=== PATIENT | female | born 1990 | race Caucasian/White ===

== ENCOUNTER 2021-07-18 13:44 | Inpatient (IN) | payer MEDICAID, SELFPAY ==
[2021-07-18] VITALS (7 sets, daily range): BP systolic 111–144; BP diastolic 63–94; PULSE 90–120; RESP 16–18; TEMP 36.6–37.7; O2SAT 91–97; BMI 32.1; BMI 31.7
[2021-07-18 14:13] LABS: Absolute Lymphocyte Count 3.36 X10^3/uL (0.83-4.51); Absolute Neutrophil Count 4.8 X10^3/uL (2.0-7.7); Basophil# 0.03 X10^3/uL; Basophil% 0.3 % (0-1); Eosinophil# 0.09 X10^3/uL; Hematocrit 42.5 % (37-47); Hemoglobin 14.2 g/dL (12.0-15.0); Lymphocyte # 3.36 X10^3/ul (0.83-4.51); Lymphocyte % 38.8 % (19-41); Mean Corp Hgb Conc 33.4 g/dL (32-36); Mean Corpuscular Hgb 30.5 pg (27.0-32.0); Mean Corpuscular Volume 91.2 fL (81-99); Mean Platelet Vol. 9.1 fl (6.2-12.0); Monocyte% 4.6 % (0-10); NRBC Flagged by Analyzer 0 % (0-5); Neutrophil # 4.76 X10^3/uL (2.7-7.7); Neutrophil % 55.1 % (47-70); Platelet Count 281 K/mm3 (150-450); RBC Distribution Width CV 15.5 % (11.6-14.6); RBC Distribution Width SD 51.4 fl (35.1-43.9); Red Blood Count 4.66 M/mm3 (4.2-5.4); White Blood Count 8.7 K/mm3 (4.4-11.0)
[2021-07-18 14:25] LABS: Internal QC Validated? YES +Cl - CLEAR BKGD; Pregnancy, Serum, hCG Quali. NEGATIVE Negative
[2021-07-18 14:29] LABS: Anion Gap 7 (5-15); BUN 5 mg/dL (7-18); BUN/Creat Ratio 11.3 RATIO (10-20); Calcium,Total 8.3 mg/dL (8.5-10.1); Chloride 109 mmol/L (98-107); Creatinine, Serum 0.44 mg/dL (0.55-1.02); EST Glomerular Filtration Rate 176 mL/min (>60); Est Glom Filt Rate - Afr Amer 214 mL/min (>60); Estimated Creatinine Clearance 141.08 ml/min; Glucose 102 mg/dL (74-106); Potassium 3.7 mmol/L (3.5-5.1); Sodium Level 146 mmol/L (136-145)
[2021-07-18 14:37] LABS: Amphetamine Urine VISTA NEGATIVE (<1000 ng/mL); Barbiturate Urine VISTA NEGATIVE (< 200 ng/mL); Benzodiazepine Urine VISTA POSITIVE (< 200 ng/mL); Cocaine Urine VISTA NEGATIVE (< 300 ng/mL); Ecstacy Urine VISTA NEGATIVE (< 500 ng/mL); Methadone Urine VISTA NEGATIVE (< 300 ng/mL); PCP Urine VISTA NEGATIVE (< 25 ng/mL); THC Urine VISTA NEGATIVE (< 50 ng/mL); Vista UDS pH Range 7
--- NOTE | 2021-07-18 15:30 | CM.ED ---
Addendum entered by Cele Fall 07/18/21 19:06: Addiction Therapist, Natalya notified of admission. Original Note: SW Note Referral Source: RAMP program Case Find Referral Reason: Ramp Program SW met with patient and her stepmom, Abbi Casillas. Patient said that she went to [place] this morning for detox but they had a 18-21 hour wait so they came to [facility]. Patient said that she wants to detox from alcohol. Patient's last use of alcohol was 7:00am this morning. Patient said that she had 3 shots of vodka this morning. Patient said that she has been at [facility] 2 x in the past. Patient reports that she got released from [facility] in December 2020. Patient said that she was sober for 8 months. Patient said that she relapsed. Patient said that she was treated at [facility] from 07/07/21- 07/11/21 and patient was not admitted for detox as I have so many medical issues but stated they were treating her for cirrohosis, low blood platelets and an UTI that is still unresolved. Patient said that she has always been admitted to the medical unit and they do the alcohol detox protocol which includes Ativan while on the medical unit. Patient said that her PCP Dr. Quintanilla at [facility] has linked her with a counselor on 08/24/20. Patient has no other outpatient AOD treatment. Patient said that [place] going [place] of [place] for AOD treatment. SW explained the detox/Ramp expectations (no phone, no visitors, personal belongings locked) and patient voiced she had no concerns stating I have done detox before. CELESTINO advised that patient will follow up with Addiction Therapist the following day after admission. Patient asked if she will be admitted for detox or for her medical issues and SW advised that decision will be made by the MD. Plan: GEO VELARDE
[2021-07-18 16:10] LABS: Mucous, Urine 0 SEEN /hpf (<or=2+); White Blood Cells 0 SEEN /hpf (0-5)
[2021-07-18 16:16] LABS: Color, Urine Yellow (Yellow); Glucose, Dipstick Normal (Normal); Ketone-Dipstick Negative (Negative); Leukocyte Esterase-Dipstick Negative /ul (Negative); Nitrite-Dipstick Negative (Negative); Occult Blood-Urine 50 /ul (Negative); Protein-Dipstick 100 mg/dl (Negative); Specific Gravity, Urine 1.015 (1.002-1.030); Urine Bilirubin Dipstick Negative (Negative); Urine Clarity Clear (Clear); Urine Urobilinogen 8 mg/dl (Normal); Urine pH 6.5 (5.0 - 8.0)
--- NOTE | 2021-07-18 16:23 | EDS_ITS ---
HPI History of Present Illness Chief Complaint: ETOH Intox Detail of Chief Complaint: Requesting detox from alcohol Informant: patient Narrative Narrative: Patient presents to the emergency department requesting detox from alcohol. Patient states that she last drank at 7 AM. She normally drinks vodka about 1/5/day. Patient states 2-1/2 weeks ago she was at [facility] for detox and once she got out she started drinking again. She has been drinking heavily for the last week. Patient has history of cirrhosis and history of esophageal varices. She denies fever or cough or recent illness. Patient describes some lower abdominal discomfort with some dysuria and frequency and thinks she may have a UTI. Patient has never had seizures from withdrawal. Patient does feel somewhat nauseated. Prior similar symptoms: Yes [facility] Medical History (Updated 07/18/21 @ 16:[address] Mi Garrido, DO) Alcoholic cirrhosis of liver Esophageal varices Gallstone Social History Smoking Status: Current every day smoker tobacco type: cigarettes ROS ROS ED Constitutional Constitutional ED: Reports systems reviewed and no addt'l complaints, except as documented; Denies body ache(s), change in weight or chills Eyes Eyes: Denies acute decrease in peripheral vision, change in vision, double vision or loss of vision ENT ENT ED: Reports none; Denies ear pain, lip swelling, loss taste/smell, neck pain, otalgia or sore throat Cardiovascular Cardiovascular: Reports none; Denies abdominal pain, chest pain with activity, leg edema, lightheadedness, palpitations, rapid heart rate or syncope Respiratory/Chest Respiratory/Chest: Reports none; Denies change in mental status, dry cough, dyspnea, hemoptysis, shortness of breath at rest or shortness of breath with exertion Gastrointestinal Gastrointestinal: Reports none, abdominal pain and nausea; Denies change in stool character, diarrhea, hematemesis, hematochezia, melena, rectal bleeding or vomiting Genitourinary Genitourinary ED: Reports none and dysuria; Denies abdominal discomfort, anuria, genital pain or polyuria Musculoskeletal Musculoskeletal: Reports none; Denies arthralgias, back pain, difficulty walking, extremity pain, muscle weakness or myalgias Integumentary Reports none; Denies abscess or rash Neurologic Neurologic: Reports none; Denies abnormal gait, confusion, focal weakness, frequent falls, headache(s), loss of vision, numbness, paresthesias, radicular pain, vertigo or weakness Psychiatric Psychiatric: Reports systems reviewed and no addt'l complaints, except as documented and none; Denies behavioral changes, confusion, difficulty concentrating, hallucinations, suicidal ideation, tactile hallucinations or visual hallucinations Endocrine Endocrinology: Denies none, cold intolerance, excessive sweating, fatigue or heat intolerance Hematologic/Lymphatic Hematologic/Lymphatic: Reports none; Denies anemia, easy bleeding or easy bruising Allergic/Immunologic Allergic/Immunologic ED: Denies as per HPI, none, lip swelling, mouth swelling, throat swelling, tongue swelling or hives EXAM Physical Exam Const Vital Signs: 07/18/21 13:46 07/18/21 16:07 Temperature 99.5 F H 98.9 F Temperature Source Temporal Temporal Pulse Rate 120 H 91 Respiratory Rate 18 18 Blood Pressure 144/94 H 133/83 H Blood Pressure Mean 110 99 Blood Pressure Source Monitor Blood Pressure Position Semi-Fowlers Blood Pressure Location Left Arm Pulse Ox 91 97 Oxygen Delivery Method Room Air Room Air Positive well nourished and well developed General Appearance ED: well developed and NAD HEENT Reports TM's clear and moist mucous membranes normocephalic and atraumatic; Negative for trauma or tenderness Tympanic Membrane ED: Yes TM's clear Eyes PERRL and EOMs intact bilaterally General Eye ED: Negative for pale conjunctiva or scleral icterus Neck no lymphadenopathy, supple and no JVD General: Negative for tenderness Chest Wall inspection of chest normal and palpation of chest normal Chest: Negative for tenderness Resp normal respiratory effort and clear to auscultation bilaterally Effort and Inspection: Negative for respiratory distress or pain with movement Auscultation: Negative for rhonchi, wheezes or diminished lung sounds Cardio regular rate, regular rhythm, S1 normal heart sound, S2 normal heart sound and no murmurs Peripheral Pulses: pulses 2+ throughout GI normal to inspection, nondistended, normoactive bowel sounds, soft to palpation, non-tender, non-distended and no masses GI Narrative: Mild diffuse tenderness over the lower abdomen. There is no rebound, rigidity, or peritoneal signs. Back/Spine no CVA tenderness and no thoracic nor lumbar tenderness Extremity normal to inspection General Extremety ED: Negative for edema General Extremity: Negative for edema Neuro oriented x3, CN's II-XII intact bilaterally, no sensory deficits noted and gait normal Sensorium / Orientation: awake, alert, oriented to person, oriented to place and oriented to time Motor Exam: strength 5/5 throughout and strength abnormal Psych mental status grossly normal Skin no rashes or lesions noted and no wounds MDM MDM MDM Narrative Medical decision making narrative: IV line will be established. Patient still has a level of alcohol of 303. Patient will be given Zofran IV. Case discussed with hospitalist will evaluate patient for admission. Lab Data Attestation: I reviewed the patient's lab results. Labs: Laboratory Results - last 24 hr 07/18/21 07/18/21 07/18/21 14:00 14:00 14:00 WBC 8.7 RBC 4.66 Hgb 14.2 Hct 42.5 MCV 91.2 MCH 30.5 MCHC 33.4 RDW Std Deviation 51.4 H RDW Coeff of Lee 15.5 H Plt Count 281 MPV 9.1 Immature Gran % (Auto) 0.200 Neut % (Auto) 55.1 Lymph % (Auto) 38.8 [place] % (Auto) 4.6 Eos % (Auto) 1.0 Baso % (Auto) 0.3 Absolute Neuts (auto) 4.8 Absolute Lymphs (auto) 3.36 Nucleated RBC % 0 Sodium 146 H Potassium 3.7 Chloride 109 H Carbon Dioxide 30.0 Anion Gap 7 BUN 5 L Creatinine 0.44 L Estim Creat Clear Calc 141.08 Est GFR (MDRD) Af Amer 214 Est GFR (MDRD) Non-Af 176 BUN/Creatinine Ratio 11.3 Glucose 102 Calcium 8.3 L Serum , Qual Urine Color Urine Clarity Urine pH Ur Specific [place] Urine Protein Urine Glucose (UA) Urine Ketones Urine Occult Blood Urine Nitrite Urine Bilirubin Urine Urobilinogen Ur Leukocyte Esterase Urine Opiates Screen Urine Methadone Screen Ur Barbiturates Screen Ur Phencyclidine Scrn Ur Amphetamines Screen U Methamphetamin-MDMA U Benzodiazepines Scrn Urine Cocaine Screen U Cannabinoids Screen Ur Drug Screen Comment Ethyl Alcohol 303.0 H* 07/18/21 07/18/21 07/18/21 14:00 14:00 14:00 WBC RBC Hgb Hct MCV MCH MCHC RDW Std Deviation RDW Coeff of Lee Plt Count MPV Immature Gran % (Auto) Neut % (Auto) Lymph % (Auto) [place] % (Auto) Eos % (Auto) Baso % (Auto) Absolute Neuts (auto) Absolute Lymphs (auto) Nucleated RBC % Sodium Potassium Chloride Carbon Dioxide Anion Gap BUN Creatinine Estim Creat Clear Calc Est GFR (MDRD) Af Amer Est GFR (MDRD) Non-Af BUN/Creatinine Ratio Glucose Calcium Serum , Qual NEGATIVE Urine Color Yellow Urine Clarity Clear Urine pH 6.5 Ur Specific [place] 1.015 Urine Protein 100 H Urine Glucose (UA) Normal Urine Ketones Negative Urine Occult Blood 50 H Urine Nitrite Negative Urine Bilirubin Negative Urine Urobilinogen 8 H Ur Leukocyte Esterase Negative Urine Opiates Screen NEGATIVE Urine Methadone Screen NEGATIVE Ur Barbiturates Screen NEGATIVE Ur Phencyclidine Scrn NEGATIVE Ur Amphetamines Screen NEGATIVE U Methamphetamin-MDMA NEGATIVE U Benzodiazepines Scrn POSITIVE H Urine Cocaine Screen NEGATIVE U Cannabinoids Screen NEGATIVE Ur Drug Screen Comment Ethyl Alcohol Discharge Plan Triage Chief Complaint: ETOH Intox ED Provider: Mi Garrido Dx/Rx/DC Orders Clinical Impression: Alcohol intoxication, Admitted to alcohol detoxification center Disposition Disposition: Acute Care Hospital [facility]
[2021-07-18 16:26] LABS: Bacteria RARE /hpf (None Seen); Red Blood Cells-Urine 0-5 SEEN /hpf (0-5); Squamous Epithelial Cells - UA 0-5 SEEN /hpf (5-10)
[2021-07-18 16:28] LABS: Internal QC Validated? YES +Cl - CLEAR BKGD; Pregnancy, Urine Negative Negative
--- NOTE | 2021-07-18 16:35 | HP.PCM.HOS_ITS ---
HPI - General General Date of Admission: 07/18/21 Date of Service: 07/18/21 Chief Complaint: EtOH withdrawal HPI Narrative The patient is a 31 y/o F w/ PMHx: Alcoholic cirrhosis, Hx varices s/p banding, Tobacco use, EtOH Abuse with ongoing 1/5 vodka daily with recent [facility] evaluation 2 weeks prior for EtOH withdrawal treatment with successful 1 week of sobriety however she began drinking again reporting that she was bored and did not have a sponsor, prompting presentation to the [facility] on 07/18/21 w/ noted eagerness for recurrent sobriety with self decrease in alcohol intake with last intake at a 7 AM on day of presentation with onset of mild alcohol withdrawal symptoms starting in the early afternoon with mild nausea, agitation and reporting also bilateral lower abdomen discomfort initially felt potentially consistent with a urinary tract infection. Patient interested in attaining sober status and notes intention to begin with 180 to obtain a sponsor. She reports that her fianc? with whom she lives does drink alcohol is not an alcoholic from discussions. Discussed at length the need for him to completely remove alcohol from the home. Work-up in the ED included T 97.8, heart rate 91, BP 134/76, respiratory rate 16, 97% room air, CBC with WC 8.7, hemoglobin 14.2, platelet 281 without marked shift, BMP with sodium 146, chloride 109, BUN/creatinine 5/0.44, serum testing negative, no hepatic profile was performed in the patient but this is pending, urinalysis with evidence of mild dehydration but no evidence of UTI, UDS with positive benzodiazepines with patient noted to be on BuSpar, alcohol level 303, rapid Covid antigen negative. [facility] Medical History Alcoholic cirrhosis of liver Anxiety and depression Esophageal varices Gallstone Obesity Tobacco use Allergy/AdvReac Type Severity Reaction Status Date / Time No Known Allergies Allergy Verified 07/18/21 16:39 Family History (Updated 07/18/21 @ 17:[address] Lucrecia Ware MD) Mother Alcohol abuse Hypertension Father Alcohol abuse Anxiety and depression Surgical History (Updated 07/18/21 @ 17:[address] Lucrecia Ware MD) History of endoscopic gastrointestinal surgery Social History (Updated 07/18/21 @ 17:[address] Lucrecia Ware MD) household members: significant other Smoking Status: Current every day smoker tobacco type: cigarettes Smoking packs per day: 0.25 Smoking cigarettes per day: 5.0 Years smoked: 15 Smoking pack- years: 3.75 alcohol intake: current alcohol intake frequency: 3 or more drinks per day Alcohol type: hard liquor details: 07/25 vodka daily substance use type: does not use ROS ROS Narrative Admission Review of Systems: CONSTITUTIONAL: No weight loss, fever, chills, + weakness or fatigue. HEENT: Eyes: No visual loss, blurred vision, double vision or yellow sclerae. Ears, Nose, Throat: No hearing loss, sneezing, congestion, runny nose or sore throat. SKIN: No rash or itching, lesions, wounds. CARDIOVASCULAR: No chest pain, chest pressure or chest discomfort, palpitations, edema, orthopnea, syncopal events. RESPIRATORY: No shortness of breath, cough or sputum, wheezing, hemoptysis. GASTROINTESTINAL: + anorexia, bilateral lower quadrant abdominal discomfort, No nausea, vomiting, diarrhea, melena, BRBPR. GENITOURINARY: No dysuria, frequency, urgency or retention. NEUROLOGICAL: + Agitation, mild tremors, No headache, dizziness, syncope, paralysis, ataxia, numbness or tingling in the extremities, focal weakness, change in bowel or bladder control, seizure. MUSCULOSKELETAL: + muscle, back pain, joint pain or stiffness. HEMATOLOGIC: No anemia, bleeding or bruising. LYMPHATICS: No enlarged nodes. No history of splenectomy. PSYCHIATRIC: + history of depression or anxiety. ENDOCRINOLOGIC: No reports of sweating, cold or heat intolerance. No polyuria or polydipsia. ALLERGIES: No history of asthma, hives, eczema or rhinitis. Vital Signs Vital Signs Vital Signs: 07/18/21 13:46 07/18/21 16:07 Temperature 99.5 F H 98.9 F Temperature Source Temporal Temporal Pulse Rate 120 H 91 Respiratory Rate 18 18 Blood Pressure 144/94 H 133/83 H Blood Pressure Mean 110 99 Blood Pressure Source Monitor Blood Pressure Position Semi-Fowlers Blood Pressure Location Left Arm Pulse Ox 91 97 Oxygen Delivery Method Room Air Room Air Weight Weight: 170 lb Body Mass Index (BMI) 32.1 Physical Exam Narrative Physical Examination: General: Awake, alert, oriented x 3 and cooperative, seated upright in the ED bed, mildly agitated, very minimal tremors at this time, notes abdominal discomfort. Skin: Normal color, normal turgor, no icterus, no cyanosis. HEENT: AT/NC, EOMI, PERRLA, mildly dry MM, no carotid bruits or JVD noted. Lungs: CTA bilaterally, moderate effort, mild decrease BL bases, no rales, ronchi or wheezing. Heart: Regular rate and rhythm; no gallop, rub audible. Abdomen: Soft, discomfort to bilateral lower quadrants with no rebound or guarding, no obvious distention, distant mildly hyperactive bowel sounds, positive HM. Extremities: No cyanosis, no clubbing, mild nonpitting bilateral lower extremity ankle to distal vázquez edema. Neurological: Patient awake, alert, oriented as noted, cognitive function intact; pupils equally reactive to light and accommodation, cranial nerves II- XII grossly normal, moving all 4 extremities, no focal deficits, strength mildly global decrease secondary to acute presentation and complaints, mildly tremulous with agitation. Psychiatric: Affect appears anxious, mildly agitated, no acute evidence of depressive feelings. Results Lab / Micro Data Result Diagrams: 07/18/21 14:00 07/18/21 14:00 Labs: Laboratory Results - last 24 hr 07/18/21 14:00: WBC 8.7, RBC 4.66, Hgb 14.2, Hct 42.5, MCV 91.2, MCH 30.5, MCHC 33.4, RDW Std Deviation 51.4 H, RDW Coeff of Lee 15.5 H, Plt Count 281, MPV 9.1, Immature Gran % (Auto) 0.200, Neut % (Auto) 55.1, Lymph % (Auto) 38.8, [place] % (Auto) 4.6, Eos % (Auto) 1.0, Baso % (Auto) 0.3, Absolute Neuts (auto) 4.8, Absolute Lymphs (auto) 3.36, Nucleated RBC % 0 07/18/21 14:00: Sodium 146 H, Potassium 3.7, Chloride 109 H, Carbon Dioxide 30.0, Anion Gap 7, BUN 5 L, Creatinine 0.44 L, Estim Creat Clear Calc 141.08, Est GFR (MDRD) Af Amer 214, Est GFR (MDRD) Non-Af 176, BUN/Creatinine Ratio 11.3, Glucose 102, Calcium 8.3 L 07/18/21 14:00: Ethyl Alcohol 303.0 H* 07/18/21 14:00: Urine Opiates Screen NEGATIVE, Urine Methadone Screen NEGATIVE, Ur Barbiturates Screen NEGATIVE, Ur Phencyclidine Scrn NEGATIVE, Ur Amphetamines Screen NEGATIVE, U Methamphetamin-MDMA NEGATIVE, U Benzodiazepines Scrn POSITIVE H, Urine Cocaine Screen NEGATIVE, U Cannabinoids Screen NEGATIVE, Ur Drug Screen Comment 07/18/21 14:00: Serum , Qual NEGATIVE 07/18/21 14:00: Urine Color Yellow, Urine Clarity Clear, Urine pH 6.5, Ur Specific [place] 1.015, Urine Protein 100 H, Urine Glucose (UA) Normal, Urine Ketones Negative, Urine Occult Blood 50 H, Urine Nitrite Negative, Urine Bilirubin Negative, Urine Urobilinogen 8 H, Ur Leukocyte Esterase Negative, Urine RBC 0-5 SEEN, Urine WBC 0 SEEN, Ur Squamous Epith Cells 0-5 SEEN, Urine Bacteria RARE, Urine Mucus 0 SEEN, Urine Test Negative Micro: Microbiology 07/18/21 14:55 Nasal Secretion SARS-CoV-2 Antigen (Rapid) - Final Assessment & Plan Assessment/Plan (1) Admitted to alcohol detoxification center: (2) Alcohol withdrawal: QUALIFIERS: Complication of substance-induced condition: uncomplic ated Qualified Code(s): F10.230 - Alcohol dependence with withdrawal, unco mplicated PLAN: The patient is a 31 y/o F w/ PMHx: Alcoholic cirrhosis, Hx varices s/p banding, Tobacco use, EtOH Abuse with ongoing 1/5 vodka daily with recent [facility] evaluation 2 weeks prior for EtOH withdrawal treatment with successful 1 week of sobriety however she began drinking again reporting that she was bored and did not have a sponsor, prompting presentation to the [facility] on 07/18/21 w/ noted eagerness for recurrent sobriety with self decrease in alcohol intake with last intake at a 7 AM on day of presentation with onset of mild alcohol withdrawal symptoms starting in the early afternoon with mild nausea, agitation and reporting also bilateral lower abdomen discomfort. #1. Acute EtOH Withdrawal: Will admit to medical surgical floor, routine labs obtained in the ED upon presentation however will add hepatic profile as this has not been performed. Given interest in sobriety, will initiate and continue on protocol with taper course of Phenobarbital, scheduled gabapentin for seizure prophylaxis, as needed Catapres, Bentyl, Vistaril, IV fluids, IV antiemetics, Tylenol as needed for pain. Will consult Case management for assistance for transition to next level of rehabilitation care. Mag, phos pending. Maintain on CIWA protocol concurrently. #2. Bilateral lower quadrant abdominal discomfort: Unclear etiology, urinalysis not marked appearing, will obtain abdominal ultrasound, [place] profile pending. #3. Alcoholic cirrhosis with history of varices: Patient status post banding, denies any specific history of reported and documented GI bleed, hepatic profile has been requested as noted above, encourage continued outpatient follow-up with gastroenterology. #4. Tobacco Abuse: Encouraged cessation, inpatient consultation per RT, NR if d esired. #5. Obesity: Weight loss and lifestyle changes encouraged. #6. Anxiety and depression: Once clarified we will continue patient home citalopram and BuSpar regimen. #7. DVT prophylaxis: Low risk, encourage ambulation. Charges/Coding Visit Charges Inpatient E&M: 61356 Init Hosp L3
--- NOTE | 2021-07-18 16:40 | NURSING ---
MED SURG WHITE ETOH INTOX, REQUEST FOR ALCOHOL DETOX
[2021-07-18] MEDS: Ondansetron 4 MG/2 ML Vial IV (16:58)
[2021-07-18 17:33] LABS: AST(SGOT) 172 U/L (15-37); Alanine Aminotransfer ALT/SGPT 92 U/L (13-56); Albumin, Serum 2.9 g/dL (3.2-5.0); Alkaline Phosphatase 157 U/L (45-117); Bilirubin, Direct 0.36 mg/dL (0.00-0.30); Magnesium 1.9 mg/dL (1.6-2.6); Phosphorus 2.6 mg/dL (2.5-4.9); Protein, Total 6.9 g/dL (6.4-8.2)
[2021-07-18] MEDS: Phenobarbital 32.4 MG Tablet 64.8 MG PO ×2 (18:34→22:50)
[2021-07-18] MEDS: Folic Acid 1 MG Tablet PO (18:34)
--- NOTE | 2021-07-18 19:08 | NURSING ---
ROBBIE FROM [facility] IN [place] CALLED STATING SHE RECEIVED A CALL FROM PT'S MOTHER ABOUT TRANSFERRING PT TO THEIR FACILITY. THIS NURSE INFORMED ROBBIE THAT PT HAS BEEN ADMITTED TO [facility] AND WILL FOLLOW UP WITH [facility]. ROBBIE'S NUMBER IS [phone].
[2021-07-18] MEDS: Multivitamins,Ther W-Minerals Tablet 1 TABLET PO (21:16)
[2021-07-18] MEDS: Acetaminophen 325 MG Tablet 650 MG PO (22:54)
[2021-07-18] MEDS: Dicyclomine 10 MG Capsule 20 MG PO (22:55)
[2021-07-18] MEDS: Ondansetron 8 MG Tablet PO (22:55)
[2021-07-19] VITALS (9 sets, daily range): BP systolic 110–129; BP diastolic 79–86; PULSE 70–99; RESP 16; TEMP 36.2–36.8; O2SAT 93–95
[2021-07-19] MEDS: traZODone 100 MG Tablet PO ×2 (00:12→23:15)
[2021-07-19] MEDS: Phenobarbital 32.4 MG Tablet 64.8 MG PO ×6 (02:36→23:14)
[2021-07-19] MEDS: Gabapentin 300 MG Capsule PO (02:45)
--- NOTE | 2021-07-19 08:17 | PCM.PN.HOSP ---
Subjective Subjective Patient has history of chronic alcohol use and dependence. Patient recently admitted in [facility] about 2 and half weeks ago for acute alcohol withdrawal and had ultrasound. She has been drinking vodka about half bottle daily. History of decompensated alcoholic cirrhosis with esophageal varices status post banding and ascites. Objective Data Objective Data Vital Signs: Vital Signs Temp Pulse Resp BP Pulse Ox 97.9 F 99 16 126/82 H 93 07/19/21 06:16 07/19/21 06:16 07/19/21 06:16 07/19/21 06:16 07/19/21 06:16 Oxygen Delivery Method Room Air Weight: 168 lb Body Mass Index (BMI) 31.7 Lab / Micro Data Result Diagrams: 07/18/21 14:00 07/18/21 14:00 Labs: Laboratory Results - last 24 hr 07/18/21 14:00: WBC 8.7, RBC 4.66, Hgb 14.2, Hct 42.5, MCV 91.2, MCH 30.5, MCHC 33.4, RDW Std Deviation 51.4 H, RDW Coeff of Lee 15.5 H, Plt Count 281, MPV 9.1, Immature Gran % (Auto) 0.200, Neut % (Auto) 55.1, Lymph % (Auto) 38.8, Jenkins % (Auto) 4.6, Eos % (Auto) 1.0, Baso % (Auto) 0.3, Absolute Neuts (auto) 4.8, Absolute Lymphs (auto) 3.36, Nucleated RBC % 0 07/18/21 14:00: Sodium 146 H, Potassium 3.7, Chloride 109 H, Carbon Dioxide 30.0, Anion Gap 7, BUN 5 L, Creatinine 0.44 L, Estim Creat Clear Calc 141.08, Est GFR (MDRD) Af Amer 214, Est GFR (MDRD) Non-Af 176, BUN/Creatinine Ratio 11.3, Glucose 102, Calcium 8.3 L 07/18/21 14:00: Ethyl Alcohol 303.0 H* 07/18/21 14:00: Urine Opiates Screen NEGATIVE, Urine Methadone Screen NEGATIVE, Ur Barbiturates Screen NEGATIVE, Ur Phencyclidine Scrn NEGATIVE, Ur Amphetamines Screen NEGATIVE, U Methamphetamin-MDMA NEGATIVE, U Benzodiazepines Scrn POSITIVE H, Urine Cocaine Screen NEGATIVE, U Cannabinoids Screen NEGATIVE, Ur Drug Screen Comment 07/18/21 14:00: Serum , Qual NEGATIVE 07/18/21 14:00: Urine Color Yellow, Urine Clarity Clear, Urine pH 6.5, Ur Specific [place] 1.015, Urine Protein 100 H, Urine Glucose (UA) Normal, Urine Ketones Negative, Urine Occult Blood 50 H, Urine Nitrite Negative, Urine Bilirubin Negative, Urine Urobilinogen 8 H, Ur Leukocyte Esterase Negative, Urine RBC 0-5 SEEN, Urine WBC 0 SEEN, Ur Squamous Epith Cells 0-5 SEEN, Urine Bacteria RARE, Urine Mucus 0 SEEN, Urine Test Negative 07/18/21 14:00: Phosphorus 2.6, Magnesium 1.9, Total Bilirubin 0.90, Direct Bilirubin 0.36 H, AST 172 H, ALT 92 H, Alkaline Phosphatase 157 H, Total Protein 6.9, Albumin 2.9 L, Globulin 4.0 Micro: Microbiology 07/18/21 14:55 Nasal Secretion SARS-CoV-2 Antigen (Rapid) - Final Physical Exam Narrative General: Alert, Oriented x3, Cooperative HEENT: Atraumatic, PERRLA, EOMI, Normocephalic Oral: No Gingival or Mucosal Lesions/ Ulcerations Neck: Supple, No JVD, Negative Carotid Bruits Lungs: Air entry equal in bilateral lung bases. No crepitation/rhonchi Cardiovascular: Regular rate, Regular Rhythm, Normal S1, Normal S2, No murmurs Abdomen: Soft, mild tenderness present over right upper quadrant and epigastric region. No palpable ascites. Bowel Sounds Present : Mild dysuria. No renal angle tenderness. No suprapubic tenderness. Extremities: No edema, Capillary Refill Less than 3 Seconds Skin: No rashes, No breakdown Musculoskeletal: No Tenderness to Palpation of Joints or Extremities Neurological: Cranial nerves II-XII grossly intact, DTR 2+/4. No tremors. Psych/Mental Status: Normal Affect, Appropriate. Assessment & Plan Assessment/Plan (1) Admitted to alcohol detoxification center: (2) Alcohol withdrawal: QUALIFIERS: Complication of substance-induced condition: uncomplicated Qualified Code(s): F10.230 - Alcohol dependence with withdrawal, uncomplicated PLAN: The patient is a 31 y/o F with history of chronic alcohol use, decompensated alcoholic cirrhosis with esophageal web status post banding and ascites status post paracentesis is being admitted for acute alcohol withdrawal syndrome. #1. Acute EtOH Withdrawal: Admitted to MedSurg floor. On phenobarbitone regimen along with gabapentin, other adjunctive medications as needed to control withdrawal symptoms. #2. Bilateral lower quadrant abdominal discomfort: Patient was started on IV antibiotic for UTI during recent hospitalization [facility] but did not complete it. Still complains of mild to dysuria therefore started on IV ceftriaxone. UA does not show significant pyuria. Urine culture ordered. Ultrasound is ordered. #3. Decompensated alcoholic cirrhosis with history of esophageal varices status post banding and paracentesis: Patient does not have significant clinical ascites. Does not have clinical signs or symptoms of hepatic encephalopathy. Electrolytes potassium magnesium and phosphorus are in normal limit #4. Tobacco Abuse: Encouraged cessation, inpatient consultation per RT, NR if desired. #5. Obesity: Weight loss and lifestyle changes encouraged. #6. Anxiety and depression: patient home citalopram and BuSpar regimen. #7. DVT prophylaxis: Low risk, encourage ambulation. Charges/Coding Visit Charges Inpatient E&M: 32013 Subs Hosp L2
[2021-07-19] MEDS: Thiamine Hydrochloride 100 MG Tablet PO (09:36)
[2021-07-19] MEDS: Multivitamins,Ther W-Minerals Tablet 1 TABLET PO (09:36)
[2021-07-19] MEDS: Folic Acid 1 MG Tablet PO (09:36)
[2021-07-19] MEDS: Dicyclomine 10 MG Capsule 20 MG PO (09:51)
[2021-07-19] MEDS: hydrOXYzine PAM 25 MG Capsule 50 MG PO ×3 (09:51→23:15)
[2021-07-19] MEDS: Ondansetron 8 MG Tablet PO ×2 (09:55→18:47)
[2021-07-19] MEDS: Ceftriaxone 1 GM/50 ML BAG IV (10:52)
[2021-07-19] MEDS: 0.9% Saline Lock 10 ML Syringe IV (10:53)
--- NOTE | 2021-07-19 14:41 | ADDICTION ---
This contract technical writer attempted to meet with PT. PT was asleep upon arrival and woke to verbal queing, however, was unable to participate appropriately due to lethargy and confusion. This contract technical writer will attempt to meet with PT at next visit on 07/20/21.
--- NOTE | 2021-07-19 17:59 | US_ITS ---
STUDY: ABDOMINAL ULTRASOUND REASON FOR EXAM: Female, 31 years old. abdominal pain TECHNIQUE: Transabdominal ultrasound was performed with real-time and static solorio scale imaging. TECHNICAL QUALITY: Adequate. COMPARISON: None. FINDINGS: Liver: The liver measures 19.4 cm. There is a heterogeneous echogenicity of the liver. The bile ducts are within normal limits. There is hepatic color flow. The direction of portal flow is hepatofugal. There is no demonstrated mass lesion. Portal vein measurement: Gallbladder: Normal distended gallbladder. The gallbladder wall measures 2 mm. There is a negative sonographic Anderson''s sign. There is no pericholecystic fluid. There are multiple echogenic structures within the gallbladder, consistent with multiple gallstones. Common Bile Duct (C.B.D.): The common bile duct measures 4 mm. Pancreas: Normal size of the head, body and tail of the pancreas. There is normal echogenicity of the pancreas. There is no demonstrated pancreatic mass or cyst. Spleen: There is splenomegaly. The spleen measures 13.8 cm. Right Kidney: Normal size of the right kidney. The right kidney measures 11.6 cm. Normal renal cortex. The right cortex measures 1.3 cm. There is no demonstrated renal mass or cyst. There is no right hydronephrosis. Left Kidney: Normal size of the left kidney. The left kidney measures 12.2 cm. Normal renal cortex. The left cortex measures 1.0 cm. There is no demonstrated renal mass or cyst. There is no left hydronephrosis. Aorta: No abdominal aortic aneurysm. I.V.C.: The IVC is patent. There is no ascites. US/Abdomen Complete IMPRESSION: 1. Cirrhosis with hepatofugal flow within the portal vein and mild splenomegaly. 2. Cholelithiasis. Electronically Signed: Rolando Fernandez MD at 13:42 EST Tel , Service support ,
[2021-07-19] MEDS: Acetaminophen 325 MG Tablet 650 MG PO (23:14)
[2021-07-20] MEDS: Phenobarbital 32.4 MG Tablet 64.8 MG PO ×6 (02:33→23:20)
[2021-07-20 05:58] VITALS: BP 109/65; PULSE 75; RESP 16; TEMP 36.5; O2SAT 93
[2021-07-20 06:01] VITALS: BP 109/65; PULSE 75; RESP 16; TEMP 36.5; O2SAT 95
--- NOTE | 2021-07-20 09:12 | PN.HOSP_ITS ---
Subjective Subjective Patient has aches and pain that is chronic generalized nonspecific. Alcoholic cirrhosis history. Objective Data Objective Data Vital Signs: Vital Signs Temp Pulse Resp BP Pulse Ox 97.7 F L 75 16 109/65 95 07/20/21 06:01 07/20/21 06:01 07/20/21 06:01 07/20/21 06:01 07/20/21 06:01 Oxygen Delivery Method Room Air Weight: 168 lb Body Mass Index (BMI) 31.7 Intake & Output: Intake and Output for Last 24 Hours 07/18/21 07/19/21 07/20/21 23:59 23:59 23:59 Intake Total 50 / 50 Balance 50 / 50 Lab / Micro Data Result Diagrams: 07/18/21 14:00 07/18/21 14:00 Micro: Microbiology 07/18/21 14:55 Nasal Secretion SARS-CoV-2 Antigen (Rapid) - Final Radiography Diagnostic Testing: Radiology Impression Abdomen Ultrasound 07/19/21 17:59 IMPRESSION: 1. Cirrhosis with hepatofugal flow within the portal vein and mild splenomegaly. 2. Cholelithiasis. Electronically Signed: Rolando Fernandez MD at 13:42 EST Tel , Service support , Physical Exam Narrative General: Alert, Oriented x3, Cooperative HEENT: Mild puffy face. Atraumatic, PERRLA, EOMI, Normocephalic Oral: No Gingival or Mucosal Lesions/ Ulcerations Neck: Supple, No JVD, Negative Carotid Bruits Lungs: Air entry equal in bilateral lung bases. No crepitation/rhonchi Cardiovascular: Regular rate, Regular Rhythm, Normal S1, Normal S2, No murmurs Abdomen: Soft, no tenderness. No palpable ascites. Bowel Sounds Present : Mild dysuria. No renal angle tenderness. No suprapubic tenderness. Extremities: No edema, Capillary Refill Less than 3 Seconds Skin: No rashes, No breakdown Musculoskeletal: No Tenderness to Palpation of Joints or Extremities Neurological: Cranial nerves II-XII grossly intact, DTR 2+/4. No tremors. Psych/Mental Status: Normal Affect, Appropriate. Assessment & Plan Assessment/Plan (1) Admitted to alcohol detoxification center: (2) Alcohol withdrawal: QUALIFIERS: Complication of substance-induced condition: uncomplicated Qualified Code(s): F10.230 - Alcohol dependence with withdrawal, uncomplicated PLAN: The patient is a 31 y/o F with history of chronic alcohol use, decompensated alcoholic cirrhosis with esophageal web status post banding and ascites status post paracentesis is being admitted for acute alcohol withdrawal syndrome. #1. Acute EtOH Withdrawal: Admitted to MedSur floor. On phenobarbitone regimen along with gabapentin, other adjunctive medications as needed to control withdrawal symptoms. 07/20: On phenobarbital continued. Patient has good restful night. #2. Bilateral lower quadrant abdominal discomfort: Patient was started on IV antibiotic for UTI during recent hospitalization [facility] but did not complete it. Still complains of mild to dysuria therefore started on IV ceftriaxone. UA does not show significant pyuria. Urine culture ordered. U ltrasound is ordered. 07/20: Abdominal ultrasound discussed with the patient. Shows cirrhosis with hepatofugal flow. Asymptomatic cholelithiasis. Urine culture pending. #3. Decompensated alcoholic cirrhosis with history of esophageal varices status post banding and paracentesis: Patient does not have significant clinical ascites. Does not have clinical signs or symptoms of hepatic encephalopathy. Electrolytes potassium magnesium and phosphorus are in normal limit #4. Tobacco Abuse: Encouraged cessation, inpatient consultation per RT, NR if desired. #5. Obesity: Weight loss and lifestyle changes encouraged. #6. Anxiety and depression: patient home citalopram and BuSpar regimen. #7. DVT prophylaxis: Low risk, encourage ambulation. Charges/Coding Visit Charges Inpatient E&M: 10132 Subs Hosp L2
[2021-07-20 10:33] VITALS: BP 109/70; PULSE 86; RESP 18; TEMP 36.6; O2SAT 92
[2021-07-20] MEDS: Multivitamins,Ther W-Minerals Tablet 1 TABLET PO (10:38)
[2021-07-20] MEDS: Thiamine Hydrochloride 100 MG Tablet PO (10:38)
[2021-07-20] MEDS: Folic Acid 1 MG Tablet PO (10:38)
[2021-07-20] MEDS: Ceftriaxone 1 GM/50 ML BAG IV (10:42)
--- NOTE | 2021-07-20 11:56 | ADDICTION ---
This health science writer met with PT to conduct ASAM, MSE, AUDIT assessments and to plan for d/c. PT A+Ox4 and participated actively. All assessments completed, faxed to [facility] and placed in PT's chart. PT plans to f/u with [facility] for residential treatment and for follow-up counseling services if approved. PT did indicate a need for transportation post d/c from [facility]. If approved, [facility] will transport on Friday.
[2021-07-20 13:02] VITALS: BP 110/68; PULSE 85; RESP 16; TEMP 36.6; O2SAT 97
--- NOTE | 2021-07-20 13:50 | CASEMGMT ---
SOCIAL WORK Received call from Natalya, Addiction Therapist. Per Natalya, patient has been approved for [facility]. 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 Staff poly. LALA Melara, STILL OPERATOR GIN
[2021-07-20] MEDS: Ondansetron 8 MG Tablet PO (15:55)
[2021-07-20] MEDS: hydrOXYzine PAM 25 MG Capsule 50 MG PO (15:55)
[2021-07-20 15:57] VITALS: BP 122/78; PULSE 85; RESP 18; TEMP 36.7; O2SAT 98
[2021-07-20] MEDS: Gabapentin 300 MG Capsule PO (22:05)
[2021-07-20 23:46] VITALS: BP 135/89; PULSE 98; RESP 18; TEMP 37.1; O2SAT 96
[2021-07-21] MEDS: traZODone 100 MG Tablet PO (00:01)
[2021-07-21] MEDS: Phenobarbital 32.4 MG Tablet 64.8 MG PO ×2 (03:07→08:25)
[2021-07-21 04:22] VITALS: BP 127/78; PULSE 84; RESP 16; TEMP 36.7; O2SAT 95
--- NOTE | 2021-07-21 08:19 | NURSING ---
Addendum entered by Sandra Segovia 07/21/21 08:38: pt also states she never met with Natalya. She came twice but I was sleeping. This nurse stated that Natalya talked with her yesterday about a plan going to [facility]. Pt denies this. Pt states Friday at 7am she has a scope to be done by a New GI doctor and then orientation for a new job at 11am. Original Note: Pt states she had a lousy night. they are telling me I am stuck in here until Friday. I am not detoxing. pt states she has a scope scheduled friday and a new job to start.
[2021-07-21] MEDS: Multivitamins,Ther W-Minerals Tablet 1 TABLET PO (08:25)
[2021-07-21] MEDS: Folic Acid 1 MG Tablet PO (08:26)
[2021-07-21] MEDS: Thiamine Hydrochloride 100 MG Tablet PO (08:26)
[2021-07-21 08:45] VITALS: O2SAT 96
--- NOTE | 2021-07-21 08:55 | NURSING ---
Pt was okay with this nurse calling Abbi her step mother for a ride since pt is leaving [place]. This nurse asked pt what I could say to her step mother as she will probably ask questions. Pt stated, tell her I am not going through detox, I'm good to go home.
--- NOTE | 2021-07-21 08:59 | PCM.DC.SUM ---
Providers Date of Admission: 07/18/21 Date of Discharge: 07/21/21 Primary Care Physician: No Primary Care Phys Reason For Visit: ACUTE ETOH WITHDRAWAL Diagnosis Discharge Diagnosis (1) Admitted to alcohol detoxification center: Status: Acute (2) Alcohol withdrawal: Status: Acute Code(s): F10.239 - Alcohol dependence with withdrawal, unspecified Qualifiers: Complication of substance-induced condition: uncomplicated Qualified Code(s): F10.230 - Alcohol dependence with withdrawal, uncomplicated Hospital Course Summary of Care Provided Hospital Course: The patient is a 31 y/o F with history of chronic alcohol use, decompensated alcoholic cirrhosis with esophageal web status post banding and ascites status post paracentesis is being admitted for acute alcohol withdrawal syndrome. #1. Acute EtOH Withdrawal: Admitted to MedSurg floor. On phenobarbitone regimen along with gabapentin, other adjunctive medications as needed to control withdrawal symptoms. On phenobarbital continued. Patient had good control of symptoms and CIWA score 1. She wants to sign AMA stating she has appointment of EGD, workplace orientation on coming Friday on 07/23/21 although nursing staff found she is not consistent with her statement. Advised to stay to complete treatment when she is eager to sign AMA. #2. Bilateral lower quadrant abdominal discomfort: Patient was started on IV antibiotic for UTI during recent hospitalization [facility] but did not complete it. Still complains of mild to dysuria therefore started on IV ceftriaxone. UA does not show significant pyuria. Abdominal ultrasound discussed with the patient. Shows cirrhosis with hepatofugal flow. Asymptomatic cholelithiasis. Urine culture reported mixed gram-positive and gram-negative organisms less than 1000 consistent with contamination. #3. Decompensated alcoholic cirrhosis with history of esophageal varices status post banding and paracentesis: Patient does not have significant clinical ascites. Does not have clinical signs or symptoms of hepatic encephalopathy. Electrolytes potassium magnesium and phosphorus are in normal limit #4. Tobacco Abuse: Encouraged cessation, inpatient consultation per RT, NR if desired. #5. Obesity: Weight loss and lifestyle changes encouraged. #6. Anxiety and depression: patient home citalopram and BuSpar regimen. #7. DVT prophylaxis: Low risk, encourage ambulation. Patient is signing AMA although advised to stay and complete treatment. She knows the risk of signing AMA. She follows Dr. Mays and has seen in the past. Physical Exam Narrative Seen and examined Patient wants to go home. She was advised and went to the medications phenobarbitone. She states she is not having withdrawal symptoms. As per the nursing staff she has been asking for Ativan although her CIWA score is controlled 1. She has been also demanding cholecystectomy although ultrasound shows asymptomatic cholelithiasis with cirrhosis. She was counseled to stay and complete the treatment but wants to sign AMA General: Alert, Oriented x3, Cooperative HEENT: Facial puffiness resolved atraumatic, PERRLA, EOMI, Normocephalic Oral: No Gingival or Mucosal Lesions/ Ulcerations Neck: Supple, No JVD, Negative Carotid Bruits Lungs: Air entry equal in bilateral lung bases. No crepitation/rhonchi Cardiovascular: Regular rate, Regular Rhythm, Normal S1, Normal S2, No murmurs Abdomen: Soft, no tenderness. No palpable ascites. Bowel Sounds Present. No palpable gallbladder. Anderson sign negative : Mild dysuria. No renal angle tenderness. No suprapubic tenderness. Extremities: No edema, Capillary Refill Less than 3 Seconds Skin: No rashes, No breakdown Musculoskeletal: No Tenderness to Palpation of Joints or Extremities Neurological: Cranial nerves II-XII grossly intact, DTR 2+/4. No tremors. Psych/Mental Status: Normal Affect, Appropriate. Weight / BMI Weight Weight: 168 lb Body Mass Index (BMI) 31.7 ABG / Lab / Microbiology Data Result Diagrams: 07/18/21 14:00 07/18/21 14:00 Microbiology: Microbiology 07/19/21 10:00 Urine, Clean Catch Urine Culture - Preliminary Mixed Gram Pos & Gram Neg Org 07/18/21 14:55 Nasal Secretion SARS-CoV-2 Antigen (Rapid) - Final Meaningful Use Info Meaningful Use Diagnoses (Choose all that apply): None applicable Discharge Plan Admission Admit Date/Time: 07/18/21 16:36 Attending Provider: Catrachito Underwood Primary Care Provider: Care Physician,No Primary Disposition Discharge Orders: Discharge Patient (Routine); Ordered 07/21/21 Ordered By: Dr. Catrachito Underwood Charges/Coding Visit Charges Inpatient E&M: 15289 Disch Hosp
[2021-07-21 09:09] VITALS: BP 133/86; PULSE 88; RESP 16; TEMP 36.7; O2SAT 98
--- NOTE | 2021-07-21 14:25 | NURSING ---
Pt left AMA. Pt said her upcoming endo appointment and new job orientation was more important. Abbi, Pts step mother was called and told by pt to come pick her up she had been released. Pt told Abbi that the doctor let her go home but pt knew she was leaving AMA but not disclose this to her Step mother Abbi.
== END 2021-07-21 13:00 | disposition other institution (70) | DRG 775 ==
LOC: ED 16:55 → MS2 17:12
PROVIDERS: Admitting Provider Family Medicine; Emergency Provider Emergency Medicine; Visit Provider Internal Medicine
DX: F10.229 Alcohol dependence with intoxication, unspecified (principal); Y90.8 Blood alcohol level of 240 mg/100 ml or more; F10.230 Alcohol dependence with withdrawal, uncomplicated; K70.30 Alcoholic cirrhosis of liver without ascites; N39.0 Urinary tract infection, site not specified; E86.0 Dehydration; G89.29 Other chronic pain; Z20.822 Contact with and (suspected) exposure to COVID-19; F32.A Depression, unspecified; F41.9 Anxiety disorder, unspecified; E66.9 Obesity, unspecified; Z68.31 Body mass index [BMI] 31.0-31.9, adult; F17.210 Nicotine dependence, cigarettes, uncomplicated; Z81.1 Family history of alcohol abuse and dependence
CPT/HCPCS: 76700; 80048; 80076; 80307; 81001; 81025; 82077; 83735; 84100; 84703; 85025; 87086; 87088; 87426; 99284; 99406; A4216; J2405

== ENCOUNTER 2021-09-30 16:22 | Inpatient (IN) | payer MEDICAID, SELFPAY ==
[2021-09-30 16:23] VITALS: BP 129/83; PULSE 105; RESP 20; TEMP 36.1; O2SAT 100; BMI 34.6
--- NOTE | 2021-09-30 16:34 | CT_ITS ---
ACR Level 3 findings have been noted. An addendum which confirms receipt of the report will follow. STUDY: CT ABDOMEN AND PELVIS WITHOUT CONTRAST REASON FOR EXAM: Female, 31 years old. RUQ PAIN WITH LIVER CIRROHOSIS AND VARICES RADIATION DOSAGE (If Supplied By Facility): CTDIvol = ( 10.88 ) mGy, DLP = ( 519.15 ) mGycm TECHNIQUE: Transaxial images were obtained from the dome of the diaphragm to the symphysis pubis without oral contrast, and without intravenous contrast. Sagittal and coronal images were reconstructed. Individualized dose optimization techniques were used for this CT. COMPARISON: None. FINDINGS: Lung bases clear. Esophageal versus. Cirrhotic morphology of the liver. Enlarged spleen measuring 14.5 cm in the greatest dimension. Unremarkable pancreas, adrenals, and bilateral kidneys on this unenhanced study. Layering stones in the gallbladder. Apparent mild pericholecystic fat stranding, suspicious for acute cholecystitis in the appropriate clinical setting. Normal appendix. Bowel loops nonobstructed. No free air or free fluid. No adenopathy. No abdominal aortic aneurysm. Sections through the pelvis demonstrate no adnexal mass. Urinary bladder grossly unremarkable. Posterior disc bulge at L5-S1. No acute fracture in the regional skeleton. CT/Abdomen/Pelvis without Cont IMPRESSION: Cholelithiasis with questionable mild pericholecystic fat stranding, suspicious for acute cholecystitis. HIDA scan may be obtained to confirm if clinically indicated. Cirrhosis with multiple megaly and esophageal varices. Normal appendix. No ascites. Electronically Signed: Kishan Lindo MD at 18:11 EDT ,
--- NOTE | 2021-09-30 16:34 | ED.VIS.FEGU ---
HPI HPI - Female History of Present Illness Chief Complaint: Female C/O Detail of Chief Complaint: Abdominal pain Informant: patient Pain Current Severity: 8/10 Bleeding Onset: Today Narrative Narrative: Patient presents with abdominal pain that started this morning while in [place]. She describes pain to the left lower quadrant. Patient states that she has had problems with ovarian cyst before and history of PCOS and thinks she may have had a cyst that may be burst. She rates her pain an 8 out of 10 currently. She is had some nausea and some vomiting with this. Patient also has noted some blood in her urine. She describes frequency but no dysuria. She denies any fevers. She denies any diarrhea. No history of kidney stones. Patient does have history of cirrhosis of the liver and history of esophageal varices. Prior similar symptoms: Yes PFSH PFSH Medical History Alcoholic cirrhosis of liver Anxiety and depression Esophageal varices Gallstone Obesity Tobacco use Home Medications buspirone mg 09/30/21 [History Last Taken Unknown] escitalopram oxalate mg 09/30/21 [History Last Taken Unknown] thiamine HCl (vitamin B1) 09/30/21 [History Last Taken Unknown] tizanidine mg 09/30/21 [History Last Taken Unknown] Allergy/AdvReac Type Severity Reaction Status Date / Time No Known Allergies Allergy Verified 09/30/21 16:23 Family History Mother Alcohol abuse Hypertension Father Alcohol abuse Anxiety and depression Surgical History History of endoscopic gastrointestinal surgery Social History (Updated 07/18/21 @ 17:[address] Lucrecia Ware MD) household members: significant other Smoking Status: Current every day smoker tobacco type: cigarettes alcohol intake: current alcohol intake frequency: 3 or more drinks per day Alcohol type: hard liquor details: 07/25 vodka daily substance use type: does not use ROS ROS ED Constitutional Constitutional ED: Reports systems reviewed and no addt'l complaints, except as documented; Denies body ache(s), change in weight or chills Eyes Eyes: Denies acute decrease in peripheral vision, change in vision, double vision or loss of vision ENT ENT ED: Reports none; Denies ear pain, lip swelling, loss taste/smell, neck pain, otalgia or sore throat Cardiovascular Cardiovascular: Reports none; Denies abdominal pain, chest pain with activity, leg edema, lightheadedness, palpitations, rapid heart rate or syncope Respiratory/Chest Respiratory/Chest: Reports none; Denies change in mental status, dry cough, dyspnea, hemoptysis, shortness of breath at rest or shortness of breath with exertion Gastrointestinal Gastrointestinal: Reports none, abdominal pain, nausea and vomiting; Denies change in stool character, diarrhea, hematemesis, hematochezia, melena or rectal bleeding Genitourinary Genitourinary ED: Reports none and hematuria; Denies abdominal discomfort, anuria, dysuria, genital pain or polyuria Musculoskeletal Musculoskeletal: Reports none; Denies arthralgias, back pain, difficulty walking, extremity pain, muscle weakness or myalgias Integumentary Reports none; Denies abscess or rash Neurologic Neurologic: Reports none; Denies abnormal gait, confusion, focal weakness, frequent falls, headache(s), loss of vision, numbness, paresthesias, radicular pain, vertigo or weakness Psychiatric Psychiatric: Reports systems reviewed and no addt'l complaints, except as documented and none; Denies behavioral changes, confusion, difficulty concentrating, hallucinations, suicidal ideation, tactile hallucinations or visual hallucinations Endocrine Endocrinology: Denies none, cold intolerance, excessive sweating, fatigue or heat intolerance Hematologic/Lymphatic Hematologic/Lymphatic: Reports none; Denies anemia, easy bleeding or easy bruising Allergic/Immunologic Allergic/Immunologic ED: Denies as per HPI, none, lip swelling, mouth swelling, throat swelling, tongue swelling or hives EXAM Physical Exam Const Vital Signs: 09/30/21 16:23 Temperature 96.9 F L Temperature Source Temporal Pulse Rate 105 H Respiratory Rate 20 H Blood Pressure 129/83 H Blood Pressure Mean 98 Pulse Ox 100 Oxygen Delivery Method Room Air Positive well nourished and well developed General Appearance ED: well developed and NAD HEENT Reports TM's clear and moist mucous membranes normocephalic and atraumatic; Negative for trauma or tenderness Tympanic Membrane ED: Yes TM's clear Eyes PERRL and EOMs intact bilaterally General Eye ED: Negative for pale conjunctiva or scleral icterus Neck no lymphadenopathy, supple and no JVD General: Negative for tenderness Chest Wall inspection of chest normal and palpation of chest normal Chest: Negative for tenderness Resp normal respiratory effort and clear to auscultation bilaterally Effort and Inspection: Negative for respiratory distress or pain with movement Auscultation: Negative for rhonchi, wheezes or diminished lung sounds Cardio regular rate, regular rhythm, S1 normal heart sound, S2 normal heart sound and no murmurs Peripheral Pulses: pulses 2+ throughout GI normal to inspection, nondistended, normoactive bowel sounds, soft to palpation, non-distended and no masses GI Narrative: Patient with tenderness over left lower quadrant with some guarding. There is no rebound, rigidity, or peritoneal signs. Patient also with some tenderness over the right upper quadrant. Back/Spine no CVA tenderness and no thoracic nor lumbar tenderness Extremity normal to inspection General Extremety ED: Negative for edema General Extremity: Negative for edema Neuro oriented x3, CN's II-XII intact bilaterally, no sensory deficits noted and gait normal Sensorium / Orientation: awake, alert, oriented to person, oriented to place and oriented to time Motor Exam: strength 5/5 throughout and strength abnormal Psych mental status grossly normal Skin no rashes or lesions noted and no wounds MDM MDM MDM Narrative Medical decision making narrative: IV line established on arrival. Patient was medicated with morphine and Zofran and she continued to complain of pain and was given Dilaudid 1 mg IV. Patient continues to complain of not feeling well. CT scan of the abdomen pelvis showed cholelithiasis with some abril-Hannah cystic fluid possible and stranding. Concern for possible acute cholecystitis. I discussed case with general surgeon on-call Dr. Salazar who presented to the emergency department to evaluate patient for admission. No other acute findings noted in the left lower quadrant. Lab Data Attestation: I reviewed the patient's lab results. Labs: Laboratory Results - last 24 hr 09/30/21 09/30/21 09/30/21 16:53 16:53 16:53 WBC 6.5 RBC 3.95 L Hgb 12.4 Hct 36.1 L MCV 91.4 MCH 31.4 MCHC 34.3 RDW Std Deviation 47.9 H RDW Coeff of Lee 14.2 Plt Count 132 L MPV 9.8 Immature Gran % (Auto) 0.500 Neut % (Auto) 72.4 H Lymph % (Auto) 18.6 L [place] % (Auto) 6.0 Eos % (Auto) 2.3 Baso % (Auto) 0.2 Absolute Neuts (auto) 4.7 Absolute Lymphs (auto) 1.21 Nucleated RBC % 0 Sodium 140 Potassium 3.7 Chloride 108 H Carbon Dioxide 28.0 Anion Gap 4 L BUN 8 Creatinine 0.60 Estim Creat Clear Calc 103.46 Est GFR (MDRD) Af Amer 151 Est GFR (MDRD) Non-Af 125 BUN/Creatinine Ratio 13.4 Glucose 109 H Calcium 8.8 Total Bilirubin 0.70 AST 42 H ALT 45 Alkaline Phosphatase 106 Total Protein 6.6 Albumin 3.3 Globulin 3.3 Albumin/Globulin Ratio 1.0 Serum , Qual NEGATIVE Urine Color Urine Clarity Urine pH Ur Specific [place] Urine Protein Urine Glucose (UA) Urine Ketones Urine Occult Blood Urine Nitrite Urine Bilirubin Urine Urobilinogen Ur Leukocyte Esterase Urine RBC Urine WBC Ur Squamous Epith Cells Urine Bacteria Urine Mucus 09/30/21 17:00 WBC RBC Hgb Hct MCV MCH MCHC RDW Std Deviation RDW Coeff of Lee Plt Count MPV Immature Gran % (Auto) Neut % (Auto) Lymph % (Auto) [place] % (Auto) Eos % (Auto) Baso % (Auto) Absolute Neuts (auto) Absolute Lymphs (auto) Nucleated RBC % Sodium Potassium Chloride Carbon Dioxide Anion Gap BUN Creatinine Estim Creat Clear Calc Est GFR (MDRD) Af Amer Est GFR (MDRD) Non-Af BUN/Creatinine Ratio Glucose Calcium Total Bilirubin AST ALT Alkaline Phosphatase Total Protein Albumin Globulin Albumin/Globulin Ratio Serum , Qual Urine Color Yellow Urine Clarity Clear Urine pH 8.0 Ur Specific [place] 1.015 Urine Protein 30 H Urine Glucose (UA) Normal Urine Ketones Negative Urine Occult Blood 150 H Urine Nitrite Negative Urine Bilirubin Negative Urine Urobilinogen Normal Ur Leukocyte Esterase Negative Urine RBC 0-5 SEEN Urine WBC 0 SEEN Ur Squamous Epith Cells 0 SEEN Urine Bacteria RARE Urine Mucus 0 SEEN Radiography Diagnostic Testing: Clinical Impression(s) from Imaging Studies Abdomen/Pelvis CT 09/30/21 16:34 IMPRESSION: Cholelithiasis with questionable mild pericholecystic fat stranding, suspicious for acute cholecystitis. HIDA scan may be obtained to confirm if clinically indicated. Cirrhosis with multiple megaly and esophageal varices. Normal appendix. No ascites. Electronically Signed: Kishan Lindo MD at 18:11 EDT Reading Location ID and State: [facility] / [place] Tel , Service support , Discharge Plan Triage Chief Complaint: Female C/O Other Complaint: Lower Extremity Injury ED Provider: Mi Garrido Dx/Rx/DC Orders Clinical Impression: Abdominal pain, Biliary colic, Intractable abdominal pain Prescriptions: No Action tizanidine 4 mg tablet RF: 0 thiamine HCl (vitamin B1) 100 mg tablet RF: 0 buspirone 10 mg tablet RF: 0 escitalopram oxalate 20 mg tablet RF: 0 Disposition Disposition: Acute Care Hospital [facility]
[2021-09-30] MEDS: Ondansetron 4 MG/2 ML Vial IV (16:56)
[2021-09-30] MEDS: Morphine 4 MG/ML Syringe IV (16:56)
[2021-09-30 17:04] LABS: Absolute Lymphocyte Count 1.21 X10^3/uL (0.83-4.51); Absolute Neutrophil Count 4.7 X10^3/uL (2.0-7.7); Basophil# 0.01 X10^3/uL; Basophil% 0.2 % (0-1); Eosinophil# 0.15 X10^3/uL; Eosinophils% 2.3 % (0-5); Hematocrit 36.1 % (37-47); Hemoglobin 12.4 g/dL (12.0-15.0); Lymphocyte # 1.21 X10^3/ul (0.83-4.51); Lymphocyte % 18.6 % (19-41); Mean Corp Hgb Conc 34.3 g/dL (32-36); Mean Corpuscular Hgb 31.4 pg (27.0-32.0); Mean Corpuscular Volume 91.4 fL (81-99); Mean Platelet Vol. 9.8 fl (6.2-12.0); Monocyte# 0.39 X10^3/uL; NRBC Flagged by Analyzer 0 % (0-5); Neutrophil # 4.71 X10^3/uL (2.7-7.7); Neutrophil % 72.4 % (47-70); Platelet Count 132 K/mm3 (150-450); RBC Distribution Width CV 14.2 % (11.6-14.6); RBC Distribution Width SD 47.9 fl (35.1-43.9); Red Blood Count 3.95 M/mm3 (4.2-5.4); White Blood Count 6.5 K/mm3 (4.4-11.0)
[2021-09-30] MEDS: 0.9% Normal Saline 1,000 ML 125 ML IV (17:06)
[2021-09-30 17:15] LABS: Mucous, Urine 0 SEEN /hpf (<or=2+); Squamous Epithelial Cells - UA 0 SEEN /hpf (5-10); White Blood Cells 0 SEEN /hpf (0-5)
[2021-09-30 17:16] LABS: Color, Urine Yellow (Yellow); Glucose, Dipstick Normal (Normal); Ketone-Dipstick Negative (Negative); Leukocyte Esterase-Dipstick Negative /ul (Negative); Nitrite-Dipstick Negative (Negative); Occult Blood-Urine 150 /ul (Negative); Protein-Dipstick 30 mg/dl (Negative); Specific Gravity, Urine 1.015 (1.002-1.030); Urine Bilirubin Dipstick Negative (Negative); Urine Clarity Clear (Clear); Urine Urobilinogen Normal (Normal)
[2021-09-30 17:22] LABS: Internal QC Validated? YES +Cl - CLEAR BKGD; Pregnancy, Serum, hCG Quali. NEGATIVE Negative
[2021-09-30 17:22] LABS: Bacteria RARE /hpf (None Seen); Red Blood Cells-Urine 0-5 SEEN /hpf (0-5)
[2021-09-30 17:27] LABS: AST(SGOT) 42 U/L (15-37); Alanine Aminotransfer ALT/SGPT 45 U/L (13-56); Albumin, Serum 3.3 g/dL (3.2-5.0); Alkaline Phosphatase 106 U/L (45-117); Anion Gap 4 (5-15); BUN 8 mg/dL (7-18); BUN/Creat Ratio 13.4 RATIO (10-20); Calcium,Total 8.8 mg/dL (8.5-10.1); Chloride 108 mmol/L (98-107); EST Glomerular Filtration Rate 125 mL/min (>60); Est Glom Filt Rate - Afr Amer 151 mL/min (>60); Estimated Creatinine Clearance 103.46 ml/min; Globulin 3.3 g/dL (2.2-4.2); Glucose 109 mg/dL (74-106); Potassium 3.7 mmol/L (3.5-5.1); Protein, Total 6.6 g/dL (6.4-8.2); Sodium Level 140 mmol/L (136-145)
[2021-09-30] MEDS: HYDROmorphone 1 MG/ML Syringe IV (17:48)
--- NOTE | 2021-09-30 18:55 | CON.PCM.HO_ITS ---
Assessment & Plan Assessment/Plan (1) Abdominal pain, RUQ: PLAN: The patient is a 31 y/o F w/ PMHx: Advanced liver cirrhosis currently being evaluated for Transplant list following w/ Dr. Batsheva MANUEL at [place], History of EtOH abuse (prior 07/25 vodka at least daily, sober x 4 months), Hx esophageal varices s/p banding 2019, Obesity, Anxiety and Depression, Tobacco use who presents to the [facility] ED on 09/30/21 with history of ongoing intermittent right upper quadrant discomfort however it has been not severe until the last 24 hours with severe at its worst tentative 10 sharp stabbing knifelike pain in the right upper quadrant with associated nausea and emesis. #1. Acute RUQ Pain, Possible Acute Cholecystitis complicated by #2: Patient being admitted to [place] per Primary service Dr. Salazar General Surgery, maintain on IVFs, clears per discretion of admitting physician, will add PPI, IV/po pain control, CMP. Noted planned HIDA scan per primary. Maintained on IV zosyn. #2. EtOH cirrhosis w/ Esophageal Varies Hx: Hx prior banding 2019, following w/ Dr. Herman at [place], currently being evaluated for possible transplant, notes she is now stage IV, maintain on PPI, encourage continued sobriet. #3. Former alcohol abuse: Patient sober now x4 months, strongly encouraged continued sobriety especially given escalating cirrhotic disease with current evaluation for transplant potential. #4. Tobacco Abuse: Encouraged cessation, inpatient consultation per RT, NR if desired. #5. Anxiety and depression: We will continue patient home escitalopram and BuSpar once clarified. #6. DVT prophylaxis: Per discretion of primary physician general surgeon given planned possible OR with HIDA scan pending HPI Consult Data Date of Consult: 09/30/21 Attending Care Provider: Dr. Salazar HPI Narrative Reason for Consultation: Medical consultation HPI Narrative: The patient is a 31 y/o F w/ PMHx: Advanced liver cirrhosis currently being evaluated for Transplant list following w/ Dr. Batsheva MANUEL at [facility], History of EtOH abuse (prior 07/25 vodka at least daily, sober x 4 months), Hx esophageal varices s/p banding 2019, Obesity, Anxiety and Depression, Tobacco use who presents to the [facility] ED on 09/30/21 with history of ongoing intermittent right upper quadrant discomfort however it has been not se dian until the last 24 hours with severe at its worst tentative 10 sharp stabbing knifelike pain in the right upper quadrant with associated nausea and emesis constant in nature with no fevers or chills nor any diarrhea or alteration to her bowels prompting ED evaluation. Work-up in the ED included T 98.7, heart rate 84, BP 164/80, respiratory rate 16, 99% on room air, CBC with WC 6.5, hemoglobin 12.4, platelet 132 without marked shift, CMP unremarkable aside glucose 109, total bilirubin 0.70, AST/LT 42/45, alk phos 106, negative testing, urinalysis with evidence of mild dehydration otherwise no acute findings, CT abdomen pelvis with cholelithiasis with questionable mild pericholecystic fat stranding suspicious for acute cholecystitis, cirrhosis with cirrhotic morphology of the liver and an enlarged spleen with evidence of esophageal varices. In the ED patient ministered Zofran, morphine, Dilaudid as well as normal saline. PFSH Medical History Alcoholic cirrhosis of liver Anxiety and depression Esophageal varices Gallstone Obesity Tobacco use Home Medications buspirone mg 09/30/21 [History Last Taken Unknown] escitalopram oxalate mg 09/30/21 [History Last Taken Unknown] thiamine HCl (vitamin B1) 09/30/21 [History Last Taken Unknown] tizanidine mg 09/30/21 [History Last Taken Unknown] Allergy/AdvReac Type Severity Reaction Status Date / Time No Known Allergies Allergy Verified 09/30/21 16:23 Family History Mother Alcohol abuse Hypertension Father Alcohol abuse Anxiety and depression Surgical History History of endoscopic gastrointestinal surgery Social History (Updated 09/30/21 @ 19:[address] Lucrecia Ware MD) household members: other details: Recently following sobriety start moved with parents, broke with boyfriend. Smoking Status: Current every day smoker tobacco type: cigarettes Smoking packs per day: 0.5 Smoking cigarettes per day: 10.0 Years smoked: 15 Smoking pack- years: 7.50 quit status: considering quitting alcohol intake: former details: Prior 07/25 vodka daily, now sober x 4 months. substance use type: does not use ROS ROS Narrative Admission Review of Systems: CONSTITUTIONAL: No weight loss, fever, chills, + weakness or fatigue. HEENT: Eyes: No visual loss, blurred vision, double vision or yellow sclerae. Ears, Nose, Throat: No hearing loss, sneezing, congestion, runny nose or sore throat. SKIN: No rash or itching, lesions, wounds. CARDIOVASCULAR: No chest pain, chest pressure or chest discomfort, palpitations, edema, orthopnea, syncopal events. RESPIRATORY: No shortness of breath, cough or sputum, wheezing, hemoptysis. GASTROINTESTINAL: + Anorexia, nausea, vomiting, abdominal pain, No diarrhea, melena, BRBPR. GENITOURINARY: No dysuria, frequency, urgency or retention. NEUROLOGICAL: No headache, dizziness, syncope, paralysis, ataxia, numbness or tingling in the extremities, focal weakness, change in bowel or bladder control, seizure. MUSCULOSKELETAL: + muscle, back pain, joint pain or stiffness. HEMATOLOGIC: + Hx anemia, bleeding or bruising. LYMPHATICS: No enlarged nodes. No history of splenectomy. PSYCHIATRIC: + history of depression or anxiety. ENDOCRINOLOGIC: No reports of sweating, cold or heat intolerance. No polyuria or polydipsia. ALLERGIES: No history of asthma, hives, eczema or rhinitis. Physical Exam Narrative Physical Examination: General: Awake, alert, oriented x 3 and cooperative, seated upright in the ED bed, fatigued, mildly uncomfortable, notes pain currently 6-7 out of 10 in s everity but improving following pain regimen Skin: Normal color, normal turgor, no icterus, no cyanosis. HEENT: AT/NC, EOMI, PERRLA, moderately dry MM, no carotid bruits or JVD noted. Lungs: Diminished, greater bases, poor effort no rales, ronchi or wheezing. Heart: Currently regular rate and rhythm; no gallop, rub audible. Abdomen: Soft, obese, epigastric but primarily right upper quadrant tenderness to palpation with voluntary guarding and mild rebound, no obvious distention, mildly distant hypoactive bowel sounds, positive HM. Extremities: No cyanosis, clubbing, or edema. Neurological: Patient awake, alert, oriented as noted, cognitive function intact; pupils equally reactive to light and accommodation, cranial nerves II- XII grossly normal, moving all 4 extremities, no focal deficits, strength moderately to severely decreased secondary to acute presentation of pain. Psychiatric: Affect appears fatigued, uncomfortable, no acute evidence of depressive or anxiety feelings but history. Lab / Micro Data Result Diagrams: 09/30/21 16:53 09/30/21 16:53 Labs: Laboratory Results - last 24 hr 09/30/21 16:53: WBC 6.5, RBC 3.95 L, Hgb 12.4, Hct 36.1 L, MCV 91.4, MCH 31.4, MCHC 34.3, RDW Std Deviation 47.9 H, RDW Coeff of Lee 14.2, Plt Count 132 L, MPV 9.8, Immature Gran % (Auto) 0.500, Neut % (Auto) 72.4 H, Lymph % (Auto) 18.6 L, [place] % (Auto) 6.0, Eos % (Auto) 2.3, Baso % (Auto) 0.2, Absolute Neuts (auto) 4.7, Absolute Lymphs (auto) 1.21, Nucleated RBC % 0 09/30/21 16:53: Sodium 140, Potassium 3.7, Chloride 108 H, Carbon Dioxide 28.0, Anion Gap 4 L, BUN 8, Creatinine 0.60, Estim Creat Clear Calc 103.46, Est GFR (MDRD) Af Amer 151, Est GFR (MDRD) Non-Af 125, BUN/Creatinine Ratio 13.4, Gluc ose 109 H, Calcium 8.8, Total Bilirubin 0.70, AST 42 H, ALT 45, Alkaline Phosphatase 106, Total Protein 6.6, Albumin 3.3, Globulin 3.3, Albumin/Globulin Ratio 1.0 09/30/21 16:53: Serum , Qual NEGATIVE 09/30/21 17:00: Urine Color Yellow, Urine Clarity Clear, Urine pH 8.0, Ur Specific [place] 1.015, Urine Protein 30 H, Urine Glucose (UA) Normal, Urine Ketones Negative, Urine Occult Blood 150 H, Urine Nitrite Negative, Urine Bilirubin Negative, Urine Urobilinogen Normal, Ur Leukocyte Esterase Negative, Urine RBC 0-5 SEEN, Urine WBC 0 SEEN, Ur Squamous Epith Cells 0 SEEN, Urine Bacteria RARE, Urine Mucus 0 SEEN Radiology Impression Abdomen/Pelvis CT 09/30/21 16:34 IMPRESSION: Cholelithiasis with questionable mild pericholecystic fat stranding, suspicious for acute cholecystitis. HIDA scan may be obtained to confirm if clinically indicated. Cirrhosis with multiple megaly and esophageal varices. Normal appendix. No ascites. Electronically Signed: Kishan Lindo MD at 18:11 EDT , Charges/Coding Visit Charges Office Visits / Consults: [id number] OP Consult L4
--- NOTE | 2021-09-30 18:56 | EX.PCM.CON.S ---
Assessment & Plan Assessment/Plan (1) Abdominal pain, RUQ: (2) LLQ abdominal pain: PLAN: We will admit the patient tonight IV hydration will obtain a HIDA scan tomorrow. We will obtain consultation with hospitalist to help manage her depression as well as help prevent any potential alcohol withdrawal. HPI Consult Data Date of Consult: 09/30/21 HPI Narrative HPI Narrative: KANNAN SARAH, is a 31 F who presents with abdominal pain that started this morning while in [place]. She describes pain to the left lower quadrant. Patient states that she has had problems with ovarian cyst before and history of PCOS and thinks she may have had a cyst that may be burst. She rates her pain an 8 out of 10 currently. She is had some nausea and some vomiting with this. Patient also has noted some blood in her urine. She describes frequency but no dysuria. She denies any fevers. She denies any diarrhea. No history of kidney stones. Patient does have history of cirrhosis of the liver and history of esophageal varices. Prior similar symptoms: Yes PFSH Medical History Alcoholic cirrhosis of liver Anxiety and depression Esophageal varices Gallstone Obesity Tobacco use Home Medications buspirone mg 09/30/21 [History Last Taken Unknown] escitalopram oxalate mg 09/30/21 [History Last Taken Unknown] thiamine HCl (vitamin B1) 09/30/21 [History Last Taken Unknown] tizanidine mg 09/30/21 [History Last Taken Unknown] Allergy/AdvReac Type Severity Reaction Status Date / Time No Known Allergies Allergy Verified 09/30/21 16:23 Family History Mother Alcohol abuse Hypertension Father Alcohol abuse Anxiety and depression Surgical History History of endoscopic gastrointestinal surgery Social History household members: significant other Smoking Status: Current every day smoker tobacco type: cigarettes alcohol intake: current alcohol intake frequency: 3 or more drinks per day Alcohol type: hard liquor details: 07/25 vodka daily substance use type: does not use ROS Constitutional Constitutional: Denies chills or fever(s) ENT HEENT: Denies dysphagia Cardiovascular Cardiovascular: Denies chest pain Respiratory/Chest Respiratory/Chest: Denies cough or dyspnea Gastrointestinal Gastrointestinal: Reports abdominal pain, hematemesis, nausea and vomiting; Denies constipation or diarrhea Genitourinary Genitourinary: Reports change in urinary stream Physical Exam Const alert, oriented x3 and no apparent distress General Appearance: cooperative HEENT normocephalic and head/scalp atraumatic Eyes PERRL and EOMs intact bilaterally Resp normal respiratory effort and clear to auscultation bilaterally Cardio Rate: regular rate Rhythm: regular rhythm GI soft to palpation GI Narrative: No rebound guarding or peritoneal signs Palpation: tender LLQ and RUQ Skin General Skin Exam: no breakdown Rashes: no rashes Lab / Micro Data Result Diagrams: 09/30/21 16:53 09/30/21 16:53 Labs: Laboratory Results - last 24 hr 09/30/21 16:53: WBC 6.5, RBC 3.95 L, Hgb 12.4, Hct 36.1 L, MCV 91.4, MCH 31.4, MCHC 34.3, RDW Std Deviation 47.9 H, RDW Coeff of Lee 14.2, Plt Count 132 L, MPV 9.8, Immature Gran % (Auto) 0.500, Neut % (Auto) 72.4 H, Lymph % (Auto) 18.6 L, [place] % (Auto) 6.0, Eos % (Auto) 2.3, Baso % (Auto) 0.2, Absolute Neuts (auto) 4.7, Absolute Lymphs (auto) 1.21, Nucleated RBC % 0 09/30/21 16:53: Sodium 140, Potassium 3.7, Chloride 108 H, Carbon Dioxide 28.0, Anion Gap 4 L, BUN 8, Creatinine 0.60, Estim Creat Clear Calc 103.46, Est GFR (MDRD) Af Amer 151, Est GFR (MDRD) Non-Af 125, BUN/Creatinine Ratio 13.4, Glucose 109 H, Calcium 8.8, Total Bilirubin 0.70, AST 42 H, ALT 45, Alkaline Phosphatase 106, Total Protein 6.6, Albumin 3.3, Globulin 3.3, Albumin/Globulin Ratio 1.0 09/30/21 16:53: Serum , Qual NEGATIVE 09/30/21 17:00: Urine Color Yellow, Urine Clarity Clear, Urine pH 8.0, Ur Specific [place] 1.015, Urine Protein 30 H, Urine Glucose (UA) Normal, Urine Ketones Negative, Urine Occult Blood 150 H, Urine Nitrite Negative, Urine Bilirubin Negative, Urine Urobilinogen Normal, Ur Leukocyte Esterase Negative, Urine RBC 0-5 SEEN, Urine WBC 0 SEEN, Ur Squamous Epith Cells 0 SEEN, Urine Bacteria RARE, Urine Mucus 0 SEEN Radiology Impression Abdomen/Pelvis CT 09/30/21 16:34 IMPRESSION: Cholelithiasis with questionable mild pericholecystic fat stranding, suspicious for acute cholecystitis. HIDA scan may be obtained to confirm if clinically indicated. Cirrhosis with multiple megaly and esophageal varices. Normal appendix. No ascites. Electronically Signed: Kishan Lindo MD at 18:11 EDT ,
[2021-09-30 19:08] VITALS: BP 164/80; PULSE 84; RESP 16; TEMP 37.1; O2SAT 99
[2021-09-30 19:31] LABS: Magnesium 1.6 mg/dL (1.6-2.6); Phosphorus 3.1 mg/dL (2.5-4.9)
[2021-09-30 19:52] VITALS: BMI 34.7
[2021-09-30 19:54] VITALS: BP 112/80; PULSE 91; RESP 16; TEMP 36.8; O2SAT 100
[2021-09-30] MEDS: 0.9% Normal Saline 1,000 ML 100 ML IV (20:27)
[2021-09-30] MEDS: Pantoprazole Sodium 40 MG Tablet PO (20:28)
[2021-09-30] MEDS: HYDROmorphone 0.5 MG/0.5 ML SYRINGE IV ×2 (20:28→23:10)
[2021-09-30] MEDS: Piperacil/Tazobactam 3.375 GM Q8 PREMIX IV (20:29)
[2021-09-30] MEDS: oxyCODONE 5 MG Tablet PO (21:31)
[2021-09-30] MEDS: Acetaminophen 325 MG Tablet 650 MG PO (21:31)
[2021-09-30] MEDS: traZODone 100 MG Tablet PO (23:08)
[2021-10-01] MEDS: MELATONIN 10 MG TABLET 5 MG PO ×2 (00:33→20:52)
[2021-10-01] MEDS: busPIRone 5 MG Tablet 20 MG PO ×2 (00:33→20:57)
[2021-10-01 01:54] VITALS: BP 100/59; PULSE 63; RESP 16; TEMP 36.6; O2SAT 98
[2021-10-01] MEDS: HYDROmorphone 0.5 MG/0.5 ML SYRINGE IV ×5 (03:48→17:07)
[2021-10-01] MEDS: 0.9% Normal Saline 1,000 ML 100 ML IV ×2 (06:05→16:02)
[2021-10-01] MEDS: Piperacil/Tazobactam 3.375 GM Q8 PREMIX IV ×3 (06:07→21:00)
[2021-10-01 06:29] LABS: Absolute Lymphocyte Count 1.24 X10^3/uL (0.83-4.51); Absolute Neutrophil Count 3.3 X10^3/uL (2.0-7.7); Basophil# 0.01 X10^3/uL; Basophil% 0.2 % (0-1); Eosinophil# 0.13 X10^3/uL; Eosinophils% 2.6 % (0-5); Hematocrit 36.3 % (37-47); Hemoglobin 12.1 g/dL (12.0-15.0); Lymphocyte # 1.24 X10^3/ul (0.83-4.51); Lymphocyte % 24.5 % (19-41); Mean Corp Hgb Conc 33.3 g/dL (32-36); Mean Corpuscular Hgb 30.9 pg (27.0-32.0); Mean Corpuscular Volume 92.6 fL (81-99); Mean Platelet Vol. 10.5 fl (6.2-12.0); Monocyte# 0.33 X10^3/uL; Monocyte% 6.5 % (0-10); NRBC Flagged by Analyzer 0 % (0-5); Neutrophil # 3.33 X10^3/uL (2.7-7.7); Neutrophil % 65.8 % (47-70); Platelet Count 119 K/mm3 (150-450); RBC Distribution Width CV 14.4 % (11.6-14.6); RBC Distribution Width SD 49.1 fl (35.1-43.9); Red Blood Count 3.92 M/mm3 (4.2-5.4); White Blood Count 5.1 K/mm3 (4.4-11.0)
[2021-10-01 06:58] LABS: ALB/GLOB Ratio 0.9 RATIO (0.9-2.4); AST(SGOT) 62 U/L (15-37); Alanine Aminotransfer ALT/SGPT 43 U/L (13-56); Albumin, Serum 3.1 g/dL (3.2-5.0); Alkaline Phosphatase 96 U/L (45-117); Anion Gap 4 (5-15); BUN 7 mg/dL (7-18); BUN/Creat Ratio 12.5 RATIO (10-20); Calcium,Total 8.2 mg/dL (8.5-10.1); Chloride 108 mmol/L (98-107); Creatinine, Serum 0.56 mg/dL (0.55-1.02); EST Glomerular Filtration Rate 135 mL/min (>60); Est Glom Filt Rate - Afr Amer 164 mL/min (>60); Estimated Creatinine Clearance 110.85 ml/min; Globulin 3.6 g/dL (2.2-4.2); Glucose 98 mg/dL (74-106); Potassium 4.3 mmol/L (3.5-5.1); Protein, Total 6.7 g/dL (6.4-8.2); Sodium Level 137 mmol/L (136-145)
[2021-10-01] MEDS: 0.9% Saline Lock 10 ML Syringe IV ×2 (08:55→12:11)
[2021-10-01 08:59] VITALS: BP 126/84; PULSE 70; RESP 16; TEMP 36.6; O2SAT 98
--- NOTE | 2021-10-01 09:00 | NM_ITS ---
CLINICAL: 31-year-old female with history of right upper quadrant abdominal pain. RADIONUCLIDE HEPATOBILIARY SCINTIGRAPHY COMPARISON: CT of the abdomen-pelvis report 09/30/2021 FINDINGS: Following the intravenous administration of 5.0 mCi of 99m Tc Mebrofenin, hepatobiliary images reveal: 1. Relatively prompt and homogeneous radiopharmaceutical concentration is noted by a normal sized liver. No parenchymal defects are identified. 2. Gallbladder activity is not identified during 60 minutes of sequential imaging. Gallbladder activity is identified at 60 minutes post radiopharmaceutical provision. 3. Small intestinal tract is observed at 30 minutes post radiopharmaceutical administration. 4. Washout of the radiopharmaceutical by the hepatic parenchyma appears qualitatively normal. 5. There is scintigraphic evidence of prominent duodenal-gastric reflux initiating at 60 minutes following tracer injection. NM/Hepatobilliary Imaging IMPRESSION: 1. Visualization of the gallbladder within 60 minutes post radiopharmaceutical administration excludes acute cholecystitis with 97% certitude. (Margarita et al, Nucl Med Tyra Magda Press pg. 35, 1980). 2. There is scintigraphic evidence of duodenal-gastric reflux as described above. Electronically Signed: Rolando Aguilera DO at 12:12 EDT ,
--- NOTE | 2021-10-01 09:33 | PN.HOSP_ITS ---
Subjective Subjective Continues to have right upper quadrant abdominal pain, she states that she moved to [place] to get away from the alcohol. She has been sober for over 4 months. She also have some left lower quadrant pain which she thinks might be an ovarian cyst that she is following up with her PSYCHOLOGY PHYSICIAN for Objective Data Objective Data Vital Signs: Vital Signs Temp Pulse Resp BP Pulse Ox 97.8 F 70 16 126/84 H 98 10/01/21 08:59 10/01/21 08:59 10/01/21 08:59 10/01/21 08:59 10/01/21 08:59 Oxygen Delivery Method Room Air Weight: 183 lb 13.848 oz Body Mass Index (BMI) 34.7 Intake & Output: Intake and Output for Last 24 Hours 09/30/21 10/01/21 10/02/21 03:59 03:59 03:59 Intake Total 1389.58 / 1389.58 963.33 / 963.33 Output Total 100 / 100 Balance 1289.58 / 1289.58 963.33 / 963.33 Lab / Micro Data Result Diagrams: 10/01/21 05:45 10/01/21 05:45 Labs: Laboratory Results - last 24 hr 09/30/21 16:53: WBC 6.5, RBC 3.95 L, Hgb 12.4, Hct 36.1 L, MCV 91.4, MCH 31.4, MCHC 34.3, RDW Std Deviation 47.9 H, RDW Coeff of Lee 14.2, Plt Count 132 L, MPV 9.8, Immature Gran % (Auto) 0.500, Neut % (Auto) 72.4 H, Lymph % (Auto) 18.6 L, [place] % (Auto) 6.0, Eos % (Auto) 2.3, Baso % (Auto) 0.2, Absolute Neuts (auto) 4.7, Absolute Lymphs (auto) 1.21, Nucleated RBC % 0 09/30/21 16:53: Sodium 140, Potassium 3.7, Chloride 108 H, Carbon Dioxide 28.0, Anion Gap 4 L, BUN 8, Creatinine 0.60, Estim Creat Clear Calc 103.46, Est GFR (MDRD) Af Amer 151, Est GFR (MDRD) Non-Af 125, BUN/Creatinine Ratio 13.4, Glucose 109 H, Calcium 8.8, Total Bilirubin 0.70, AST 42 H, ALT 45, Alkaline Phosphatase 106, Total Protein 6.6, Albumin 3.3, Globulin 3.3, Albumin/Globulin Ratio 1.0 09/30/21 16:53: Serum , Qual NEGATIVE 09/30/21 16:53: Phosphorus 3.1, Magnesium 1.6 09/30/21 17:00: Urine Color Yellow, Urine Clarity Clear, Urine pH 8.0, Ur Specific Edward 1.015, Urine Protein 30 H, Urine Glucose (UA) Normal, Urine Ketones Negative, Urine Occult Blood 150 H, Urine Nitrite Negative, Urine Bilirubin Negative, Urine Urobilinogen Normal, Ur Leukocyte Esterase Negative, Urine RBC 0-5 SEEN, Urine WBC 0 SEEN, Ur Squamous Epith Cells 0 SEEN, Urine Bacteria RARE, Urine Mucus 0 SEEN 10/01/21 05:45: WBC 5.1, RBC 3.92 L, Hgb 12.1, Hct 36.3 L, MCV 92.6, MCH 30.9, MCHC 33.3, RDW Std Deviation 49.1 H, RDW Coeff of Lee 14.4, Plt Count 119 L, MPV 10.5, Immature Gran % (Auto) 0.400, Neut % (Auto) 65.8, Lymph % (Auto) 24.5, [place] % (Auto) 6.5, Eos % (Auto) 2.6, Baso % (Auto) 0.2, Absolute Neuts (auto) 3.3, Absolute Lymphs (auto) 1.24, Nucleated RBC % 0 10/01/21 05:45: Sodium 137, Potassium 4.3, Chloride 108 H, Carbon Dioxide 25.0, Anion Gap 4 L, BUN 7, Creatinine 0.56, Estim Creat Clear Calc 110.85, Est GFR (MDRD) Af Amer 164, Est GFR (MDRD) Non-Af 135, BUN/Creatinine Ratio 12.5, Glucose 98, Calcium 8.2 L, Total Bilirubin 0.80, AST 62 H, ALT 43, Alkaline Phosphatase 96, Total Protein 6.7, Albumin 3.1 L, Globulin 3.6, Albumin/Globulin Ratio 0.9 Radiography Diagnostic Testing: Radiology Impression Abdomen/Pelvis CT 09/30/21 16:34 IMPRESSION: Cholelithiasis with questionable mild pericholecystic fat stranding, suspicious for acute cholecystitis. HIDA scan may be obtained to confirm if clinically indicated. Cirrhosis with multiple megaly and esophageal varices. Normal appendix. No ascites. Electronically Signed: Kishan Lindo MD at 18:11 EDT , ADDENDUM: 09/30/211922 IMPRESSION: Cholelithiasis with questionable mild pericholecystic fat stranding, suspicious for acute cholecystitis. HIDA scan may be obtained to confirm if clinically indicated. Cirrhosis with multiple megaly and esophageal varices. Normal appendix. No ascites. N.B. : Dr. Mi Garrido MD, confirmed on 09/30/2021 19:16:31 (ET) that the healthcare facility has received the radiology report. Electronically Signed: Kishan Lindo MD at 18:11 EDT , Physical Exam Const alert, oriented x3 and no apparent distress General Appearance: cooperative HEENT normocephalic and moist oral mucous membranes Eyes PERRL, EOMs intact bilaterally and conjunctivae normal Neck supple and no JVD Resp normal respiratory effort, no retractions, no use of accessory muscles and clear to auscultation bilaterally Auscultation: Negative for crackles, rales, rhonchi or wheezes Cardio regular rate, regular rhythm, S1 normal heart sound, S2 normal heart sound and no murmurs GI soft to palpation and non-distended; Negative for hepatosplenomegaly Palpation: tender Extremity no clubbing, cyanosis or edema Skin no rashes or lesions noted Neuro no focal motor deficits and no sensory deficits noted Psych affect normal Appearance: appropriate Assessment & Plan Assessment/Plan (1) Abdominal pain, RUQ: PLAN: 1. Acute right upper quadrant abdominal pain secondary to possible acute cholecystitis complicated secondary to alcohol cirrhosis with history of esophageal varices ?Continue with HIDA scan today ?Continue with IV fluids ?Continue with IV antibiotics ?Appreciate surgery's assistance ?Continue with IV pain meds and a PPI ?She is stopping drinking has been sober for over 4 months now she will follow up with her voice coach as an outpatient and will likely need transplant as she states she is now a stage IV cirrhotic 2. Anxiety/depression/tobacco abuse ?Stable ?Continue with her home medications ?Discussed cessation, continue with nicotine patch DVT: SCDs Charges/Coding Visit Charges OBSV E&M: 84662 Subsequent observation care L2
[2021-10-01] MEDS: Ondansetron 4 MG/2 ML Vial IV (12:11)
[2021-10-01] MEDS: 0.9% Normal Saline 1,000 ML 125 ML IV (12:32)
--- NOTE | 2021-10-01 12:39 | US_ITS ---
STUDY: ABDOMINAL ULTRASOUND - RIGHT UPPER QUADRANT REASON FOR VISIT: Female, 31 years old Right upper quadrant abdominal pain -- RUQ PAIN N/V TECHNIQUE: Ultrasound evaluation of the right upper quadrant was performed with real-time and static solorio-scale imaging. TECHNICAL QUALITY: Adequate. COMPARISON: CT 09/30/2021 FINDINGS: Liver: The liver measures 8.2 cm. There is a heterogeneous echogenicity of the liver. The bile ducts are within normal limits. There is hepatic color flow. The direction of portal flow is hepatofugal. There is no demonstrated mass lesion. Gallbladder: Normal distended gallbladder. The gallbladder wall measures 2 mm. There is a negative sonographic Anderson''s sign. There is no pericholecystic fluid. There are multiple echogenic structures within the gallbladder, consistent with multiple gallstones. Common Bile Duct (C.B.D.): The common bile duct measures 5 mm. Pancreas: Normal size of the head, body and tail of the pancreas. There is normal echogenicity of the pancreas. There is no demonstrated pancreatic mass or cyst. Right Kidney: Normal size of the right kidney. The right kidney measures 12.0 cm. Normal renal cortex. The right cortex measures 1.1 cm. There is no demonstrated renal mass or cyst. There is no right hydronephrosis. US/Gallbladder IMPRESSION: 1. Cholelithiasis. 2. Cirrhosis as seen on recent CT with reversal of normal flow in the portal vein.. Electronically Signed: Rolando Fernandez MD at 15:00 EDT ,
[2021-10-01 13:27] LABS: International Normalized Ratio 1.2; Prothrombin Time (Protime)PT. 14.8 SECONDS (11.7-14.9)
[2021-10-01 13:59] VITALS: BP 114/71; PULSE 80; RESP 16; TEMP 37; O2SAT 98
--- NOTE | 2021-10-01 14:20 | PCM.PN.SRG ---
Subjective Subjective Patient still complaining of right upper quadrant. Patient is having some nausea and vomiting as well. Objective Data Objective Data Tender in the right upper quadrant and left lower quadrant of her abdomen Vital Signs: Vital Signs Temp Pulse Resp BP Pulse Ox 98.6 F 80 16 114/71 98 10/01/21 13:59 10/01/21 13:59 10/01/21 13:59 10/01/21 13:59 10/01/21 13:59 Oxygen Delivery Method Room Air Weight: 183 lb 13.848 oz Body Mass Index (BMI) 34.7 Intake & Output: Intake and Output for Last 24 Hours 09/29/21 09/30/21 10/01/21 22:59 23:59 23:59 Intake Total 2402.91 / 2402.91 Output Total 200 / 200 Balance 2202.91 / 2202.91 Lab / Micro Data Result Diagrams: 10/01/21 05:45 10/01/21 05:45 Labs: Laboratory Results - last 24 hr 09/30/21 16:53: WBC 6.5, RBC 3.95 L, Hgb 12.4, Hct 36.1 L, MCV 91.4, MCH 31.4, MCHC 34.3, RDW Std Deviation 47.9 H, RDW Coeff of Lee 14.2, Plt Count 132 L, MPV 9.8, Immature Gran % (Auto) 0.500, Neut % (Auto) 72.4 H, Lymph % (Auto) 18.6 L, [place] % (Auto) 6.0, Eos % (Auto) 2.3, Baso % (Auto) 0.2, Absolute Neuts (auto) 4.7, Absolute Lymphs (auto) 1.21, Nucleated RBC % 0 09/30/21 16:53: Sodium 140, Potassium 3.7, Chloride 108 H, Carbon Dioxide 28.0, Anion Gap 4 L, BUN 8, Creatinine 0.60, Estim Creat Clear Calc 103.46, Est GFR (MDRD) Af Amer 151, Est GFR (MDRD) Non-Af 125, BUN/Creatinine Ratio 13.4, Glucose 109 H, Calcium 8.8, Total Bilirubin 0.70, AST 42 H, ALT 45, Alkaline Phosphatase 106, Total Protein 6.6, Albumin 3.3, Globulin 3.3, Albumin/Globulin Ratio 1.0 09/30/21 16:53: Serum , Qual NEGATIVE 09/30/21 16:53: Phosphorus 3.1, Magnesium 1.6 09/30/21 17:00: Urine Color Yellow, Urine Clarity Clear, Urine pH 8.0, Ur Specific [place] 1.015, Urine Protein 30 H, Urine Glucose (UA) Normal, Urine Ketones Negative, Urine Occult Blood 150 H, Urine Nitrite Negative, Urine Bilirubin Negative, Urine Urobilinogen Normal, Ur Leukocyte Esterase Negative, Urine RBC 0-5 SEEN, Urine WBC 0 SEEN, Ur Squamous Epith Cells 0 SEEN, Urine Bacteria RARE, Urine Mucus 0 SEEN 10/01/21 05:45: WBC 5.1, RBC 3.92 L, Hgb 12.1, Hct 36.3 L, MCV 92.6, MCH 30.9, MCHC 33.3, RDW Std Deviation 49.1 H, RDW Coeff of Lee 14.4, Plt Count 119 L, MPV 10.5, Immature Gran % (Auto) 0.400, Neut % (Auto) 65.8, Lymph % (Auto) 24.5, [place] % (Auto) 6.5, Eos % (Auto) 2.6, Baso % (Auto) 0.2, Absolute Neuts (auto) 3.3, Absolute Lymphs (auto) 1.24, Nucleated RBC % 0 10/01/21 05:45: Sodium 137, Potassium 4.3, Chloride 108 H, Carbon Dioxide 25.0, Anion Gap 4 L, BUN 7, Creatinine 0.56, Estim Creat Clear Calc 110.85, Est GFR (MDRD) Af Amer 164, Est GFR (MDRD) Non-Af 135, BUN/Creatinine Ratio 12.5, Glucose 98, Calcium 8.2 L, Total Bilirubin 0.80, AST 62 H, ALT 43, Alkaline Phosphatase 96, Total Protein 6.7, Albumin 3.1 L, Globulin 3.6, Albumin/Globulin Ratio 0.9 10/01/21 13:00: PT 14.8, INR 1.2 Radiography Diagnostic Testing: Radiology Impression Abdomen/Pelvis CT 09/30/21 16:34 IMPRESSION: Cholelithiasis with questionable mild pericholecystic fat stranding, suspicious for acute cholecystitis. HIDA scan may be obtained to confirm if clinically indicated. Cirrhosis with multiple megaly and esophageal varices. Normal appendix. No ascites. Electronically Signed: Kishan Lindo MD at 18:11 EDT , ADDENDUM: 09/30/211922 IMPRESSION: Cholelithiasis with questionable mild pericholecystic fat stranding, suspicious for acute cholecystitis. HIDA scan may be obtained to confirm if clinically indicated. Cirrhosis with multiple megaly and esophageal varices. Normal appendix. No ascites. N.B. : Dr. Mi Garrido MD, confirmed on 09/30/2021 19:16:31 (ET) that the healthcare facility has received the radiology report. Electronically Signed: Kishan Lindo MD at 18:11 EDT , Hepatobiliary Scan Nuclear Medicine 10/01/21 09:00 IMPRESSION: 1. Visualization of the gallbladder within 60 minutes post radiopharmaceutical administration excludes acute cholecystitis with 97% certitude. (Margarita et al, Nucl Med Tyra Magda Press pg. 35, 1980). 2. There is scintigraphic evidence of duodenal-gastric reflux as described above. Electronically Signed: Rolando Aguilera DO at 12:12 EDT , Assessment & Plan Assessment/Plan (1) Abdominal pain, RUQ: PLAN: I reviewed the films with the radiologist who does not believe she has acute cholecystitis. I am currently ordering a gallbladder ultrasound to see if there is any pericholecystic fluid. If there is pericholecystic fluid and she would need to have a cholecystostomy tube she is going to have to be transferred to a tertiary referral center. Under no certain circumstances of my going to operate on her given the fact she has such large varices and she would have a significant bleeding risk and mortality risk. And without having all blood products available to me it is not a surgery that should be done at this hospital.
[2021-10-01] MEDS: Escitalopram Oxalate 20 MG Tablet PO (17:07)
[2021-10-01] MEDS: Acetaminophen 325 MG Tablet 650 MG PO (17:33)
[2021-10-01] MEDS: tiZANidine HCl 2 MG Tablet 4 MG PO (20:52)
[2021-10-01] MEDS: traZODone 100 MG Tablet PO (20:58)
[2021-10-01] MEDS: oxyCODONE 5 MG Tablet PO (20:59)
[2021-10-01 21:03] VITALS: BP 107/65; PULSE 60; RESP 16; TEMP 36.9; O2SAT 97
[2021-10-02] MEDS: Ondansetron 4 MG/2 ML Vial IV ×3 (00:20→20:51)
[2021-10-02 02:30] VITALS: BP 97/52; PULSE 68; RESP 18; TEMP 36.9; O2SAT 96
[2021-10-02] MEDS: 0.9% Normal Saline 1,000 ML 100 ML IV ×3 (03:18→22:34)
[2021-10-02 03:30] VITALS: BP 118/68; PULSE 68
[2021-10-02] MEDS: oxyCODONE 5 MG Tablet PO ×3 (03:48→16:10)
[2021-10-02] MEDS: HYDROmorphone 0.5 MG/0.5 ML SYRINGE IV ×4 (05:36→20:52)
[2021-10-02] MEDS: busPIRone 5 MG Tablet 20 MG PO ×3 (05:43→20:49)
[2021-10-02] MEDS: Piperacil/Tazobactam 3.375 GM Q8 PREMIX IV ×3 (05:44→22:34)
[2021-10-02] MEDS: tiZANidine HCl 2 MG Tablet 4 MG PO ×3 (05:44→20:49)
[2021-10-02 06:13] LABS: Absolute Lymphocyte Count 1.11 X10^3/uL (0.83-4.51); Basophil# 0.01 X10^3/uL; Basophil% 0.3 % (0-1); Eosinophils% 2.9 % (0-5); Hematocrit 32.6 % (37-47); Hemoglobin 11.3 g/dL (12.0-15.0); Lymphocyte # 1.11 X10^3/ul (0.83-4.51); Lymphocyte % 32.4 % (19-41); Mean Corp Hgb Conc 34.7 g/dL (32-36); Mean Corpuscular Hgb 31.4 pg (27.0-32.0); Mean Corpuscular Volume 90.6 fL (81-99); Mean Platelet Vol. 9.7 fl (6.2-12.0); Monocyte# 0.22 X10^3/uL; Monocyte% 6.4 % (0-10); NRBC Flagged by Analyzer 0 % (0-5); Neutrophil # 1.98 X10^3/uL (2.7-7.7); Neutrophil % 57.7 % (47-70); Platelet Count 104 K/mm3 (150-450); RBC Distribution Width CV 14.3 % (11.6-14.6); RBC Distribution Width SD 47.5 fl (35.1-43.9); White Blood Count 3.4 K/mm3 (4.4-11.0)
[2021-10-02 06:45] LABS: Anion Gap 4 (5-15); BUN 7 mg/dL (7-18); BUN/Creat Ratio 15.1 RATIO (10-20); Calcium,Total 7.9 mg/dL (8.5-10.1); Chloride 108 mmol/L (98-107); Creatinine, Serum 0.46 mg/dL (0.55-1.02); EST Glomerular Filtration Rate 167 mL/min (>60); Est Glom Filt Rate - Afr Amer 202 mL/min (>60); Estimated Creatinine Clearance 134.94 ml/min; Glucose 102 mg/dL (74-106); Potassium 3.7 mmol/L (3.5-5.1); Sodium Level 140 mmol/L (136-145)
[2021-10-02 07:58] VITALS: BP 96/59; PULSE 65; RESP 14; TEMP 36.8; O2SAT 97
[2021-10-02] MEDS: Acetaminophen 325 MG Tablet 650 MG PO ×2 (08:05→16:11)
[2021-10-02] MEDS: 0.9% Saline Lock 10 ML Syringe IV ×4 (08:05→20:53)
[2021-10-02] MEDS: Thiamine Hydrochloride 100 MG Tablet PO (08:06)
[2021-10-02] MEDS: Escitalopram Oxalate 20 MG Tablet PO (08:08)
--- NOTE | 2021-10-02 11:40 | PN.SURG_ITS ---
Subjective Subjective Still having a headache and nausea pain is still present but not as bad as it was. Objective Data Objective Data Abdomen is soft diffusely tender throughout the abdomen Vital Signs: Vital Signs Temp Pulse Resp BP Pulse Ox 98.3 F 65 14 96/59 L 97 10/02/21 07:58 10/02/21 07:58 10/02/21 07:58 10/02/21 07:58 10/02/21 07:58 Oxygen Delivery Method Room Air Weight: 183 lb 13.848 oz Body Mass Index (BMI) 34.7 Intake & Output: Intake and Output for Last 24 Hours 09/30/21 10/01/21 10/02/21 23:59 23:59 23:59 Intake Total 4133.12 / 4133.12 2243.34 / 2243.34 Output Total 200 / 200 Balance 3933.12 / 3933.12 2243.34 / 2243.34 Lab / Micro Data Result Diagrams: 10/02/21 05:50 10/02/21 05:50 Labs: Laboratory Results - last 24 hr 10/01/21 13:00: PT 14.8, INR 1.2 10/02/21 05:50: WBC 3.4 L, RBC 3.60 L, Hgb 11.3 L, Hct 32.6 L, MCV 90.6, MCH 31.4, MCHC 34.7, RDW Std Deviation 47.5 H, RDW Coeff of Lee 14.3, Plt Count 104 L, MPV 9.7, Immature Gran % (Auto) 0.300, Neut % (Auto) 57.7, Lymph % (Auto) 32.4, [place] % (Auto) 6.4, Eos % (Auto) 2.9, Baso % (Auto) 0.3, Absolute Neuts (auto) 2.0, Absolute Lymphs (auto) 1.11, Nucleated RBC % 0 10/02/21 05:50: Sodium 140, Potassium 3.7, Chloride 108 H, Carbon Dioxide 28.0, Anion Gap 4 L, BUN 7, Creatinine 0.46 L, Estim Creat Clear Calc 134.94, Est GFR (MDRD) Af Amer 202, Est GFR (MDRD) Non-Af 167, BUN/Creatinine Ratio 15.1, Glucose 102, Calcium 7.9 L Radiography Diagnostic Testing: Radiology Impression Hepatobiliary Scan Nuclear Medicine 10/01/21 09:00 IMPRESSION: 1. Visualization of the gallbladder within 60 minutes post radiopharmaceutical administration excludes acute cholecystitis with 97% certitude. (Margarita et al, Nucl Med Tyra Magda Press pg. 35, 1981). 2. There is scintigraphic evidence of duodenal-gastric reflux as described above. Electronically Signed: Rolando Aguilera DO at 12:12 EDT , Gallbladder Ultrasound 10/01/21 12:39 IMPRESSION: 1. Cholelithiasis. 2. Cirrhosis as seen on recent CT with reversal of normal flow in the portal vein.. Electronically Signed: Rolando Fernandez MD at 15:00 EDT , Assessment & Plan Assessment/Plan (1) Abdominal pain, RUQ: PLAN: Still going to treat her conservatively here. Hopefully over the next day or so we will noticed that the nausea and headaches will go away and will be able to get her home on oral pain medication.
--- NOTE | 2021-10-02 11:59 | CASEMGMT ---
Social Work Note CELESTINO reviewed chart. Pt with History of ETOH use, Depression. SW in to speak with pt. SW introduced self and role at [facility]. Pt is alert and orientated. Pt confirms that she has been sober for four months. Pt states that she moved to [place] about two weeks ago to remain sober. Pt states that she is originally from [place] but states that the environment she was in was not sober. Pt states that her mother drinks everyday. Pt states that she was with her fiance for ten years but states she recently broke up with him as he also drank everyday and was not a sober support. Pt states that she is currently staying with her Dad and Step Mom in [place] who are sober supports for pt. Pt states that that both her Dad and Step Mom are very supportive of her. Pt states that her Step Mom was with her all day yesterday at [facility]. Pt states that she is attending AA meetings and has an assessment scheduled with [facility] Friday to get established with a ETOH Counselor. Pt states I am doing this all by myself, no one is telling me to do it. SW offered support to pt. Pt states that she also started to go to [employer]. Pt states that she may be sober for four months but states that she struggles with ETOH daily so going to Buddhist has helped pt and pt states that is also why she wanted to get linked up with an ETOH Counselor from [facility]. Pt states that she has been in treatment 3x for her ETOH use. Current Stressors: Pt identifies her current medical issues to be stressors for her. Pt states that she found out recently after she went to her stock patcher that she has stage IV cirrhotic. Pt states that she has to remain sober for 6 months before she can start going to [facility] to get transplant process started. Pt states she was told without the Liver Transplant, she would have 1-3 years to live. Pt states that she was also told that her gallbladder needed to be taken out but states they cannot perform the surgery here. CELESTINO offered support to pt. Mental Health Hx: Pt states that she has history of Anxiety and Depression. Per chart, pt takes Buspirone and Trazodone. Pt states that sometimes she will get depressed especially now with all of her medical issues going on. Pt states I am 31, single, do not have my own place to live, no savings, and now have all these medical things going on. SW provided support to pt. SW spoke with pt about normal feelings related to medical issues and that it can be overwhelming. SW validated pt's feelings and spent much time providing support to pt. Pt denied any history of suicidal thoughts/plans/ideations. Pt denied any current suicidal thoughts/plans/ideations. Pt states one time, back in August 2020, pt had relapsed and states she remembers feeling so low and depressed and remembers feeling she didn't care if she went to sleep and didn't wake up. Pt states though she never came up with a plan or had intent to kill herself or harm herself though. Pt states that her Step Mom was there for her at that time too and took pt to [facility] where pt then went to treatment. Pt again denied any current suicidal/homicidal thoughts/plans/ideations. Protective Factors: Pt is able to identify her Dad and Step Mom, who pt currently lives with, as being good sober support for pt. 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 Pt states she had 10 interviews last week and the job at [employer] was the job she really wanted. Pt states she was supposed to start that job yesterday but unable to start that job as pt was at [facility]. Pt states her boss seems very reasonable though and he was ok with pt starting whenever she is out of [facility]. Pt also has an appointment with [facility] to get established with a Counselor. Pt has been able to remain sober for four months. Supports: Pt identifies her Dad, Step Mom, and [employer] as being good supports. 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 Pt states that she thought about going for nursing but she is not sure about that. Pt states that she would like to work in a job where she can use her history of ETOH use to help other people. SW explained that that can be very beneficial since she has beat her addiction and continues to remain sober. Pt states her future goals are kind of on hold right now until she can get her medical issues taken care of first. SW spent much time with pt provided support, utilizing active listening skills, and validated pt's feelings. Pt states that she would like information on Liver Transplants. SW informed pt that this worker can look up information on Liver Transplants and provide information to pt. Pt thanked this worker, denied additional needs or concerns at this time. SW to look up information regarding Liver Transplants and will provide information to pt. Liya Red AIR CONDITIONING INSTALLER, GREEN [employer]ERIAL VALUE ADDED ASSESSOR
[2021-10-02 12:48] VITALS: BP 104/71; PULSE 70; RESP 16; TEMP 36.9; O2SAT 100
--- NOTE | 2021-10-02 16:01 | PN.HOSP_ITS ---
Subjective Subjective Doing well, no issues overnight. Pain is slightly improved, although gallbladder studies are negative Objective Data Objective Data Vital Signs: Vital Signs Temp Pulse Resp BP Pulse Ox 98.4 F 70 16 104/71 100 10/02/21 12:48 10/02/21 12:48 10/02/21 12:48 10/02/21 12:48 10/02/21 12:48 Oxygen Delivery Method Room Air Weight: 183 lb 13.848 oz Body Mass Index (BMI) 34.7 Intake & Output: Intake and Output for Last 24 Hours 10/01/21 10/02/21 10/03/21 03:59 03:59 03:59 Intake Total 1389.58 / 1389.58 3790.21 / 3790.21 1370.00 / 1370.00 Output Total 100 / 100 200 / 200 Balance 1289.58 / 1289.58 3590.21 / 3590.21 1370.00 / 1370.00 Lab / Micro Data Result Diagrams: 10/02/21 05:50 10/02/21 05:50 Labs: Laboratory Results - last 24 hr 10/02/21 05:50: WBC 3.4 L, RBC 3.60 L, Hgb 11.3 L, Hct 32.6 L, MCV 90.6, MCH 31.4, MCHC 34.7, RDW Std Deviation 47.5 H, RDW Coeff of Lee 14.3, Plt Count 104 L, MPV 9.7, Immature Gran % (Auto) 0.300, Neut % (Auto) 57.7, Lymph % (Auto) 32.4, Gilchrist % (Auto) 6.4, Eos % (Auto) 2.9, Baso % (Auto) 0.3, Absolute Neuts (auto) 2.0, Absolute Lymphs (auto) 1.11, Nucleated RBC % 0 10/02/21 05:50: Sodium 140, Potassium 3.7, Chloride 108 H, Carbon Dioxide 28.0, Anion Gap 4 L, BUN 7, Creatinine 0.46 L, Estim Creat Clear Calc 134.94, Est GFR (MDRD) Af Amer 202, Est GFR (MDRD) Non-Af 167, BUN/Creatinine Ratio 15.1, Glucose 102, Calcium 7.9 L Physical Exam Narrative Const alert, oriented x3 and no apparent distress General Appearance: cooperative HEENT normocephalic and moist oral mucous membranes Eyes PERRL, EOMs intact bilaterally and conjunctivae normal Neck supple and no JVD Resp normal respiratory effort, no retractions, no use of accessory muscles and clear to auscultation bilaterally Auscultation: Negative for crackles, rales, rhonchi or wheezes Cardio regular rate, regular rhythm, S1 normal heart sound, S2 normal heart sound and no murmurs GI soft to palpation and non-distended; Negative for hepatosplenomegaly Palpation: tender Extremity no clubbing, cyanosis or edema Skin no rashes or lesions noted Neuro no focal motor deficits and no sensory deficits noted Psych affect normal Appearance: appropriate Assessment & Plan Assessment/Plan (1) Abdominal pain, RUQ: PLAN: 1. Acute right upper quadrant abdominal pain secondary to possible acute cholecystitis complicated secondary to alcohol cirrhosis with history of esophageal varices ?HIDA scan and right upper quadrant ultrasound are negative for acute cholecystitis ?Continue with IV fluids ?Continue with IV antibiotics ?May benefit from a gastroenterology consult for further evaluation of her stage IV cirrhosis. She is not on any of the usual medications you expect with somebody who has varices, so we will obtain their input ?Continue with IV pain meds and a PPI ?She has stopped drinking and has been sober for over 4 months now she will follow up with her director of rehabilitation and wellness as an outpatient and will likely need transplant as she states she is now a stage IV cirrhotic 2. Anxiety/depression/tobacco abuse ?Stable ?Continue with her home medications ?Discussed cessation, continue with nicotine patch DVT: SCDs Charges/Coding Visit Charges Inpatient E&M: 86733 Subs Hosp L2
--- NOTE | 2021-10-02 17:25 | CON.PCM.GI_ITS ---
HPI Consult Data Date of Consult: 10/02/21 HPI Narrative HPI Narrative: KANNAN SARAH, is a 31 F who presents with worsening abdominal pain. She has a past medical history of anxiety , alcoholism ,alcoholic cirrhosis with history of splenomegaly ,esophageal varices status post banding, ascites status post multiple paracentesis and history of encephalopathy. She has been sober for 4 months. She presented to the ED on 313 with ongoing right upper quadrant pain. There was a suspicion for possible acute cholecystitis that was seen on CT scan. She had an ultrasound that showed stones but no clear gallbladder wall thickening or pericholecystic fluid. She had a HIDA scan which did not show any signs of obstruction. It did show duodenal gastric reflux. She admits to multiple episodes of nausea vomiting without hematemesis. She has been on IV fluids and antibiotic therapy. She is also beginning antinausea therapy. She denies any recent alcohol or street drugs. At this time she still complains of a lot of nausea and abdominal pain. She thought it was her gallbladder and now she thinks is possibly her ovaries. She has history of ovarian cyst rupture. All other review of systems are negative except as pertinent positive mentioned HPI. PFSH Medical History Alcoholic cirrhosis of liver Anxiety and depression Esophageal varices Gallstone Obesity Tobacco use Home Medications buspirone 20 mg TID 09/30/21 [History Last Taken 09/29/21 19:00] escitalopram oxalate 20 mg DAILY 09/30/21 [History Last Taken 09/29/21 11:00] melatonin 5 mg QHS 09/30/21 [History Last Taken 09/29/21 21:00] thiamine HCl (vitamin B1) 100 mg DAILY 09/30/21 [History Last Taken 09/29/21 11:00] tizanidine 4 mg TID 09/30/21 [History Last Taken 09/29/21 21:00] trazodone 100 mg QHS 09/30/21 [History Last Taken 09/29/21 21:00] Allergy/AdvReac Type Severity Reaction Status Date / Time No Known Allergies Allergy Verified 09/30/21 16:23 Family History Mother Alcohol abuse Hypertension Father Alcohol abuse Anxiety and depression Surgical History History of endoscopic gastrointestinal surgery Social History household members: other details: Recently following sobriety start moved with parents, broke with boyfriend. Smoking Status: Current every day smoker tobacco type: cigarettes Smoking packs per day: 0.5 Smoking cigarettes per day: 10.0 Years smoked: 15 Smoking pack- years: 7.50 quit status: considering quitting alcohol intake: former details: Prior 07/25 vodka daily, now sober x 4 months. substance use type: does not use ROS Review of Systems ROS Unobtainable: other Constitutional Constitutional: Denies fatigue, fever(s), poor appetite, weight gain or weight loss ENT HEENT: Denies mouth lesions Cardiovascular Cardiovascular: Denies abdominal bloating, abdominal edema or abdominal pain Respiratory/Chest Respiratory/Chest: Denies change in mental status, change in phlegm color, chest congestion or chest tightness Gastrointestinal Gastrointestinal: Denies belching, bloating, change in bowel habits, change in s tool character, chewing difficulty, coffee ground emesis, constipation, cramping, diarrhea, dyspepsia, dysphagia, early satiety, excessive flatus, fecal incontinence, heartburn, hematemesis, hematochezia, hemorrhoids, loose stools, melena, nausea, odynophagia, rectal bleeding, tenesmus, vomiting or weight changes Genitourinary Genitourinary: Denies abdominal discomfort, burning urination or itching Musculoskeletal Musculoskeletal: Reports as per HPI; Denies muscle weakness or myalgias Integumentary Integumentary: Denies jaundice Neurologic Neurologic: Denies lack of coordination or weakness Psychiatric Psychiatric: Denies confusion, depression, memory loss, mood swings, paranoia or suicidal ideation Endocrine Endocrinology: Denies systems reviewed and no addt'l complaints, except as documented Hematologic/Lymphatic Hematologic/Lymphatic: Denies anemia, easy bleeding, easy bruising or lymphadenopathy Allergic/Immunologic Allergic/Immunologic: Denies systems reviewed and no addt'l complaints, except as documented Physical Exam Const alert General Appearance: cooperative Orientation / Consciousness: oriented to person HEENT hearing grossly normal bilaterally Head and Scalp: normal to inspection Face and Sinus: face symmetric Nose: external nose normal Mouth: oral and palatal mucosa normal Eyes conjunctivae normal General Eye: normal appearance of both eyes Neck full ROM General: normal visual inspection Lymph Lymphatic: no lymphadenopathy noted Chest inspection of chest normal and palpation of chest normal Chest: symmetrical chest wall rise Resp normal respiratory effort Effort and Inspection: able to speak in complete sentences Cardio regular rate GI non-distended Percussion: normal to percussion Rectal Exam: deferred Neuro Speech: speech normal Gait (Neuro): normal gait Lab / Micro Data Result Diagrams: 10/02/21 05:50 10/02/21 05:50 Labs: Laboratory Results - last 24 hr 10/02/21 05:50: WBC 3.4 L, RBC 3.60 L, Hgb 11.3 L, Hct 32.6 L, MCV 90.6, MCH 31.4, MCHC 34.7, RDW Std Deviation 47.5 H, RDW Coeff of Lee 14.3, Plt Count 104 L, MPV 9.7, Immature Gran % (Auto) 0.300, Neut % (Auto) 57.7, Lymph % (Auto) 32.4, Sanborn % (Auto) 6.4, Eos % (Auto) 2.9, Baso % (Auto) 0.3, Absolute Neuts (auto) 2.0, Absolute Lymphs (auto) 1.11, Nucleated RBC % 0 10/02/21 05:50: Sodium 140, Potassium 3.7, Chloride 108 H, Carbon Dioxide 28.0, Anion Gap 4 L, BUN 7, Creatinine 0.46 L, Estim Creat Clear Calc 134.94, Est GFR (MDRD) Af Amer 202, Est GFR (MDRD) Non-Af 167, BUN/Creatinine Ratio 15.1, Glucose 102, Calcium 7.9 L Assessment & Plan Assessment/Plan (1) Abdominal pain: PLAN: I suspect her abdominal pain is multifactorial secondary to alcoholic induced gastritis, portal gastropathy, gastroparesis with duodenal gastric reflux. Recommend Reglan 5 mg every 6 hours along with scopolamine patch. She takes Compazine and Zofran as an outpatient although almost on a daily basis due to her nausea. She also has not had her antipsychotics and antidepressive medicines which also can contribute to withdrawal symptoms of nausea and abdominal pain. (2) Gastroparesis: PLAN: If she improves with Reglan therapy she will not need a gastric emptying study. Continue PPI therapy and if she is able to tolerate food advance as tolerated. (3) Alcoholic hepatitis: PLAN: She had mild alcoholic hepatitis with a low Madre score on admission. She does not seem to be in alcoholic hepatitis at this time and has not shown any signs of encephalopathy. (4) Alcoholic cirrhosis of liver: PLAN: She has a lot of bowel wall edema to hypoalbuminemia from cirrhosis that I think is causing some of her symptoms. In the past this was relieved with diuretic therapy. She has about a liter positive. I will give her 1 dose of Lasix. (5) Thrombocytopenia: PLAN: Secondary to splenomegaly and alcohol toxicity to the bone marrow. Charges/Coding Visit Charges Inpatient E&M: 33630 Init Hosp L3
[2021-10-02] MEDS: Scopolamine 1mg/72hr Patch 1 PATCH TD (18:21)
[2021-10-02] MEDS: Metoclopramide 10 MG/2 ML Vial 5 MG IV (18:23)
[2021-10-02] MEDS: Ursodiol 250 MG Tablet PO (18:34)
[2021-10-02 18:42] VITALS: BP 103/69; PULSE 64; RESP 14; TEMP 36.7; O2SAT 94
[2021-10-02 20:18] VITALS: BP 101/68; PULSE 67; RESP 16; TEMP 36.7; O2SAT 97
[2021-10-02] MEDS: traZODone 100 MG Tablet PO (20:48)
[2021-10-02] MEDS: MELATONIN 10 MG TABLET 5 MG PO (20:48)
[2021-10-03] MEDS: oxyCODONE 5 MG Tablet PO ×4 (00:59→14:19)
[2021-10-03] MEDS: Acetaminophen 325 MG Tablet 650 MG PO (00:59)
[2021-10-03] MEDS: Metoclopramide 10 MG/2 ML Vial 5 MG IV (01:11)
[2021-10-03] MEDS: 0.9% Saline Lock 10 ML Syringe IV (01:20)
[2021-10-03] MEDS: Piperacil/Tazobactam 3.375 GM Q8 PREMIX IV (05:53)
[2021-10-03] MEDS: busPIRone 5 MG Tablet 20 MG PO ×2 (05:56→14:20)
[2021-10-03] MEDS: tiZANidine HCl 2 MG Tablet 4 MG PO ×2 (05:57→14:20)
[2021-10-03 06:00] VITALS: BP 120/79; PULSE 83; RESP 16; TEMP 36.8; O2SAT 94
--- NOTE | 2021-10-03 06:45 | PCM.PN.SRG ---
Subjective Subjective No real change still complaining of some nausea pain is slightly improved but not really that different. Objective Data Objective Data Abdomen is soft diffusely tender Vital Signs: Vital Signs Temp Pulse Resp BP Pulse Ox 98.2 F 83 16 120/79 94 10/03/21 06:00 10/03/21 06:00 10/03/21 06:00 10/03/21 06:00 10/03/21 06:00 Oxygen Delivery Method Room Air Weight: 183 lb 13.848 oz Body Mass Index (BMI) 34.7 Intake & Output: Intake and Output for Last 24 Hours 10/01/21 10/02/21 10/03/21 23:59 23:59 23:59 Intake Total 4133.12 / 4133.12 3560.00 / 3560.00 50 50 Output Total 200 / 200 Balance 3933.12 / 3933.12 3560.00 / 3560.00 50 / 50 Lab / Micro Data Result Diagrams: 10/02/21 05:50 10/02/21 05:50 Labs: Laboratory Results - last 24 hr 10/02/21 05:50: Sodium 140, Potassium 3.7, Chloride 108 H, Carbon Dioxide 28.0, Anion Gap 4 L, BUN 7, Creatinine 0.46 L, Estim Creat Clear Calc 134.94, Est GFR (MDRD) Af Amer 202, Est GFR (MDRD) Non-Af 167, BUN/Creatinine Ratio 15.1, Glucose 102, Calcium 7.9 L Assessment & Plan Assessment/Plan (1) Abdominal pain, RUQ: PLAN: We will be discharging her sometime today she will be following back up with her audio video technician for further evaluation.
--- NOTE | 2021-10-03 06:53 | EX.PCM.DISCH ---
Discharge Instructions Procedure General Surgery Diet Discharge Diet: Light diet - advance as tolerated (If you have questions about your diet instructions, please talk to your doctor.) Activity Discharge Activity: May Not Drive (for 1 week or while taking narcotic pain medicine.) May shower in (days): 1 Lifting Restrictions: 10 pounds Dressing / Incision Call your doctor if your incision/area has: Continuous Slow Oozing, Sudden Increased Bleeding, Increased Pain/ Swelling, Increased Redness and Foul Smelling Discharge Call your doctor if you observe: Fever of 101 or Higher Suture Line Care: Avoid Pulling/Pushing and Avoid Pinching/Bending Additional Dressing/Incision Instructions:: Change or remove dressing in 4 days. Leave steri-strips in place for 1 week. Follow Up Care Please Follow Up With: Noris Guerra PA-C When: Call office to schedule an appointment to be seen in about 10 days. Test Results: Test results from this visit will be discussed in further detail at your follow-up appointment, if applicable. Discharge Plan Admission Admit Date/Time: 10/02/21 17:43 Attending Provider: Cristobal Sutherland Primary Care Provider: Care Physician,Monica Primary Discharge Orders/Prescriptions Prescriptions: New oxycodone [OxyContin] 10 mg tablet,oral only,ext.rel.12 hr 10 mg PO BID 14 Days Qty: 28 RF: 0 metoclopramide HCl [Reglan] 5 mg tablet 5 mg PO Q6H Qty: 30 RF: 0 ondansetron 4 mg tablet,disintegrating 4 mg PO Q6H PRN (Reason: nausea and vomiting) Qty: 30 RF: 0 Continued tizanidine 4 mg tablet 4 mg TID RF: 0 thiamine HCl (vitamin B1) 100 mg tablet 100 mg DAILY RF: 0 buspirone 10 mg tablet 20 mg TID RF: 0 escitalopram oxalate 20 mg tablet 20 mg DAILY RF: 0 trazodone 100 mg tablet 100 mg QHS RF: 0 melatonin 5 mg tablet 5 mg QHS RF: 0 Referrals / Follow Up: Care Physician,No Primary [Primary Care Provider] -
[2021-10-03 08:17] VITALS: BP 108/73; PULSE 58; RESP 14; TEMP 36.7; O2SAT 94
[2021-10-03] MEDS: Escitalopram Oxalate 20 MG Tablet PO (08:22)
[2021-10-03] MEDS: Ursodiol 250 MG Tablet PO ×2 (08:22→12:06)
[2021-10-03] MEDS: Thiamine Hydrochloride 100 MG Tablet PO (08:22)
[2021-10-03] MEDS: 0.9% Normal Saline 1,000 ML 100 ML IV (08:28)
--- NOTE | 2021-10-03 09:34 | PCM.PN.HOSP ---
Subjective Subjective Feels little bit better today, pain little bit better and nausea is little bit better. No issues overnight Objective Data Objective Data Vital Signs: Vital Signs Temp Pulse Resp BP Pulse Ox 98.1 F 58 L 14 108/73 94 10/03/21 08:17 10/03/21 08:17 10/03/21 08:17 10/03/21 08:17 10/03/21 08:17 Oxygen Delivery Method Room Air Weight: 183 lb 13.848 oz Body Mass Index (BMI) 34.7 Intake & Output: Intake and Output for Last 24 Hours 10/02/21 10/03/21 10/04/21 03:59 03:59 03:59 Intake Total 3790.21 / 3790.21 2563.33 / 2563.33 1100 / 1100 Output Total 200 / 200 Balance 3590.21 / 3590.21 2563.33 / 2563.33 1100 / 1100 Lab / Micro Data Result Diagrams: 10/02/21 05:50 10/02/21 05:50 Physical Exam Narrative Const alert, oriented x3 and no apparent distress General Appearance: cooperative HEENT normocephalic and moist oral mucous membranes Eyes PERRL, EOMs intact bilaterally and conjunctivae normal Neck supple and no JVD Resp normal respiratory effort, no retractions, no use of accessory muscles and clear to auscultation bilaterally Auscultation: Negative for crackles, rales, rhonchi or wheezes Cardio regular rate, regular rhythm, S1 normal heart sound, S2 normal heart sound and no murmurs GI soft to palpation and non-distended; Negative for hepatosplenomegaly Palpation: tender Extremity no clubbing, cyanosis or edema Skin no rashes or lesions noted Neuro no focal motor deficits and no sensory deficits noted Psych affect normal Appearance: appropriate Assessment & Plan Assessment/Plan (1) Abdominal pain, RUQ: PLAN: 1. Acute right upper quadrant abdominal pain secondary to possible acute cholecystitis complicated secondary to alcohol cirrhosis with history of esophageal varices ?HIDA scan and right upper quadrant ultrasound are negative for acute cholecystitis ?Continue with IV fluids ?Can likely discontinue IV antibiotics ?GI commends adding Reglan 10 Dietrich with the PPI. We also added scopolamine upon the recommendation for the nausea and ursodiol. Recommendation is that she follow-up with her swimming professor as an outpatient for further evaluation and monitoring ?Continue with IV pain meds and a PPI ?She has stopped drinking and has been sober for over 4 months now she will follow up with her swimming professor as an outpatient and will likely need transplant as she states she is now a stage IV cirrhotic 2. Anxiety/depression/tobacco abuse ?Stable ?Continue with her home medications ?Discussed cessation, continue with nicotine patch Will sign off, call for any questions DVT: SCDs Charges/Coding Visit Charges Inpatient E&M: 35507 Subs Hosp L2
--- NOTE | 2021-10-03 13:17 | DS.PCM_ITS ---
Providers Date of Admission: 10/02/21 Primary Care Physician: No Primary Care Phys Reason For Visit: RIGHT UPPER QUADRANT ABDOMINAL PAIN Diagnosis Discharge Diagnosis (1) Abdominal pain, RUQ: Status: Acute Code(s): R10.11 - Right upper quadrant pain Medications at Discharge Home Medications buspirone 20 mg TID 09/30/21 escitalopram oxalate 20 mg DAILY 09/30/21 melatonin 5 mg QHS 09/30/21 thiamine HCl (vitamin B1) 100 mg DAILY 09/30/21 tizanidine 4 mg TID 09/30/21 trazodone 100 mg QHS 09/30/21 metoclopramide HCl [Reglan] 5 mg PO Q6H #30 tab 10/03/21 ondansetron 4 mg PO Q6H PRN #30 tab 10/03/21 oxycodone 5 mg PO Q8H PRN 4 Days #10 tab 10/03/21 Hospital Course Operations None Procedures None Summary of Care Provided Minutes Spent on Discharge: 50 Hospital Course: This is a 31-year-old white female who presented to the hospital with worsening abdominal pain. She has a past history of alcoholic cirrhosis splenomegaly and esophageal varices status post bandingStatus post multiple paracentesis for ascites as well as history of encephalopathy. She has been sober for 4 months. CAT scan raised the question for acute cholecystitis was admitted subsequently had a HIDA scan which was negative for acute cholecystitisAnd a gallbladder ultrasound which showed no gallbladder wall thickening.Her HIDA scan did show duodenal gastric reflux. She was admitted to having multiple waves of nausea and vomiting without hematemesis she has been on IV fluids and antibiotics as well as antiemetics. We were able to get her vomiting under control but her abdominal pain is chronic in nature. She is not a candidate to undergo any surgical therapy at [facility] due to her thrombocytopenia portal hypertension with reversal of flow esophageal varices. She will need to have any surgeries performed at a larger center if she is Having worsening biliary colic. Weight / BMI Weight Weight: 183 lb 13.848 oz Body Mass Index (BMI) 34.7 ABG / Lab / Microbiology Data Result Diagrams: 10/02/21 05:50 10/02/21 05:50 D/C Instructions Discharge Diet: Light diet - advance as tolerated (If you have questions about your diet instructions, please talk to your doctor.) May shower in (days): 1 Call your doctor if your incision/area has: Continuous Slow Oozing, Sudden Increased Bleeding, Increased Pain/ Swelling, Increased Redness and Foul Smelling Discharge Call your doctor if you observe: Fever of 101 or Higher Suture Line Care: Avoid Pulling/Pushing and Avoid Pinching/Bending Additional Dressing/Incision Instructions: Change or remove dressing in 4 days. Leave steri-strips in place for 1 week. Please Follow Up With: Noris Guerra PA-C When: Call office to schedule an appointment to be seen in about 10 days. Meaningful Use Info Meaningful Use Diagnoses (Choose all that apply): None applicable Discharge Plan Admission Admit Date/Time: 10/02/21 17:43 Attending Provider: Cristobal Sutherland Primary Care Provider: Care Physician,No Primary Discharge Orders/Prescriptions Prescriptions: New metoclopramide HCl [Reglan] 5 mg tablet 5 mg PO Q6H Qty: 30 RF: 0 ondansetron 4 mg tablet,disintegrating 4 mg PO Q6H PRN (Reason: nausea and vomiting) Qty: 30 RF: 0 oxycodone 5 mg tablet 5 mg PO Q8H PRN (Reason: pain) 4 Days Qty: 10 RF: 0 ursodiol 250 mg Tablet 250 mg PO TIDCM 30 Days Qty: 90 RF: 0 ursodiol [JAKE 250] 250 mg tablet 250 mg PO TID Qty: 30 RF: 0 ursodiol [JAKE 250] 250 mg tablet 250 mg PO TID Qty: 30 RF: 0 Continued tizanidine 4 mg tablet 4 mg TID RF: 0 thiamine HCl (vitamin B1) 100 mg tablet 100 mg DAILY RF: 0 buspirone 10 mg tablet 20 mg TID RF: 0 escitalopram oxalate 20 mg tablet 20 mg DAILY RF: 0 trazodone 100 mg tablet 100 mg QHS RF: 0 melatonin 5 mg tablet 5 mg QHS RF: 0 Referrals / Follow Up: Care Physician,No Primary [Primary Care Provider] -
--- NOTE | 2021-10-03 14:30 | CASEMGMT ---
IKER MENDOZA NOTE: SW has met w/pt for hx: ETOH abuse and depression. See [facility] note. Pt being discharged home. To room to talk w/pt. Introduced self and role of IKER MENDOZA. Pt states she has a PCP in [place], Dr Eron Quintanilla, that she has went to for 10 yrs. She declines offer of list of local PCP's, stating she wishes to continue to go to him even though she is now staying in [facility]. She plans to d/c home to her dad and step-mom's home and denies discharge needs. She states the only thing she is concerned about is pain mgmt and inquiring what medication she is being discharged home on. RNXuan, @ bedside and to review discharge meds w/her. Pt voices understanding. Pt provided w/information regarding Liver Transplant that CELE[facility]INO had printed off for pt, per pt's request. She voices appreciation. She denies other home-going needs at this time. Divine MCKEON RN, CM
--- NOTE | 2021-10-03 14:33 | CASEMGMT ---
Social Work Note SW printed off information regarding Liver Transplant. SW provided RN CM with information who provided pt with information. Liya Red DIRECTOR OF [employer]PORATE [employer]ONS[employer]SHIPS, [employer] STRAIGHTENER
--- NOTE | 2021-10-04 15:24 | CASEMGMT ---
Pt returned call and states she is feeling worse than when she was in the hospital. She states she feels great pressure in her abdomen and it feels like when she needed a paracentesis in the past. She states she looks like she is 9 mos , her feet and face are swollen. Pt reports she cannot eat d/t nausea and is painful. 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 She has not called for a follow up appt. Recommended she call their office for guidance. She states she will do so. Provided pt with the office phone number and encouraged to call soon before they close.
== END 2021-10-03 15:05 | disposition home or self-care (01) | DRG 251 ==
LOC: ED 18:57 → MS3 19:03
PROVIDERS: Family Medicine; Admitting Provider Surgery; Emergency Provider Emergency Medicine; Visit Provider Family Medicine
DX: R10.11 Right upper quadrant pain (principal); R10.32 Left lower quadrant pain; G89.29 Other chronic pain; K21.9 Gastro-esophageal reflux disease without esophagitis; I85.00 Esophageal varices without bleeding; K70.30 Alcoholic cirrhosis of liver without ascites; K70.10 Alcoholic hepatitis without ascites; K31.84 Gastroparesis; R31.9 Hematuria, unspecified; E88.09 Other disorders of plasma-protein metabolism, not elsewhere classified; F17.210 Nicotine dependence, cigarettes, uncomplicated; F32.A Depression, unspecified; F41.9 Anxiety disorder, unspecified; E66.9 Obesity, unspecified; Z68.34 Body mass index [BMI] 34.0-34.9, adult; Z79.899 Other long term (current) drug therapy
CPT/HCPCS: 36415; 74176; 76705; 78226; 80048; 80053; 81001; 83735; 84100; 84703; 85025; 85610; 99251; 99284; 99406; A9537; J7030; A4216; G0463; J2405

== ENCOUNTER 2021-10-04 16:59 | Emergency (ER) | payer MEDICAID, SELFPAY ==
[2021-10-04 16:59] VITALS: BP 136/98; PULSE 127; RESP 18; TEMP 36.8; O2SAT 95; BMI 36.3
--- NOTE | 2021-10-04 18:10 | ED.VIS.GI ---
HPI HPI - GI History of Present Illness Chief Complaint: Abd Pain Informant: patient Abdominal Pain/Flank Pain Onset: Today Context: Gradual Onset Timing: Continuous Quality: - (Squeezing) Location: Diffuse Worsened by: Movement Relieved by: Remaining Still Nausea/Vomiting/Emesis GI Symptom: Positive for Nausea and Vomiting Quality: Positive for Nonbilious; Negative for Blood streaks, Coffee ground and Hematemesis Diarrhea/Melena/Hematochezia GI Symptom: Negative for Diarrhea, Melena and Hematochezia Associated Symptoms Associated Symptoms: Negative for Dysuria, Frequency and Hematuria Narrative Narrative: Patient presents with diffuse abdominal pain that began again today. Patient was discharged from the hospital yesterday. Patient states she was admitted for evaluation of her gallbladder. Patient states that Dr. Salazar was unable to do surgery for her gallbladder because of her cirrhosis and esophageal varices. Patient states that she was feeling fine yesterday when she went home. Patient states she woke up today and had increasing pain. Patient states she had a fever at home of 102.4. Patient also admits to some subjective chills. Patient admits to some nausea and vomiting but denies any hematemesis or coffee-ground emesis. Patient denies any diarrhea, melena, or hematochezia. Patient denies any urinary complaints. PFSH PFSH Medical History Alcoholic cirrhosis of liver Anxiety and depression Esophageal varices Gallstone Obesity Tobacco use Home Medications buspirone 20 mg TID 09/30/21 [History Last Taken 09/29/21 19:00] escitalopram oxalate 20 mg DAILY 09/30/21 [History Last Taken 09/29/21 11:00] melatonin 5 mg QHS 09/30/21 [History Last Taken 09/29/21 21:00] thiamine HCl (vitamin B1) 100 mg DAILY 09/30/21 [History Last Taken 09/29/21 11:00] tizanidine 4 mg TID 09/30/21 [History Last Taken 09/29/21 21:00] trazodone 100 mg QHS 09/30/21 [History Last Taken 09/29/21 21:00] ondansetron 4 mg PO Q6H PRN #30 tab 10/03/21 [Rx Last Taken Unknown] oxycodone 5 mg PO Q8H PRN 4 Days #10 tab 10/03/21 [Rx Last Taken Unknown] dicyclomine 20 mg PO BID PRN #10 tab 10/04/21 [Rx Last Taken Unknown] Allergy/AdvReac Type Severity Reaction Status Date / Time No Known Allergies Allergy Verified 10/04/21 17:01 Family History Mother Alcohol abuse Hypertension Father Alcohol abuse Anxiety and depression Surgical History History of endoscopic gastrointestinal surgery Social History household members: other details: Recently following sobriety start moved with parents, broke with boyfriend. 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 substance use type: does not use ROS ROS ED Constitutional Constitutional ED: Reports chills and fever(s) Eyes Eyes: Denies blurry vision or change in vision ENT ENT ED: Reports sore throat; Denies rhinorrhea Cardiovascular Cardiovascular: Reports chest pain and racing heartbeat Respiratory/Chest Respiratory/Chest: Reports dyspnea; Denies cough Gastrointestinal Gastrointestinal: Reports abdominal pain, nausea and vomiting; Denies diarrhea or melena Genitourinary Genitourinary ED: Denies dysuria or hematuria Musculoskeletal Musculoskeletal: Reports back pain and neck pain Integumentary Denies abscess or rash Neurologic Neurologic: Denies headache(s) or weakness Allergic/Immunologic Allergic/Immunologic ED: Denies mouth swelling or urticaria EXAM Physical Exam Const Vital Signs: 10/04/21 16:59 10/04/21 20:05 Temperature 98.3 F 100 F H Temperature Source Temporal Temporal Pulse Rate 127 H 89 Respiratory Rate 18 16 Blood Pressure 136/98 H 106/67 Blood Pressure Mean 110 80 Pulse Ox 95 92 Oxygen Delivery Method Room Air Room Air Positive well nourished and well developed General Appearance ED: well developed and NAD HEENT Reports moist mucous membranes Neck supple and no JVD Resp normal respiratory effort and clear to auscultation bilaterally Cardio regular rate, regular rhythm and no murmurs GI normal to inspection, nondistended, normoactive bowel sounds Palpation: soft and tender epigastric, LLQ, RLQ, LUQ, RUQ, periumbilical, suprapubic and Anderson's sign Extremity normal to inspection General Extremety ED: Negative for edema or tenderness General Extremity: Negative for edema Neuro oriented x3, CN's II-XII intact bilaterally and no sensory deficits noted Sensorium / Orientation: alert Motor Exam: strength 5/5 throughout Psych mental status grossly normal Skin no rashes or lesions noted MDM MDM MDM Narrative Medical decision making narrative: Patient was given morphine and Zofran. CBC was within normal limits. PT with INR was slightly elevated at 16.8 and 1.4. PTT was slightly elevated at 37.0. Comprehensive metabolic profile was essentially within normal limits. Albumin was slightly low at 3.1. Lipase was normal. Urinalysis showed occult blood of 250 with 5-10 red blood cells. There is no evidence of urinary tract infection. Patient stated that she was starting to have some dyspnea on exertion. Because of this a CTA of the chest was ordered along with the CT of the abdomen pelvis with IV contrast. CTA of the chest does not show any evidence of pulmonary embolism. There is no aortic dissection. CT scan of the abdomen and pelvis was obtained. There is some cholelithiasis but no evidence of cholecystitis. There is no ascites noted. There is evidence of cirrhosis and esophageal varices. Patient was advised of her findings. Patient is feeling better on reevaluation. Patient was instructed to eat a bland diet. Patient was instructed to take her oxycodone as prescribed. Patient was given a prescription for Bentyl to take as needed for pain. Patient was instructed to follow-up with her primary care physician and medical front desk coordinator as scheduled. Patient understood and was agreeable with the plan. All questions were answered. Lab Data Labs: Laboratory Results - last 24 hr 10/04/21 10/04/21 10/04/21 18:30 18:30 20:58 WBC 4.5 RBC 3.87 L Hgb 12.1 Hct 33.6 L MCV 86.8 MCH 31.3 MCHC 36.0 RDW Std Deviation 43.1 RDW Coeff of Lee 13.7 Plt Count 109 L MPV 9.9 Immature Gran % (Auto) 0.400 Neut % (Auto) 66.3 Lymph % (Auto) 20.1 [place] % (Auto) 10.5 H Eos % (Auto) 2.5 Baso % (Auto) 0.2 Absolute Neuts (auto) 3.0 Absolute Lymphs (auto) 0.90 Nucleated RBC % 0 PT 16.8 H INR 1.4 APTT 37.0 H Sodium 142 Potassium 3.3 L Chloride 109 H Carbon Dioxide 28.0 Anion Gap 5 BUN 5 L Creatinine 0.60 Estim Creat Clear Calc 103.46 Est GFR (MDRD) Af Amer 151 Est GFR (MDRD) Non-Af 125 BUN/Creatinine Ratio 8.3 L Glucose 120 H Calcium 9.1 Total Bilirubin 0.70 AST 34 ALT 30 Alkaline Phosphatase 95 Total Protein 6.3 L Albumin 3.1 L Globulin 3.2 Albumin/Globulin Ratio 1.0 Lipase 50 L Urine Color Urine Clarity Urine pH Ur Specific [place] Urine Protein Urine Glucose (UA) Urine Ketones Urine Occult Blood Urine Nitrite Urine Bilirubin Urine Urobilinogen Ur Leukocyte Esterase Urine RBC Urine WBC Ur Squamous Epith Cells Urine Bacteria Urine Mucus 10/04/21 Unknown WBC RBC Hgb Hct MCV MCH MCHC RDW Std Deviation RDW Coeff of Lee Plt Count MPV Immature Gran % (Auto) Neut % (Auto) Lymph % (Auto) [place] % (Auto) Eos % (Auto) Baso % (Auto) Absolute Neuts (auto) Absolute Lymphs (auto) Nucleated RBC % PT INR APTT Sodium Potassium Chloride Carbon Dioxide Anion Gap BUN Creatinine Estim Creat Clear Calc Est GFR (MDRD) Af Amer Est GFR (MDRD) Non-Af BUN/Creatinine Ratio Glucose Calcium Total Bilirubin AST ALT Alkaline Phosphatase Total Protein Albumin Globulin Albumin/Globulin Ratio Lipase Urine Color Yellow Urine Clarity Clear Urine pH 8.0 Ur Specific [place] 1.010 Urine Protein 30 H Urine Glucose (UA) Normal Urine Ketones Negative Urine Occult Blood 250 H Urine Nitrite Negative Urine Bilirubin Negative Urine Urobilinogen Normal Ur Leukocyte Esterase Negative Urine RBC 5-10 SEEN Urine WBC 0 SEEN Ur Squamous Epith Cells 0 SEEN Urine Bacteria RARE Urine Mucus 0 SEEN Radiography Diagnostic Testing: Clinical Impression(s) from Imaging Studies Abdomen/Pelvis CT 10/04/21 20:06 IMPRESSION: Hepatic cirrhosis and splenomegaly with extensive varices due to portal hypertension. Cholelithiasis without definitive evidence for acute cholecystitis Diffuse fecal retention throughout the colon. No evidence for small bowel obstruction Electronically Signed: Marcin Palm MD at 21:24 EDT Reading Location ID and State: [facility] / [place] , Service support , Chest CTA 10/04/21 20:06 IMPRESSION: Cardiomegaly and minor atelectasis within the dependent portion of lungs No focal infiltration or gross pulmonary edema. No evidence for pulmonary embolus Incidental finding of hepatic cirrhosis with splenomegaly and varices Electronically Signed: Marcin Palm MD at 21:19 EDT Reading Location ID and State: [address] [place] [address] , Service support , Discharge Plan Triage Chief Complaint: Abd Pain ED Provider: Kennedy Tabares Dx/Rx/DC Orders Clinical Impression: Abdominal pain Instructions: ED Abdominal Pain Unkn Cause Fem Prescriptions: New dicyclomine 20 mg tablet 20 mg PO BID PRN (Reason: abdominal pain) Qty: 10 RF: 0 No Action tizanidine 4 mg tablet 4 mg TID RF: 0 thiamine HCl (vitamin B1) 100 mg tablet 100 mg DAILY RF: 0 buspirone 10 mg tablet 20 mg TID RF: 0 escitalopram oxalate 20 mg tablet 20 mg DAILY RF: 0 trazodone 100 mg tablet 100 mg QHS RF: 0 melatonin 5 mg tablet 5 mg QHS RF: 0 ondansetron 4 mg tablet,disintegrating 4 mg PO Q6H PRN (Reason: nausea and vomiting) Qty: 30 RF: 0 oxycodone 5 mg tablet 5 mg PO Q8H PRN (Reason: pain) 4 Days Qty: 10 RF: 0 Referrals: DARLIN LÓPEZ [Other] - 3-5 Days Disposition Disposition: Home, Self Care
[2021-10-04] MEDS: Morphine 4 MG/ML Syringe IV (18:31)
[2021-10-04] MEDS: Ondansetron 4 MG/2 ML Vial IV (18:31)
[2021-10-04 18:41] LABS: Basophil# 0.01 X10^3/uL; Basophil% 0.2 % (0-1); Eosinophil# 0.11 X10^3/uL; Eosinophils% 2.5 % (0-5); Hematocrit 33.6 % (37-47); Hemoglobin 12.1 g/dL (12.0-15.0); Lymphocyte % 20.1 % (19-41); Mean Corpuscular Hgb 31.3 pg (27.0-32.0); Mean Corpuscular Volume 86.8 fL (81-99); Mean Platelet Vol. 9.9 fl (6.2-12.0); Monocyte# 0.47 X10^3/uL; Monocyte% 10.5 % (0-10); NRBC Flagged by Analyzer 0 % (0-5); Neutrophil # 2.96 X10^3/uL (2.7-7.7); Neutrophil % 66.3 % (47-70); Platelet Count 109 K/mm3 (150-450); RBC Distribution Width CV 13.7 % (11.6-14.6); RBC Distribution Width SD 43.1 fl (35.1-43.9); Red Blood Count 3.87 M/mm3 (4.2-5.4); White Blood Count 4.5 K/mm3 (4.4-11.0)
[2021-10-04 18:46] LABS: Mucous, Urine 0 SEEN /hpf (<or=2+); Squamous Epithelial Cells - UA 0 SEEN /hpf (5-10); White Blood Cells 0 SEEN /hpf (0-5)
[2021-10-04 18:49] LABS: Color, Urine Yellow (Yellow); Glucose, Dipstick Normal (Normal); Ketone-Dipstick Negative (Negative); Leukocyte Esterase-Dipstick Negative /ul (Negative); Nitrite-Dipstick Negative (Negative); Occult Blood-Urine 250 /ul (Negative); Protein-Dipstick 30 mg/dl (Negative); Urine Bilirubin Dipstick Negative (Negative); Urine Clarity Clear (Clear); Urine Urobilinogen Normal (Normal)
[2021-10-04 19:04] LABS: AST(SGOT) 34 U/L (15-37); Alanine Aminotransfer ALT/SGPT 30 U/L (13-56); Albumin, Serum 3.1 g/dL (3.2-5.0); Alkaline Phosphatase 95 U/L (45-117); Anion Gap 5 (5-15); BUN 5 mg/dL (7-18); BUN/Creat Ratio 8.3 RATIO (10-20); Calcium,Total 9.1 mg/dL (8.5-10.1); Chloride 109 mmol/L (98-107); EST Glomerular Filtration Rate 125 mL/min (>60); Est Glom Filt Rate - Afr Amer 151 mL/min (>60); Estimated Creatinine Clearance 103.46 ml/min; Globulin 3.2 g/dL (2.2-4.2); Glucose 120 mg/dL (74-106); Lipase 50 U/L (73-393); Potassium 3.3 mmol/L (3.5-5.1); Protein, Total 6.3 g/dL (6.4-8.2); Sodium Level 142 mmol/L (136-145)
[2021-10-04 19:07] LABS: Bacteria RARE /hpf (None Seen); Red Blood Cells-Urine 5-10 SEEN /hpf (0-5)
[2021-10-04] MEDS: HYDROmorphone 1 MG/ML Syringe 0.5 MG IV (20:01)
[2021-10-04 20:05] VITALS: BP 106/67; PULSE 89; RESP 16; TEMP 37.7; O2SAT 92
--- NOTE | 2021-10-04 20:06 | CT_ITS ---
STUDY: CTA CHEST REASON FOR EXAM: Female, 31 years old. Dyspnea on exertion RADIATION DOSAGE (If Supplied By Facility): CTDIvol = ( 14.28 ) mGy, DLP = ( 1511.02 ) mGycm TECHNIQUE: The examination was performed with the intravenous administration of IV 100mL Isovue-370. Post-processing of the angiographic images was performed, with multiplanar reformation and 3D reconstruction. Individualized dose optimization techniques were used for this CT. COMPARISON: None. FINDINGS: Normal enhancement of the main pulmonary artery and right and left pulmonary arteries. Normal enhancement of the bilateral peripheral pulmonary arteries. There is no demonstrated pulmonary embolism. Normal thoracic aorta and visualized great vessels. There is no demonstrated aortic dissection. Heart is enlarged.. Small subcentimeter mediastinal nodes. Normal hilar regions. Normal visualized trachea and bronchi. The lungs are well expanded. Minor atelectasis within the dependent portion of lungs. No focal infiltration or pulmonary nodule Normal pleura. Normal chest wall structures. Normal osseous structures. Small hiatal hernia is noted Cirrhotic changes of the liver with splenomegaly and varices consistent with portal hypertension CT/CTA Chest W/WO Contrast IMPRESSION: Cardiomegaly and minor atelectasis within the dependent portion of lungs No focal infiltration or gross pulmonary edema. No evidence for pulmonary embolus Incidental finding of hepatic cirrhosis with splenomegaly and varices Electronically Signed: Marcin Palm MD at 21:19 EDT ,
--- NOTE | 2021-10-04 20:06 | CT_ITS ---
STUDY: CT ABDOMEN AND PELVIS WITH CONTRAST REASON FOR EXAM: Female, 31 years old. Abdominal pain RADIATION DOSAGE (If Supplied By Facility): CTDIvol = ( 14.28 ) mGy, DLP = ( 1511.02 ) mGycm TECHNIQUE: Transaxial images were obtained from the dome of the diaphragm to the symphysis pubis without oral contrast. IV 100mL Isovue-370 was administered. Sagittal and coronal images were reconstructed. Individualized dose optimization techniques were used for this CT. COMPARISON: None. FINDINGS: Small hiatal hernia is noted. There are gastroesophageal varices. Multilobulated sclerotic liver noted without mass or bile duct dilatation.. Multiple tiny calcified gallstones without evidence for acute inflammation. Spleen is enlarged and homogeneous attenuation. There are varices noted consistent with portal hypertension. Normal pancreas. Normal bilateral adrenal glands. Normal right kidney. Normal left kidney. Normal visualized stomach. Normal small intestine. There is diffuse fecal retention seen within the colon. The appendix is visualized and appears normal. There are large perirectal varices within the pelvis Normal abdominal aorta. Normal inferior vena cava. Normal retroperitoneum. Normal urinary bladder. Normal abdominal wall. Lumbar spine demonstrates mild spondylosis CT/Abdomen/Pelvis W IV Cont ONLY IMPRESSION: Hepatic cirrhosis and splenomegaly with extensive varices due to portal hypertension. Cholelithiasis without definitive evidence for acute cholecystitis Diffuse fecal retention throughout the colon. No evidence for small bowel obstruction Electronically Signed: Marcin Palm MD at 21:24 EDT ,
[2021-10-04 21:18] LABS: International Normalized Ratio 1.4; Prothrombin Time (Protime)PT. 16.8 SECONDS (11.7-14.9)
== END 2021-10-04 22:27 | disposition home or self-care (01) ==
PROVIDERS: Emergency Provider Emergency Medicine; Visit Provider Emergency Medicine
DX: K76.6 Portal hypertension (principal); I85.00 Esophageal varices without bleeding; K70.30 Alcoholic cirrhosis of liver without ascites; K80.20 Calculus of gallbladder without cholecystitis without obstruction; F17.210 Nicotine dependence, cigarettes, uncomplicated; R79.1 Abnormal coagulation profile; R11.2 Nausea with vomiting, unspecified; R50.9 Fever, unspecified; E66.9 Obesity, unspecified; Z79.899 Other long term (current) drug therapy; R06.00 Dyspnea, unspecified; E88.09 Other disorders of plasma-protein metabolism, not elsewhere classified; R31.9 Hematuria, unspecified
CPT/HCPCS: 71275; 74177; 80053; 81001; 83690; 85025; 85610; 85730; 96374; 96375; 99285; J7030; Q9967; A4216; J2405

== ENCOUNTER 2021-10-10 03:35 | Emergency (ER) | payer MEDICAID, SELFPAY ==
[2021-10-10 03:36] VITALS: BP 111/60; PULSE 89; RESP 16; TEMP 36.2; O2SAT 98; BMI 33.0
[2021-10-10 03:40] VITALS: BP 111/60; PULSE 89; RESP 16; TEMP 36.2; O2SAT 98
--- NOTE | 2021-10-10 04:13 | EDS_ITS ---
HPI History of Present Illness Chief Complaint: Nausea/Vomiting Informant: patient Narrative Narrative: Patient presents with abdominal pain nausea and vomiting. She states she has vomited about 15 or 18 times since she was last here. She has good days and bad days. Her stomach hurts everywhere all the time. When I asked how long her stomach been hurting is been hurting for years. She sees a etl developer up in [place] but she is trying to get 1 that she used to see down here. The more I talked to her it sounds like she has been in multiple hospitals frequently not just this hospital. She evidently had stay at [facility] I believe in July. She had an EGD it sounds like there. She has also been at [facility]. She states she has been sober now for 4 months which is very good. However, I have an outpatient ethanol level of 284 from 29 August. Patient has Zofran and Phenergan. It sounds like she has had 2 doses in the last 24 hours total. She states she was given medicines at her discharge from this hospital 2 visits ago. 1 is twice a day is 1 is 3 times a day but she does not know what they are. She does not think she is on anything for acid reduction. She states she gets pain all over her abdomen but mostly in the upper part. No diarrhea. No pelvic pain. No urinary symptoms. PFSH PFSH Medical History Alcoholic cirrhosis of liver Anxiety and depression Esophageal varices Gallstone Obesity Tobacco use Home Medications buspirone 20 mg TID 09/30/21 [History Last Taken 09/29/21 19:00] escitalopram oxalate 20 mg DAILY 09/30/21 [History Last Taken 09/29/21 11:00] melatonin 5 mg QHS 09/30/21 [History Last Taken 09/29/21 21:00] thiamine HCl (vitamin B1) 100 mg DAILY 09/30/21 [History Last Taken 09/29/21 11:00] tizanidine 4 mg TID 09/30/21 [History Last Taken 09/29/21 21:00] trazodone 100 mg QHS 09/30/21 [History Last Taken 09/29/21 21:00] ondansetron 4 mg PO Q6H PRN #30 tab 10/03/21 [Rx Last Taken Unknown] oxycodone 5 mg PO Q8H PRN 4 Days #10 tab 10/03/21 [Rx Last Taken Unknown] dicyclomine 20 mg PO BID PRN #10 tab 10/04/21 [Rx Last Taken Unknown] Allergy/AdvReac Type Severity Reaction Status Date / Time No Known Allergies Allergy Verified 10/10/21 03:42 Family History Mother Alcohol abuse Hypertension Father Alcohol abuse Anxiety and depression Surgical History History of endoscopic gastrointestinal surgery Social History household members: other details: Recently following sobriety start moved with parents, broke with boyfriend. 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 substance use type: does not use ROS ROS ED Constitutional Constitutional ED: Denies chills or fever(s) ENT ENT ED: Denies rhinorrhea or sore throat Cardiovascular Cardiovascular: Denies chest pain or palpitations Respiratory/Chest Respiratory/Chest: Denies cough, dyspnea or sputum Gastrointestinal Gastrointestinal: Reports abdominal pain, nausea and vomiting; Denies constipation, diarrhea or melena Genitourinary Genitourinary ED: Denies dysuria, hematuria or urinary frequency Musculoskeletal Musculoskeletal: Denies myalgias Integumentary Denies rash Neurologic Neurologic: Denies headache(s) or weakness Psychiatric Psychiatric: Reports anxiety and depression Endocrine Endocrinology: Denies polydipsia or polyuria Allergic/Immunologic Allergic/Immunologic ED: Denies mouth swelling or urticaria EXAM Physical Exam Const Vital Signs: 10/10/21 03:36 10/10/21 03:40 10/10/21 05:48 Temperature 97.2 F L 97.2 F L Temperature Source Oral Oral Pulse Rate 89 89 74 Respiratory Rate 16 16 17 Blood Pressure 111/60 111/60 112/75 Blood Pressure Mean 77 77 Pulse Ox 98 98 99 Oxygen Delivery Method Room Air Room Air Positive well nourished and well developed General Appearance ED: well developed and NAD; Negative for cyanotic, diaphoretic or pallor HEENT Reports moist mucous membranes Eyes General Eye ED: Negative for pale conjunctiva or scleral icterus Neck no JVD Chest Wall inspection of chest normal Resp normal respiratory effort and clear to auscultation bilaterally Effort and Inspection: Negative for pain with movement Auscultation: Negative for rales, rhonchi or wheezes Cardio regular rate, regular rhythm and no murmurs GI normal to inspection, nondistended, normoactive bowel sounds, non-tender and non-distended GI Narrative: Patient's abdomen is actually not distended. I do not note a fluid wave. There is no objective tenderness. There is certainly no rebound or guarding. I do not feel enlarged liver definitively. Palpation: soft Back/Spine no CVA tenderness Extremity normal to inspection Neuro oriented x3 Sensorium / Orientation: alert Psych mental status grossly normal Skin no rashes or lesions noted General Skin Exam: Negative for jaundice or pallor MDM MDM MDM Narrative Medical decision making narrative: Patient blood work shows CBC with normal hemoglobin and white count. Platelets are little bit low which is chronic. Calcium was a little bit low at 3.1. But this should self correct with diet. LFTs show no marked abnormalities. Total bili and transaminases were normal. Lipase was normal. Urinalysis showed a few red cells but otherwise normal. was negative. Alcohol was negative. This patient has had multiple imaging both here and at other facilities this year. She has been seen at emergency departments at least at [facility] in [facility] just this year. She has seen transplant evaluation team at [facility]. She has seen outpatient STATISTICAL MACHINE MECHANIC. She has had extensive evaluation. I have no indication for her chronic abdominal pain. I do note that she is not on PPI. I think this might benefit the patient. I do not think narcotics are appropriate in this patient. I do not think this is the best treatment for chronic abdominal pain. This patient has a history of some addiction challenges I do not want to worsen that for her. I believe Reglan is the medicine she was prescribed prior. I will also write for some Bentyl and a PPI to see if this will help her. I recommend she avoid nonsteroidals. She should limit Tylenol use. Patient then stated she actually has a lot of Bentyl at home. This was not on her med list as active. We will cancel that prescription because she has that. At discharge, the patient then told the nurse that she has 2 bottles of omeprazole at home. We had talked about this on her very first visit and she denied being on any of these medications. I asked her to go through all the medicine she was actually taking on a regular basis and this was not one of them. We had talked about this medicine just previously when I went in to do a final discussion with her. At that time she told me she had Bentyl at home but did not states she had omeprazole. I had again gone over the fact that I was writing for omeprazole and the reasons for it. For these reasons I have now canceled omeprazole. Patient is encouraged to take omeprazole as it might give her some benefit. Lab Data Attestation: I reviewed the patient's lab results. Labs: Laboratory Results - last 24 hr 10/10/21 10/10/21 10/10/21 04:05 04:18 04:18 WBC 7.7 RBC 4.06 L Hgb 12.6 Hct 37.1 MCV 91.4 MCH 31.0 MCHC 34.0 RDW Std Deviation 48.6 H RDW Coeff of Lee 14.5 Plt Count 126 L MPV 9.6 Immature Gran % (Auto) 0.400 Neut % (Auto) 72.6 H Lymph % (Auto) 17.7 L [place] % (Auto) 7.1 Eos % (Auto) 1.9 Baso % (Auto) 0.3 Absolute Neuts (auto) 5.6 Absolute Lymphs (auto) 1.37 Nucleated RBC % 0 Sodium 142 Potassium 3.1 L Chloride 111 H Carbon Dioxide 25.0 Anion Gap 6 BUN 10 Creatinine 1.00 Estim Creat Clear Calc 62.07 Est GFR (MDRD) Af Amer 84 Est GFR (MDRD) Non-Af 69 BUN/Creatinine Ratio 10.0 Glucose 107 H Calcium 8.4 L Total Bilirubin 0.80 AST 30 ALT 26 Alkaline Phosphatase 102 Total Protein 6.8 Albumin 3.2 Globulin 3.6 Albumin/Globulin Ratio 0.9 Lipase 104 Serum , Qual Urine Color Yellow Urine Clarity Clear Urine pH 6.0 Ur Specific [place] 1.020 Urine Protein 30 H Urine Glucose (UA) 250 H Urine Ketones 5 H Urine Occult Blood 150 H Urine Nitrite Negative Urine Bilirubin 1 H Urine Urobilinogen 4 H Ur Leukocyte Esterase Negative Urine RBC 10-25 SEEN Urine WBC 0-5 SEEN Ur Squamous Epith Cells 0-5 SEEN Urine Bacteria 3+ Urine Mucus 1+ Ethyl Alcohol 10/10/21 10/10/21 04:18 04:20 WBC RBC Hgb Hct MCV MCH MCHC RDW Std Deviation RDW Coeff of Lee Plt Count MPV Immature Gran % (Auto) Neut % (Auto) Lymph % (Auto) [place] % (Auto) Eos % (Auto) Baso % (Auto) Absolute Neuts (auto) Absolute Lymphs (auto) Nucleated RBC % Sodium Potassium Chloride Carbon Dioxide Anion Gap BUN Creatinine Estim Creat Clear Calc Est GFR (MDRD) Af Amer Est GFR (MDRD) Non-Af BUN/Creatinine Ratio Glucose Calcium Total Bilirubin AST ALT Alkaline Phosphatase Total Protein Albumin Globulin Albumin/Globulin Ratio Lipase Serum , Qual NEGATIVE Urine Color Urine Clarity Urine pH Ur Specific [place] Urine Protein Urine Glucose (UA) Urine Ketones Urine Occult Blood Urine Nitrite Urine Bilirubin Urine Urobilinogen Ur Leukocyte Esterase Urine RBC Urine WBC Ur Squamous Epith Cells Urine Bacteria Urine Mucus Ethyl Alcohol < 3.0 Discharge Plan Triage Chief Complaint: Nausea/Vomiting ED Provider: Milind Whitlock Dx/Rx/DC Orders Clinical Impression: Abdominal pain, chronic, generalized, History of cirrhosis, History of nausea and vomiting Instructions: Abdominal Pain, ED Vomiting (Adult) Prescriptions: No Action tizanidine 4 mg tablet 4 mg TID RF: 0 thiamine HCl (vitamin B1) 100 mg tablet 100 mg DAILY RF: 0 buspirone 10 mg tablet 20 mg TID RF: 0 escitalopram oxalate 20 mg tablet 20 mg DAILY RF: 0 trazodone 100 mg tablet 100 mg QHS RF: 0 melatonin 5 mg tablet 5 mg QHS RF: 0 ondansetron 4 mg tablet,disintegrating 4 mg PO Q6H PRN (Reason: nausea and vomiting) Qty: 30 RF: 0 oxycodone 5 mg tablet 5 mg PO Q8H PRN (Reason: pain) 4 Days Qty: 10 RF: 0 dicyclomine 20 mg tablet 20 mg PO BID PRN (Reason: abdominal pain) Qty: 10 RF: 0 Referrals: DARLIN LÓPEZ [Other] - As soon as possible Activity Restrictions/Additional Instructions: Follow-up with one of your etl developer as soon as possible. Disposition Disposition: Home, Self Care Discharge Date/Time: 10/10/21 05:49
[2021-10-10 04:15] LABS: Color, Urine Yellow (Yellow); Glucose, Dipstick 250 mg/dl (Normal); Ketone-Dipstick 5 mg/dl (Negative); Leukocyte Esterase-Dipstick Negative /ul (Negative); Nitrite-Dipstick Negative (Negative); Occult Blood-Urine 150 /ul (Negative); Protein-Dipstick 30 mg/dl (Negative); Urine Clarity Clear (Clear); Urine Urobilinogen 4 mg/dl (Normal)
[2021-10-10] MEDS: 0.9% Normal Saline 1,000 ML 1000 ML IV (04:19)
[2021-10-10] MEDS: Ondansetron 4 MG/2 ML Vial IV (04:19)
[2021-10-10] MEDS: DiphenhydrAMINE 50 MG/ML Syringe IV (04:20)
[2021-10-10 04:21] LABS: Bacteria 3+ /hpf (None Seen); Red Blood Cells-Urine 10-25 SEEN /hpf (0-5); Squamous Epithelial Cells - UA 0-5 SEEN /hpf (5-10); Urine Bilirubin Dipstick 1 mg/dL (Negative); White Blood Cells 0-5 SEEN /hpf (0-5)
[2021-10-10] MEDS: Metoclopramide 10 MG/2 ML Vial IV (04:21)
[2021-10-10 04:22] LABS: Mucous, Urine 1+ /hpf (<or=2+)
[2021-10-10 04:29] LABS: Absolute Lymphocyte Count 1.37 X10^3/uL (0.83-4.51); Absolute Neutrophil Count 5.6 X10^3/uL (2.0-7.7); Basophil# 0.02 X10^3/uL; Basophil% 0.3 % (0-1); Eosinophil# 0.15 X10^3/uL; Eosinophils% 1.9 % (0-5); Hematocrit 37.1 % (37-47); Hemoglobin 12.6 g/dL (12.0-15.0); Lymphocyte # 1.37 X10^3/ul (0.83-4.51); Lymphocyte % 17.7 % (19-41); Mean Corpuscular Volume 91.4 fL (81-99); Mean Platelet Vol. 9.6 fl (6.2-12.0); Monocyte# 0.55 X10^3/uL; Monocyte% 7.1 % (0-10); NRBC Flagged by Analyzer 0 % (0-5); Neutrophil # 5.62 X10^3/uL (2.7-7.7); Neutrophil % 72.6 % (47-70); Platelet Count 126 K/mm3 (150-450); RBC Distribution Width CV 14.5 % (11.6-14.6); RBC Distribution Width SD 48.6 fl (35.1-43.9); Red Blood Count 4.06 M/mm3 (4.2-5.4); White Blood Count 7.7 K/mm3 (4.4-11.0)
[2021-10-10 04:37] LABS: Internal QC Validated? YES +Cl - CLEAR BKGD; Pregnancy, Serum, hCG Quali. NEGATIVE Negative
[2021-10-10 04:48] LABS: ALB/GLOB Ratio 0.9 RATIO (0.9-2.4); AST(SGOT) 30 U/L (15-37); Alanine Aminotransfer ALT/SGPT 26 U/L (13-56); Albumin, Serum 3.2 g/dL (3.2-5.0); Alkaline Phosphatase 102 U/L (45-117); Anion Gap 6 (5-15); BUN 10 mg/dL (7-18); Calcium,Total 8.4 mg/dL (8.5-10.1); Chloride 111 mmol/L (98-107); EST Glomerular Filtration Rate 69 mL/min (>60); Est Glom Filt Rate - Afr Amer 84 mL/min (>60); Estimated Creatinine Clearance 62.07 ml/min; Globulin 3.6 g/dL (2.2-4.2); Glucose 107 mg/dL (74-106); Lipase 104 U/L (73-393); Potassium 3.1 mmol/L (3.5-5.1); Protein, Total 6.8 g/dL (6.4-8.2); Sodium Level 142 mmol/L (136-145)
[2021-10-10 05:07] LABS: Alcohol, Blood (Medical)-Serum < 3.0 mg/dL
[2021-10-10 05:48] VITALS: BP 112/75; PULSE 74; RESP 17; O2SAT 99
== END 2021-10-10 05:49 | disposition home or self-care (01) ==
PROVIDERS: Emergency Provider Emergency Medicine; Visit Provider Emergency Medicine
DX: R10.9 Unspecified abdominal pain (principal); K70.30 Alcoholic cirrhosis of liver without ascites; R11.2 Nausea with vomiting, unspecified; G89.29 Other chronic pain; E66.9 Obesity, unspecified; F17.210 Nicotine dependence, cigarettes, uncomplicated; Z79.899 Other long term (current) drug therapy
CPT/HCPCS: 80053; 81001; 82077; 83690; 84703; 85025; 96361; 96374; 96375; 99284; J7030; A4216; J2405

== ENCOUNTER → 2021-10-12 12:54 | Outpatient (CLI) | payer MEDICAID, SELFPAY ==
[2021-10-12 15:33] LABS: Absolute Lymphocyte Count 1.46 X10^3/uL (0.83-4.51); Absolute Neutrophil Count 5.8 X10^3/uL (2.0-7.7); Basophil# 0.04 X10^3/uL; Basophil% 0.5 % (0-1); Eosinophil# 0.14 X10^3/uL; Eosinophils% 1.8 % (0-5); Hematocrit 37.7 % (37-47); Hemoglobin 13.5 g/dL (12.0-15.0); Lymphocyte # 1.46 X10^3/ul (0.83-4.51); Lymphocyte % 18.7 % (19-41); Mean Corp Hgb Conc 35.8 g/dL (32-36); Mean Corpuscular Hgb 31.5 pg (27.0-32.0); Mean Corpuscular Volume 88.1 fL (81-99); Mean Platelet Vol. 11.1 fl (6.2-12.0); Monocyte# 0.37 X10^3/uL; Monocyte% 4.7 % (0-10); NRBC Flagged by Analyzer 0 % (0-5); Neutrophil # 5.78 X10^3/uL (2.7-7.7); Platelet Count 150 K/mm3 (150-450); RBC Distribution Width CV 14.5 % (11.6-14.6); RBC Distribution Width SD 46.5 fl (35.1-43.9); Red Blood Count 4.28 M/mm3 (4.2-5.4); White Blood Count 7.8 K/mm3 (4.4-11.0)
[2021-10-12 15:45] LABS: Vitamin D,25 Hydroxy 43.9 ng/mL
[2021-10-12 15:51] LABS: Hemoglobin A1c 5.2 % (3.8-5.6)
[2021-10-12 15:54] LABS: Microalbumin:Creatinine Ratio 219.5 mg/g CRE (<30 mg/g CRE)
[2021-10-12 16:41] LABS: AST(SGOT) 49 U/L (15-37); Alanine Aminotransfer ALT/SGPT 34 U/L (13-56); Albumin, Serum 3.5 g/dL (3.2-5.0); Alkaline Phosphatase 105 U/L (45-117); Anion Gap 5 (5-15); BUN 7 mg/dL (7-18); BUN/Creat Ratio 12.1 RATIO (10-20); Calcium,Total 8.7 mg/dL (8.5-10.1); Chloride 112 mmol/L (98-107); Cholesterol 151 mg/dL (200); Creatinine, Serum 0.58 mg/dL (0.55-1.02); EST Glomerular Filtration Rate 130 mL/min (>60); Est Glom Filt Rate - Afr Amer 157 mL/min (>60); Ferritin 35 ng/mL (8-252); Globulin 3.5 g/dL (2.2-4.2); Glucose 95 mg/dL (74-106); High Density Lipoprotein 79 mg/dL; Iron 129 ug/dL (50-170); Potassium 3.8 mmol/L (3.5-5.1); Sodium Level 139 mmol/L (136-145); Thyroid Stim Hormone (TSH) 1.16 uIU/mL (0.358-3.74); Triglycerides 44 mg/dL; Very Low Density Lipoprotein 9 mg/dL (5-40)
[2021-10-14 09:22] LABS: Transferrin 333 mg/dL (192-364)
== END ==
DX: E55.9 Vitamin D deficiency, unspecified (principal); K72.90 Hepatic failure, unspecified without coma; F10.20 Alcohol dependence, uncomplicated; R79.89 Other specified abnormal findings of blood chemistry; E03.9 Hypothyroidism, unspecified; D50.8 Other iron deficiency anemias; Z86.39 Personal history of other endocrine, nutritional and metabolic disease
CPT/HCPCS: 36415; 80053; 80061; 82043; 82140; 82306; 82570; 82728; 82746; 83036; 83540; 83735; 84443; 84466; 85025

== ENCOUNTER → 2021-10-16 10:30 | Outpatient (CLI) | payer MEDICAID, SELFPAY ==
[2021-10-16 11:21] LABS: Vitamin B12 770 pg/mL (211-911)
== END ==
LOC: LAB.FUTURE 10:31 → LAB 10-17 08:40
DX: F10.20 Alcohol dependence, uncomplicated (principal)
CPT/HCPCS: 82607

== ENCOUNTER 2021-10-19 12:34 | Emergency (ER) | payer MEDICAID, SELFPAY ==
[2021-10-19 12:34] VITALS: BP 142/96; PULSE 120; RESP 18; TEMP 35.8; O2SAT 93; BMI 32.1
--- NOTE | 2021-10-19 13:08 | ED.VIS.GI ---
HPI HPI - GI History of Present Illness Chief Complaint: Nausea/Vomiting/Diarrhea Informant: patient Abdominal Pain/Flank Pain Onset: Weeks Context: Gradual Onset Timing: Intermittent Quality: Cramping Location: Diffuse Current Severity: Mild Maximum Severity: Mild Worsened by: Nothing Relieved by: Nothing Nausea/Vomiting/Emesis GI Symptom: Positive for Nausea and Vomiting Onset: Days Severity: Mild Diarrhea/Melena/Hematochezia GI Symptom: Positive for Diarrhea Onset: Today Stool Quality: Positive for Loose; Negative for Black and Maroon Severity: Mild Associated Symptoms Associated Symptoms: Negative for Dysuria, Frequency, Hematuria and Urgency Narrative Narrative: 31-year-old female history of gallbladder disease with gallstones and liver cirrhosis from prior alcohol use. States she was admitted to the hospital for 3 to 4 days about 2 weeks ago. She said intermittent nausea vomiting since that time and diarrhea today. Denies any fever. Complaining of abdominal discomfort. She has a history of esophageal varices. Denies any black or bloody stool. She has had varices banded in the past. States that she is evaluation up at [facility] in the near future for her cirrhosis. Local physicians have decided not to do gallbladder surgery on her at this time due to her cirrhosis. Prior similar symptoms: Yes Recent Illness/Hospitalization: Yes PFSH PFSH Medical History Alcoholic cirrhosis of liver Anxiety and depression Esophageal varices Gallstone Obesity Tobacco use Home Medications buspirone 20 mg TID 09/30/21 [History Last Taken 09/29/21 19:00] escitalopram oxalate 20 mg DAILY 09/30/21 [History Last Taken 09/29/21 11:00] melatonin 5 mg QHS 09/30/21 [History Last Taken 09/29/21 21:00] thiamine HCl (vitamin B1) 100 mg DAILY 09/30/21 [History Last Taken 09/29/21 11:00] tizanidine 4 mg TID 09/30/21 [History Last Taken 09/29/21 21:00] trazodone 100 mg QHS 09/30/21 [History Last Taken 09/29/21 21:00] ondansetron 4 mg PO Q6H PRN #30 tab 10/03/21 [Rx Last Taken Unknown] ursodiol 250 mg PO DAILY 10/19/21 [History Last Taken Unknown] Allergy/AdvReac Type Severity Reaction Status Date / Time No Known Allergies Allergy Verified 10/19/21 12:34 Family History Mother Alcohol abuse Hypertension Father Alcohol abuse Anxiety and depression Surgical History History of endoscopic gastrointestinal surgery Social History household members: other details: Recently following sobriety start moved with parents, broke with boyfriend. 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 substance use type: does not use ROS ROS ED ROS Narrative Nausea vomiting diarrhea. Abdominal pain. Review of Systems ROS Unobtainable: Denies due to encephalopathy Constitutional Constitutional ED: Denies fever(s) ENT ENT ED: Denies ear pain Cardiovascular Cardiovascular: Denies chest pain Respiratory/Chest Respiratory/Chest: Denies cough or dyspnea Gastrointestinal Gastrointestinal: Reports abdominal pain, diarrhea, nausea and vomiting; Denies constipation or melena Genitourinary Genitourinary ED: Denies dysuria or hematuria Musculoskeletal Musculoskeletal: Denies myalgias Integumentary Denies rash Neurologic Neurologic: Denies headache(s) Psychiatric Psychiatric: Denies depression Endocrine Endocrinology: Denies polyuria Hematologic/Lymphatic Hematologic/Lymphatic: Denies easy bruising Allergic/Immunologic Allergic/Immunologic ED: Denies urticaria EXAM Physical Exam Narrative Exam Narrative: 31-year-old female no acute distress. Vital signs stable afebrile does not look septic toxic. H EENT exam unremarkable. Moist with membranes. Neck nontender. Lungs clear to auscultation. Heart tachycardic rate of 120 no murmur. Abdomen soft nondistended normal bowel sounds no peritoneal signs. She describes discomfort but she is a very benign exam. No signs of obstruction or distention. Moving all 4 extremities. Back nontender. Neurologically she is awake and alert. There is no edema in her extremities. Very benign exam. Const Vital Signs: 10/19/21 12:34 Temperature 96.4 F L Temperature Source Temporal Pulse Rate 120 H Respiratory Rate 18 Blood Pressure 142/96 H Blood Pressure Mean 111 Pulse Ox 93 Oxygen Delivery Method Room Air Positive well nourished, well developed and obese; Negative for cachectic, contractures or unkempt General Appearance ED: well developed and NAD; Negative for unkempt, cachectic, contractures or pallor Nutritional Appearance: obese; Negative for cachectic HEENT Reports moist mucous membranes normocephalic and atraumatic Eyes PERRL and EOMs intact bilaterally General Eye ED: Negative for pale conjunctiva or scleral icterus Neck no lymphadenopathy, supple and no JVD General: Negative for tenderness Resp normal respiratory effort and clear to auscultation bilaterally Auscultation: Negative for rales, rhonchi or wheezes Cardio regular rhythm, S1 normal heart sound, S2 normal heart sound and no murmurs; Negative for regular rate Rate: tachycardic GI non-distended and no masses; Negative for non-tender Inspection: Negative for abdominal distention Auscultation: normoactive bowel sounds; Negative for hyperactive bowel sounds or hypoactive bowel sounds Palpation: soft and tender; Negative for guarding, rigid or rebound tenderness present Back/Spine no CVA tenderness General Back: Negative for CVA tenderness Cervical Spine: Negative for cervical spine tenderness Thoracic Spine / Upper Back: Negative for thoracic spinal tenderness Extremity full ROM General Extremety ED: Negative for edema or tenderness General Extremity: Negative for edema Neuro moves all extremities Sensorium / Orientation: alert, oriented to person, oriented to place and oriented to time; Negative for confused, lethargic or stuporous Motor Exam: strength 5/5 throughout Psych mental status grossly normal and thought process normal Appearance: Negative for unkempt Attitude: No agitated Mood & Affect: Negative for depressed or tearful Skin no wounds General Skin Exam: Negative for jaundice or pallor Lesions: no lesions Rashes: no rashes MDM MDM MDM Narrative Medical decision making narrative: Patient with nausea vomiting and diarrhea with a history of cirrhosis. Clinically looks well. Abdomen is benign. Nurses were unable to place an IV. Patient was offered p.o. or IM nausea medications which she refused. Clinically she is not dehydrated nor she by labs. On repeat exam she is doing well at 2:15 PM it will be discharged home. Lab Data Attestation: I reviewed the patient's lab results. Lab results narrative: CBC White count of 10. H&H of 13 and 40. Platelets 190. Electrolytes unremarkable gap of 7 normal BUN and creatinine of 7 and 0.7. Liver enzymes show a slightly elevated AST of 57 and alk phos of 124. Lipase normal at 165. Labs: Laboratory Results - last 24 hr 10/19/21 10/19/21 13:15 13:15 WBC 10.4 RBC 4.54 Hgb 13.8 Hct 40.3 MCV 88.8 MCH 30.4 MCHC 34.2 RDW Std Deviation 46.9 H RDW Coeff of Lee 14.7 H Plt Count 190 MPV 10.0 Immature Gran % (Auto) 0.300 Neut % (Auto) 76.4 H Lymph % (Auto) 16.6 L [place] % (Auto) 4.2 Eos % (Auto) 2.1 Baso % (Auto) 0.4 Absolute Neuts (auto) 7.9 H Absolute Lymphs (auto) 1.72 Nucleated RBC % 0 Sodium 139 Potassium 4.6 Chloride 110 H Carbon Dioxide 22.0 Anion Gap 7 BUN 7 Creatinine 0.70 Estim Creat Clear Calc 88.68 Est GFR (MDRD) Af Amer 126 Est GFR (MDRD) Non-Af 104 BUN/Creatinine Ratio 10.0 Glucose 95 Calcium 9.5 Total Bilirubin 1.00 AST 57 H ALT 41 Alkaline Phosphatase 124 H Total Protein 7.8 Albumin 3.6 Globulin 4.2 Albumin/Globulin Ratio 0.9 Lipase 165 Discharge Plan Triage Chief Complaint: Nausea/Vomiting/Diarrhea Other Complaint: Abd Pain ED Provider: Aaron Truong Dx/Rx/DC Orders Clinical Impression: Abdominal pain, vomiting, and diarrhea, History of cirrhosis of liver Instructions: ED Vomiting (Adult) Prescriptions: No Action tizanidine 4 mg tablet 4 mg TID RF: 0 thiamine HCl (vitamin B1) 100 mg tablet 100 mg DAILY RF: 0 buspirone 10 mg tablet 20 mg TID RF: 0 escitalopram oxalate 20 mg tablet 20 mg DAILY RF: 0 trazodone 100 mg tablet 100 mg QHS RF: 0 melatonin 5 mg tablet 5 mg QHS RF: 0 ondansetron 4 mg tablet,disintegrating 4 mg PO Q6H PRN (Reason: nausea and vomiting) Qty: 30 RF: 0 ursodiol 250 mg tablet 250 mg PO DAILY RF: 0 Referrals: DARLIN LÓPEZ [Other] Activity Restrictions/Additional Instructions: Your labs today were unremarkable. Use your nausea medications at home. Follow-up with your [facility] appointment. Disposition Disposition: Home, Self Care
[2021-10-19 13:35] LABS: Absolute Lymphocyte Count 1.72 X10^3/uL (0.83-4.51); Absolute Neutrophil Count 7.9 X10^3/uL (2.0-7.7); Basophil# 0.04 X10^3/uL; Basophil% 0.4 % (0-1); Eosinophil# 0.22 X10^3/uL; Eosinophils% 2.1 % (0-5); Hematocrit 40.3 % (37-47); Hemoglobin 13.8 g/dL (12.0-15.0); Lymphocyte # 1.72 X10^3/ul (0.83-4.51); Lymphocyte % 16.6 % (19-41); Mean Corp Hgb Conc 34.2 g/dL (32-36); Mean Corpuscular Hgb 30.4 pg (27.0-32.0); Mean Corpuscular Volume 88.8 fL (81-99); Monocyte# 0.44 X10^3/uL; Monocyte% 4.2 % (0-10); NRBC Flagged by Analyzer 0 % (0-5); Neutrophil # 7.94 X10^3/uL (2.7-7.7); Neutrophil % 76.4 % (47-70); Platelet Count 190 K/mm3 (150-450); RBC Distribution Width CV 14.7 % (11.6-14.6); RBC Distribution Width SD 46.9 fl (35.1-43.9); Red Blood Count 4.54 M/mm3 (4.2-5.4); White Blood Count 10.4 K/mm3 (4.4-11.0)
[2021-10-19 14:02] LABS: ALB/GLOB Ratio 0.9 RATIO (0.9-2.4); AST(SGOT) 57 U/L (15-37); Alanine Aminotransfer ALT/SGPT 41 U/L (13-56); Albumin, Serum 3.6 g/dL (3.2-5.0); Alkaline Phosphatase 124 U/L (45-117); Anion Gap 7 (5-15); BUN 7 mg/dL (7-18); Calcium,Total 9.5 mg/dL (8.5-10.1); Chloride 110 mmol/L (98-107); EST Glomerular Filtration Rate 104 mL/min (>60); Est Glom Filt Rate - Afr Amer 126 mL/min (>60); Estimated Creatinine Clearance 88.68 ml/min; Globulin 4.2 g/dL (2.2-4.2); Glucose 95 mg/dL (74-106); Lipase 165 U/L (73-393); Potassium 4.6 mmol/L (3.5-5.1); Protein, Total 7.8 g/dL (6.4-8.2); Sodium Level 139 mmol/L (136-145)
--- NOTE | 2021-10-19 14:28 | ED.RN ---
MULT ATTEMPTS MADE TO OBTAIN IV ACCESS-UNSUCCESSFUL. NOTIFIED, STATES OK TO NOT PLACE IV PT IS NOT DEHYDRATED. CECY CHANGED FROM IV TO ODT. PT REFUSING ODT. SPOKE TO PT. PT REFUSING ANY OTHER ANTIEMETIC MEDS/ROUTES. STATES I'LL JUST GO HOME. PT LEFT WITHOUT WAITING FOR D/C INSTRUCTIONS.
== END 2021-10-19 14:31 | disposition home or self-care (01) ==
PROVIDERS: Emergency Provider Emergency Medicine; Visit Provider Emergency Medicine
DX: R10.9 Unspecified abdominal pain (principal); K74.60 Unspecified cirrhosis of liver; R11.2 Nausea with vomiting, unspecified; R19.7 Diarrhea, unspecified; F17.210 Nicotine dependence, cigarettes, uncomplicated; E66.9 Obesity, unspecified; F41.9 Anxiety disorder, unspecified; F32.A Depression, unspecified; Z79.899 Other long term (current) drug therapy
CPT/HCPCS: 80053; 83690; 85025; 99282; A4216

== ENCOUNTER 2021-11-04 19:19 | Emergency (ER) | payer MEDICAID, SELFPAY ==
[2021-11-04 19:20] VITALS: BP 165/109; PULSE 122; RESP 15; TEMP 36.6; O2SAT 98; BMI 34.0
[2021-11-04 19:39] LABS: Bacteria 0 SEEN /hpf (None Seen); Mucous, Urine 0 SEEN /hpf (<or=2+); Red Blood Cells-Urine 0 SEEN /hpf (0-5); Squamous Epithelial Cells - UA 0 SEEN /hpf (5-10)
[2021-11-04 19:40] LABS: Color, Urine Yellow (Yellow); Glucose, Dipstick Normal (Normal); Ketone-Dipstick Negative (Negative); Leukocyte Esterase-Dipstick Negative /ul (Negative); Nitrite-Dipstick Negative (Negative); Occult Blood-Urine 250 /ul (Negative); Protein-Dipstick 30 mg/dl (Negative); Specific Gravity, Urine 1.015 (1.002-1.030); Urine Bilirubin Dipstick Negative (Negative); Urine Clarity Clear (Clear); Urine Urobilinogen Normal (Normal)
[2021-11-04 19:46] LABS: White Blood Cells 0-5 SEEN /hpf (0-5)
[2021-11-04 19:54] VITALS: BP 148/95; PULSE 99; RESP 18; O2SAT 96
[2021-11-04 20:04] LABS: Absolute Lymphocyte Count 1.77 X10^3/uL (0.83-4.51); Absolute Neutrophil Count 8.4 X10^3/uL (2.0-7.7); Basophil# 0.04 X10^3/uL; Basophil% 0.4 % (0-1); Eosinophils% 1.8 % (0-5); Hematocrit 39.3 % (37-47); Hemoglobin 13.1 g/dL (12.0-15.0); Lymphocyte # 1.77 X10^3/ul (0.83-4.51); Lymphocyte % 16.1 % (19-41); Mean Corp Hgb Conc 33.3 g/dL (32-36); Mean Corpuscular Hgb 30.2 pg (27.0-32.0); Mean Corpuscular Volume 90.6 fL (81-99); Mean Platelet Vol. 9.4 fl (6.2-12.0); Monocyte# 0.55 X10^3/uL; NRBC Flagged by Analyzer 0 % (0-5); Neutrophil # 8.41 X10^3/uL (2.7-7.7); Neutrophil % 76.4 % (47-70); Platelet Count 148 K/mm3 (150-450); RBC Distribution Width CV 14.4 % (11.6-14.6); RBC Distribution Width SD 47.8 fl (35.1-43.9); Red Blood Count 4.34 M/mm3 (4.2-5.4)
[2021-11-04] MEDS: Ketorolac 15 MG/ML Vial IV (20:05)
[2021-11-04 20:11] LABS: Internal QC Validated? YES +Cl - CLEAR BKGD; Pregnancy, Serum, hCG Quali. NEGATIVE Negative
[2021-11-04 20:37] LABS: ALB/GLOB Ratio 0.9 RATIO (0.9-2.4); AST(SGOT) 35 U/L (15-37); Alanine Aminotransfer ALT/SGPT 36 U/L (13-56); Albumin, Serum 3.6 g/dL (3.2-5.0); Alkaline Phosphatase 127 U/L (45-117); Anion Gap 7 (5-15); BUN 7 mg/dL (7-18); BUN/Creat Ratio 11.2 RATIO (10-20); Calcium,Total 9.1 mg/dL (8.5-10.1); Chloride 111 mmol/L (98-107); Creatinine, Serum 0.62 mg/dL (0.55-1.02); EST Glomerular Filtration Rate 119 mL/min (>60); Est Glom Filt Rate - Afr Amer 144 mL/min (>60); Estimated Creatinine Clearance 100.12 ml/min; Globulin 3.9 g/dL (2.2-4.2); Glucose 89 mg/dL (74-106); Lipase 84 U/L (73-393); Potassium 3.8 mmol/L (3.5-5.1); Protein, Total 7.5 g/dL (6.4-8.2); Sodium Level 142 mmol/L (136-145)
[2021-11-04 21:31] VITALS: BP 151/91; PULSE 98; RESP 16; O2SAT 98
[2021-11-04] MEDS: Morphine 4 MG/ML Syringe IV (21:32)
[2021-11-04] MEDS: Ondansetron 4 MG/2 ML Vial IV (21:32)
--- NOTE | 2021-11-04 21:41 | EDS_ITS ---
HPI History of Present Illness Chief Complaint: Abd Pain Narrative Narrative: Patient presents with abdominal pain, mostly in the suprapubic region. It started yesterday morning and slowly got worse, she feels like the last time she had a ovarian cyst. She has no flank pain. She has no dysuria or hematuria. She is denying . She does not have upper abdominal pain. No nausea vomiting or diarrhea. PFSH PFSH Medical History Alcoholic cirrhosis of liver Anxiety and depression Esophageal varices Gallstone Obesity Tobacco use Home Medications buspirone 20 mg TID 09/30/21 [History Last Taken 09/29/21 19:00] escitalopram oxalate 20 mg PO DAILY 09/30/21 [History Last Taken 09/29/21 11:00] melatonin 5 mg PO QHS 09/30/21 [History Last Taken 09/29/21 21:00] thiamine HCl (vitamin B1) 100 mg PO DAILY 09/30/21 [History Last Taken 09/29/21 11:00] tizanidine 4 mg PO TID 09/30/21 [History Last Taken 09/29/21 21:00] trazodone 100 mg PO QHS 09/30/21 [History Last Taken 09/29/21 21:00] ondansetron 4 mg PO Q6H PRN #30 tab 10/03/21 [Rx Last Taken Unknown] oxycodone 5 mg PO Q8H PRN 3 Days #8 cap 11/04/21 [Rx Last Taken Unknown] rifaximin 11/04/21 [History Last Taken Unknown] Allergy/AdvReac Type Severity Reaction Status Date / Time No Known Allergies Allergy Verified 11/04/21 19:22 Family History Mother Alcohol abuse Hypertension Father Alcohol abuse Anxiety and depression Surgical History History of endoscopic gastrointestinal surgery Social History household members: other details: Recently following sobriety start moved with parents, broke with boyfriend. 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 substance use type: does not use ROS ROS ED ROS Narrative Past medical history: Reviewed, significant for history of alcohol induced cirrhosis of the liver, history of gastroparesis, history of variably colic. Medications: Reviewed Social history: Noncontributory Review of systems: All systems negative except as indicated General: No fever Eyes: No visual changes ENT: No upper airway congestion, normal voice Neck: No neck pain Cardiovascular: No chest pain Respiratory: No shortness of breath or cough Gastrointestinal: As in HPI Genitourinary: No dysuria Musculoskeletal: Denies myalgias no difficulty with ambulation Skin: No rash Neurological: No memory loss, confusion or any focal weakness Psych: No recent behavioral changes Hematologic: No easy bleeding or easy bruising EXAM Physical Exam Narrative Exam Narrative: Physical exam General: Patient appears somewhat uncomfortable. Head: Normocephalic, Atraumatic Eyes: Conjunctiva not pale ENT: Moist mucous membranes Neck: Supple, Nontender, No lymphadenopathy Cardiovascular: Regular rate, Regular rhythm Respiratory: No distress, CTA bilaterally Abdomen: Soft, mostly suprapubic and left lower quadrant abdominal pain. No guarding or rebound. No pain at McBurney's. No upper abdominal pain. Back: Nontender, Normal Inspection. Negative for: CVA tenderness Extremities: Nontender, No edema Skin: Normal color, No rash Neurological: Alert, Normal Strength, Normal Sensation Psychological: Normal affect Const Vital Signs: 11/04/21 19:20 11/04/21 19:54 11/04/21 21:31 Temperature 98 F Temperature Source Temporal Pulse Rate 122 H 99 98 Respiratory Rate 15 18 16 Blood Pressure 165/109 H 148/95 H 151/91 H Blood Pressure Mean 127 112 111 Pulse Ox 98 96 98 Oxygen Delivery Method Room Air Room Air Room Air MDM MDM MDM Narrative Medical decision making narrative: Patient has a normal ED work-up. I am not worried about torsion, she had gradual onset of pain since yesterday this is unlikely to be a torsion. She can follow-up with her [employer]. At this time I do not see a reason to call in ultrasound emergently. She can get an ultrasound outpatient. She was tachycardic initially because of her pain but this has improved. Lab Data Labs: Laboratory Results - last 24 hr 11/04/21 11/04/21 11/04/21 19:30 19:55 19:55 WBC 11.0 RBC 4.34 Hgb 13.1 Hct 39.3 MCV 90.6 MCH 30.2 MCHC 33.3 RDW Std Deviation 47.8 H RDW Coeff of Lee 14.4 Plt Count 148 L MPV 9.4 Immature Gran % (Auto) 0.300 Neut % (Auto) 76.4 H Lymph % (Auto) 16.1 L [place] % (Auto) 5.0 Eos % (Auto) 1.8 Baso % (Auto) 0.4 Absolute Neuts (auto) 8.4 H Absolute Lymphs (auto) 1.77 Nucleated RBC % 0 Sodium Cancelled Potassium Cancelled Chloride Cancelled Carbon Dioxide Cancelled Anion Gap Cancelled BUN Cancelled Creatinine Cancelled Estim Creat Clear Calc Cancelled Est GFR (MDRD) Af Amer Cancelled Est GFR (MDRD) Non-Af Cancelled BUN/Creatinine Ratio Cancelled Glucose Cancelled Calcium Cancelled Total Bilirubin Cancelled AST Cancelled ALT Cancelled Alkaline Phosphatase Cancelled Total Protein Cancelled Albumin Cancelled Globulin Cancelled Albumin/Globulin Ratio Cancelled Lipase Cancelled Serum , Qual Urine Color Yellow Urine Clarity Clear Urine pH 6.0 Ur Specific [place] 1.015 Urine Protein 30 H Urine Glucose (UA) Normal Urine Ketones Negative Urine Occult Blood 250 H Urine Nitrite Negative Urine Bilirubin Negative Urine Urobilinogen Normal Ur Leukocyte Esterase Negative Urine RBC 0 SEEN Urine WBC 0-5 SEEN Ur Squamous Epith Cells 0 SEEN Urine Bacteria 0 SEEN Urine Mucus 0 SEEN 11/04/21 11/04/21 19:55 20:10 WBC RBC Hgb Hct MCV MCH MCHC RDW Std Deviation RDW Coeff of Lee Plt Count MPV Immature Gran % (Auto) Neut % (Auto) Lymph % (Auto) [place] % (Auto) Eos % (Auto) Baso % (Auto) Absolute Neuts (auto) Absolute Lymphs (auto) Nucleated RBC % Sodium 142 Potassium 3.8 Chloride 111 H Carbon Dioxide 24.0 Anion Gap 7 BUN 7 Creatinine 0.62 Estim Creat Clear Calc 100.12 Est GFR (MDRD) Af Amer 144 Est GFR (MDRD) Non-Af 119 BUN/Creatinine Ratio 11.2 Glucose 89 Calcium 9.1 Total Bilirubin 1.30 H AST 35 ALT 36 Alkaline Phosphatase 127 H Total Protein 7.5 Albumin 3.6 Globulin 3.9 Albumin/Globulin Ratio 0.9 Lipase 84 Serum , Qual NEGATIVE Urine Color Urine Clarity Urine pH Ur Specific [place] Urine Protein Urine Glucose (UA) Urine Ketones Urine Occult Blood Urine Nitrite Urine Bilirubin Urine Urobilinogen Ur Leukocyte Esterase Urine RBC Urine WBC Ur Squamous Epith Cells Urine Bacteria Urine Mucus Discharge Plan Triage Chief Complaint: Abd Pain ED Provider: Jaime Huang Dx/Rx/DC Orders Clinical Impression: Abdominal pain, Pelvic pain Instructions: Abdominal Pain Prescriptions: New oxycodone 5 mg capsule 5 mg PO Q8H PRN (Reason: pain) 3 Days Qty: 8 RF: 0 No Action tizanidine 4 mg tablet 4 mg PO TID RF: 0 thiamine HCl (vitamin B1) 100 mg tablet 100 mg PO DAILY RF: 0 buspirone 10 mg tablet 20 mg TID RF: 0 escitalopram oxalate 20 mg tablet 20 mg PO DAILY RF: 0 trazodone 100 mg tablet 100 mg PO QHS RF: 0 melatonin 5 mg tablet 5 mg PO QHS RF: 0 ondansetron 4 mg tablet,disintegrating 4 mg PO Q6H PRN (Reason: nausea and vomiting) Qty: 30 RF: 0 rifaximin RF: 0 Primary Care Provider: Care Physician,No Primary Referrals: Care Physician,No Primary [Primary Care Provider] - 2 Days Disposition Disposition: Home, Self Care
[2021-11-04 22:04] VITALS: BP 128/88; PULSE 66; RESP 18; TEMP 36.9; O2SAT 98
== END 2021-11-04 22:05 | disposition home or self-care (01) ==
PROVIDERS: Emergency Provider Emergency Medicine; Visit Provider Emergency Medicine
DX: R10.9 Unspecified abdominal pain (principal); K70.30 Alcoholic cirrhosis of liver without ascites; R10.2 Pelvic and perineal pain; E66.9 Obesity, unspecified; F32.A Depression, unspecified; F41.9 Anxiety disorder, unspecified; Z79.899 Other long term (current) drug therapy; F17.210 Nicotine dependence, cigarettes, uncomplicated
CPT/HCPCS: 80053; 81001; 83690; 84703; 85025; 96374; 96375; 99283; A4216; J2405

== ENCOUNTER 2021-11-09 19:54 | Emergency (ER) | payer MEDICAID, SELFPAY ==
[2021-11-09 19:54] VITALS: BP 164/106; PULSE 122; RESP 16; TEMP 36.9; O2SAT 98; BMI 34.9
[2021-11-09 20:23] LABS: Bacteria 0 SEEN /hpf (None Seen); Mucous, Urine 0 SEEN /hpf (<or=2+); White Blood Cells 0 SEEN /hpf (0-5)
[2021-11-09 20:25] LABS: Color, Urine Yellow (Yellow); Glucose, Dipstick Normal (Normal); Ketone-Dipstick 5 mg/dl (Negative); Leukocyte Esterase-Dipstick Negative /ul (Negative); Nitrite-Dipstick Negative (Negative); Occult Blood-Urine 250 /ul (Negative); Protein-Dipstick 100 mg/dl (Negative); Urine Bilirubin Dipstick Negative (Negative); Urine Clarity Clear (Clear); Urine Urobilinogen 1 mg/dl (Normal)
--- NOTE | 2021-11-09 20:55 | ED.VIS.GI ---
HPI HPI - GI History of Present Illness Chief Complaint: Abd Pain Informant: patient Abdominal Pain/Flank Pain Onset: Days (3) Context: Sudden Onset Timing: Continuous Quality: Sharp Location: LLQ and Left Flank Worsened by: - (Coughing, sneezing) Relieved by: Nothing Nausea/Vomiting/Emesis GI Symptom: Positive for Nausea and Vomiting Diarrhea/Melena/Hematochezia GI Symptom: Positive for Diarrhea; Negative for Melena and Hematochezia Associated Symptoms Associated Symptoms: Negative for Dysuria, Frequency and Hematuria Narrative Narrative: Patient presents with abdominal pain that has been getting worse over the last 3 days. Patient states her pain began rather suddenly. Patient states it is over the left lower quadrant and left flank area. Patient describes her pain as sharp. Patient states it is worse with sneezing and with coughing. Patient states nothing helps with the pain. Patient admits to subjective fevers and chills but when she took her temperature was 99. Patient admits to nausea, vomiting, diarrhea. Patient denies any dysuria or hematuria. Patient denies any melena or hematochezia. Patient denies any hematemesis or coffee-ground emesis. PFSH PFSH Medical History Alcoholic cirrhosis of liver Anxiety and depression Esophageal varices Gallstone Obesity Tobacco use Home Medications buspirone 20 mg TID 09/30/21 [History Last Taken 09/29/21 19:00] escitalopram oxalate 20 mg PO DAILY 09/30/21 [History Last Taken 09/29/21 11:00] melatonin 5 mg PO QHS 09/30/21 [History Last Taken 09/29/21 21:00] thiamine HCl (vitamin B1) 100 mg PO DAILY 09/30/21 [History Last Taken 09/29/21 11:00] tizanidine 4 mg PO TID 09/30/21 [History Last Taken 09/29/21 21:00] trazodone 100 mg PO QHS 09/30/21 [History Last Taken 09/29/21 21:00] ondansetron 4 mg PO Q6H PRN #30 tab 10/03/21 [Rx Last Taken Unknown] oxycodone 5 mg PO Q8H PRN 3 Days #8 cap 11/04/21 [Rx Last Taken Unknown] rifaximin 11/04/21 [History Last Taken Unknown] Allergy/AdvReac Type Severity Reaction Status Date / Time No Known Allergies Allergy Verified 11/09/21 19:56 Family History Mother Alcohol abuse Hypertension Father Alcohol abuse Anxiety and depression Surgical History History of endoscopic gastrointestinal surgery Social History household members: other details: Recently following sobriety start moved with parents, broke with boyfriend. 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 substance use type: does not use ROS ROS ED Constitutional Constitutional ED: Reports chills, fever(s) and subjective Eyes Eyes: Denies blurry vision or change in vision ENT ENT ED: Denies rhinorrhea or sore throat Cardiovascular Cardiovascular: Denies chest pain or palpitations Respiratory/Chest Respiratory/Chest: Denies cough or dyspnea Gastrointestinal Gastrointestinal: Reports abdominal pain, diarrhea, nausea and vomiting Genitourinary Genitourinary ED: Denies dysuria or hematuria Musculoskeletal Musculoskeletal: Reports back pain; Denies neck pain Integumentary Denies abscess or rash Neurologic Neurologic: Denies headache(s) or weakness Allergic/Immunologic Allergic/Immunologic ED: Denies mouth swelling or urticaria EXAM Physical Exam Const Vital Signs: 11/09/21 19:54 Temperature 98.4 F Temperature Source Temporal Pulse Rate 122 H Respiratory Rate 16 Blood Pressure 164/106 H Blood Pressure Mean 125 Pulse Ox 98 Oxygen Delivery Method Room Air Positive well nourished and well developed General Appearance ED: well developed HEENT Reports moist mucous membranes Neck supple and no JVD Resp normal respiratory effort and clear to auscultation bilaterally Cardio regular rate, regular rhythm and no murmurs GI normal to inspection, nondistended, normoactive bowel sounds and non-distended Auscultation: normoactive bowel sounds Palpation: soft and tender epigastric, LLQ, RLQ, LUQ, RUQ, periumbilical and suprapubic; Negative for guarding or rebound tenderness present Extremity normal to inspection General Extremety ED: Negative for edema or tenderness General Extremity: Negative for edema Neuro oriented x3, CN's II-XII intact bilaterally and no sensory deficits noted Sensorium / Orientation: alert Motor Exam: strength 5/5 throughout Psych mental status grossly normal Skin no rashes or lesions noted MDM MDM MDM Narrative Medical decision making narrative: Patient given IV fluids, morphine, and Zofran. CBC was within normal limits. Comprehensive metabolic profile showed a slightly elevated bilirubin of 1.3. Alkaline phosphatase was slightly elevated at 125. Lipase was normal. Urinalysis does not show any evidence of urinary tract infection. PT with INR were within normal limits. Serum hCG was negative. Patient was advised of her findings. Patient is feeling better on reevaluation. Patient was instructed to drink plenty of fluids and start with a liquid diet and advance as tolerated. Patient states she has nausea medicine at home. Patient was instructed to follow-up with her primary care physician in 3 to 5 days. Patient understood and was agreeable with the plan. All questions were answered. Lab Data Attestation: I reviewed the patient's lab results. Labs: Laboratory Results - last 24 hr 11/09/21 11/09/21 11/09/21 20:15 21:00 21:00 WBC 8.8 RBC 4.45 Hgb 13.4 Hct 40.3 MCV 90.6 MCH 30.1 MCHC 33.3 RDW Std Deviation 47.5 H RDW Coeff of Lee 14.3 Plt Count 120 L MPV 10.3 Immature Gran % (Auto) 0.300 Neut % (Auto) 72.4 H Lymph % (Auto) 19.5 [place] % (Auto) 5.7 Eos % (Auto) 1.8 Baso % (Auto) 0.3 Absolute Neuts (auto) 6.4 Absolute Lymphs (auto) 1.72 Nucleated RBC % 0 PT INR Sodium 143 Potassium 3.9 Chloride 112 H Carbon Dioxide 27.0 Anion Gap 4 L BUN 6 L Creatinine 0.56 Estim Creat Clear Calc 110.85 Est GFR (MDRD) Af Amer 162 Est GFR (MDRD) Non-Af 134 BUN/Creatinine Ratio 10.7 Glucose 89 Calcium 8.8 Total Bilirubin 1.30 H Direct Bilirubin 0.28 AST 32 ALT 30 Alkaline Phosphatase 125 H Total Protein 7.4 Albumin 3.6 Globulin 3.8 Lipase 87 Serum , Qual Urine Color Yellow Urine Clarity Clear Urine pH 6.0 Ur Specific [place] 1.010 Urine Protein 100 H Urine Glucose (UA) Normal Urine Ketones 5 H Urine Occult Blood 250 H Urine Nitrite Negative Urine Bilirubin Negative Urine Urobilinogen 1 H Ur Leukocyte Esterase Negative Urine RBC 0-5 SEEN Urine WBC 0 SEEN Ur Squamous Epith Cells 0-5 SEEN Urine Bacteria 0 SEEN Urine Mucus 0 SEEN 11/09/21 11/09/21 21:10 21:10 WBC RBC Hgb Hct MCV MCH MCHC RDW Std Deviation RDW Coeff of Lee Plt Count MPV Immature Gran % (Auto) Neut % (Auto) Lymph % (Auto) [place] % (Auto) Eos % (Auto) Baso % (Auto) Absolute Neuts (auto) Absolute Lymphs (auto) Nucleated RBC % PT 15.1 H INR 1.2 Sodium Potassium Chloride Carbon Dioxide Anion Gap BUN Creatinine Estim Creat Clear Calc Est GFR (MDRD) Af Amer Est GFR (MDRD) Non-Af BUN/Creatinine Ratio Glucose Calcium Total Bilirubin Direct Bilirubin AST ALT Alkaline Phosphatase Total Protein Albumin Globulin Lipase Serum , Qual NEGATIVE Urine Color Urine Clarity Urine pH Ur Specific [place] Urine Protein Urine Glucose (UA) Urine Ketones Urine Occult Blood Urine Nitrite Urine Bilirubin Urine Urobilinogen Ur Leukocyte Esterase Urine RBC Urine WBC Ur Squamous Epith Cells Urine Bacteria Urine Mucus Discharge Plan Triage Chief Complaint: Abd Pain ED Provider: Kennedy Tabares Dx/Rx/DC Orders Clinical Impression: Abdominal pain Instructions: ED Abdominal Pain Unkn Cause Fem Prescriptions: No Action tizanidine 4 mg tablet 4 mg PO TID RF: 0 thiamine HCl (vitamin B1) 100 mg tablet 100 mg PO DAILY RF: 0 buspirone 10 mg tablet 20 mg TID RF: 0 escitalopram oxalate 20 mg tablet 20 mg PO DAILY RF: 0 trazodone 100 mg tablet 100 mg PO QHS RF: 0 melatonin 5 mg tablet 5 mg PO QHS RF: 0 ondansetron 4 mg tablet,disintegrating 4 mg PO Q6H PRN (Reason: nausea and vomiting) Qty: 30 RF: 0 rifaximin RF: 0 oxycodone 5 mg capsule 5 mg PO Q8H PRN (Reason: pain) 3 Days Qty: 8 RF: 0 Primary Care Provider: Care Physician,No Primary Referrals: Jaime Valle MD [STAFF PHYSICIAN] - 3-5 Days Care Physician,No Primary [Primary Care Provider] - Disposition Disposition: Home, Self Care
[2021-11-09] MEDS: 0.9% Normal Saline 1,000 ML 1000 ML IV (21:09)
[2021-11-09] MEDS: Ondansetron 4 MG/2 ML Vial IV ×2 (21:09→22:38)
[2021-11-09] MEDS: Morphine 4 MG/ML Syringe IV ×2 (21:11→22:40)
[2021-11-09 21:26] LABS: Absolute Lymphocyte Count 1.72 X10^3/uL (0.83-4.51); Absolute Neutrophil Count 6.4 X10^3/uL (2.0-7.7); Basophil# 0.03 X10^3/uL; Basophil% 0.3 % (0-1); Eosinophil# 0.16 X10^3/uL; Eosinophils% 1.8 % (0-5); Hematocrit 40.3 % (37-47); Hemoglobin 13.4 g/dL (12.0-15.0); Lymphocyte # 1.72 X10^3/ul (0.83-4.51); Lymphocyte % 19.5 % (19-41); Mean Corp Hgb Conc 33.3 g/dL (32-36); Mean Corpuscular Hgb 30.1 pg (27.0-32.0); Mean Corpuscular Volume 90.6 fL (81-99); Mean Platelet Vol. 10.3 fl (6.2-12.0); Monocyte% 5.7 % (0-10); NRBC Flagged by Analyzer 0 % (0-5); Neutrophil % 72.4 % (47-70); Platelet Count 120 K/mm3 (150-450); RBC Distribution Width CV 14.3 % (11.6-14.6); RBC Distribution Width SD 47.5 fl (35.1-43.9); Red Blood Count 4.45 M/mm3 (4.2-5.4); White Blood Count 8.8 K/mm3 (4.4-11.0)
[2021-11-09 21:35] LABS: International Normalized Ratio 1.2; Prothrombin Time (Protime)PT. 15.1 SECONDS (11.7-14.9)
[2021-11-09 21:38] LABS: AST(SGOT) 32 U/L (15-37); Alanine Aminotransfer ALT/SGPT 30 U/L (13-56); Albumin, Serum 3.6 g/dL (3.2-5.0); Alkaline Phosphatase 125 U/L (45-117); Anion Gap 4 (5-15); BUN 6 mg/dL (7-18); BUN/Creat Ratio 10.7 RATIO (10-20); Bilirubin, Direct 0.28 mg/dL (0.00-0.30); Calcium,Total 8.8 mg/dL (8.5-10.1); Chloride 112 mmol/L (98-107); Creatinine, Serum 0.56 mg/dL (0.55-1.02); EST Glomerular Filtration Rate 134 mL/min (>60); Est Glom Filt Rate - Afr Amer 162 mL/min (>60); Estimated Creatinine Clearance 110.85 ml/min; Globulin 3.8 g/dL (2.2-4.2); Glucose 89 mg/dL (74-106); Lipase 87 U/L (73-393); Potassium 3.9 mmol/L (3.5-5.1); Protein, Total 7.4 g/dL (6.4-8.2); Sodium Level 143 mmol/L (136-145)
[2021-11-09 21:46] LABS: Internal QC Validated? YES +Cl - CLEAR BKGD; Pregnancy, Serum, hCG Quali. NEGATIVE Negative
[2021-11-09 21:57] LABS: Red Blood Cells-Urine 0-5 SEEN /hpf (0-5); Squamous Epithelial Cells - UA 0-5 SEEN /hpf (5-10)
[2021-11-09 23:55] VITALS: BP 137/92; PULSE 98; RESP 16; O2SAT 100
== END 2021-11-09 23:56 | disposition home or self-care (01) ==
PROVIDERS: Emergency Provider Emergency Medicine; Visit Provider Emergency Medicine
DX: R10.32 Left lower quadrant pain (principal); R11.2 Nausea with vomiting, unspecified; R19.7 Diarrhea, unspecified; R68.83 Chills (without fever); F17.210 Nicotine dependence, cigarettes, uncomplicated; Z79.899 Other long term (current) drug therapy
CPT/HCPCS: 80048; 80076; 81001; 83690; 84703; 85025; 85610; 96361; 96374; 96375; 96376; 99282; J7030; A4216; J2405

== ENCOUNTER 2021-11-14 15:21 | Emergency (ER) | payer MEDICAID, SELFPAY ==
[2021-11-14 15:22] VITALS: BP 166/93; PULSE 120; RESP 18; TEMP 37.1; O2SAT 99; BMI 35.7
--- NOTE | 2021-11-14 16:17 | CT_ITS ---
STUDY: CT ABDOMEN AND PELVIS WITHOUT CONTRAST REASON FOR EXAM: Female, 31 years old. Kidney Stone, pain RADIATION DOSAGE (If Supplied By Facility): CTDIvol = ( 13.07 ) mGy, DLP = ( 659.50 ) mGycm TECHNIQUE: Transaxial images were obtained from the dome of the diaphragm to the symphysis pubis without oral contrast, and without intravenous contrast. Sagittal and coronal images were reconstructed. Individualized dose optimization techniques were used for this CT. COMPARISON: 10/04/2021 FINDINGS: The study is limited due to lack of intravenous contrast. Lung bases clear. Esophageal and perigastric varices is noted. Cirrhotic morphology of the liver is seen. The spleen is mildly enlarged, measuring 14.2 cm in the greatest dimension. Unremarkable pancreas, adrenals, and bilateral kidneys on this unenhanced study. Multiple subcentimeter stones in the gallbladder. Apparent mild circumferential wall thickening of the gallbladder is noted. No free air or free fluid. No adenopathy. Bowel loops nonobstructed. Normal appendix. No abdominal aortic aneurysm. A small umbilical hernia containing fat and anterior wall of a loop of small bowel. Sections through the pelvis demonstrate an approximately 3.9 cm cystic area in the right adnexal. Urinary bladder incompletely distended. No acute osseous abnormality. Posterior disc bulges in the lower lumbar spine. CT/Abdomen/Pelvis without Cont IMPRESSION: Cirrhosis with mild splenomegaly and esophageal and perigastric varices. No ascites. Cholelithiasis. Mild circumferential wall thickening of the gallbladder, which may be due to hypoalbuminemia, acute cholecystitis, or less likely CHF. Clinical correlation recommended. Interval development of a 3.9 cm cystic area in the right adnexa, amenable to further evaluation by ultrasound. Normal appendix. Electronically Signed: Kishan Lindo MD at 17:36 EDT ,
--- NOTE | 2021-11-14 16:17 | EX.ED.DYSGE1 ---
HPI History of Present Illness Chief Complaint: Abd Pain Informant: patient Narrative Narrative: 31-year-old female presenting to the emergency department for left lower abdominal pain. Patient was seen in the emergency department 5 days ago and had negative labs and a urine. She states that she had an increase in the pain today night. She believes that she may have had an ovarian cyst rupture. She notes urinary frequency today. She notes continued right upper quadrant pain which she is in the process of planning a cholecystectomy through [facility]. She has a history of alcoholic hepatitis with cirrhosis and varices. The patient describes the pain is left lower quadrant sharp stabbing and also into the left flank. No significant vaginal discharge. No abnormal bleeding. PFSH PFSH Medical History Alcoholic cirrhosis of liver Anxiety and depression Esophageal varices Gallstone Obesity Tobacco use Home Medications buspirone 20 mg TID 09/30/21 [History Last Taken 09/29/21 19:00] escitalopram oxalate 20 mg PO DAILY 09/30/21 [History Last Taken 09/29/21 11:00] melatonin 5 mg PO QHS 09/30/21 [History Last Taken 09/29/21 21:00] thiamine HCl (vitamin B1) 100 mg PO DAILY 09/30/21 [History Last Taken 09/29/21 11:00] tizanidine 4 mg PO TID 09/30/21 [History Last Taken 09/29/21 21:00] trazodone 100 mg PO QHS 09/30/21 [History Last Taken 09/29/21 21:00] ondansetron 4 mg PO Q6H PRN #30 tab 10/03/21 [Rx Last Taken Unknown] rifaximin 11/04/21 [History Last Taken Unknown] Allergy/AdvReac Type Severity Reaction Status Date / Time No Known Allergies Allergy Verified 11/14/21 15:22 Family History Mother Alcohol abuse Hypertension Father Alcohol abuse Anxiety and depression Surgical History History of endoscopic gastrointestinal surgery Social History household members: other details: Recently following sobriety start moved with parents, broke with boyfriend. 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 substance use type: does not use ROS ROS ED Constitutional Constitutional ED: Denies chills, fever(s) or weight loss Eyes Eyes: Denies change in vision or diplopia ENT ENT ED: Denies ear pain, rhinorrhea or sore throat Cardiovascular Cardiovascular: Denies chest pain, orthopnea, palpitations or racing heartbeat Respiratory/Chest Respiratory/Chest: Denies cough, dyspnea or orthopnea Gastrointestinal Gastrointestinal: Reports abdominal pain and nausea; Denies diarrhea or vomiting Genitourinary Genitourinary ED: Denies dysuria, hematuria or urinary frequency Musculoskeletal Musculoskeletal: Denies arthralgias or myalgias Integumentary Denies abscess or rash Neurologic Neurologic: Denies headache(s) or weakness Psychiatric Psychiatric: Denies anxiety, depression, suicidal ideation or suicidal thoughts Endocrine Endocrinology: Denies polydipsia, polyphagia or polyuria Allergic/Immunologic Allergic/Immunologic ED: Denies mouth swelling, tongue swelling or urticaria EXAM Physical Exam Const Vital Signs: 11/14/21 15:22 11/14/21 17:31 Temperature 98.7 F Temperature Source Temporal Pulse Rate 120 H 89 Respiratory Rate 18 16 Blood Pressure 166/93 H 132/80 H Blood Pressure Mean 117 97 Pulse Ox 99 100 Oxygen Delivery Method Room Air Room Air Positive well nourished, well developed and obese General Appearance ED: well developed Nutritional Appearance: obese HEENT Reports normocephalic, head/scalp atraumatic, TM's clear and moist mucous membranes Negative for trauma Tympanic Membrane ED: Yes TM's clear Eyes PERRL and EOMs intact bilaterally Neck no lymphadenopathy, supple and no JVD Resp normal respiratory effort and clear to auscultation bilaterally Cardio regular rate, regular rhythm and no murmurs GI non-tender Palpation: soft and tender LLQ Back/Spine no CVA tenderness and normal ROM Extremity normal to inspection General Extremety ED: Negative for edema General Extremity: Negative for edema Neuro oriented x3 and CN's II-XII intact bilaterally Sensorium / Orientation: alert Motor Exam: strength 5/5 throughout Psych mental status grossly normal Mood & Affect: Negative for depressed or tearful Skin no rashes or lesions noted and no wounds MDM MDM MDM Narrative Medical decision making narrative: White count continues to be normal at 6.4. Urinalysis is negative. test is negative. CT then pelvis demonstrates cirrhosis with splenomegaly and varices. There is no ascites. Noted cholelithiasis which is known. There is a ovarian cyst on the right but I do not see anything to explain why she would have pain in the left flank and left lower quadrant. Patient received Toradol for pain and later Bentyl. Patient will be discharged home follow-up with CONTENT ENGINEER. Lab Data Attestation: I reviewed the patient's lab results. Labs: Laboratory Results - last 24 hr 11/14/21 11/14/21 15:40 16:40 WBC 6.4 RBC 4.06 L Hgb 12.4 Hct 36.0 L MCV 88.7 MCH 30.5 MCHC 34.4 RDW Std Deviation 46.4 H RDW Coeff of Lee 14.4 Plt Count 114 L MPV 10.0 Immature Gran % (Auto) 0.200 Neut % (Auto) 72.3 H Lymph % (Auto) 19.8 [place] % (Auto) 5.5 Eos % (Auto) 2.0 Baso % (Auto) 0.2 Absolute Neuts (auto) 4.6 Absolute Lymphs (auto) 1.26 Nucleated RBC % 0 Urine Color Yellow Urine Clarity Clear Urine pH 7.0 Ur Specific [place] 1.010 Urine Protein 30 H Urine Glucose (UA) Normal Urine Ketones Negative Urine Occult Blood 250 H Urine Nitrite Negative Urine Bilirubin Negative Urine Urobilinogen Normal Ur Leukocyte Esterase Negative Urine RBC 0-5 SEEN Urine WBC 0 SEEN Ur Squamous Epith Cells 0-5 SEEN Urine Bacteria RARE Urine Mucus 0 SEEN Urine Test Negative Radiography Diagnostic Testing: Clinical Impression(s) from Imaging Studies Abdomen/Pelvis CT 11/14/21 16:17 IMPRESSION: Cirrhosis with mild splenomegaly and esophageal and perigastric varices. No ascites. Cholelithiasis. Mild circumferential wall thickening of the gallbladder, which may be due to hypoalbuminemia, acute cholecystitis, or less likely CHF. Clinical correlation recommended. Interval development of a 3.9 cm cystic area in the right adnexa, amenable to further evaluation by ultrasound. Normal appendix. Electronically Signed: Kishan Lindo MD at 17:36 EDT , Discharge Plan Triage Chief Complaint: Abd Pain ED Provider: Jose Mcdonald Dx/Rx/DC Orders Clinical Impression: LLQ abdominal pain, Cyst of right ovary Instructions: ED Abdominal Pain Unkn Cause Fem Prescriptions: No Action tizanidine 4 mg tablet 4 mg PO TID RF: 0 thiamine HCl (vitamin B1) 100 mg tablet 100 mg PO DAILY RF: 0 buspirone 10 mg tablet 20 mg TID RF: 0 escitalopram oxalate 20 mg tablet 20 mg PO DAILY RF: 0 trazodone 100 mg tablet 100 mg PO QHS RF: 0 melatonin 5 mg tablet 5 mg PO QHS RF: 0 ondansetron 4 mg tablet,disintegrating 4 mg PO Q6H PRN (Reason: nausea and vomiting) Qty: 30 RF: 0 rifaximin RF: 0 Primary Care Provider: Care Physician,No Primary Referrals: Silvia William MD [STAFF PHYSICIAN] - As soon as possible Care Physician,No Primary [Primary Care Provider] - Activity Restrictions/Additional Instructions: Follow-up with your lead database developer as scheduled Disposition Disposition: Home, Self Care
[2021-11-14 16:32] LABS: Mucous, Urine 0 SEEN /hpf (<or=2+); White Blood Cells 0 SEEN /hpf (0-5)
[2021-11-14 16:56] LABS: Absolute Lymphocyte Count 1.26 X10^3/uL (0.83-4.51); Absolute Neutrophil Count 4.6 X10^3/uL (2.0-7.7); Basophil# 0.01 X10^3/uL; Basophil% 0.2 % (0-1); Eosinophil# 0.13 X10^3/uL; Hemoglobin 12.4 g/dL (12.0-15.0); Lymphocyte # 1.26 X10^3/ul (0.83-4.51); Lymphocyte % 19.8 % (19-41); Mean Corp Hgb Conc 34.4 g/dL (32-36); Mean Corpuscular Hgb 30.5 pg (27.0-32.0); Mean Corpuscular Volume 88.7 fL (81-99); Monocyte# 0.35 X10^3/uL; Monocyte% 5.5 % (0-10); NRBC Flagged by Analyzer 0 % (0-5); Neutrophil % 72.3 % (47-70); Platelet Count 114 K/mm3 (150-450); RBC Distribution Width CV 14.4 % (11.6-14.6); RBC Distribution Width SD 46.4 fl (35.1-43.9); Red Blood Count 4.06 M/mm3 (4.2-5.4); White Blood Count 6.4 K/mm3 (4.4-11.0)
[2021-11-14] MEDS: Ketorolac 15 MG/ML Vial IV (16:58)
[2021-11-14 17:02] LABS: Color, Urine Yellow (Yellow); Glucose, Dipstick Normal (Normal); Ketone-Dipstick Negative (Negative); Leukocyte Esterase-Dipstick Negative /ul (Negative); Nitrite-Dipstick Negative (Negative); Occult Blood-Urine 250 /ul (Negative); Protein-Dipstick 30 mg/dl (Negative); Urine Bilirubin Dipstick Negative (Negative); Urine Clarity Clear (Clear); Urine Urobilinogen Normal (Normal)
[2021-11-14 17:09] LABS: Red Blood Cells-Urine 0-5 SEEN /hpf (0-5)
[2021-11-14 17:10] LABS: Bacteria RARE /hpf (None Seen); Internal QC Validated? YES +Cl - CLEAR BKGD; Pregnancy, Urine Negative Negative; Squamous Epithelial Cells - UA 0-5 SEEN /hpf (5-10)
[2021-11-14 17:31] VITALS: BP 132/80; PULSE 89; RESP 16; O2SAT 100
[2021-11-14] MEDS: Dicyclomine 10 MG Capsule 20 MG PO (17:31)
[2021-11-14 17:55] VITALS: BP 138/72; PULSE 91; RESP 15; O2SAT 98
== END 2021-11-14 17:56 | disposition home or self-care (01) ==
PROVIDERS: Emergency Provider Emergency Medicine; Visit Provider Emergency Medicine
DX: R10.32 Left lower quadrant pain (principal); K74.60 Unspecified cirrhosis of liver; N83.201 Unspecified ovarian cyst, right side; K70.10 Alcoholic hepatitis without ascites; R16.1 Splenomegaly, not elsewhere classified; R35.0 Frequency of micturition; E66.9 Obesity, unspecified; F17.210 Nicotine dependence, cigarettes, uncomplicated; Z79.899 Other long term (current) drug therapy
CPT/HCPCS: 74176; 81001; 81025; 85025; 96374; 99284; A4216

== ENCOUNTER 2021-11-18 22:44 | Emergency (ER) | payer MEDICAID, SELFPAY ==
[2021-11-18 22:46] VITALS: BP 146/101; PULSE 104; RESP 15; TEMP 36.4; O2SAT 99; BMI 34.9
--- NOTE | 2021-11-18 23:17 | CT_ITS ---
STUDY: CT ABDOMEN AND PELVIS WITH CONTRAST REASON FOR EXAM: Female, 31 years old. abd pain -- hx pancreatitis RADIATION DOSAGE (If Supplied By Facility): CTDIvol = ( 16.42 ) mGy, DLP = ( 948.78 ) mGycm TECHNIQUE: Transaxial images were obtained from the dome of the diaphragm to the symphysis pubis without oral contrast. IV 100mL [id number]-[id number] was administered. Sagittal and coronal images were reconstructed. Individualized dose optimization techniques were used for this CT. COMPARISON: None. FINDINGS: The visualized lung bases are unremarkable. The visualized portions of the heart are within normal limits. This surface of the liver is lobulated.. Normal gallbladder and extrahepatic biliary system there is splenomegaly.. Normal pancreas. There are multiple varices. Normal bilateral adrenal glands. Normal right kidney. Normal left kidney. Normal visualized stomach. Normal small intestine. Normal colon. The appendix is visualized and appears normal. Normal abdominal aorta. Normal inferior vena cava. Normal retroperitoneum. Normal urinary bladder. Normal abdominal wall. Normal osseous structures. CT/Abdomen/Pelvis W IV Cont ONLY IMPRESSION: Possible cirrhosis. Electronically Signed: Maynor Bernal MD at 1:01 EDT ,
--- NOTE | 2021-11-18 23:22 | EDS_ITS ---
HPI HPI - GI History of Present Illness Chief Complaint: Abd Pain Informant: patient Narrative Narrative: Upper abdominal pain nausea vomiting for past 2 days. Reports history of cholelithiasis seen in follow Dr. Salazar 2 months ago. She is referred up to [facility] due to her history of low platelets secondary to history of alcoholic cirrhosis. She stopped drinking back in June. She did follow-up with GI up there already states plan endoscopy prior to surgery evaluation. Reported ruptured esophageal varices in 2019 require emergent banding at [facility]. Pancreatitis in the past last time 2 years ago from alcohol. She states this feels more similar to that. Denies diarrhea. Reported fever today however no cough or urine symptoms last menstrual period 3 weeks ago. Of note was here November 09 and , had different abdominal pain complaints 1 in the pelvis 1 left lower quadrant have laboratory works are stable there is no imagings. She felt better to go home. She denies any hematemesis. Prior similar symptoms: Yes PFSH PFSH Medical History Alcoholic cirrhosis of liver Anxiety and depression Esophageal varices Gallstone Obesity Tobacco use Home Medications buspirone 20 mg TID 09/30/21 [History Last Taken 09/29/21 19:00] escitalopram oxalate 20 mg PO DAILY 09/30/21 [History Last Taken 09/29/21 11:00] melatonin 5 mg PO QHS 09/30/21 [History Last Taken 09/29/21 21:00] thiamine HCl (vitamin B1) 100 mg PO DAILY 09/30/21 [History Last Taken 09/29/21 11:00] tizanidine 4 mg PO TID 09/30/21 [History Last Taken 09/29/21 21:00] trazodone 100 mg PO QHS 09/30/21 [History Last Taken 09/29/21 21:00] ondansetron 4 mg PO Q6H PRN #30 tab 10/03/21 [Rx Last Taken Unknown] rifaximin 50 mg PO.IVFORM DAILY 11/04/21 [History Last Taken Unknown] Allergy/AdvReac Type Severity Reaction Status Date / Time No Known Allergies Allergy Verified 11/18/21 22:50 Family History Mother Alcohol abuse Hypertension Father Alcohol abuse Anxiety and depression Surgical History History of endoscopic gastrointestinal surgery Social History household members: other details: Recently following sobriety start moved with parents, broke with boyfriend. 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 substance use type: does not use ROS ROS ED Constitutional Constitutional ED: Reports fever(s); Denies chills or sweats Eyes Eyes: Denies change in vision ENT ENT ED: Denies dysphagia or sore throat Cardiovascular Cardiovascular: Denies chest pain, leg edema, palpitations or racing heartbeat Respiratory/Chest Respiratory/Chest: Denies cough, dyspnea or dyspnea on exertion Gastrointestinal Gastrointestinal: Reports abdominal pain, nausea and vomiting; Denies diarrhea Genitourinary Genitourinary ED: Denies dysuria, hematuria or urinary frequency Musculoskeletal Musculoskeletal: Denies back pain, extremity pain or neck pain Integumentary Denies rash or wounds Neurologic Neurologic: Denies headache(s), paresthesias or weakness EXAM Physical Exam Const Vital Signs: 11/18/21 22:46 11/19/21 01:10 11/19/21 01:58 Temperature 97.5 F L Temperature Source Temporal Pulse Rate 104 H 63 62 Respiratory Rate 15 15 15 Blood Pressure 146/101 H 97/43 L 86/44 L Blood Pressure Mean 116 61 58 Pulse Ox 99 97 100 Oxygen Delivery Method Room Air Room Air Room Air 11/19/21 02:40 11/19/21 02:51 Temperature Temperature Source Pulse Rate 71 66 Respiratory Rate 15 15 Blood Pressure 80/49 L 103/59 L Blood Pressure Mean 59 Pulse Ox 98 99 Oxygen Delivery Method Room Air Positive well nourished and well developed General Appearance ED: well developed and NAD HEENT Reports moist mucous membranes normocephalic and atraumatic Eyes PERRL, EOMs intact bilaterally and conjunctivae normal General Eye ED: Yes normal appearance of both eyes Neck no lymphadenopathy and supple General: Negative for tenderness Chest Wall Chest: Negative for tenderness Resp normal respiratory effort and normal air movement Effort and Inspection: symmetric chest movement; Negative for respiratory distress Cardio regular rhythm and no murmurs Rate: tachycardic Peripheral Pulses: pulses 2+ throughout GI normal to inspection, nondistended, normoactive bowel sounds GI Narrative: Mid abdominal tenderness no guarding or rebound. Negative Anderson' s McBurney's tenderness. Palpation: Negative for guarding or rebound tenderness present Back/Spine no CVA tenderness and no thoracic nor lumbar tenderness Extremity normal to inspection General Extremety ED: Negative for edema or tenderness General Extremity: Negative for edema Neuro oriented x3 and no sensory deficits noted Sensorium / Orientation: awake and alert Skin no rashes or lesions noted and no wounds MDM MDM MDM Narrative Medical decision making narrative: Patient tender upper abdomen and there is no guarding or rebound. Reported increasing pain with vomiting history similar pancreatitis last time was 2 years ago. She had no recent imaging studies. Abdominal labs were obtained on normal lipase at 51. INR 1.3. History of alcoholic cirrhosis. CT scan obtained returning no acute process noted varices and signs for concerning cirrhosis. She does have this history. She had morphine Zofran she is able tolerate oral fluids. She has Prilosec at home Carafate and Zofran at home. She will call her GI doctor from [facility] for follow-up return precautions discussed. All questions were answered. Lab Data Attestation: I reviewed the patient's lab results. Labs: Laboratory Results - last 24 hr 11/18/21 11/18/21 11/18/21 23:31 23:31 23:31 WBC 5.0 RBC 3.61 L Hgb 11.0 L Hct 33.2 L MCV 92.0 MCH 30.5 MCHC 33.1 RDW Std Deviation 47.6 H RDW Coeff of Lee 13.9 Plt Count 94 L MPV 10.0 Immature Gran % (Auto) 0.400 Neut % (Auto) 70.7 H Lymph % (Auto) 20.3 [place] % (Auto) 6.6 Eos % (Auto) 1.6 Baso % (Auto) 0.4 Absolute Neuts (auto) 3.6 Absolute Lymphs (auto) 1.02 Nucleated RBC % 0 PT 15.4 H INR 1.3 APTT 27.9 Sodium 138 Potassium 3.6 Chloride 109 H Carbon Dioxide 22.0 Anion Gap 7 BUN 8 Creatinine 0.73 Estim Creat Clear Calc 85.03 Est GFR (MDRD) Af Amer 119 Est GFR (MDRD) Non-Af 99 BUN/Creatinine Ratio 10.9 Glucose 192 H Calcium 8.0 L Total Bilirubin 0.90 Direct Bilirubin 0.34 H AST 27 ALT 23 Alkaline Phosphatase 99 Total Protein 5.9 L Albumin 2.9 L Globulin 3.0 Lipase 51 L Serum , Qual 11/18/21 23:31 WBC RBC Hgb Hct MCV MCH MCHC RDW Std Deviation RDW Coeff of Lee Plt Count MPV Immature Gran % (Auto) Neut % (Auto) Lymph % (Auto) [place] % (Auto) Eos % (Auto) Baso % (Auto) Absolute Neuts (auto) Absolute Lymphs (auto) Nucleated RBC % PT INR APTT Sodium Potassium Chloride Carbon Dioxide Anion Gap BUN Creatinine Estim Creat Clear Calc Est GFR (MDRD) Af Amer Est GFR (MDRD) Non-Af BUN/Creatinine Ratio Glucose Calcium Total Bilirubin Direct Bilirubin AST ALT Alkaline Phosphatase Total Protein Albumin Globulin Lipase Serum , Qual NEGATIVE Radiography Diagnostic Testing: Clinical Impression(s) from Imaging Studies Abdomen/Pelvis CT 11/18/21 23:17 IMPRESSION: Possible cirrhosis. Electronically Signed: Maynor Bernal MD at 1:01 EDT , Discharge Plan Triage Chief Complaint: Abd Pain ED Provider: Alban Bowers Dx/Rx/DC Orders Clinical Impression: Alcoholic cirrhosis of liver, Abdominal pain, Nausea & vomiting, Thrombocytopenia Instructions: Abdominal Pain, ED Diet for Vomiting or ... Prescriptions: No Action tizanidine 4 mg tablet 4 mg PO TID RF: 0 thiamine HCl (vitamin B1) 100 mg tablet 100 mg PO DAILY RF: 0 buspirone 10 mg tablet 20 mg TID RF: 0 escitalopram oxalate 20 mg tablet 20 mg PO DAILY RF: 0 trazodone 100 mg tablet 100 mg PO QHS RF: 0 melatonin 5 mg tablet 5 mg PO QHS RF: 0 ondansetron 4 mg tablet,disintegrating 4 mg PO Q6H PRN (Reason: nausea and vomiting) Qty: 30 RF: 0 rifaximin 50 mg PO.IVFORM DAILY RF: 0 Primary Care Provider: Care Physician,No Primary Referrals: Care Physician,No Primary [Primary Care Provider] - Activity Restrictions/Additional Instructions: Your abdominal labs are normal today. Your CT scan negative for pancreatitis or any acute process. It does note multiple varices with cirrhosis findings. Take your Prilosec. Use your Carafate 4 times a day for the next 2 weeks. You have Zofran to use as needed. Follow-up with your GI doctor from [facility]. Disposition Disposition: Home, Self Care Discharge Date/Time: 11/19/21 02:58
[2021-11-18] MEDS: Morphine 4 MG/ML Syringe IV (23:35)
[2021-11-18] MEDS: Ondansetron 4 MG/2 ML Vial IV (23:35)
[2021-11-18] MEDS: 0.9% Normal Saline 1,000 ML 1000 ML IV (23:35)
[2021-11-18 23:40] LABS: Absolute Lymphocyte Count 1.02 X10^3/uL (0.83-4.51); Absolute Neutrophil Count 3.6 X10^3/uL (2.0-7.7); Basophil# 0.02 X10^3/uL; Basophil% 0.4 % (0-1); Eosinophil# 0.08 X10^3/uL; Eosinophils% 1.6 % (0-5); Hematocrit 33.2 % (37-47); Lymphocyte # 1.02 X10^3/ul (0.83-4.51); Lymphocyte % 20.3 % (19-41); Mean Corp Hgb Conc 33.1 g/dL (32-36); Mean Corpuscular Hgb 30.5 pg (27.0-32.0); Monocyte# 0.33 X10^3/uL; Monocyte% 6.6 % (0-10); NRBC Flagged by Analyzer 0 % (0-5); Neutrophil # 3.55 X10^3/uL (2.7-7.7); Neutrophil % 70.7 % (47-70); POSITIVE COUNT YES; Platelet Count 94 K/mm3 (150-450); RBC Distribution Width CV 13.9 % (11.6-14.6); RBC Distribution Width SD 47.6 fl (35.1-43.9); Red Blood Count 3.61 M/mm3 (4.2-5.4)
[2021-11-18 23:44] LABS: Differential Indicated SCAN CRITERIA MET
[2021-11-18 23:55] LABS: Internal QC Validated? YES +Cl - CLEAR BKGD; Pregnancy, Serum, hCG Quali. NEGATIVE Negative
[2021-11-19 00:01] LABS: International Normalized Ratio 1.3; Partial Thromboplast Time 27.9 Seconds (24.1-36.2); Prothrombin Time (Protime)PT. 15.4 SECONDS (11.7-14.9)
[2021-11-19 00:04] LABS: AST(SGOT) 27 U/L (15-37); Alanine Aminotransfer ALT/SGPT 23 U/L (13-56); Albumin, Serum 2.9 g/dL (3.2-5.0); Alkaline Phosphatase 99 U/L (45-117); Anion Gap 7 (5-15); BUN 8 mg/dL (7-18); BUN/Creat Ratio 10.9 RATIO (10-20); Bilirubin, Direct 0.34 mg/dL (0.00-0.30); Chloride 109 mmol/L (98-107); Creatinine, Serum 0.73 mg/dL (0.55-1.02); EST Glomerular Filtration Rate 99 mL/min (>60); Est Glom Filt Rate - Afr Amer 119 mL/min (>60); Estimated Creatinine Clearance 85.03 ml/min; Glucose 192 mg/dL (74-106); Lipase 51 U/L (73-393); Potassium 3.6 mmol/L (3.5-5.1); Protein, Total 5.9 g/dL (6.4-8.2); Sodium Level 138 mmol/L (136-145)
[2021-11-19] MEDS: Morphine 4 MG/ML Syringe IV (01:05)
[2021-11-19 01:10] VITALS: BP 97/43; PULSE 63; RESP 15; O2SAT 97
[2021-11-19 01:58] VITALS: BP 86/44; PULSE 62; RESP 15; O2SAT 100
[2021-11-19 02:40] VITALS: BP 80/49; PULSE 71; RESP 15; O2SAT 98
[2021-11-19 02:51] VITALS: BP 103/59; PULSE 66; RESP 15; O2SAT 99
== END 2021-11-19 02:58 | disposition home or self-care (01) ==
PROVIDERS: Emergency Provider Emergency Medicine; Visit Provider Emergency Medicine
DX: K70.30 Alcoholic cirrhosis of liver without ascites (principal); D69.6 Thrombocytopenia, unspecified; F32.A Depression, unspecified; F41.9 Anxiety disorder, unspecified; Z87.19 Personal history of other diseases of the digestive system; E66.9 Obesity, unspecified; Z79.899 Other long term (current) drug therapy; F17.210 Nicotine dependence, cigarettes, uncomplicated; Z68.34 Body mass index [BMI] 34.0-34.9, adult
CPT/HCPCS: 74177; 80048; 80076; 83690; 84703; 85025; 85610; 85730; 96361; 96374; 96375; 96376; 99283; J7030; Q9967; A4216; J2405

== ENCOUNTER 2021-11-28 12:06 | Emergency (ER) | payer MEDICAID, SELFPAY ==
[2021-11-28 12:07] VITALS: BP 175/92; PULSE 113; RESP 18; TEMP 37.6; O2SAT 98; BMI 33.0
--- NOTE | 2021-11-28 13:15 | EDS_ITS ---
HPI HPI - GI History of Present Illness Chief Complaint: Abd Pain Narrative Narrative: Patient presenting with abdominal pain which is fairly chronic and nausea and vomiting. Patient states that she just had an upper endoscopy performed at [facility] to check her esophageal varices. She reports that these are in good repair and she does not need another check for a year. She states she has a history of gallstones and Dr. Salazar was going to do the hutchins rgery but he was concerned about her esophageal varices. Patient states that she has a recent history of ovarian cyst on the right. She still continues to have pain in this area. Patient believes that she is having some reaction to the medication that they gave her when she was sedated for the procedure of upper endoscopy on Friday. No reported fever. No diarrhea or constipation. She does states she is urinating frequently. PFSH PFSH Medical History Alcoholic cirrhosis of liver Anxiety and depression Esophageal varices Gallstone Obesity Tobacco use Home Medications buspirone 20 mg TID 09/30/21 [History Last Taken 09/29/21 19:00] escitalopram oxalate 20 mg PO DAILY 09/30/21 [History Last Taken 09/29/21 11:00] melatonin 5 mg PO QHS 09/30/21 [History Last Taken 09/29/21 21:00] thiamine HCl (vitamin B1) 100 mg PO DAILY 09/30/21 [History Last Taken 09/29/21 11:00] tizanidine 4 mg PO TID 09/30/21 [History Last Taken 09/29/21 21:00] trazodone 100 mg PO QHS 09/30/21 [History Last Taken 09/29/21 21:00] ondansetron 4 mg PO Q6H PRN #30 tab 10/03/21 [Rx Last Taken Unknown] rifaximin 50 mg PO.IVFORM DAILY 11/04/21 [History Last Taken Unknown] Allergy/AdvReac Type Severity Reaction Status Date / Time No Known Allergies Allergy Verified 11/28/21 12:07 Family History Mother Alcohol abuse Hypertension Father Alcohol abuse Anxiety and depression Surgical History History of endoscopic gastrointestinal surgery Social History household members: other details: Recently following sobriety start moved with parents, broke with boyfriend. 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 substance use type: does not use ROS ROS ED Constitutional Constitutional ED: Denies chills or fever(s) ENT ENT ED: Denies rhinorrhea or sore throat Cardiovascular Cardiovascular: Denies chest pain or palpitations Respiratory/Chest Respiratory/Chest: Denies cough Gastrointestinal Gastrointestinal: Reports abdominal pain, nausea and vomiting; Denies constipation or diarrhea Genitourinary Genitourinary ED: Reports urinary frequency; Denies dysuria Musculoskeletal Musculoskeletal: Denies arthralgias, myalgias or neck pain Integumentary Denies rash Neurologic Neurologic: Denies headache(s) or weakness Psychiatric Psychiatric: Denies anxiety or depression EXAM Physical Exam Const Vital Signs: 11/28/21 12:07 Temperature 99.6 F H Temperature Source Temporal Pulse Rate 113 H Respiratory Rate 18 Blood Pressure 175/92 H Blood Pressure Mean 119 Pulse Ox 98 Oxygen Delivery Method Room Air Positive well nourished General Appearance ED: NAD; Negative for pallor HEENT Reports moist mucous membranes normocephalic and atraumatic Eyes PERRL and EOMs intact bilaterally General Eye ED: Negative for pale conjunctiva or scleral icterus Neck no lymphadenopathy and supple Resp normal respiratory effort Cardio regular rhythm Rate: tachycardic GI non-distended Palpation: soft; Negative for guarding or rigid Neuro Sensorium / Orientation: alert, oriented to person, oriented to place and oriented to time Psych mental status grossly normal and thought process normal Skin no wounds General Skin Exam: Negative for jaundice or pallor Lesions: no lesions Rashes: no rashes MDM MDM MDM Narrative Medical decision making narrative: 31-year-old female presenting with abdominal pain which she states is right-sided. It is in the lower abdomen. She states this feels similar to her ovarian cyst which she was diagnosed previously with. She does express that she has some nausea but has Zofran and Phenergan at home. She states that she was recently seen at [facility] and had upper endoscopy performed, however she states that the way that they sedated her was different this time. She is concerned she might be having side effects to the sedation. She cannot tell me what medication she was on. Patient has had 5 CT scans in the last 2 months. 1 of these showed a ovarian cyst. She does have gallstones which are noted. She has had a HIDA scan which ruled out acute cholecystitis and she was to follow-up with Dr. Salazar after she had her upper endoscopy to make sure that her esophageal varices were okay. She reports that these do not need to be checked for a year. Her CBC today was within normal limits. She had no leukocytosis and her white blood cell count is 4.7. Hemo globin stable at 12.4. Platelets normal at 120. Renal function and electrolytes are normal. LFTs are within normal limits. Lipase negative. Urinalysis shows no sign of infection. Patient initially given Zofran and Toradol. She states that she is still having some discomfort in her abdomen. On reevaluation her abdomen is still benign. She was requesting narcotic medication and states that at her last visit she was given narcotics although given her normal lab works and multiple negative CT scans I do not believe these are warranted. Patient was counseled of this. I did check an [facility] report and she has had 9 prescriptions for opioids from multiple prescribers at multiple facilities since July 2021. I discussed this with her and since she does not have any abnormal lab work and on verifiable pain I do not believe she needs pain medication for home. I did offer her antiemetics but she states she has Zofran and Phenergan. Patient was given return precautions. Impression: 1. Abdominal pain 2. Nausea Lab Data Attestation: I reviewed the patient's lab results. Labs: Laboratory Results - last 24 hr 11/28/21 11/28/21 11/28/21 13:30 13:30 14:50 WBC 4.7 RBC 4.13 L Hgb 12.4 Hct 37.1 MCV 89.8 MCH 30.0 MCHC 33.4 RDW Std Deviation 47.4 H RDW Coeff of Lee 14.5 Plt Count 120 L MPV 9.7 Immature Gran % (Auto) 0.400 Neut % (Auto) 70.7 H Lymph % (Auto) 20.3 [place] % (Auto) 5.9 Eos % (Auto) 2.3 Baso % (Auto) 0.4 Absolute Neuts (auto) 3.3 Absolute Lymphs (auto) 0.96 Nucleated RBC % 0 Sodium 141 Potassium 3.8 Chloride 111 H Carbon Dioxide 25.0 Anion Gap 5 BUN 6 L Creatinine 0.49 L Estim Creat Clear Calc 126.68 Est GFR (MDRD) Af Amer 188 Est GFR (MDRD) Non-Af 156 BUN/Creatinine Ratio 12.1 Glucose 96 Calcium 9.4 Total Bilirubin 0.80 AST 31 ALT 27 Alkaline Phosphatase 109 Total Protein 6.8 Albumin 3.4 Globulin 3.4 Albumin/Globulin Ratio 1.0 Lipase 79 Urine Color Yellow Urine Clarity Sl. Cloudy Urine pH 7.0 Ur Specific [place] 1.005 Urine Protein 30 H Urine Glucose (UA) Normal Urine Ketones Negative Urine Occult Blood 50 H Urine Nitrite Negative Urine Bilirubin Negative Urine Urobilinogen Normal Ur Leukocyte Esterase Negative Urine RBC 0-5 SEEN Urine WBC 0 SEEN Ur Squamous Epith Cells 0 SEEN Urine Bacteria 0 SEEN Urine Mucus 0 SEEN Discharge Plan Triage Chief Complaint: Abd Pain Other Complaint: Nausea/Vomiting ED Provider: Olivier Talbert Dx/Rx/DC Orders Instructions: ED Abdominal Pain Unkn Cause Fem Prescriptions: No Action tizanidine 4 mg tablet 4 mg PO TID RF: 0 thiamine HCl (vitamin B1) 100 mg tablet 100 mg PO DAILY RF: 0 buspirone 10 mg tablet 20 mg TID RF: 0 escitalopram oxalate 20 mg tablet 20 mg PO DAILY RF: 0 trazodone 100 mg tablet 100 mg PO QHS RF: 0 melatonin 5 mg tablet 5 mg PO QHS RF: 0 ondansetron 4 mg tablet,disintegrating 4 mg PO Q6H PRN (Reason: nausea and vomiting) Qty: 30 RF: 0 rifaximin 50 mg PO.IVFORM DAILY RF: 0 Primary Care Provider: Care Physician,No Primary Referrals: Jose Salazar MD [STAFF PHYSICIAN] - As Needed Care Physician,No Primary [Primary Care Provider] - Disposition Disposition: Home, Self Care
[2021-11-28] MEDS: Ondansetron 4 MG/2 ML Vial IV (13:35)
[2021-11-28] MEDS: Ketorolac 15 MG/ML Vial IV (13:35)
[2021-11-28] MEDS: 0.9% Normal Saline 1,000 ML 1000 ML IV (13:35)
[2021-11-28 13:48] LABS: Absolute Lymphocyte Count 0.96 X10^3/uL (0.83-4.51); Absolute Neutrophil Count 3.3 X10^3/uL (2.0-7.7); Basophil# 0.02 X10^3/uL; Basophil% 0.4 % (0-1); Eosinophil# 0.11 X10^3/uL; Eosinophils% 2.3 % (0-5); Hematocrit 37.1 % (37-47); Hemoglobin 12.4 g/dL (12.0-15.0); Lymphocyte # 0.96 X10^3/ul (0.83-4.51); Lymphocyte % 20.3 % (19-41); Mean Corp Hgb Conc 33.4 g/dL (32-36); Mean Corpuscular Volume 89.8 fL (81-99); Mean Platelet Vol. 9.7 fl (6.2-12.0); Monocyte# 0.28 X10^3/uL; Monocyte% 5.9 % (0-10); NRBC Flagged by Analyzer 0 % (0-5); Neutrophil # 3.34 X10^3/uL (2.7-7.7); Neutrophil % 70.7 % (47-70); Platelet Count 120 K/mm3 (150-450); RBC Distribution Width CV 14.5 % (11.6-14.6); RBC Distribution Width SD 47.4 fl (35.1-43.9); Red Blood Count 4.13 M/mm3 (4.2-5.4); White Blood Count 4.7 K/mm3 (4.4-11.0)
[2021-11-28 13:59] LABS: AST(SGOT) 31 U/L (15-37); Alanine Aminotransfer ALT/SGPT 27 U/L (13-56); Albumin, Serum 3.4 g/dL (3.2-5.0); Alkaline Phosphatase 109 U/L (45-117); Anion Gap 5 (5-15); BUN 6 mg/dL (7-18); BUN/Creat Ratio 12.1 RATIO (10-20); Calcium,Total 9.4 mg/dL (8.5-10.1); Chloride 111 mmol/L (98-107); Creatinine, Serum 0.49 mg/dL (0.55-1.02); EST Glomerular Filtration Rate 156 mL/min (>60); Est Glom Filt Rate - Afr Amer 188 mL/min (>60); Estimated Creatinine Clearance 126.68 ml/min; Globulin 3.4 g/dL (2.2-4.2); Glucose 96 mg/dL (74-106); Lipase 79 U/L (73-393); Potassium 3.8 mmol/L (3.5-5.1); Protein, Total 6.8 g/dL (6.4-8.2); Sodium Level 141 mmol/L (136-145)
[2021-11-28 14:54] LABS: Bacteria 0 SEEN /hpf (None Seen); Mucous, Urine 0 SEEN /hpf (<or=2+); Squamous Epithelial Cells - UA 0 SEEN /hpf (5-10); White Blood Cells 0 SEEN /hpf (0-5)
[2021-11-28 14:56] LABS: Color, Urine Yellow (Yellow); Glucose, Dipstick Normal (Normal); Ketone-Dipstick Negative (Negative); Leukocyte Esterase-Dipstick Negative /ul (Negative); Nitrite-Dipstick Negative (Negative); Occult Blood-Urine 50 /ul (Negative); Protein-Dipstick 30 mg/dl (Negative); Specific Gravity, Urine 1.005 (1.002-1.030); Urine Bilirubin Dipstick Negative (Negative); Urine Clarity Sl. Cloudy (Clear); Urine Urobilinogen Normal (Normal)
[2021-11-28 15:10] LABS: Red Blood Cells-Urine 0-5 SEEN /hpf (0-5)
== END 2021-11-28 16:04 | disposition home or self-care (01) ==
PROVIDERS: Emergency Provider Student in an Organized Health Care Education/Training Program; Visit Provider Student in an Organized Health Care Education/Training Program
DX: R10.9 Unspecified abdominal pain (principal); I85.00 Esophageal varices without bleeding; K70.30 Alcoholic cirrhosis of liver without ascites; R11.0 Nausea; K80.20 Calculus of gallbladder without cholecystitis without obstruction; R35.0 Frequency of micturition; E66.9 Obesity, unspecified; F17.210 Nicotine dependence, cigarettes, uncomplicated; Z79.899 Other long term (current) drug therapy
CPT/HCPCS: 80053; 81001; 83690; 85025; 96361; 96374; 96375; 99282; J7030; A4216; J2405

== ENCOUNTER 2021-12-02 19:14 | Emergency (ER) | payer MEDICAID, SELFPAY ==
[2021-12-02 19:14] VITALS: BP 174/90; PULSE 159; RESP 20; TEMP 37.9; O2SAT 97; BMI 33.0
--- NOTE | 2021-12-02 19:31 | CT_ITS ---
INDICATION: Abdominal Pain EXAMINATION: CT ABDOMEN AND PELVIS WITH CONTRAST - CT Abdomen And Pelvis W/ Contrast Injection TECHNIQUE: Helically acquired images were obtained of the abdomen and pelvis following IV contrast. A radiation dose optimization technique was used for this scan. IV Contrast dosage and agent: 100 mL of [id number]. Oral contrast: None. COMPARISON: CT abdomen and pelvis 09/30/2021, 10/04/2021, 11/14/2021 and 11/18/2021. FINDINGS: LOWER CHEST: Lung bases are clear. No cardiomegaly or pericardial effusion. LIVER: Homogenous normal density without focal mass. Decreased size liver with micronodular contour highly suggestive of cirrhosis. GALLBLADDER AND BILIARY TREE: Mildly distended gallbladder measuring 10 x 3.4 cm in length with several small gallbladder stones layering dependently in the gallbladder. No wall thickening or pericholecystic fluid. Normal diameter common bile duct. PANCREAS: Normal size. No focal mass. No ductal dilation. Surrounding fluid. SPLEEN: No significant enlargement. No focal mass. ADRENAL GLANDS: No nodules. KIDNEYS, URETERS and BLADDER: Normal renal size and position. No mass. No hydronephrosis. Bladder is unremarkable. PERITONEUM: No ascites or free air. No other fluid collection. BOWEL: Normal appendix. No abnormally distended bowel loops or air fluid levels. No wall thickening or mass. No focal inflammatory changes. LYMPH NODES: No enlarged mesenteric or retroperitoneal lymph nodes. VESSELS: Significant gastric and paraesophageal varices. Prominent dilated vessels in the pelvis communicating with the portal venous system. REPRODUCTIVE ORGANS: Uterus is normal in appearance. No adnexal suspicious mass. ABDOMINAL WALL: No discrete abdominal or pelvic wall hernia. BONES: Right femoral head small area of sclerosis and left mixed sclerotic and cystic appearing lesion femoral head suspicious for osteonecrosis. Correlate clinically and consider hip MRI. CT/Abdomen/Pelvis W IV Cont ONLY IMPRESSION: No appreciable change compared with the 4 prior CTs that this patient has had in the last 2 months. The previously described right adnexal cystic lesion has resolved. Significant hepatic cirrhosis and varices as well as cholelithiasis. Femoral head bilateral sclerotic, mixed cystic lesions subcortical surface, without joint space loss, suspicious for possible osteonecrosis. Correlate for symptoms and consider nonemergent MRI. Electronically Signed: Cristobal Cam DO at 21:14 EDT ,
--- NOTE | 2021-12-02 19:32 | ED.VIS.GI ---
HPI HPI - GI History of Present Illness Chief Complaint: Abd Pain Narrative Narrative: Patient presents with nausea and vomiting since yesterday evening. She states she vomited 60 times without any blood in her emesis. She has past medical history of alcoholic liver cirrhosis and alcoholic hepatitis, but states that she is sober now. She states she does not feel as if she has a fever, but noted her temperature was elevated in triage. She denies any diarrhea or any blood in her stool. She complains of bilateral lower quadrant abdominal pain right greater than left. No dysuria or hematuria but did notice that it was dark. No exacerbating or alleviating factors. PFSH PFSH Medical History Alcoholic cirrhosis of liver Anxiety and depression Esophageal varices Gallstone Obesity Tobacco use Home Medications buspirone 20 mg TID 09/30/21 [History Last Taken 09/29/21 19:00] escitalopram oxalate 20 mg PO DAILY 09/30/21 [History Last Taken 09/29/21 11:00] melatonin 5 mg PO QHS 09/30/21 [History Last Taken 09/29/21 21:00] thiamine HCl (vitamin B1) 100 mg PO DAILY 09/30/21 [History Last Taken 09/29/21 11:00] tizanidine 4 mg PO TID 09/30/21 [History Last Taken 09/29/21 21:00] trazodone 100 mg PO QHS 09/30/21 [History Last Taken 09/29/21 21:00] ondansetron 4 mg PO Q6H PRN #30 tab 10/03/21 [Rx Last Taken Unknown] rifaximin 50 mg PO.IVFORM DAILY 11/04/21 [History Last Taken Unknown] Allergy/AdvReac Type Severity Reaction Status Date / Time No Known Allergies Allergy Verified 12/02/21 19:17 Family History Mother Alcohol abuse Hypertension Father Alcohol abuse Anxiety and depression Surgical History History of endoscopic gastrointestinal surgery Social History household members: other details: Recently following sobriety start moved with parents, broke with boyfriend. 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 substance use type: does not use ROS ROS ED ROS Narrative Constitutional: No fever, no chills. HEENT: No sore throat. No neck pain. No loss of vision. No rhinorrhea. Dry mouth. Cardiovascular: No chest pain. No palpitations. No pedal edema. Respiratory: No cough, no shortness of breath. Abdominal: Bilateral lower quadrant abdominal pain. Positive nausea. Multiple episodes of nonbloody vomiting. Genitourinary: No dysuria. No hematuria. Dark urine. Musculoskeletal: No myalgias. No arthralgias. Neurologic: No headaches. No dizziness. No lightheadedness. Skin: No rash. No change in color. Psychiatric: No depression. No anxiety. EXAM Physical Exam Narrative Exam Narrative: Afebrile. Temperature 100.2 ?F vital signs noted. HEENT: Normocephalic. Atraumatic. PERRL, EOMI. Neck soft and supple. No point tenderness or step off. Cardiovascular: Positive tachycardia.. No murmurs, rubs, or gallops appreciated. Respiratory: No tachypnea. Lungs clear to auscultation bilaterally. Gastrointestinal: Abdomen soft, mild tenderness to palpation bilateral lower quadrants with normoactive bowel sounds. No rebound or guarding. Neurological: Awake. Alert. Nonfocal, nonlateralizing. Skin: No rash. Normal color. No pallor. Musculoskeletal: No pedal edema. Full range of motion extremities. Const Vital Signs: 12/02/21 19:14 12/02/21 21:11 Temperature 100.2 F H 97.2 F L Temperature Source Temporal Oral Pulse Rate 159 H 72 Respiratory Rate 20 H 15 Blood Pressure 174/90 H 129/84 H Blood Pressure Mean 118 99 Pulse Ox 97 98 Oxygen Delivery Method Room Air Room Air MDM MDM MDM Narrative Medical decision making narrative: Comprehensive work-up was pursued. She was bolused normal saline. I will obtain CBC, CMP, lipase, lactic acid along with urinalysis and serum test. CT imaging will be obtained with IV contrast if her creatinine allows it. CBC shows slightly elevated white count of 15.2, hemoglobin stable at 12.4. Lactic acid is slightly elevated at 2.1. This was treated with a liter of IV fluids. Her potassium is slightly low at 3.4, normal creatinine of 0.7 with a BUN of 12. LFTs are grossly unremarkable except for slightly elevated AST of 58, normal ALT of 33. Alk phos normal at 102. Her urine is positive for nitrites and leukocytes but there are 0-5 WBCs. I do not feel that antibiotics are indicated. She did have 15 ketones in her urine indicating dehydration. CT of the abdomen and pelvis shows no acute process. She was administered 1 dose of morphine for analgesia and is resting comfortably. Her abdomen remains soft. She is using her telephone. She is asking for ice chips. At this point in time, I feel she can be discharged safely home with follow-up to her primary care physician. RN informed me that as she has had multiple visits in the last 2 months and continued request for narcotic pain medications because she states that the Bentyl she had at home does not work she was referred to social work for care plan. I feel she be discharged safely home with follow-up. Return instructions to the emergency department were reviewed. Disposition is discharged in stable condition. Lab Data Attestation: I reviewed the patient's lab results. Labs: Laboratory Results - last 24 hr 12/02/21 12/02/21 12/02/21 19:30 19:43 19:43 WBC 15.2 H RBC 4.05 L Hgb 12.4 Hct 36.5 L MCV 90.1 MCH 30.6 MCHC 34.0 RDW Std Deviation 48.7 H RDW Coeff of Lee 14.8 H Plt Count 232 MPV 9.6 Immature Gran % (Auto) 0.500 Neut % (Auto) 64.6 Lymph % (Auto) 24.9 [place] % (Auto) 9.2 Eos % (Auto) 0.5 Baso % (Auto) 0.3 Absolute Neuts (auto) 9.8 H Absolute Lymphs (auto) 3.79 Nucleated RBC % 0 Sodium 139 Potassium 3.4 L Chloride 101 Carbon Dioxide 29.0 Anion Gap 9 BUN 12 Creatinine 0.70 Estim Creat Clear Calc 88.68 Est GFR (MDRD) Af Amer 127 Est GFR (MDRD) Non-Af 105 BUN/Creatinine Ratio 17.2 Glucose 128 H Lactic Acid Calcium 8.1 L Total Bilirubin 1.20 H AST 58 H ALT 33 Alkaline Phosphatase 102 Total Protein 7.1 Albumin 3.6 Globulin 3.5 Albumin/Globulin Ratio 1.0 Lipase 72 L Serum , Qual Urine Color [place]na Urine Clarity Clear Urine pH 6.0 Ur Specific [place] 1.020 Urine Protein 500 H Urine Glucose (UA) Normal Urine Ketones 15 H Urine Occult Blood 250 H Urine Nitrite Positive H Urine Bilirubin 1 H Urine Urobilinogen 1 H Ur Leukocyte Esterase 25 H Urine RBC 0-5 SEEN Urine WBC 0-5 SEEN Ur Squamous Epith Cells 0-5 SEEN Urine Bacteria 1+ Urine Mucus 0 SEEN 12/02/21 12/02/21 19:43 19:43 WBC RBC Hgb Hct MCV MCH MCHC RDW Std Deviation RDW Coeff of Lee Plt Count MPV Immature Gran % (Auto) Neut % (Auto) Lymph % (Auto) [place] % (Auto) Eos % (Auto) Baso % (Auto) Absolute Neuts (auto) Absolute Lymphs (auto) Nucleated RBC % Sodium Potassium Chloride Carbon Dioxide Anion Gap BUN Creatinine Estim Creat Clear Calc Est GFR (MDRD) Af Amer Est GFR (MDRD) Non-Af BUN/Creatinine Ratio Glucose Lactic Acid 2.1 H* Calcium Total Bilirubin AST ALT Alkaline Phosphatase Total Protein Albumin Globulin Albumin/Globulin Ratio Lipase Serum , Qual NEGATIVE Urine Color Urine Clarity Urine pH Ur Specific [place] Urine Protein Urine Glucose (UA) Urine Ketones Urine Occult Blood Urine Nitrite Urine Bilirubin Urine Urobilinogen Ur Leukocyte Esterase Urine RBC Urine WBC Ur Squamous Epith Cells Urine Bacteria Urine Mucus Radiography Diagnostic Testing: Clinical Impression(s) from Imaging Studies Abdomen/Pelvis CT 12/02/21 19:31 IMPRESSION: No appreciable change compared with the 4 prior [address]s that this patient has had in the last 2 months. The previously described right adnexal cystic lesion has resolved. Significant hepatic cirrhosis and varices as well as cholelithiasis. Femoral head bilateral sclerotic, mixed cystic lesions subcortical surface, without joint space loss, suspicious for possible osteonecrosis. Correlate for symptoms and consider nonemergent MRI. Electronically Signed: Cristobal Cam DO at 21:14 EDT , Discharge Plan Triage Chief Complaint: Abd Pain ED Provider: Oliverio Torres Dx/Rx/DC Orders Clinical Impression: Abdominal pain, Dehydration, Ketonuria, Lactic acidosis Instructions: ED Abdominal Pain Unkn Cause Fem, ED Dehydration (Adult) Prescriptions: No Action tizanidine 4 mg tablet 4 mg PO TID RF: 0 thiamine HCl (vitamin B1) 100 mg tablet 100 mg PO DAILY RF: 0 buspirone 10 mg tablet 20 mg TID RF: 0 escitalopram oxalate 20 mg tablet 20 mg PO DAILY RF: 0 trazodone 100 mg tablet 100 mg PO QHS RF: 0 melatonin 5 mg tablet 5 mg PO QHS RF: 0 ondansetron 4 mg tablet,disintegrating 4 mg PO Q6H PRN (Reason: nausea and vomiting) Qty: 30 RF: 0 rifaximin 50 mg PO.IVFORM DAILY RF: 0 Primary Care Provider: Care Physician,No Primary Referrals: Care Physician,No Primary [Primary Care Provider] - Activity Restrictions/Additional Instructions: Follow-up with 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 Disposition Disposition: Home, Self Care
[2021-12-02 19:39] LABS: Mucous, Urine 0 SEEN /hpf (<or=2+)
[2021-12-02 19:40] LABS: Color, Urine Amber (Yellow); Glucose, Dipstick Normal (Normal); Ketone-Dipstick 15 mg/dl (Negative); Leukocyte Esterase-Dipstick 25 /ul (Negative); Nitrite-Dipstick Positive (Negative); Occult Blood-Urine 250 /ul (Negative); Protein-Dipstick 500 mg/dl (Negative); Urine Clarity Clear (Clear); Urine Urobilinogen 1 mg/dl (Normal)
[2021-12-02] MEDS: Ondansetron 4 MG/2 ML Vial IV (19:43)
[2021-12-02] MEDS: 0.9% Normal Saline 1,000 ML 1000 ML IV (19:43)
[2021-12-02 19:51] LABS: Absolute Lymphocyte Count 3.79 X10^3/uL (0.83-4.51); Absolute Neutrophil Count 9.8 X10^3/uL (2.0-7.7); Basophil# 0.04 X10^3/uL; Basophil% 0.3 % (0-1); Eosinophil# 0.07 X10^3/uL; Eosinophils% 0.5 % (0-5); Hematocrit 36.5 % (37-47); Hemoglobin 12.4 g/dL (12.0-15.0); Lymphocyte # 3.79 X10^3/ul (0.83-4.51); Lymphocyte % 24.9 % (19-41); Mean Corpuscular Hgb 30.6 pg (27.0-32.0); Mean Corpuscular Volume 90.1 fL (81-99); Mean Platelet Vol. 9.6 fl (6.2-12.0); Monocyte% 9.2 % (0-10); NRBC Flagged by Analyzer 0 % (0-5); Neutrophil # 9.84 X10^3/uL (2.7-7.7); Neutrophil % 64.6 % (47-70); Platelet Count 232 K/mm3 (150-450); RBC Distribution Width CV 14.8 % (11.6-14.6); RBC Distribution Width SD 48.7 fl (35.1-43.9); Red Blood Count 4.05 M/mm3 (4.2-5.4); White Blood Count 15.2 K/mm3 (4.4-11.0)
[2021-12-02 20:04] LABS: Internal QC Validated? YES +Cl - CLEAR BKGD; Pregnancy, Serum, hCG Quali. NEGATIVE Negative
[2021-12-02 20:04] LABS: Bacteria 1+ /hpf (None Seen); Red Blood Cells-Urine 0-5 SEEN /hpf (0-5); Squamous Epithelial Cells - UA 0-5 SEEN /hpf (5-10); Urine Bilirubin Dipstick 1 mg/dL (Negative); White Blood Cells 0-5 SEEN /hpf (0-5)
[2021-12-02 20:13] LABS: AST(SGOT) 58 U/L (15-37); Alanine Aminotransfer ALT/SGPT 33 U/L (13-56); Albumin, Serum 3.6 g/dL (3.2-5.0); Alkaline Phosphatase 102 U/L (45-117); Anion Gap 9 (5-15); BUN 12 mg/dL (7-18); BUN/Creat Ratio 17.2 RATIO (10-20); Calcium,Total 8.1 mg/dL (8.5-10.1); Chloride 101 mmol/L (98-107); EST Glomerular Filtration Rate 105 mL/min (>60); Est Glom Filt Rate - Afr Amer 127 mL/min (>60); Estimated Creatinine Clearance 88.68 ml/min; Globulin 3.5 g/dL (2.2-4.2); Glucose 128 mg/dL (74-106); Lipase 72 U/L (73-393); Potassium 3.4 mmol/L (3.5-5.1); Protein, Total 7.1 g/dL (6.4-8.2); Sodium Level 139 mmol/L (136-145)
[2021-12-02 20:16] LABS: Lactic Acid 2.1 mmol/L (0.4-1.9)
[2021-12-02] MEDS: Morphine 4 MG/ML Syringe IV (20:42)
--- NOTE | 2021-12-02 21:05 | ED.RN ---
SENT A MESSAGE TO [facility] REQUESTING THEY LOOK INTO THE FREQUENT VISITS AND REQUEST FOR PAINS . EXPLAINED TO PT SHE NEEDS TO F/U WITH HER PCP. 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 PT IS REQUESTING PAIN MEDS WHILE SITTING IN THE BED PLAYING ON HER PHONE WITH NO DISTRESS NOTED AND STABLE VS. PT ALSO HAS IV FLUIDS INFUSING AND THE PUMP ALARMS WHEN IT IS OCCLUDED WHICH HAPPENS WHEN SHE BENDS HER ARM. PT IGNORES THE ALARM AND LETS IT CONTINUOUSLY GO OFF ALTHOUGH SHE KNOWS ALL SHE NEEDS TO DO IS STRAIGHTEN HER ARM.
[2021-12-02 21:11] VITALS: BP 129/84; PULSE 72; RESP 15; TEMP 36.2; O2SAT 98
[2021-12-02 23:47] LABS: Reflex Lactate? Y
== END 2021-12-02 22:04 | disposition home or self-care (01) ==
PROVIDERS: Emergency Provider Emergency Medicine; Visit Provider Emergency Medicine
DX: R10.31 Right lower quadrant pain (principal); K70.30 Alcoholic cirrhosis of liver without ascites; R10.32 Left lower quadrant pain; R11.2 Nausea with vomiting, unspecified; E86.0 Dehydration; E87.2 Acidosis; E87.6 Hypokalemia; R82.4 Acetonuria; K70.10 Alcoholic hepatitis without ascites; F10.11 Alcohol abuse, in remission; E66.9 Obesity, unspecified; F17.210 Nicotine dependence, cigarettes, uncomplicated; Z79.899 Other long term (current) drug therapy
CPT/HCPCS: 74177; 80053; 81001; 83605; 83690; 84703; 85025; 96361; 96374; 96375; 99283; J7030; Q9967; A4216; J2405

== ENCOUNTER 2021-12-04 00:52 | Observation (INO) | payer MEDICAID, SELFPAY ==
[2021-12-04] VITALS (7 sets, daily range): BP systolic 93–153; BP diastolic 58–100; PULSE 70–111; RESP 16–18; TEMP 36.5–37.4; O2SAT 96–99; BMI 30.9
--- NOTE | 2021-12-04 01:35 | EDS_ITS ---
HPI History of Present Illness Chief Complaint: Nausea/Vomiting Informant: patient Narrative Narrative: Patient is a 31-year-old female with significant history including gastroparesis, gallstones, alcoholic cirrhosis of the liver congeal varices presenting with worsening abdominal pain, nausea and vomiting. Patient had a couple ER visits over the past few days for the same complaints. She is concerned she is having a flare of her gallbladder. States she has been vomiting since Friday and was seen in the ER yesterday. Patient states she missed work today and at 7 PM started having worsening pain and vomiting again. Today she started having blood in her vomit as well. She states her bowel moods have been okay and denies any black or blood in them. Patient did have is EGD at [facility] with Dr. Hurley 1 week ago where she was told that her bands looked good and everything was fine. Patient had CT 2 days ago which was negative for any acute process. Patient denies any chest pain or difficulty breathing. She does note her anxiety is worsening. PFSH PFSH Medical History Alcoholic cirrhosis of liver Anxiety and depression Esophageal varices Gallstone Obesity Tobacco use Home Medications buspirone 20 mg TID 09/30/21 [History Last Taken 09/29/21 19:00] escitalopram oxalate 20 mg PO DAILY 09/30/21 [History Last Taken 09/29/21 11:00] melatonin 5 mg PO QHS 09/30/21 [History Last Taken 09/29/21 21:00] thiamine HCl (vitamin B1) 100 mg PO DAILY 09/30/21 [History Last Taken 09/29/21 11:00] tizanidine 4 mg PO TID 09/30/21 [History Last Taken 09/29/21 21:00] trazodone 100 mg PO QHS 09/30/21 [History Last Taken 09/29/21 21:00] ondansetron 4 mg PO Q6H PRN #30 tab 10/03/21 [Rx Last Taken Unknown] rifaximin 50 mg PO.IVFORM DAILY 11/04/21 [History Last Taken Unknown] Allergy/AdvReac Type Severity Reaction Status Date / Time No Known Allergies Allergy Verified 12/02/21 19:17 Family History Mother Alcohol abuse Hypertension Father Alcohol abuse Anxiety and depression Surgical History History of endoscopic gastrointestinal surgery Social History household members: other details: Recently following sobriety start moved with parents, broke with boyfriend. 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 substance use type: does not use ROS ROS ED Constitutional Constitutional ED: Denies chills or fever(s) Eyes Eyes: Denies change in vision ENT ENT ED: Denies rhinorrhea or sore throat Cardiovascular Cardiovascular: Denies chest pain Respiratory/Chest Respiratory/Chest: Denies cough or dyspnea Gastrointestinal Gastrointestinal: Reports abdominal pain, nausea and vomiting; Denies constipation, diarrhea or melena Genitourinary Genitourinary ED: Denies dysuria Musculoskeletal Musculoskeletal: Denies arthralgias or myalgias Integumentary Denies rash Neurologic Neurologic: Denies headache(s) or weakness Psychiatric Psychiatric: Reports anxiety; Denies depression EXAM Physical Exam Const Vital Signs: 12/04/21 00:53 Temperature 98.9 F Temperature Source Temporal Pulse Rate 83 Respiratory Rate 18 Blood Pressure 153/98 H Blood Pressure Mean 116 Pulse Ox 99 Oxygen Delivery Method Room Air Positive well nourished and well developed General Appearance ED: well developed; Negative for pallor HEENT Reports moist mucous membranes Negative for tenderness Eyes PERRL and EOMs intact bilaterally General Eye ED: Negative for scleral icterus Neck no lymphadenopathy and supple Chest Wall inspection of chest normal and palpation of chest normal Resp normal respiratory effort and clear to auscultation bilaterally Cardio regular rate, regular rhythm and no murmurs GI non-distended Auscultation: hypoactive bowel sounds Palpation: soft and tender epigastric; Negative for guarding Back/Spine no CVA tenderness Extremity normal to inspection General Extremety ED: Negative for edema or tenderness General Extremity: Negative for edema Neuro oriented x3 Sensorium / Orientation: alert Motor Exam: Negative for general weakness Psych mental status grossly normal Mood & Affect: anxious Skin no rashes or lesions noted and no wounds General Skin Exam: Negative for jaundice or pallor MDM MDM MDM Narrative Medical decision making narrative: Patient's evaluated for continued nausea, vomiting, epigastric abdominal discomfort and no blood in her vomit. She does have a history of alcoholic cirrhosis and variceal bleeding. I did witness patient having hematemesis however it is not persistent. Currently her vital signs are stable and her hemoglobin is normal. Her lactate is normal. Her BUN/creatinine ratio is normal. She is given IV Protonix and Rocephin after conversation with GI. Type and screen is sent. Patient is found to be hypokalemic of 2.9 and is given IV replacement. She cannot tolerate oral secondary to her intractable vomiting. Of note patient is witnessed multiple times gagging herself to induce vomiting. When asked about this she states she feels like she must throw up in order to feel better because she is so nauseous. She is repeatedly encouraged to stop doing that. Given her history of variceals and witnessed hematemesis she will be admitted to the hospital with consult to GI. Lab Data Attestation: I reviewed the patient's lab results. Labs: Laboratory Results - last 24 hr 12/04/21 12/04/21 12/04/21 01:55 01:55 01:55 WBC 8.1 RBC 4.09 L Hgb 12.5 Hct 36.8 L MCV 90.0 MCH 30.6 MCHC 34.0 RDW Std Deviation 47.5 H RDW Coeff of Lee 14.4 Plt Count 142 L MPV 10.1 Immature Gran % (Auto) 0.200 Neut % (Auto) 76.8 H Lymph % (Auto) 13.5 L [place] % (Auto) 8.3 Eos % (Auto) 1.0 Baso % (Auto) 0.2 Absolute Neuts (auto) 6.2 Absolute Lymphs (auto) 1.09 Nucleated RBC % 0 Sodium 145 Potassium 2.9 L Chloride 107 Carbon Dioxide 30.0 Anion Gap 8 BUN 12 Creatinine 0.63 Estim Creat Clear Calc 98.53 Est GFR (MDRD) Af Amer 143 Est GFR (MDRD) Non-Af 118 BUN/Creatinine Ratio 19.1 Glucose 114 H Lactic Acid 1.3 Calcium 8.5 Magnesium Total Bilirubin 1.70 H Direct Bilirubin 0.52 H AST 53 H ALT 32 Alkaline Phosphatase 107 Total Protein 6.9 Albumin 3.5 Globulin 3.4 Lipase 90 Serum , Qual Blood Type Antibody Screen 12/04/21 12/04/21 12/04/21 01:55 01:55 02:15 WBC RBC Hgb Hct MCV MCH MCHC RDW Std Deviation RDW Coeff of Lee Plt Count MPV Immature Gran % (Auto) Neut % (Auto) Lymph % (Auto) [place] % (Auto) Eos % (Auto) Baso % (Auto) Absolute Neuts (auto) Absolute Lymphs (auto) Nucleated RBC % Sodium Potassium Chloride Carbon Dioxide Anion Gap BUN Creatinine Estim Creat Clear Calc Est GFR (MDRD) Af Amer Est GFR (MDRD) Non-Af BUN/Creatinine Ratio Glucose Lactic Acid Calcium Magnesium 1.6 Total Bilirubin Direct Bilirubin AST ALT Alkaline Phosphatase Total Protein Albumin Globulin Lipase Serum , Qual NEGATIVE Blood Type A POSITIVE Antibody Screen NEGATIVE Discharge Plan Dx/Rx/DC Orders Clinical Impression: Nausea and vomiting, Hematemesis Disposition Disposition: Acute Care Hospital [facility] Discharge Date/Time: 12/04/21 05:16
[2021-12-04] MEDS: Morphine 4 MG/ML Syringe IV (01:52)
[2021-12-04] MEDS: proCHLORPERazine 10 MG/2 ML Vial 5 MG IV ×4 (01:53→16:38)
[2021-12-04] MEDS: 0.9% Normal Saline 1,000 ML 1000 ML IV (01:56)
[2021-12-04 02:10] LABS: Absolute Lymphocyte Count 1.09 X10^3/uL (0.83-4.51); Absolute Neutrophil Count 6.2 X10^3/uL (2.0-7.7); Basophil# 0.02 X10^3/uL; Basophil% 0.2 % (0-1); Eosinophil# 0.08 X10^3/uL; Hematocrit 36.8 % (37-47); Hemoglobin 12.5 g/dL (12.0-15.0); Lymphocyte # 1.09 X10^3/ul (0.83-4.51); Lymphocyte % 13.5 % (19-41); Mean Corpuscular Hgb 30.6 pg (27.0-32.0); Mean Platelet Vol. 10.1 fl (6.2-12.0); Monocyte# 0.67 X10^3/uL; Monocyte% 8.3 % (0-10); NRBC Flagged by Analyzer 0 % (0-5); Neutrophil % 76.8 % (47-70); Platelet Count 142 K/mm3 (150-450); RBC Distribution Width CV 14.4 % (11.6-14.6); RBC Distribution Width SD 47.5 fl (35.1-43.9); Red Blood Count 4.09 M/mm3 (4.2-5.4); White Blood Count 8.1 K/mm3 (4.4-11.0)
[2021-12-04] MEDS: LORazepam 2 MG/ML Syringe 0.5 MG IV (02:25)
[2021-12-04 02:28] LABS: AST(SGOT) 53 U/L (15-37); Alanine Aminotransfer ALT/SGPT 32 U/L (13-56); Albumin, Serum 3.5 g/dL (3.2-5.0); Alkaline Phosphatase 107 U/L (45-117); Anion Gap 8 (5-15); BUN 12 mg/dL (7-18); BUN/Creat Ratio 19.1 RATIO (10-20); Bilirubin, Direct 0.52 mg/dL (0.00-0.30); Calcium,Total 8.5 mg/dL (8.5-10.1); Chloride 107 mmol/L (98-107); Creatinine, Serum 0.63 mg/dL (0.55-1.02); EST Glomerular Filtration Rate 118 mL/min (>60); Est Glom Filt Rate - Afr Amer 143 mL/min (>60); Estimated Creatinine Clearance 98.53 ml/min; Globulin 3.4 g/dL (2.2-4.2); Glucose 114 mg/dL (74-106); Lipase 90 U/L (73-393); Potassium 2.9 mmol/L (3.5-5.1); Protein, Total 6.9 g/dL (6.4-8.2); Sodium Level 145 mmol/L (136-145)
[2021-12-04 02:29] LABS: Internal QC Validated? YES +Cl - CLEAR BKGD; Pregnancy, Serum, hCG Quali. NEGATIVE Negative
[2021-12-04 02:34] LABS: Lactic Acid 1.3 mmol/L (0.4-1.9)
[2021-12-04 02:44] LABS: Magnesium 1.6 mg/dL (1.6-2.6)
[2021-12-04] MEDS: Potassium Chloride 10mEq/100mL 10 MEQ/100 ML IV.SOLN. 100 MEQ IV BOLUS ×2 (02:47→04:00)
--- NOTE | 2021-12-04 03:21 | PCM.HP.STD ---
HPI - General HPI Narrative KANNAN SARAH, is a 31 F who presents to the emergency room with nausea and vomiting blood. Patient has a history of esophageal varices due to alcohol abuse which she states is in remission and is status post banding procedure in 2019 and had a follow-up visit 1 week ago once was told her esophagus was intact. This patient has numerous recurrent visits to the emergency room and CT scan is unremarkable and unchanged. Of note we witnessed the patient on the video monitor for surveillance of her room self inducing herself to vomit. Patient will be admitted to medical surgical floor for observation and consultation with gastroenterology and may need subsequent follow-up from psychiatry. PFSH Medical History Alcoholic cirrhosis of liver Anxiety and depression Esophageal varices Gallstone Obesity Tobacco use Home Medications buspirone 20 mg TID 09/30/21 [History Last Taken 09/29/21 19:00] escitalopram oxalate 20 mg PO DAILY 09/30/21 [History Last Taken 09/29/21 11:00] melatonin 5 mg PO QHS 09/30/21 [History Last Taken 09/29/21 21:00] thiamine HCl (vitamin B1) 100 mg PO DAILY 09/30/21 [History Last Taken 09/29/21 11:00] tizanidine 4 mg PO TID 09/30/21 [History Last Taken 09/29/21 21:00] trazodone 100 mg PO QHS 09/30/21 [History Last Taken 09/29/21 21:00] ondansetron 4 mg PO Q6H PRN #30 tab 10/03/21 [Rx Last Taken Unknown] rifaximin 50 mg PO.IVFORM DAILY 11/04/21 [History Last Taken Unknown] Allergy/AdvReac Type Severity Reaction Status Date / Time No Known Allergies Allergy Verified 12/02/21 19:17 Family History Mother Alcohol abuse Hypertension Father Alcohol abuse Anxiety and depression Surgical History History of endoscopic gastrointestinal surgery Social History household members: other details: Recently following sobriety start moved with parents, broke with boyfriend. 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 substance use type: does not use ROS Constitutional Constitutional: Denies chills or fever(s) Eyes Eyes: Denies blurry vision ENT HEENT: Denies abnormal hearing Cardiovascular Cardiovascular: Denies chest pain Respiratory/Chest Respiratory/Chest: Denies cough Gastrointestinal Gastrointestinal: Reports hematemesis, nausea and vomiting Genitourinary Genitourinary: Denies dysuria Musculoskeletal Musculoskeletal: Denies back pain Integumentary Integumentary: Denies dry skin Neurologic Neurologic: Denies abnormal gait Psychiatric Psychiatric: Reports anxiety Vital Signs Vital Signs Vital Signs: 12/04/21 00:53 Temperature 98.9 F Temperature Source Temporal Pulse Rate 83 Respiratory Rate 18 Blood Pressure 153/98 H Blood Pressure Mean 116 Pulse Ox 99 Oxygen Delivery Method Room Air Weight Weight: 163 lb 12.855 oz Body Mass Index (BMI) 30.9 Physical Exam Const oriented x3 HEENT head/scalp atraumatic Eyes PERRL Neck supple Lymph Lymphatic: no lymphadenopathy noted Resp normal respiratory effort and clear to auscultation bilaterally Cardio regular rate, regular rhythm, S1 normal heart sound and S2 normal heart sound GI soft to palpation Palpation: tender epigastric Extremity normal capillary refill Skin General Skin Exam: turgor normal Neuro CN's II-XII intact bilaterally Psych Mood & Affect: anxious Results Lab / Micro Data Result Diagrams: 12/04/21 01:55 12/04/21 01:55 Labs: Laboratory Results - last 24 hr 12/04/21 01:55: WBC 8.1, RBC 4.09 L, Hgb 12.5, Hct 36.8 L, MCV 90.0, MCH 30.6, MCHC 34.0, RDW Std Deviation 47.5 H, RDW Coeff of Lee 14.4, Plt Count 142 L, MPV 10.1, Immature Gran % (Auto) 0.200, Neut % (Auto) 76.8 H, Lymph % (Auto) 13.5 L, [place] % (Auto) 8.3, Eos % (Auto) 1.0, Baso % (Auto) 0.2, Absolute Neuts (auto) 6.2, Absolute Lymphs (auto) 1.09, Nucleated RBC % 0 12/04/21 01:55: Sodium 145, Potassium 2.9 L, Chloride 107, Carbon Dioxide 30.0, Anion Gap 8, BUN 12, Creatinine 0.63, Estim Creat Clear Calc 98.53, Est GFR (MDRD) Af Amer 143, Est GFR (MDRD) Non-Af 118, BUN/Creatinine Ratio 19.1, Glucose 114 H, Calcium 8.5, Total Bilirubin 1.70 H, Direct Bilirubin 0.52 H, AST 53 H, ALT 32, Alkaline Phosphatase 107, Total Protein 6.9, Albumin 3.5, Globulin 3.4, Lipase 90 12/04/21 01:55: Lactic Acid 1.3 12/04/21 01:55: Serum , Qual NEGATIVE 12/04/21 01:55: Magnesium 1.6 Micro: Microbiology 12/04/21 02:00 Vomitus Gastric Occult Blood - Final Occult Blood Positive Assessment & Plan Assessment/Plan (1) Abdominal pain: (2) Dehydration: (3) Nausea and vomiting: PLAN: 1 abdominal pain with nausea and vomiting and hematemesis?admit patient for observation to general medical floor, repeat CBC in the morning and Zofran and Compazine as needed for nausea, consult Dr. Lucas due to history of esophageal varices. Of note patient was witnessed on video monitor of her emergency room with her fingers in her throat causing her to vomit. This is an abnormal behavior and may be contributory to her presentation. A psych referral may be needed after other pathology is ruled out. There is concern for narcotic seeking behavior therefore will give Toradol as needed for pain and hold all narcotics. 2. Dehydration?IV rehydration repeat BMP in the morning Charges/Coding Visit Charges OBSV E&M: 18225 Initial observation care L2
--- NOTE | 2021-12-04 03:24 | ED.RN ---
patient witnessed on camera putting fingers down her throat at this time. Patient confronted at this time. patient admits to sticking fingers in throat in order to make herself puke in order to get things up. Patient not able to vomit so she is making herself puke in order to relief the pain.
[2021-12-04] MEDS: proMETHazine 25 MG Suppos. RC (03:35)
[2021-12-04 04:50] LABS: Color, Urine Yellow (Yellow); Glucose, Dipstick Normal (Normal); Ketone-Dipstick 15 mg/dl (Negative); Leukocyte Esterase-Dipstick 25 /ul (Negative); Nitrite-Dipstick Negative (Negative); Occult Blood-Urine 250 /ul (Negative); Protein-Dipstick 500 mg/dl (Negative); Specific Gravity, Urine 1.015 (1.002-1.030); Urine Clarity Sl. Cloudy (Clear); Urine Urobilinogen 8 mg/dl (Normal); Urine pH 6.5 (5.0 - 8.0)
[2021-12-04 04:59] LABS: Red Blood Cells-Urine > 100 SEEN /hpf (0-5); Urine Bilirubin Dipstick 3 mg/dL (Negative); White Blood Cells 10-25 SEEN /hpf (0-5)
[2021-12-04 05:00] LABS: Bacteria 3+ /hpf (None Seen); Mucous, Urine 1+ /hpf (<or=2+); Squamous Epithelial Cells - UA 0-5 SEEN /hpf (5-10)
[2021-12-04] MEDS: Ceftriaxone 1 GM/50 ML BAG IV (05:14)
[2021-12-04] MEDS: Ketorolac 30 MG/ML Syringe IM (05:59)
[2021-12-04] MEDS: 0.9% Normal Saline 1,000 ML 150 ML IV ×3 (06:00→20:24)
[2021-12-04] MEDS: 0.9% Saline Lock 10 ML Syringe IV ×4 (06:00→22:50)
[2021-12-04 06:56] LABS: Absolute Lymphocyte Count 0.69 X10^3/uL (0.83-4.51); Basophil# 0.01 X10^3/uL; Basophil% 0.2 % (0-1); Eosinophil# 0.01 X10^3/uL; Eosinophils% 0.2 % (0-5); Hematocrit 34.3 % (37-47); Hemoglobin 11.3 g/dL (12.0-15.0); Lymphocyte # 0.69 X10^3/ul (0.83-4.51); Lymphocyte % 11.6 % (19-41); Mean Corp Hgb Conc 32.9 g/dL (32-36); Mean Corpuscular Hgb 30.2 pg (27.0-32.0); Mean Corpuscular Volume 91.7 fL (81-99); Mean Platelet Vol. 9.6 fl (6.2-12.0); Monocyte# 0.25 X10^3/uL; Monocyte% 4.2 % (0-10); NRBC Flagged by Analyzer 0 % (0-5); Neutrophil # 4.97 X10^3/uL (2.7-7.7); Neutrophil % 83.1 % (47-70); Platelet Count 104 K/mm3 (150-450); RBC Distribution Width CV 14.4 % (11.6-14.6); Red Blood Count 3.74 M/mm3 (4.2-5.4)
[2021-12-04 07:24] LABS: AST(SGOT) 51 U/L (15-37); Alanine Aminotransfer ALT/SGPT 31 U/L (13-56); Albumin, Serum 3.2 g/dL (3.2-5.0); Alkaline Phosphatase 96 U/L (45-117); Anion Gap 8 (5-15); BUN 13 mg/dL (7-18); BUN/Creat Ratio 22.6 RATIO (10-20); Calcium,Total 8.2 mg/dL (8.5-10.1); Chloride 108 mmol/L (98-107); Creatinine, Serum 0.58 mg/dL (0.55-1.02); EST Glomerular Filtration Rate 130 mL/min (>60); Est Glom Filt Rate - Afr Amer 158 mL/min (>60); Estimated Creatinine Clearance 107.02 ml/min; Globulin 3.1 g/dL (2.2-4.2); Glucose 120 mg/dL (74-106); Magnesium 1.7 mg/dL (1.6-2.6); Potassium 3.5 mmol/L (3.5-5.1); Protein, Total 6.3 g/dL (6.4-8.2); Sodium Level 143 mmol/L (136-145)
[2021-12-04] MEDS: Ondansetron 4 MG/2 ML Vial IV ×2 (07:24→13:06)
[2021-12-04] MEDS: Morphine 2 MG/ML Syringe IV ×5 (08:23→20:17)
--- NOTE | 2021-12-04 12:00 | PN.HOSP_ITS ---
Subjective Subjective Patient seen and examined. She is complaining of abdominal pain and incessant nausea and vomiting. Review of systems is othewise negative. She does have a mild fever and remains tachycardic. Objective Data Objective Data Vital Signs: Vital Signs Temp Pulse Resp BP Pulse Ox 99.3 F H 111 H 16 145/93 H 96 12/04/21 08:25 12/04/21 08:25 12/04/21 08:25 12/04/21 08:25 12/04/21 08:25 Oxygen Delivery Method Room Air Weight: 163 lb 12.855 oz Body Mass Index (BMI) 30.9 Intake & Output: Intake and Output for Last 24 Hours 12/02/21 12/03/21 12/04/21 23:59 23:59 23:59 Intake Total 1360 / 1360 Balance 1360 / 1360 Lab / Micro Data Result Diagrams: 12/04/21 06:40 12/04/21 06:40 Labs: Laboratory Results - last 24 hr 12/04/21 01:55: WBC 8.1, RBC 4.09 L, Hgb 12.5, Hct 36.8 L, MCV 90.0, MCH 30.6, MCHC 34.0, RDW Std Deviation 47.5 H, RDW Coeff of Lee 14.4, Plt Count 142 L, MPV 10.1, Immature Gran % (Auto) 0.200, Neut % (Auto) 76.8 H, Lymph % (Auto) 13.5 L, [place] % (Auto) 8.3, Eos % (Auto) 1.0, Baso % (Auto) 0.2, Absolute Neuts (auto) 6.2, Absolute Lymphs (auto) 1.09, Nucleated RBC % 0 12/04/21 01:55: Sodium 145, Potassium 2.9 L, Chloride 107, Carbon Dioxide 30.0, Anion Gap 8, BUN 12, Creatinine 0.63, Estim Creat Clear Calc 98.53, Est GFR (MDRD) Af Amer 143, Est GFR (MDRD) Non-Af 118, BUN/Creatinine Ratio 19.1, Glucose 114 H, Calcium 8.5, Total Bilirubin 1.70 H, Direct Bilirubin 0.52 H, AST 53 H, ALT 32, Alkaline Phosphatase 107, Total Protein 6.9, Albumin 3.5, Globulin 3.4, Lipase 90 12/04/21 01:55: Lactic Acid 1.3 12/04/21 01:55: Serum , Qual NEGATIVE 12/04/21 01:55: Magnesium 1.6 12/04/21 02:15: Blood Type A POSITIVE, Antibody Screen NEGATIVE 12/04/21 04:20: Urine Color Yellow, Urine Clarity Sl. Cloudy, Urine pH 6.5, Ur Specific [place] 1.015, Urine Protein 500 H, Urine Glucose (UA) Normal, Urine Ketones 15 H, Urine Occult Blood 250 H, Urine Nitrite Negative, Urine Bilirubin 3 H, Urine Urobilinogen 8 H, Ur Leukocyte Esterase 25 H, Urine RBC > 100 SEEN, Urine WBC 10-25 SEEN, Ur Squamous Epith Cells 0-5 SEEN, Urine Bacteria 3+, Urine Mucus 1+ 12/04/21 06:40: WBC 6.0, RBC 3.74 L, Hgb 11.3 L, Hct 34.3 L, MCV 91.7, MCH 30.2, MCHC 32.9, RDW Std Deviation 48.0 H, RDW Coeff of Lee 14.4, Plt Count 104 L, MPV 9.6, Immature Gran % (Auto) 0.700, Neut % (Auto) 83.1 H, Lymph % (Auto) 11.6 L, [place] % (Auto) 4.2, Eos % (Auto) 0.2, Baso % (Auto) 0.2, Absolute Neuts (auto) 5.0, Absolute Lymphs (auto) 0.69 L, Nucleated RBC % 0 12/04/21 06:40: Sodium 143, Potassium 3.5, Chloride 108 H, Carbon Dioxide 27.0, Anion Gap 8, BUN 13, Creatinine 0.58, Estim Creat Clear Calc 107.02, Est GFR (MDRD) Af Amer 158, Est GFR (MDRD) Non-Af 130, BUN/Creatinine Ratio 22.6 H, Glucose 120 H, Calcium 8.2 L, Magnesium 1.7, Total Bilirubin 1.20 H, AST 51 H, ALT 31, Alkaline Phosphatase 96, Total Protein 6.3 L, Albumin 3.2, Globulin 3.1, Albumin/Globulin Ratio 1.0 Micro: Microbiology 12/04/21 02:00 Vomitus Gastric Occult Blood - Final Occult Blood Positive Physical Exam Const alert and oriented x3 Constitutional Narrative: in moderate distress due to abdominal pain Exam Limitations: no limitations HEENT head/scalp atraumatic Head and Scalp: normocephalic Mouth: dry mucous membranes Eyes PERRL, EOMs intact bilaterally and conjunctivae normal Neck no lymphadenopathy, supple and no JVD Resp normal respiratory effort, no retractions, no use of accessory muscles and clear to auscultation bilaterally Cardio regular rhythm, S1 normal heart sound, S2 normal heart sound and no murmurs Cardio Narrative: tachycardic GI GI Narrative: abdomen soft, has moderate tenderness in right lower quadrant and right upper quadrant. Anderson's sign is positive Extremity normal to inspection, full ROM and no clubbing, cyanosis or edema Peripheral Pulses: Yes pulses 2+ throughout Skin no rashes or lesions noted Neuro oriented x3 and CN's II-XII intact bilaterally Sensorium / Orientation: awake and alert Psych Psych Narrative: in discomfort due to abdominal pain Assessment & Plan Assessment/Plan (1) Abdominal pain: (2) Nausea and vomiting: PLAN: #Intractable abdominal pain with nausea and vomiting * CT scan of the abdomen and pelvis showed decreased liver size with micronodular contour suggestive of cirrhosis. Gallbladder was mildly distended with several layering small gallbladder stones, no wall thickening or pericholecystic fluid and normal diameter of common bile duct; it showed significant gastric and paraesophageal varices. * She does have positive Anderson's sign and also had Right lower quadrant tenderness, which may indicate acute appendicitis * General surgery therefore consulted. GI consulted on admission. * continue keeping NPO * continue hydration with IVF * stop toradol as she says she had hematemesis prior to admission; IV morphine prn * per nursing, there is concern that patient may also be inducing vomiting. * on IV PPI drip * on IV zofran and compazine. * #History of cirrhosis due to alcohol abuse * also has esophageal varices * GI consulted. Await rec's * on thiamine * #UTI: on ceftriaxone. Urine cultures pending DVT prophylaxis: SCDs. No anticoagulation due to history of hematemesis Charges/Coding Visit Charges In[facility] E[facility]M: 95942 [facility]
--- NOTE | 2021-12-04 16:48 | CON.PCM.SX_ITS ---
Assessment & Plan Assessment/Plan (1) Abdominal pain: (2) Nausea and vomiting: PLAN: This is a 31-year-old female with past history of alcoholic cirrhosis, esophageal varices (evidence of portal hypertension with recent duplex study), hematemesis, and gastroparesis who presents with acute onset abdominal pain intractable nausea and vomiting. Patient describes both right upper and lower quadrant abdominal pains, but states the right lower quadrant abdominal pain is most significant. She has a negative Anderson sign on exam. I independently reviewed her last several CT scans and agree with radiology that there has not been any significant global director air and climate change the last several studies. While patient has some tenderness, I do not feel her exam is consistent with cholecystitis. She is a significant surgical risk (child Ramirez class B) with her history of esophageal varices/portal hypertension. I agree with previous e valuations, that patient would be best served through a tertiary center or 1 with a complete blood bank if she chooses to pursue cholecystectomy for her symptoms of biliary colic. Should further gallbladder evaluation be of interest, HIDA imaging rather than right upper quadrant ultrasound would pr obably be the most reliable since gallbladder wall thickening can be nonspecific given cirrhotic patients. At this point, I do question if there may be something more done to manage her gastroparesis that may help her symptoms of nausea and vomiting. From a surgical standpoint, no intervention is planned and primary team can consider resuming a low-fat diet. His impression was communicated directly to the hospitalist service. HPI Consult Data Date of Consult: 12/04/21 HPI Narrative HPI Narrative: KANNAN SARAH, is a 31 F, with a history of alcoholic cirrhosis, esophageal varices, hematemesis, and gastroparesis, who presents with intractable nausea/vomiting as well as some right-sided abdominal pain. She states she was evaluated with upper endoscopy 1 week ago by her senior telecommunications specialist through the [facility]. At that time, she was given a favorable report and advised that no further banding of her esophageal varices was required. Then approximately 4 days ago she started with right-sided abdominal pain and some associated nausea and vomiting. She states the vomiting seems to occur irrespective of food intake. She relates that there is some initial relief, but this is very limited. She endorses some subjective fevers and chills along with the symptoms. Patient underwent CT imaging of the abdomen pelvis on 12/02/2021 and was read as no significant global director air and climate change the last 2 months with [address]. Gallbladder was read as: Mildly distended gallbladder measuring 10 x 3.4 cm in length with several small gallbladder stones layering dependently in the gallbladder. No wall thickening or pericholecystic fluid. Normal di ameter common bile duct. It is noted that patient had ultrasound imaging of the right upper quadrant in September of this year and color Doppler demonstrated reversal of flow through the portal vein. Patient states that the only medication she takes regularly for her gastroparesis is omeprazole 40 mg daily. She confirms that she has been free of alcohol for the last 4 months. When asked about any purging tendencies, she initially denies this, but states that she will occasionally try to induce v omiting because it makes her feel better?but this relief is self-limited. PFSH Medical History Alcoholic cirrhosis of liver Anxiety and depression Esophageal varices Gallstone Obesity Tobacco use Home Medications buspirone 20 mg TID 09/30/21 [History Last Taken 09/29/21 19:00] escitalopram oxalate 20 mg PO DAILY 09/30/21 [History Last Taken 09/29/21 11:00] melatonin 5 mg PO QHS 09/30/21 [History Last Taken 09/29/21 21:00] thiamine HCl (vitamin B1) 100 mg PO DAILY 09/30/21 [History Last Taken 09/29/21 11:00] tizanidine 4 mg PO TID 09/30/21 [History Last Taken 09/29/21 21:00] trazodone 100 mg PO QHS 09/30/21 [History Last Taken 09/29/21 21:00] ondansetron 4 mg PO Q6H PRN #30 tab 10/03/21 [Rx Last Taken Unknown] rifaximin 50 mg PO.IVFORM DAILY 11/04/21 [History Last Taken Unknown] Allergy/AdvReac Type Severity Reaction Status Date / Time No Known Allergies Allergy Verified 12/02/21 19:17 Family History Mother Alcohol abuse Hypertension Father Alcohol abuse Anxiety and depression Surgical History History of endoscopic gastrointestinal surgery Social History household members: other details: Recently following sobriety start moved with parents, broke with boyfriend. 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 substance use type: does not use Physical Exam Const oriented x3 Constitutional Narrative: Patient appears drowsy, but answers appropriately General Appearance: cooperative Resp normal respiratory effort GI GI Narrative: Nondistended, no scars, tenderness present at umbilicus and right upper and lower quadrants (patient states right lower quadrant tenderness is greater than right upper quadrant tenderness, however there is more tenderness in the right upper quadrant with inspiration). Patient has negative Anderson sign Lab / Micro Data Result Diagrams: 12/04/21 06:40 12/04/21 06:40 Labs: Laboratory Results - last 24 hr 12/04/21 01:55: WBC 8.1, RBC 4.09 L, Hgb 12.5, Hct 36.8 L, MCV 90.0, MCH 30.6, MCHC 34.0, RDW Std Deviation 47.5 H, RDW Coeff of Lee 14.4, Plt Count 142 L, MPV 10.1, Immature Gran % (Auto) 0.200, Neut % (Auto) 76.8 H, Lymph % (Auto) 13.5 L, [place] % (Auto) 8.3, Eos % (Auto) 1.0, Baso % (Auto) 0.2, Absolute Neuts (auto) 6.2, Absolute Lymphs (auto) 1.09, Nucleated RBC % 0 12/04/21 01:55: Sodium 145, Potassium 2.9 L, Chloride 107, Carbon Dioxide 30.0, Anion Gap 8, BUN 12, Creatinine 0.63, Estim Creat Clear Calc 98.53, Est GFR (MDRD) Af Amer 143, Est GFR (MDRD) Non-Af 118, BUN/Creatinine Ratio 19.1, Glucose 114 H, Calcium 8.5, Total Bilirubin 1.70 H, Direct Bilirubin 0.52 H, AST 53 H, ALT 32, Alkaline Phosphatase 107, Total Protein 6.9, Albumin 3.5, Globulin 3.4, Lipase 90 12/04/21 01:55: Lactic Acid 1.3 12/04/21 01:55: Serum , Qual NEGATIVE 12/04/21 01:55: Magnesium 1.6 12/04/21 02:15: Blood Type A POSITIVE, Antibody Screen NEGATIVE 12/04/21 04:20: Urine Color Yellow, Urine Clarity Sl. Cloudy, Urine pH 6.5, Ur Specific [place] 1.015, Urine Protein 500 H, Urine Glucose (UA) Normal, Urine Ketones 15 H, Urine Occult Blood 250 H, Urine Nitrite Negative, Urine Bilirubin 3 H, Urine Urobilinogen 8 H, Ur Leukocyte Esterase 25 H, Urine RBC > 100 SEEN, Urine WBC 10-25 SEEN, Ur Squamous Epith Cells 0-5 SEEN, Urine Bacteria 3+, Urine Mucus 1+ 12/04/21 06:40: WBC 6.0, RBC 3.74 L, Hgb 11.3 L, Hct 34.3 L, MCV 91.7, MCH 30.2, MCHC 32.9, RDW Std Deviation 48.0 H, RDW Coeff of Lee 14.4, Plt Count 104 L, MPV 9.6, Immature Gran % (Auto) 0.700, Neut % (Auto) 83.1 H, Lymph % (Auto) 11.6 L, [place] % (Auto) 4.2, Eos % (Auto) 0.2, Baso % (Auto) 0.2, Absolute Neuts (auto) 5.0, Absolute Lymphs (auto) 0.69 L, Nucleated RBC % 0 12/04/21 06:40: Sodium 143, Potassium 3.5, Chloride 108 H, Carbon Dioxide 27.0, Anion Gap 8, BUN 13, Creatinine 0.58, Estim Creat Clear Calc 107.02, Est GFR (MDRD) Af Amer 158, Est GFR (MDRD) Non-Af 130, BUN/Creatinine Ratio 22.6 H, Glucose 120 H, Calcium 8.2 L, Magnesium 1.7, Total Bilirubin 1.20 H, AST 51 H, ALT 31, Alkaline Phosphatase 96, Total Protein 6.3 L, Albumin 3.2, Globulin 3.1, Albumin/Globulin Ratio 1.0 Micro: Microbiology 12/04/21 02:00 Vomitus Gastric Occult Blood - Final Occult Blood Positive Charges/Coding Visit Charges Inpatient E&M: 54864 Init Hosp L2
--- NOTE | 2021-12-04 18:26 | CON.PCM_ITS ---
Assessment & Plan Assessment/Plan (1) Nausea and vomiting: PLAN: Nausea vomiting from unknown etiology. Could be gastroparesis associated with alcoholic cirrhosis. There is also history of marijuana hyperemesis. I would give her a scopolamine patch, scheduled Xanax therapy, PPI therapy twice daily and Compazine per rectum (2) Hematemesis: PLAN: She will undergo an upper endoscopy to evaluate her hematemesis. Differential diagnosis does include a Miryam-Weller tear, portal gastropathy, telangiectasias or angiodysplasia of the upper GI tract. (3) Alcoholic cirrhosis of liver: PLAN: She has a low meld and has not shown any signs of decompensation at this time. She does not have any ascites, jaundice or encephalopathy. Re commend Xifaxan 550 mg twice a day, lactulose 20 cc once a day, she does not need beta-leonila therapy at this time due to her last endoscopy did not show any appreciable varices. Further recommendation after upper endoscopy. HPI Consult Data Date of Consult: 12/04/21 HPI Narrative HPI Narrative: KANNAN SARAH, is a 31 F who with significant history including gastroparesis, gallstones, alcoholic cirrhosis of the liver congeal varices presenting with worsening abdominal pain, nausea and vomiting. Patient had a couple ER visits over the past few days for the same complaints. She is concerned she is having a flare of her gallbladder. States she has been vomiting since Friday and was seen in the ER yesterday. Patient states she missed work today and at 7 PM started having worsening pain and vomiting again. Today she started having blood in her vomit as well. She states her bowel moods have been okay and denies any black or blood in them. Patient did have [facility] with Dr. Hurley 1 week ago where she was told that her bands looked good and everything was fine. Patient had CT 2 days ago which was negative for any acute process. Patient denies any chest pain or difficulty breathing. She does note her anxiety is w orsening. I was called because she had multiple episodes of hematemesis. PFSH Medical History Alcoholic cirrhosis of liver Anxiety and depression Esophageal varices Gallstone Obesity Tobacco use Home Medications buspirone 20 mg TID 09/30/21 [History Last Taken 09/29/21 19:00] escitalopram oxalate 20 mg PO DAILY 09/30/21 [History Last Taken 09/29/21 11:00] melatonin 5 mg PO QHS 09/30/21 [History Last Taken 09/29/21 21:00] thiamine HCl (vitamin B1) 100 mg PO DAILY 09/30/21 [History Last Taken 09/29/21 11:00] tizanidine 4 mg PO TID 09/30/21 [History Last Taken 09/29/21 21:00] trazodone 100 mg PO QHS 09/30/21 [History Last Taken 09/29/21 21:00] ondansetron 4 mg PO Q6H PRN #30 tab 10/03/21 [Rx Last Taken Unknown] rifaximin 50 mg PO.IVFORM DAILY 11/04/21 [History Last Taken Unknown] Allergy/AdvReac Type Severity Reaction Status Date / Time No Known Allergies Allergy Verified 12/02/21 19:17 Family History Mother Alcohol abuse Hypertension Father Alcohol abuse Anxiety and depression Surgical History History of endoscopic gastrointestinal surgery Social History household members: other details: Recently following sobriety start moved with parents, broke with boyfriend. 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 substance use type: does not use ROS Gastrointestinal Gastrointestinal: Reports hematemesis Physical Exam Const alert General Appearance: cooperative Orientation / Consciousness: oriented to person HEENT hearing grossly normal bilaterally Head and Scalp: normal to inspection Face and Sinus: face symmetric Nose: external nose normal Mouth: oral and palatal mucosa normal Eyes conjunctivae normal General Eye: normal appearance of both eyes Neck full ROM General: normal visual inspection Lymph Lymphatic: no lymphadenopathy noted Chest inspection of chest normal and palpation of chest normal Chest: symmetrical chest wall rise Resp normal respiratory effort Effort and Inspection: able to speak in complete sentences Cardio regular rate GI non-distended Percussion: normal to percussion Rectal Exam: deferred Neuro Speech: speech normal Gait (Neuro): normal gait Lab / Micro Data Result Diagrams: 12/04/21 06:40 12/04/21 06:40 Labs: Laboratory Results - last 24 hr 12/04/21 01:55: WBC 8.1, RBC 4.09 L, Hgb 12.5, Hct 36.8 L, MCV 90.0, MCH 30.6, MCHC 34.0, RDW Std Deviation 47.5 H, RDW Coeff of Lee 14.4, Plt Count 142 L, MPV 10.1, Immature Gran % (Auto) 0.200, Neut % (Auto) 76.8 H, Lymph % (Auto) 13.5 L, [place] % (Auto) 8.3, Eos % (Auto) 1.0, Baso % (Auto) 0.2, Absolute Neuts (auto) 6.2, Absolute Lymphs (auto) 1.09, Nucleated RBC % 0 12/04/21 01:55: Sodium 145, Potassium 2.9 L, Chloride 107, Carbon Dioxide 30.0, Anion Gap 8, BUN 12, Creatinine 0.63, Estim Creat Clear Calc 98.53, Est GFR (MDRD) Af Amer 143, Est GFR (MDRD) Non-Af 118, BUN/Creatinine Ratio 19.1, Glucose 114 H, Calcium 8.5, Total Bilirubin 1.70 H, Direct Bilirubin 0.52 H, AST 53 H, ALT 32, Alkaline Phosphatase 107, Total Protein 6.9, Albumin 3.5, Globulin 3.4, Lipase 90 12/04/21 01:55: Lactic Acid 1.3 12/04/21 01:55: Serum , Qual NEGATIVE 12/04/21 01:55: Magnesium 1.6 12/04/21 02:15: Blood Type A POSITIVE, Antibody Screen NEGATIVE 12/04/21 04:20: Urine Color Yellow, Urine Clarity Sl. Cloudy, Urine pH 6.5, Ur Specific [place] 1.015, Urine Protein 500 H, Urine Glucose (UA) Normal, Urine Ketones 15 H, Urine Occult Blood 250 H, Urine Nitrite Negative, Urine Bilirubin 3 H, Urine Urobilinogen 8 H, Ur Leukocyte Esterase 25 H, Urine RBC > 100 SEEN, Urine WBC 10-25 SEEN, Ur Squamous Epith Cells 0-5 SEEN, Urine Bacteria 3+, Urine Mucus 1+ 12/04/21 06:40: WBC 6.0, RBC 3.74 L, Hgb 11.3 L, Hct 34.3 L, MCV 91.7, MCH 30.2, MCHC 32.9, RDW Std Deviation 48.0 H, RDW Coeff of Lee 14.4, Plt Count 104 L, MPV 9.6, Immature Gran % (Auto) 0.700, Neut % (Auto) 83.1 H, Lymph % (Auto) 11.6 L, [place] % (Auto) 4.2, Eos % (Auto) 0.2, Baso % (Auto) 0.2, Absolute Neuts (auto) 5.0, Absolute Lymphs (auto) 0.69 L, Nucleated RBC % 0 12/04/21 06:40: Sodium 143, Potassium 3.5, Chloride 108 H, Carbon Dioxide 27.0, Anion Gap 8, BUN 13, Creatinine 0.58, Estim Creat Clear Calc 107.02, Est GFR (MDRD) Af Amer 158, Est GFR (MDRD) Non-Af 130, BUN/Creatinine Ratio 22.6 H, Glucose 120 H, Calcium 8.2 L, Magnesium 1.7, Total Bilirubin 1.20 H, AST 51 H, ALT 31, Alkaline Phosphatase 96, Total Protein 6.3 L, Albumin 3.2, Globulin 3.1, Albumin/Globulin Ratio 1.0 Micro: Microbiology 12/04/21 02:00 Vomitus Gastric Occult Blood - Final Occult Blood Positive Charges/Coding Visit Charges Inpatient E&M: 70866 Init Hosp L3
[2021-12-04] MEDS: Scopolamine 1mg/72hr Patch 1 PATCH TD (19:23)
[2021-12-04] MEDS: proCHLORPERazine 25 MG Suppos. RC (22:49)
[2021-12-04] MEDS: ALPRAZolam 0.25 MG Tablet PO (22:49)
[2021-12-05] VITALS (13 sets, daily range): BP systolic 92–145; BP diastolic 60–92; PULSE 47–89; RESP 14–18; TEMP 36.4–37.3; O2SAT 94–100; BMI 30.9
[2021-12-05] MEDS: Metoclopramide 10 MG/2 ML Vial 5 MG IV ×5 (00:37→23:22)
[2021-12-05] MEDS: Morphine 2 MG/ML Syringe IV ×3 (00:44→23:10)
[2021-12-05] MEDS: 0.9% Normal Saline 1,000 ML 150 ML IV ×4 (02:29→23:12)
--- NOTE | 2021-12-05 06:40 | NURSING ---
Patient slow to respond in bed, unaware at times of This RN presence in room. Motor function delayed. When spoken too opens eyes and responds then falls back to sleep. Patient frequently asking for pain meds around the clock. Offered Anti nausea, and anxiety medications, Administered 2 doses of Morphine and offered heat and cold to painful areas. EGD planned for today.
[2021-12-05 06:42] LABS: Absolute Lymphocyte Count 1.39 X10^3/uL (0.83-4.51); Absolute Neutrophil Count 1.6 X10^3/uL (2.0-7.7); Basophil# 0.01 X10^3/uL; Basophil% 0.3 % (0-1); Eosinophil# 0.07 X10^3/uL; Eosinophils% 2.1 % (0-5); Hematocrit 29.8 % (37-47); Hemoglobin 9.7 g/dL (12.0-15.0); Lymphocyte # 1.39 X10^3/ul (0.83-4.51); Lymphocyte % 42.6 % (19-41); Mean Corp Hgb Conc 32.6 g/dL (32-36); Mean Corpuscular Volume 92.3 fL (81-99); Mean Platelet Vol. 10.2 fl (6.2-12.0); Monocyte# 0.21 X10^3/uL; Monocyte% 6.4 % (0-10); NRBC Flagged by Analyzer 0 % (0-5); Neutrophil # 1.57 X10^3/uL (2.7-7.7); Neutrophil % 48.3 % (47-70); Platelet Count 100 K/mm3 (150-450); RBC Distribution Width CV 14.3 % (11.6-14.6); RBC Distribution Width SD 48.3 fl (35.1-43.9); Red Blood Count 3.23 M/mm3 (4.2-5.4); White Blood Count 3.3 K/mm3 (4.4-11.0)
[2021-12-05] MEDS: ALPRAZolam 0.25 MG Tablet PO ×3 (06:49→23:11)
[2021-12-05 06:55] LABS: International Normalized Ratio 1.5; Prothrombin Time (Protime)PT. 17.6 SECONDS (11.7-14.9)
[2021-12-05 07:17] LABS: AST(SGOT) 40 U/L (15-37); Alanine Aminotransfer ALT/SGPT 26 U/L (13-56); Albumin, Serum 2.6 g/dL (3.2-5.0); Alkaline Phosphatase 78 U/L (45-117); Anion Gap 6 (5-15); BUN 10 mg/dL (7-18); BUN/Creat Ratio 25.1 RATIO (10-20); Calcium,Total 7.5 mg/dL (8.5-10.1); Chloride 107 mmol/L (98-107); EST Glomerular Filtration Rate 200 mL/min (>60); Est Glom Filt Rate - Afr Amer 242 mL/min (>60); Estimated Creatinine Clearance 155.18 ml/min; Globulin 2.7 g/dL (2.2-4.2); Glucose 98 mg/dL (74-106); Potassium 3.6 mmol/L (3.5-5.1); Protein, Total 5.3 g/dL (6.4-8.2); Sodium Level 139 mmol/L (136-145)
[2021-12-05 08:01] LABS: Magnesium 1.7 mg/dL (1.6-2.6); Phosphorus 3.1 mg/dL (2.5-4.9)
--- NOTE | 2021-12-05 12:00 | EGD_PTH ---
PATIENT: KANNAN SARAH LOC: [facility] U#:[id number] AGE/SX: 31/F ROOM: [facility] RE12/04/[address]: Dr. Alyssa Canada MD : 1990 BED: 1 DIS: 12/06/2021 SPEC #: [id number] RECD: 12/05/21 14:32 STATUS: LISA RERita #: [id number] JORGE LUIS: 12/05/21 12:[address]: Mir Lucas DEPT: SURGICAL PATHOLOGY RECD BY: Vikki Cruz ENTERED: 12/06/21 07:38 SP TYPE: EGD BIOPSY OTHR DR: MD Dr. Alyssa Sharp MD Dr. Paul Nielsen, MD Dr. Rahsaan Friend, DO No Primary Care Phys Tissues: Gastric mucous membrane Procedures: Surgery Specimen Level IV Comments: @ Ordering doctor for SUIV edited from to @ by EMANUEL at 12/06/21 1354 @ Submitting doctor edited from to @ by RGOOD at 12/06/21 1354 HEADER OPERATION: EGD ([facility] [place]) PRE-OP DIAGNOSIS: Nausea and vomiting, hematemesis, alcoholic cirrhosis of liver TISSUE SUBMITTED: Gastric body biopsy MICROSCOPIC DIAGNOSIS Gastric body, biopsy: Mild chronic gastritis. See comment. AM:theresa 12/07/2021 COMMENT The results of immunohistochemistry for Helicobacter pylori will be reported separately ([id number]). MICROSCOPIC DESCRIPTION Slides are reviewed. GROSS DESCRIPTION Received in fixative is one container labeled with the patient's name and designated gastric body biopsy. The specimen consists of one irregular fragment of light lee soft tissue that measures 1 x 0.5 x 0.1 cm. The specimen is totally submitted in one cassette. / AM:theresa 12/06/2021 TC:3 CPT: 48620
--- NOTE | 2021-12-05 12:00 | IMM_PTH ---
PATIENT: KANNAN SARAH LOC: [facility] U#:[id number] AGE/SX: 31/F ROOM: [facility] RE12/04/[address]: Dr. Alyssa Canada MD : 1990 BED: 1 DIS: 12/06/2021 SPEC #: [id number] RECD: 12/06/21 10:31 STATUS: LISA RERita #: [id number] JORGE LUIS: 12/05/21 12:[address]: Mir Lucas DEPT: IMMUNOHISTOCHEMISTRY RECD BY: Flaca Gonzalez ENTERED: 12/06/21 10:32 SP TYPE: IMMUNO OTHR DR: MD Dr. Alyssa Sharp MD Dr. Paul Nielsen, MD No Primary Care Phys Tissues: Stomach, NOS Procedures: H Pylori (initial) PHYSICIAN & INSTITUTION [place] [address] SPECIMEN INFORMATION: Tissue Source: Gastric body biopsy Clinical Info: Nausea, vomiting, hematemesis, alcoholic cirrhosis of liver Specimen Number: CPT code: 98405 METHODOLOGY: Deparaffinized sections of prefer/formalin-fixed tissue or PAP/DQ stained slides are incubated with monoclonal/polyclonal antibodies/oligonucleotide probes. Localization is made via biotin free immunoperoxidase method. Appropriate controls are performed and reacted as expected. Results on target cell population are indicated in the following table: RESULTS: ANTIBODY / CLONE RESULT H Pylori (polyclonal) negative These tests were developed and their performance characteristics determined by [facility]. They may not have been cleared or approved by the U.S. Food and Drug Administration. The FDA has determined that such clearance or approval is not necessary. The above immunohistochemical/dualISH markers are ordered and reviewed by the Pathologist. INTERPRETATION: Gastric body, biopsy: Negative for Helicobacter pylori organisms. AM:theresa 12/07/2021
--- NOTE | 2021-12-05 12:30 | OP.EGD_ITS ---
Patient Name: Teodora Casillas Procedure Date: 12/05/2021 12:09 PM Date of : 1990 Age: 31 Procedure: Upper GI endoscopy Indications: Hematemesis Providers: Mir Lucas DO Medicines: Monitored Anesthesia Care Patient Profile: This is a 31 year old female. Refer to note in patient chart for documentation of history and physical. Patient has symptoms of chronic nausea and acute vomiting. Complications: No immediate complications. Procedure: Pre-Anesthesia Assessment: - Prior to the procedure, a History and Physical was performed, and patient medications and allergies were reviewed. The risks and benefits of the procedure and the sedation options and risks were discussed with the patient. All questions were answered and informed consent was obtained. Patient identification and proposed procedure were verified by the physician in the pre-procedure area. Mental Status Examination: alert and oriented. Airway Examination: normal oropharyngeal airway and neck mobility. Respiratory Examination: clear to auscultation. CV Examination: normal. Prophylactic Antibiotics: The patient does not require prophylactic antibiotics. Prior Anticoagulants: The patient has taken no previous anticoagulant or antiplatelet agents. ASA Grade Assessment: II - A patient with mild systemic disease. After reviewing the risks and benefits, the patient was deemed in satisfactory condition to undergo the procedure. The anesthesia plan was to use moderate sedation / analgesia (conscious sedation). Immediately prior to administration of medications, the patient was re-assessed for adequacy to receive sedatives. The heart rate, respiratory rate, oxygen saturations, blood pressure, adequacy of pulmonary ventilation, and response to care were monitored throughout the procedure. The physical status of the patient was re-assessed after the procedure. After obtaining informed consent, the endoscope was passed under direct vision. Throughout the procedure, the patient's blood pressure, pulse, and oxygen saturations were monitored continuously. The Endoscope was introduced through the mouth, and advanced to the second part of duodenum. The upper GI endoscopy was accomplished without difficulty. The patient tolerated the procedure well. Scope In: 12:19:39 PM Scope Out: 12:23:28 PM Total Procedure Duration Time 0 hours 3 minutes 49 seconds Findings: Three columns of non-bleeding grade II varices were found in the distal esophagus, 35 cm from the incisors. They were 5 mm in largest diameter. No stigmata of recent bleeding were evident and no red ira signs were present. Stigmata of prior treatment were evident. Patchy moderate inflammation characterized by congestion (edema), erosions, erythema and friability was found in the cardia and in the gastric body. Biopsies were taken with a cold forceps for histology. Verification of patient identification for the specimen was done. Estimated blood loss was minimal. The second portion of the duodenum was normal. Impression: - Non-bleeding grade II esophageal varices. - Chronic gastritis. Biopsied. - Normal second portion of the duodenum. Recommendation: - Return [facility]. - Advance diet as tolerated. - Continue present medications. - Await pathology results. Procedure Code(s): --- Professional --- 31188, Esophagogastroduodenoscopy, flexible, transoral; with biopsy, single or multiple CPT copyright 2017 [employer]. All rights reserved. The codes documented in this report are preliminary and upon professional fee coder review may be revised to meet current compliance requirements. Mir Lucas DO 12/05/2021 12:29:44 PM This report has been signed electronically. Number of Addenda: 1 Note Initiated On: 12/05/2021 12:09 PM Addendum Number: 1 Addendum Date: 04/19/2022 6:18:09 AM MAC was used as sedation for this procedure. Mir Lucas DO 04/19/2022 6:18:13 AM This report has been signed electronically.
--- NOTE | 2021-12-05 12:30 | OP.CCLET_ITS ---
04/19/2022 No Primary Care Physician Re : Upper GI endoscopy procedure for Teodora Casillas Dear Care Physician This procedure was performed on Sunday, December 05, 2021. My impressions and recommendations are as follows: Impressions : - Non-bleeding grade II esophageal varices. - Chronic gastritis. Biopsied. - Normal second portion of the duodenum. Recommendations : - Return patient to [facility] care. - Advance diet as tolerated. - Continue present medications. - Await pathology results. My findings are described in the full procedure note, which is enclosed. If I can be of further assistance, please feel free to contact me at . Sincerely, Mir Lucas, 12/05/2021 12:29:44 PM This report has been signed electronically.
--- NOTE | 2021-12-05 12:40 | PN.HOSP_ITS ---
Subjective Subjective Patient seen and examined. She is still having abdominal pain. She hasnt had any more nausea or vomiting overnight. She is for EGD today. Review of systems is otherwise negative. Objective Data Objective Data Vital Signs: Vital Signs Temp Pulse Resp BP Pulse Ox 98.5 F 78 16 129/88 H 97 12/05/21 12:26 12/05/21 12:30 12/05/21 12:30 12/05/21 12:30 12/05/21 12:30 Oxygen Flow Rate (L/min) 4 Oxygen Delivery Method Nasal Cannula Weight: 163 lb 12.855 oz Body Mass Index (BMI) 30.9 Intake & Output: Intake and Output for Last 24 Hours 12/03/21 12/04/21 12/05/21 23:59 23:59 23:59 Intake Total 3360 / 3360 1912.5 / 1911.5 Balance 3360 / 3360 1911.5 / 1911.5 Lab / Micro Data Result Diagrams: 12/05/21 06:30 12/05/21 06:30 Labs: Laboratory Results - last 24 hr 12/05/21 06:30: WBC 3.3 L, RBC 3.23 L, Hgb 9.7 L, Hct 29.8 L, MCV 92.3, MCH 30.0, MCHC 32.6, RDW Std Deviation 48.3 H, RDW Coeff of Lee 14.3, Plt Count 100 L, MPV 10.2, Immature Gran % (Auto) 0.300, Neut % (Auto) 48.3, Lymph % (Auto) 42.6 H, [place] % (Auto) 6.4, Eos % (Auto) 2.1, Baso % (Auto) 0.3, Absolute Neuts (auto) 1.6 L, Absolute Lymphs (auto) 1.39, Nucleated RBC % 0 12/05/21 06:30: Sodium 139, Potassium 3.6, Chloride 107, Carbon Dioxide 26.0, Anion Gap 6, BUN 10, Creatinine 0.40 L, Estim Creat Clear Calc 155.18, Est GFR (MDRD) Af Amer 242, Est GFR (MDRD) Non-Af 200, BUN/Creatinine Ratio 25.1 H, Glucose 98, Calcium 7.5 L, Total Bilirubin 1.40 H, AST 40 H, ALT 26, Alkaline Phosphatase 78, Total Protein 5.3 L, Albumin 2.6 L, Globulin 2.7, Albumin/Globulin Ratio 1.0 12/05/21 06:30: PT 17.6 H, INR 1.5 12/05/21 06:30: Phosphorus 3.1, Magnesium 1.7 Micro: Microbiology 12/04/21 04:20 Urine, Clean Catch Urine Culture - Preliminary Gram Positive Cocci 12/04/21 02:00 Vomitus Gastric Occult Blood - Final Occult Blood Positive Physical Exam Const alert, oriented x3 and no apparent distress Exam Limitations: no limitations HEENT head/scalp atraumatic and moist oral mucous membranes Head and Scalp: normocephalic Eyes PERRL, EOMs intact bilaterally and conjunctivae normal Neck no lymphadenopathy, supple and no JVD Lymph Lymphatic: no lymphadenopathy noted Resp normal respiratory effort, no retractions, no use of accessory muscles and clear to auscultation bilaterally Cardio regular rate, regular rhythm, S1 normal heart sound, S2 normal heart sound and no murmurs Cardio Narrative: tachycardic GI normal to inspection, nondistended, normoactive bowel sounds, soft to palpation, non-tender and non-distended Extremity normal to inspection, full ROM, normal capillary refill and no clubbing, cyanosis or edema Peripheral Pulses: Yes pulses 2+ throughout Skin no rashes or lesions noted General Skin Exam: turgor normal Neuro oriented x3 and CN's II-XII intact bilaterally Sensorium / Orientation: awake and alert Psych affect normal Assessment & Plan Assessment/Plan (1) Abdominal pain: (2) Nausea and vomiting: PLAN: #Intractable abdominal pain with nausea and vomiting * CT scan of the abdomen and pelvis showed decreased liver size with micronodular contour suggestive of cirrhosis. Gallbladder was mildly distended with several layering small gallbladder stones, no wall thickening or pericholecystic fluid and normal diameter of common bile duct; it showed significant gastric and paraesophageal varices. * General surgery reviewed patient and didnt think a candidate for surgery; if she does require surgery for cholecystectomy, gastroenterology recommends doing it in a tertiary facility. * had EGD today which showed non bleeding grade II esophageal varices, and chronic gastritis. * on IV PPI and compazine as well as zofran. * resume diet and advance as tolerated. * * * #History of cirrhosis due to alcohol abuse * also has esophageal varices; complained of hematemesis on admission. Stool for occult blood is positive. * GI on board; per GI, she has a low MELD and shows no signs of decompensation at this time. Started on xifaxan 550mg bid, lactulose 20cc daily. No need for beta leonila now, per GI. * on thiamine * #UTI: on ceftriaxone. Urine cultures growing gram positive cocci <1000cfu/ml. Speciation is pending. DVT prophylaxis: SCDs. No anticoagulation due to history of hematemesis Charges/Coding Visit Charges Inpatient E&M: 85939 Subs Hosp L2
--- NOTE | 2021-12-05 13:16 | PN.SURG_ITS ---
Subjective Subjective Patient seen and evaluated during AM rounds. She is found resting in bed. She states that she was advanced to a liquid diet before being held n.p.o. at midnight. She states this diet advancement was well-tolerated and she has not had further nausea or vomiting. She does still complain of some abdominal pain. Objective Data Objective Data Vital Signs: Vital Signs Temp Pulse Resp BP Pulse Ox 99.1 F 89 16 145/89 H 97 12/05/21 12:52 12/05/21 12:52 12/05/21 12:52 12/05/21 12:52 12/05/21 12:52 Oxygen Flow Rate (L/min) 3 Oxygen Delivery Method Room Air Weight: 163 lb 12.855 oz Body Mass Index (BMI) 30.9 Intake & Output: Intake and Output for Last 24 Hours 12/03/21 12/04/21 12/05/21 23:59 23:59 23:59 Intake Total 3360 / 3360 1912.5 / 1912.5 Balance 3360 / 3360 1912.5 / 1911.5 Lab / Micro Data Result Diagrams: 12/05/21 06:30 12/05/21 06:30 Labs: Laboratory Results - last 24 hr 12/05/21 06:30: WBC 3.3 L, RBC 3.23 L, Hgb 9.7 L, Hct 29.8 L, MCV 92.3, MCH 30.0, MCHC 32.6, RDW Std Deviation 48.3 H, RDW Coeff of Lee 14.3, Plt Count 100 L, MPV 10.2, Immature Gran % (Auto) 0.300, Neut % (Auto) 48.3, Lymph % (Auto) 42.6 H, [place] % (Auto) 6.4, Eos % (Auto) 2.1, Baso % (Auto) 0.3, Absolute Neuts (auto) 1.6 L, Absolute Lymphs (auto) 1.39, Nucleated RBC % 0 12/05/21 06:30: Sodium 139, Potassium 3.6, Chloride 107, Carbon Dioxide 26.0, Anion Gap 6, BUN 10, Creatinine 0.40 L, Estim Creat Clear Calc 155.18, Est GFR (MDRD) Af Amer 242, Est GFR (MDRD) Non-Af 200, BUN/Creatinine Ratio 25.1 H, Glucose 98, Calcium 7.5 L, Total Bilirubin 1.40 H, AST 40 H, ALT 26, Alkaline Phosphatase 78, Total Protein 5.3 L, Albumin 2.6 L, Globulin 2.7, Albumin/Globulin Ratio 1.0 12/05/21 06:30: PT 17.6 H, INR 1.5 12/05/21 06:30: Phosphorus 3.1, Magnesium 1.7 Micro: Microbiology 12/04/21 04:20 Urine, Clean Catch Urine Culture - Preliminary Gram Positive Cocci 12/04/21 02:00 Vomitus Gastric Occult Blood - Final Occult Blood Positive Physical Exam GI GI Narrative: Nondistended, soft, only expresses tenderness with palpation directly over umbilicus where she has evidence of a chronically incarcerated (primarily fat) umbilical hernia Assessment & Plan Assessment/Plan (1) Abdominal pain: (2) Nausea and vomiting: PLAN: This is a 31-year-old female with past history of alcoholic cirrhosis, esophageal varices (evidence of portal hypertension with recent duplex study), hematemesis, and gastroparesis who presents with acute onset abdominal pain intractable nausea and vomiting. Today, patient reports that nausea and vomiting are improved following diet trial yesterday. Subjectively complains of abdominal pains, but when distracted with conversation there is minimal objective evidence on exam aside from some tenderness over an umbilical hernia that was seen with prior CT exams. Given this benign exam, I find a gallbladder etiology for patient's symptoms to be less likely and agree with gastroenterology's pursuit of alternative expla nations including gastroparesis?related symptomology. Charges/Coding Visit Charges Inpatient E&M: 43327 Subs Hosp L2
[2021-12-05] MEDS: 0.9% Saline Lock 10 ML Syringe IV ×3 (13:34→23:22)
--- NOTE | 2021-12-05 14:43 | PCM.DC ---
Discharge Instructions Diet Discharge Diet: Low fat / Low cholesterol Activity Discharge Activity: Return to Normal Activity Weight Bearing Status: Weight bearing as tolerated Dressing / Incision Call your doctor if you observe: Increased palpitations (irregular heartbeat) and Uncontrolled pain Follow Up Care Test Results: Test results from this visit will be discussed in further detail at your follow-up appointment, if applicable. Discharge Plan Admission Admit Date/Time: 12/04/21 03:28 Primary Reason for Your Visit: intractable nausea and vomiting Attending Provider: Alyssa [place] Primary Care Provider: Care Physician,No Primary Consulting Providers: Jaime Valle ; Cristobal Maradiaga ; Mir Lucas Instructions Patient Instructions: Abdominal Pain, Cyclic Vomiting Syndrome Ch Discharge Orders/Prescriptions Prescriptions: New pantoprazole 40 mg tablet,delayed release (DR/EC) 40 mg PO BIDCM Qty: 60 RF: 2 lactulose 10 gram packet 20 g PO DAILY Qty: 30 RF: 2 Continued tizanidine 4 mg tablet 4 mg PO TID RF: 0 thiamine HCl (vitamin B1) 100 mg tablet 100 mg PO DAILY RF: 0 buspirone 10 mg tablet 20 mg TID RF: 0 escitalopram oxalate 20 mg tablet 20 mg PO DAILY RF: 0 trazodone 100 mg tablet 100 mg PO QHS RF: 0 melatonin 5 mg tablet 5 mg PO QHS RF: 0 ondansetron 4 mg tablet,disintegrating 4 mg PO Q6H PRN (Reason: nausea and vomiting) Qty: 30 RF: 0 rifaximin 50 mg PO.IVFORM DAILY RF: 0 Referrals / Follow Up: Mir Lucas DO [STAFF PHYSICIAN] - Within 2 Weeks Care Physician,No Primary [Primary Care Provider] - Disposition Disposition (needs filled in before D/C Order can be placed): Home, Self Care
[2021-12-06 05:00] VITALS: BP 104/72; PULSE 68; RESP 16; TEMP 36.7; O2SAT 98
[2021-12-06] MEDS: Metoclopramide 10 MG/2 ML Vial 5 MG IV (05:34)
[2021-12-06] MEDS: 0.9% Saline Lock 10 ML Syringe IV (05:34)
[2021-12-06] MEDS: Morphine 2 MG/ML Syringe IV (05:34)
[2021-12-06] MEDS: ALPRAZolam 0.25 MG Tablet PO (05:34)
[2021-12-06 05:36] LABS: Absolute Lymphocyte Count 1.13 X10^3/uL (0.83-4.51); Absolute Neutrophil Count 2.1 X10^3/uL (2.0-7.7); Basophil# 0.01 X10^3/uL; Basophil% 0.3 % (0-1); Eosinophil# 0.08 X10^3/uL; Eosinophils% 2.3 % (0-5); Hematocrit 30.3 % (37-47); Hemoglobin 9.8 g/dL (12.0-15.0); Lymphocyte # 1.13 X10^3/ul (0.83-4.51); Lymphocyte % 32.1 % (19-41); Mean Corp Hgb Conc 32.3 g/dL (32-36); Mean Corpuscular Hgb 30.6 pg (27.0-32.0); Mean Corpuscular Volume 94.7 fL (81-99); Mean Platelet Vol. 10.6 fl (6.2-12.0); Monocyte# 0.24 X10^3/uL; Monocyte% 6.8 % (0-10); NRBC Flagged by Analyzer 0 % (0-5); Neutrophil # 2.05 X10^3/uL (2.7-7.7); Neutrophil % 58.2 % (47-70); POSITIVE COUNT YES; Platelet Count 76 K/mm3 (150-450); RBC Distribution Width CV 14.6 % (11.6-14.6); RBC Distribution Width SD 50.5 fl (35.1-43.9); White Blood Count 3.5 K/mm3 (4.4-11.0)
[2021-12-06 05:45] LABS: Differential Indicated SCAN CRITERIA MET
[2021-12-06] MEDS: 0.9% Normal Saline 1,000 ML 150 ML IV (05:47)
[2021-12-06 06:21] LABS: ALB/GLOB Ratio 0.9 RATIO (0.9-2.4); AST(SGOT) 37 U/L (15-37); Alanine Aminotransfer ALT/SGPT 25 U/L (13-56); Albumin, Serum 2.5 g/dL (3.2-5.0); Alkaline Phosphatase 79 U/L (45-117); Anion Gap 7 (5-15); BUN 7 mg/dL (7-18); BUN/Creat Ratio 17.8 RATIO (10-20); Calcium,Total 7.9 mg/dL (8.5-10.1); Chloride 108 mmol/L (98-107); Creatinine, Serum 0.39 mg/dL (0.55-1.02); EST Glomerular Filtration Rate 202 mL/min (>60); Est Glom Filt Rate - Afr Amer 244 mL/min (>60); Estimated Creatinine Clearance 159.16 ml/min; Globulin 2.7 g/dL (2.2-4.2); Glucose 117 mg/dL (74-106); Potassium 3.7 mmol/L (3.5-5.1); Protein, Total 5.2 g/dL (6.4-8.2); Sodium Level 137 mmol/L (136-145)
[2021-12-06 09:40] VITALS: BP 97/67; PULSE 80; RESP 14; TEMP 36.2; O2SAT 97
--- NOTE | 2021-12-06 11:00 | DS.PCM_ITS ---
Providers Date of Admission: 12/04/21 Primary Care Physician: Monica Primary Care Phys Consultations 12/04/21 05:25 Consult: Gastroenterology Routine Consulting Provider: Mir Lucas Reason for Consult: Hematemesis EMERGENT Consult: Yes Notified: Yes Date Notified: 12/04/21 Time Notified: 03:31 Method of Notification: Verbal 12/04/21 09:03 Consult: General Surgery Routine Consulting Provider: Cristobal Maradiaga Reason for Consult: intractable nausea and vomiting; probable symptomatic cholelithiasis EMERGENT Consult: No Notified: Yes Date Notified: 12/04/21 Time Notified: 09:04 Method of Notification: Text Reason For Visit: NAUSEA & VOMITING WITH HEMATEMESIS Diagnosis Discharge Diagnosis (1) Abdominal pain: Status: Resolved Code(s): R10.9 - Unspecified abdominal pain (2) Nausea and vomiting: Status: Resolved Code(s): R11.2 - Nausea with vomiting, unspecified Medications at Discharge Home Medications buspirone 20 mg TID 09/30/21 escitalopram oxalate 20 mg PO DAILY 09/30/21 melatonin 5 mg PO QHS 09/30/21 thiamine HCl (vitamin B1) 100 mg PO DAILY 09/30/21 tizanidine 4 mg PO TID 09/30/21 trazodone 100 mg PO QHS 09/30/21 ondansetron 4 mg PO Q6H PRN #30 tab 10/03/21 rifaximin 50 mg PO.IVFORM DAILY 11/04/21 lactulose 20 g PO DAILY #30 ea 12/06/21 pantoprazole 40 mg PO BIDCM #60 tab 12/06/21 Hospital Course Operations None Procedures EGD Summary of Care Provided Minutes Spent on Discharge: 40 Hospital Course: Patient is a 31-year-old female with a past medical history as outlined including cirrhosis due to alcohol abuse and complicated by esophageal varices. She was admitted through the ED with a complaint of nausea and vomiting as well as hematemesis. She had had a history of esophageal variceal banding in 2019. She complained of abdominal pain. There was concern about her inducing himself to vomit. She was admitted and managed for intractable nausea and vomiting as well as abdominal pain and gastroenterology was consulted. She was kept n.p.o. and hydrated with IV fluids. CT of the abdomen and pelvis done showed evidence of cirrhosis as well as mildly distended gallbladder with several layering small gallbladder stones and no wall thickening or pericholecystic fluid. There was concern that this could be symptomatic cholelithiasis but general surgery reviewed patient and did not think she was a candidate for surgery and recommended that if she did need surgery, should be done at a tertiary facility. She had EGD by gastroenterology which showed nonbleeding grade 2 esophageal varices and chronic gastritis. She was placed on IV PPI.. Gastroenterology her meld score was also low and showed no signs of decompensation and so he was placed on Xifaxan and lactulose. Of note, patient was also noted to have UTI on admission and so was treated with IV ceftriaxone. Patient's symptoms improved and she felt much better. She was discharged home on 12/06/2021 on p.o. pantoprazole. She is follow-up with her primary care doctor and gastroenterology. Patient was seen and examined prior to discharge. She felt much better and had an uncomplicated night. She had no other complaints and review of systems otherwise negative. Labs and vitals reviewed. Medication reviewed and reconciled. Physical Exam Const alert, oriented x3 and no apparent distress General Appearance: cooperative, comfortable and well kempt Exam Limitations: no limitations HEENT head/scalp atraumatic, hearing grossly normal bilaterally and moist oral mucous membranes Eyes PERRL, EOMs intact bilaterally and conjunctivae normal Neck no lymphadenopathy, supple and no JVD Lymph Lymphatic: no lymphadenopathy noted Resp normal respiratory effort, no retractions, no use of accessory muscles and clear to auscultation bilaterally Cardio regular rate, regular rhythm, S1 normal heart sound, S2 normal heart sound and no murmurs Cardio Narrative: tachycardic GI normal to inspection, nondistended, normoactive bowel sounds, soft to palpation, non-tender and non-distended Palpation: tender epigastric Extremity normal to inspection, full ROM, normal capillary refill and no clubbing, cyanosis or edema Skin no rashes or lesions noted General Skin Exam: turgor normal Neuro oriented x3 and CN's II-XII intact bilaterally Sensorium / Orientation: awake and alert Psych affect normal Weight / BMI Weight Weight: 163 lb 12.855 oz Body Mass Index (BMI) 30.9 ABG / Lab / Microbiology Data Result Diagrams: 12/06/21 04:52 12/06/21 04:52 Laboratory: Laboratory Results - last 24 hr 12/06/21 04:52: WBC 3.5 L, RBC 3.20 L, Hgb 9.8 L, Hct 30.3 L, MCV 94.7, MCH 30.6, MCHC 32.3, RDW Std Deviation 50.5 H, RDW Coeff of Lee 14.6, Plt Count 76 L , MPV 10.6, Immature Gran % (Auto) 0.300, Neut % (Auto) 58.2, Lymph % (Auto) 32.1, [place] % (Auto) 6.8, Eos % (Auto) 2.3, Baso % (Auto) 0.3, Absolute Neuts (auto) 2.1, Absolute Lymphs (auto) 1.13, Nucleated RBC % 0 12/06/21 04:52: Sodium 137, Potassium 3.7, Chloride 108 H, Carbon Dioxide 22.0, Anion Gap 7, BUN 7, Creatinine 0.39 L, Estim Creat Clear Calc 159.16, Est GFR (MDRD) Af Amer 244, Est GFR (MDRD) Non-Af 202, BUN/Creatinine Ratio 17.8, Glucose 117 H, Calcium 7.9 L, Total Bilirubin 0.90, AST 37, ALT 25, Alkaline Phosphatase 79, Total Protein 5.2 L, Albumin 2.5 L, Globulin 2.7, Albumin/Globulin Ratio 0.9 Microbiology: Microbiology 12/04/21 04:20 Urine, Clean Catch Urine Culture - Final Mixed Gram Positive Organisms 12/04/21 02:00 Vomitus Gastric Occult Blood - Final Occult Blood Positive D/C Instructions Discharge Diet: Low fat / Low cholesterol Weight Bearing Status: Weight bearing as tolerated Call your doctor if you observe: Increased palpitations (irregular heartbeat) and Uncontrolled pain Meaningful Use Info Meaningful Use Diagnoses (Choose all that apply): None applicable Discharge Plan Admission Admit Date/Time: 12/04/21 03:28 Primary Reason for Your Visit: intractable nausea and vomiting Attending Provider: Alyssa [place] Primary Care Provider: Care Physician,No Primary Consulting Providers: Jaime Valle ; Cristobal Maradiaga ; Friend,Mir Instructions Patient Instructions: Abdominal Pain, Cyclic Vomiting Syndrome Ch Discharge Orders/Prescriptions Prescriptions: New pantoprazole 40 mg tablet,delayed release (DR/EC) 40 mg PO BIDCM Qty: 60 RF: 2 lactulose 10 gram packet 20 g PO DAILY Qty: 30 RF: 2 Continued tizanidine 4 mg tablet 4 mg PO TID RF: 0 thiamine HCl (vitamin B1) 100 mg tablet 100 mg PO DAILY RF: 0 buspirone 10 mg tablet 20 mg TID RF: 0 escitalopram oxalate 20 mg tablet 20 mg PO DAILY RF: 0 trazodone 100 mg tablet 100 mg PO QHS RF: 0 melatonin 5 mg tablet 5 mg PO QHS RF: 0 ondansetron 4 mg tablet,disintegrating 4 mg PO Q6H PRN (Reason: nausea and vomiting) Qty: 30 RF: 0 rifaximin 50 mg PO.IVFORM DAILY RF: 0 Referrals / Follow Up: Friend,Mir, [STAFF PHYSICIAN] - Within 2 Weeks Care Physician,No Primary [Primary Care Provider] - Disposition Disposition (needs filled in before D/C Order can be placed): Home, Self Care Charges/Coding Visit Charges Inpatient E&M: 86513 Disch Hosp
[2021-12-06 11:38] VITALS: BP 97/67; PULSE 80; RESP 14; TEMP 36.2; O2SAT 97
== END 2021-12-06 11:10 | disposition home or self-care (01) ==
LOC: ED 04:09 → PCU 04:12
PROVIDERS: Anesthesiology; Internal Medicine Gastroenterology; Admitting Provider Family Medicine; Emergency Provider Emergency Medicine; Visit Provider Student in an Organized Health Care Education/Training Program
PROC: 0DJ08ZZ Inspection of Upper Intestinal Tract, Via Natural or Artificial Opening Endoscopic (ICD-10-PCS; CPT 43235; principal; 2021-12-05 11:55)
DX: K92.0 Hematemesis (principal); K70.30 Alcoholic cirrhosis of liver without ascites; F17.210 Nicotine dependence, cigarettes, uncomplicated; K29.50 Unspecified chronic gastritis without bleeding; K31.84 Gastroparesis; E86.0 Dehydration; F41.9 Anxiety disorder, unspecified; F32.A Depression, unspecified; Z79.899 Other long term (current) drug therapy; E66.9 Obesity, unspecified; Z68.31 Body mass index [BMI] 31.0-31.9, adult; N39.0 Urinary tract infection, site not specified
CPT/HCPCS: 43239; 80053; 36415; 80048; 80076; 81001; 82271; 83605; 83690; 83735; 84100; 84703; 85025; 85610; 86850; 86900; 86901; 87086; 87088; 88305; 88342; 96361; 96365; 96366; 96367; 96372; 96375; 96376; 99218; 99284; 99406; J7030; A4216; G0378; J2405

== ENCOUNTER 2021-12-22 01:30 | Emergency (ER) | payer MEDICAID, SELFPAY ==
[2021-12-22 01:31] VITALS: BP 154/102; PULSE 107; RESP 15; TEMP 37; O2SAT 99; BMI 32.3
--- NOTE | 2021-12-22 01:58 | ED.VIS.GI ---
HPI HPI - GI History of Present Illness Chief Complaint: Abd Pain Informant: patient Abdominal Pain/Flank Pain Onset: Hours (2-3) Context: Gradual Onset Timing: Continuous Quality: - (squeezing, twisting) Location: Diffuse Current Severity: Moderate Maximum Severity: Moderate Worsened by: - (vomiting) Relieved by: Nothing Nausea/Vomiting/Emesis GI Symptom: Positive for Nausea and Vomiting Onset: Hours (6-7) Quality: Positive for Nonbilious and Hematemesis (after vomiting a lot without blood) Severity: Severe Diarrhea/Melena/Hematochezia GI Symptom: Negative for Diarrhea, Melena and Hematochezia Associated Symptoms Associated Symptoms: Negative for Dysuria, Frequency, Hematuria and Urgency Narrative Narrative: Patient has a history of alcoholic cirrhosis, she has been sober ever since her diagnosis several years ago, she has had esophageal varices in the past that had to be banded, she presents now with vomiting that eventually turned bloody tonight, she states she vomited up a large clot but not a lot of bright red blood. No coffee-ground emesis. No melena, she has been having normal stools. No fevers or chills. Diffuse abdominal pain. She is due to follow-up with GI at [facility], she was at [facility] the last time she was admitted for similar but worse symptoms. She is on no anticoagulants. She has been taking pantoprazole. She tried taking her ondansetron and Phenergan at home but she could not keep it down tonight. [facility] Medical History Admitted to alcohol detoxification center Alcohol intoxication Alcohol withdrawal Alcoholic cirrhosis of liver Alcoholic hepatitis Anxiety and depression Esophageal varices Gallstone Gastroparesis Obesity Thrombocytopenia Tobacco use Home Medications buspirone 20 mg PO TID 09/30/21 [History Last Taken 09/29/21 19:00] escitalopram oxalate 20 mg PO DAILY 09/30/21 [History Last Taken 09/29/21 11:00] melatonin 5 mg PO QHS 09/30/21 [History Last Taken 09/29/21 21:00] thiamine HCl (vitamin B1) 100 mg PO DAILY 09/30/21 [History Last Taken 09/29/21 11:00] tizanidine 4 mg PO TID 09/30/21 [History Last Taken 09/29/21 21:00] trazodone 100 mg PO QHS 09/30/21 [History Last Taken 09/29/21 21:00] ondansetron 4 mg PO Q6H PRN #30 tab 10/03/21 [Rx Last Taken Unknown] rifaximin 50 mg PO.IVFORM DAILY 11/04/21 [History Last Taken Unknown] lactulose 20 g PO DAILY #30 ea 12/06/21 [Rx Last Taken Unknown] pantoprazole 40 mg PO BIDCM #60 tab 12/06/21 [Rx Last Taken Unknown] Allergy/AdvReac Type Severity Reaction Status Date / Time No Known Allergies Allergy Verified 12/22/21 01:34 Family History Mother Alcohol abuse Hypertension Father Alcohol abuse Anxiety and depression Surgical History History of endoscopic gastrointestinal surgery Social History household members: other details: Recently following sobriety start moved with parents, broke with boyfriend. 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 substance use type: does not use ROS ROS ED Constitutional Constitutional ED: Denies chills or fever(s) Eyes Eyes: Denies change in vision or diplopia ENT ENT ED: Denies rhinorrhea or sore throat Cardiovascular Cardiovascular: Denies chest pain or palpitations Respiratory/Chest Respiratory/Chest: Denies cough or dyspnea Gastrointestinal Gastrointestinal: Reports as per HPI, abdominal pain, hematemesis, nausea and vomiting; Denies diarrhea, hematochezia or melena Genitourinary Genitourinary ED: Denies dysuria or hematuria Musculoskeletal Musculoskeletal: Denies back pain or neck pain Integumentary Denies abscess or rash Neurologic Neurologic: Denies headache(s), paresthesias or weakness Psychiatric Psychiatric: Denies anxiety or suicidal thoughts EXAM Physical Exam Const Vital Signs: 12/22/21 01:31 12/22/21 05:47 Temperature 98.6 F Temperature Source Oral Pulse Rate 107 H 79 Respiratory Rate 15 18 Blood Pressure 154/102 H 139/78 H Blood Pressure Mean 119 98 Pulse Ox 99 98 Oxygen Delivery Method Room Air Room Air Positive well nourished and well developed General Appearance ED: well developed and NAD HEENT Reports moist mucous membranes normocephalic and atraumatic Eyes PERRL and EOMs intact bilaterally Neck full ROM and supple Resp normal respiratory effort and clear to auscultation bilaterally Cardio regular rate, regular rhythm and no murmurs Rate: Negative for tachycardic GI non-distended GI Narrative: Diffusely tender worse throughout the upper abdomen, nonfocal, no guarding or rebound tenderness. Auscultation: normoactive bowel sounds Palpation: soft Back/Spine no CVA tenderness General Back: other FROM Extremity normal to inspection General Extremety ED: Negative for edema, pulses abnormal or tenderness General Extremity: Negative for edema or pulses abnormal Neuro oriented x3, CN's II-XII intact bilaterally and no sensory deficits noted Sensorium / Orientation: awake and alert Motor Exam: strength 5/5 throughout Skin no rashes or lesions noted and no wounds MDM MDM MDM Narrative Medical decision making narrative: Other than a mild nonspecific leukocytosis and slightly elevated liver enzymes including total bilirubin which she has had in the past with her cirrhosis, the rest of her labs are reassuring. She has a history of gastroparesis, also in addition to Zofran she was simultaneously given Reglan 5 mg and she asked for something for anxiety, so I gave her some Ativan as well. This, in addition to Bentyl since it sounds like she has having GI pain. She scoffed at this, saying that she took Bentyl prior to coming here which she did not tell since she was telling us that she was vomiting up all of her antiemetics. She said that she felt no better from all of these medications. Therefore I discussed treating her with other medications, in addition to the fact that morphine can make upper GI pain worse, she states that she has gotten it before for this and it has helped so I gave her a dose in the spirit of trying to help her. This, in addition to Thorazine for her nausea and more Ativan. She states none of these medications helped as she continued to vomit dark clotted blood. She refused an NG tube. We do not have GI coverage this weekend, and at this time it is undetermined if her esophageal varices are still bleeding or not, and she does not want to go home, requesting a transfer to 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 She was accepted there by Dr. Borges, but they do not have a bed right now, so we will admit the patient to ED observation as of 1804 for the purpose of waiting for a bed. She is still nauseated but not currently vomiting, she is very sleepy from the medications, so other than IV fluids she is getting no other medications right now, hemodynamically stable and clinically stable being monitored. Lab Data Attestation: I reviewed the patient's lab results. Labs: Laboratory Results - last 24 hr 12/22/21 12/22/21 12/22/21 01:50 01:50 01:50 WBC 12.4 H RBC 4.57 Hgb 13.9 Hct 40.9 MCV 89.5 MCH 30.4 MCHC 34.0 RDW Std Deviation 50.0 H RDW Coeff of Lee 15.3 H Plt Count 212 MPV 10.6 Immature Gran % (Auto) 0.500 Neut % (Auto) 89.2 H Lymph % (Auto) 7.4 L Ransom % (Auto) 2.0 Eos % (Auto) 0.6 Baso % (Auto) 0.3 Absolute Neuts (auto) 11.0 H Absolute Lymphs (auto) 0.92 Nucleated RBC % 0 PT 14.5 INR 1.2 Sodium 140 Potassium 3.6 Chloride 108 H Carbon Dioxide 22.0 Anion Gap 10 BUN 9 Creatinine 0.57 Estim Creat Clear Calc 108.90 Est GFR (MDRD) Af Amer 159 Est GFR (MDRD) Non-Af 131 BUN/Creatinine Ratio 15.7 Glucose 129 H Calcium 9.7 Total Bilirubin 1.20 H Direct Bilirubin 0.40 H AST 48 H ALT 36 Alkaline Phosphatase 122 H Total Protein 7.6 Albumin 3.6 Globulin 4.0 Discharge Plan Triage Chief Complaint: Abd Pain ED Provider: Phan Huitron Dx/Rx/DC Orders Clinical Impression: Hematemesis, Intractable vomiting, Acute upper abdominal pain, Esophageal varices in alcoholic cirrhosis Prescriptions: No Action tizanidine 4 mg tablet 4 mg PO TID RF: 0 thiamine HCl (vitamin B1) 100 mg tablet 100 mg PO DAILY RF: 0 buspirone 10 mg tablet 20 mg PO TID RF: 0 escitalopram oxalate 20 mg tablet 20 mg PO DAILY RF: 0 trazodone 100 mg tablet 100 mg PO QHS RF: 0 melatonin 5 mg tablet 5 mg PO QHS RF: 0 ondansetron 4 mg tablet,disintegrating 4 mg PO Q6H PRN (Reason: nausea and vomiting) Qty: 30 RF: 0 rifaximin 50 mg PO.IVFORM DAILY RF: 0 pantoprazole 40 mg tablet,delayed release (DR/EC) 40 mg PO BIDCM Qty: 60 RF: 2 lactulose 10 gram packet 20 g PO DAILY Qty: 30 RF: 2 Primary Care Provider: Care Physician,No Primary Referrals: Care Physician,No Primary [Primary Care Provider] - Disposition Disposition: Acute Care Hospital Discharge Location: [facility]
[2021-12-22 02:07] LABS: Absolute Lymphocyte Count 0.92 X10^3/uL (0.83-4.51); Basophil# 0.04 X10^3/uL; Basophil% 0.3 % (0-1); Eosinophil# 0.07 X10^3/uL; Eosinophils% 0.6 % (0-5); Hematocrit 40.9 % (37-47); Hemoglobin 13.9 g/dL (12.0-15.0); Lymphocyte # 0.92 X10^3/ul (0.83-4.51); Lymphocyte % 7.4 % (19-41); Mean Corpuscular Hgb 30.4 pg (27.0-32.0); Mean Corpuscular Volume 89.5 fL (81-99); Mean Platelet Vol. 10.6 fl (6.2-12.0); Monocyte# 0.25 X10^3/uL; NRBC Flagged by Analyzer 0 % (0-5); Neutrophil # 11.01 X10^3/uL (2.7-7.7); Neutrophil % 89.2 % (47-70); Platelet Count 212 K/mm3 (150-450); RBC Distribution Width CV 15.3 % (11.6-14.6); Red Blood Count 4.57 M/mm3 (4.2-5.4); White Blood Count 12.4 K/mm3 (4.4-11.0)
[2021-12-22 02:15] LABS: International Normalized Ratio 1.2; Prothrombin Time (Protime)PT. 14.5 SECONDS (11.7-14.9)
[2021-12-22] MEDS: Metoclopramide 10 MG/2 ML Vial 5 MG IV (02:15)
[2021-12-22] MEDS: Ondansetron 4 MG/2 ML Vial IV (02:15)
[2021-12-22] MEDS: Dicyclomine 20 MG/2 ML Vial IM (02:17)
[2021-12-22] MEDS: 0.9% Normal Saline 1,000 ML 999 ML IV (02:20)
[2021-12-22 02:23] LABS: AST(SGOT) 48 U/L (15-37); Alanine Aminotransfer ALT/SGPT 36 U/L (13-56); Albumin, Serum 3.6 g/dL (3.2-5.0); Alkaline Phosphatase 122 U/L (45-117); Anion Gap 10 (5-15); BUN 9 mg/dL (7-18); BUN/Creat Ratio 15.7 RATIO (10-20); Calcium,Total 9.7 mg/dL (8.5-10.1); Chloride 108 mmol/L (98-107); Creatinine, Serum 0.57 mg/dL (0.55-1.02); EST Glomerular Filtration Rate 131 mL/min (>60); Est Glom Filt Rate - Afr Amer 159 mL/min (>60); Glucose 129 mg/dL (74-106); Potassium 3.6 mmol/L (3.5-5.1); Protein, Total 7.6 g/dL (6.4-8.2); Sodium Level 140 mmol/L (136-145)
[2021-12-22] MEDS: LORazepam 2 MG/ML Syringe 0.5 MG IV (02:35)
[2021-12-22] MEDS: LORazepam 2 MG/ML Syringe 1 MG IV (03:39)
[2021-12-22] MEDS: Morphine 4 MG/ML Syringe IV (03:39)
[2021-12-22] MEDS: ChlorproMAZINE 50 MG/2 ML Ampul 25 MG IV (03:39)
[2021-12-22 05:47] VITALS: BP 139/78; PULSE 79; RESP 18; O2SAT 98
--- NOTE | 2021-12-22 06:01 | ED.RN ---
PATIENT IS ACCEPTED AT [facility] BY DR. SOLO, BUT WAITING ON A BED TO COME AVAILABLE
[2021-12-22 07:00] VITALS: BP 92/45; PULSE 124; RESP 20; O2SAT 98
[2021-12-22 09:00] VITALS: BP 78/45; PULSE 84; RESP 16; O2SAT 94
[2021-12-22 09:10] VITALS: BP 78/45; PULSE 84; RESP 16; O2SAT 94
== END 2021-12-22 09:11 | disposition short-term general hospital (02) ==
PROVIDERS: Emergency Provider Emergency Medicine; Visit Provider Emergency Medicine
DX: K92.0 Hematemesis (principal); I85.00 Esophageal varices without bleeding; K70.30 Alcoholic cirrhosis of liver without ascites; R10.84 Generalized abdominal pain; F41.9 Anxiety disorder, unspecified; F17.210 Nicotine dependence, cigarettes, uncomplicated; Z79.899 Other long term (current) drug therapy
CPT/HCPCS: 80048; 80076; 85025; 85610; 87811; 96361; 96365; 96372; 96375; 96376; 99285; J7030; A4216; J2405; J3490

== ENCOUNTER 2021-12-28 17:24 | Emergency (ER) | payer MEDICAID, SELFPAY ==
[2021-12-28 17:25] VITALS: BP 185/106; PULSE 139; RESP 22; TEMP 37.2; O2SAT 100; BMI 32.3
--- NOTE | 2021-12-28 17:48 | ED.VIS.GI ---
HPI HPI - GI History of Present Illness Chief Complaint: Abd Pain Informant: patient Abdominal Pain/Flank Pain Onset: Yesterday Context: Sudden Onset Timing: Continuous Quality: Stabbing Location: Diffuse Worsened by: Food Relieved by: Nothing Nausea/Vomiting/Emesis GI Symptom: Positive for Nausea and Vomiting Onset: Yesterday Diarrhea/Melena/Hematochezia GI Symptom: Negative for Diarrhea, Melena and Hematochezia Associated Symptoms Associated Symptoms: Negative for Dysuria, Frequency, Hematuria and Urgency Narrative Narrative: Patient presents with abdominal pain that began yesterday. Patient states this is similar to prior episodes of her chronic abdominal pain. Patient admits to some nausea and vomiting. Patient admits to some hematemesis. Patient denies any diarrhea, melena, or hematochezia. Patient describes her pain as stabbing. Patient states it is diffuse across her abdomen. Patient states it is worse with eating anything. Patient denies any urinary complaints. Patient states she has a history of cirrhosis and esophageal varices. Patient states she saw her primary care physician earlier today who gave her an injection of Toradol for her pain. Patient states this had no improvement of her pain. PFSH PFS Medical History Admitted to alcohol detoxification center Alcohol intoxication Alcohol withdrawal Alcoholic cirrhosis of liver Alcoholic hepatitis Anxiety and depression Esophageal varices Gallstone Gastroparesis Obesity Thrombocytopenia Tobacco use Home Medications buspirone 20 mg PO TID 09/30/21 [History Last Taken 09/29/21 19:00] escitalopram oxalate 20 mg PO DAILY 09/30/21 [History Last Taken 09/29/21 11:00] melatonin 5 mg PO QHS 09/30/21 [History Last Taken 09/29/21 21:00] thiamine HCl (vitamin B1) 100 mg PO DAILY 09/30/21 [History Last Taken 09/29/21 11:00] tizanidine 4 mg PO TID 09/30/21 [History Last Taken 09/29/21 21:00] trazodone 100 mg PO QHS 09/30/21 [History Last Taken 09/29/21 21:00] ondansetron 4 mg PO Q6H PRN #30 tab 10/03/21 [Rx Last Taken Unknown] rifaximin 50 mg PO.IVFORM DAILY 11/04/21 [History Last Taken Unknown] lactulose 20 g PO DAILY #30 ea 12/06/21 [Rx Last Taken Unknown] pantoprazole 40 mg PO BIDCM #60 tab 12/06/21 [Rx Last Taken Unknown] Allergy/AdvReac Type Severity Reaction Status Date / Time No Known Allergies Allergy Verified 12/28/21 17:25 Family History Mother Alcohol abuse Hypertension Father Alcohol abuse Anxiety and depression Surgical History History of endoscopic gastrointestinal surgery Social History household members: other details: Recently following sobriety start moved with parents, broke with boyfriend. 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 substance use type: does not use ROS ROS ED Constitutional Constitutional ED: Reports chills and subjective; Denies fever(s) Eyes Eyes: Denies blurry vision or change in vision ENT ENT ED: Denies rhinorrhea or sore throat Cardiovascular Cardiovascular: Denies chest pain or palpitations Respiratory/Chest Respiratory/Chest: Denies cough or dyspnea Gastrointestinal Gastrointestinal: Reports abdominal pain, nausea and vomiting; Denies diarrhea Genitourinary Genitourinary ED: Denies dysuria or hematuria Musculoskeletal Musculoskeletal: Denies back pain or neck pain Integumentary Denies abscess or rash Neurologic Neurologic: Denies headache(s) or weakness Allergic/Immunologic Allergic/Immunologic ED: Denies mouth swelling or urticaria EXAM Physical Exam Const Vital Signs: 12/28/21 17:25 12/28/21 19:22 Temperature 98.9 F Temperature Source Temporal Pulse Rate 139 H 98 Respiratory Rate 22 H 18 Blood Pressure 185/106 H Blood Pressure Mean 132 Pulse Ox 100 97 Oxygen Delivery Method Room Air Room Air Positive well nourished, well developed and obese General Appearance ED: well developed and NAD Nutritional Appearance: obese HEENT Reports moist mucous membranes Neck supple and no JVD Resp normal respiratory effort and clear to auscultation bilaterally Cardio regular rhythm and no murmurs Rate: tachycardic GI normal to inspection, nondistended, normoactive bowel sounds and non-distended Palpation: soft and tender epigastric, LLQ, RLQ, LUQ, RUQ, periumbilical and suprapubic; Negative for guarding or rebound tenderness present Extremity normal to inspection General Extremety ED: Negative for edema or tenderness General Extremity: Negative for edema Neuro oriented x3, CN's II-XII intact bilaterally and no sensory deficits noted Sensorium / Orientation: alert Motor Exam: strength 5/5 throughout Psych mental status grossly normal Skin no rashes or lesions noted MDM MDM MDM Narrative Medical decision making narrative: Patient was given IV fluids, morphine, and Zofran. CBC was within normal limits. PT with INR and PTT were within normal limits. Comprehensive metabolic profile was essentially within normal limits. Lipase was normal. Serum hCG was negative. Urinalysis does not show any evidence of hematuria or urinary tract infection. Patient was still nauseated on reevaluation. Patient was given a dose of Benadryl and Reglan. Patient was instructed to start with a bland diet and advance as tolerated. 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 Patient understood and was agreeable with the plan. All questions were answered. Lab Data Attestation: I reviewed the patient's lab results. Labs: Laboratory Results - last 24 hr 12/28/21 12/28/21 12/28/21 18:45 18:45 18:45 WBC 9.4 RBC 4.09 L Hgb 12.3 Hct 36.5 L MCV 89.2 MCH 30.1 MCHC 33.7 RDW Std Deviation 47.9 H RDW Coeff of Lee 14.7 H Plt Count 169 MPV 10.4 Immature Gran % (Auto) 0.400 Neut % (Auto) 85.5 H Lymph % (Auto) 7.9 L Patrick % (Auto) 5.3 Eos % (Auto) 0.7 Baso % (Auto) 0.2 Absolute Neuts (auto) 8.0 H Absolute Lymphs (auto) 0.74 L Nucleated RBC % 0 PT 14.5 INR 1.2 APTT 35.8 Sodium 140 Potassium 3.4 L Chloride 109 H Carbon Dioxide 25.0 Anion Gap 6 BUN 5 L Creatinine 0.48 L Estim Creat Clear Calc 129.32 Est GFR (MDRD) Af Amer 192 Est GFR (MDRD) Non-Af 159 BUN/Creatinine Ratio 10.3 Glucose 103 Calcium 9.0 Total Bilirubin 1.00 AST 44 H ALT 36 Alkaline Phosphatase 112 Total Protein 7.0 Albumin 3.2 Globulin 3.8 Albumin/Globulin Ratio 0.8 L Lipase 75 Serum , Qual Urine Color Urine Clarity Urine pH Ur Specific [place] Urine Protein Urine Glucose (UA) Urine Ketones Urine Occult Blood Urine Nitrite Urine Bilirubin Urine Urobilinogen Ur Leukocyte Esterase Urine RBC Urine WBC Ur Squamous Epith Cells Urine Bacteria Urine Mucus 12/28/21 12/28/21 18:45 18:57 WBC RBC Hgb Hct MCV MCH MCHC RDW Std Deviation RDW Coeff of Lee Plt Count MPV Immature Gran % (Auto) Neut % (Auto) Lymph % (Auto) Patrick % (Auto) Eos % (Auto) Baso % (Auto) Absolute Neuts (auto) Absolute Lymphs (auto) Nucleated RBC % PT INR APTT Sodium Potassium Chloride Carbon Dioxide Anion Gap BUN Creatinine Estim Creat Clear Calc Est GFR (MDRD) Af Amer Est GFR (MDRD) Non-Af BUN/Creatinine Ratio Glucose Calcium Total Bilirubin AST ALT Alkaline Phosphatase Total Protein Albumin Globulin Albumin/Globulin Ratio Lipase Serum , Qual NEGATIVE Urine Color Yellow Urine Clarity Sl. Cloudy Urine pH 7.0 Ur Specific [place] 1.010 Urine Protein 500 H Urine Glucose (UA) Normal Urine Ketones Negative Urine Occult Blood 250 H Urine Nitrite Negative Urine Bilirubin Negative Urine Urobilinogen 1 H Ur Leukocyte Esterase Negative Urine RBC 5-10 SEEN Urine WBC 0 SEEN Ur Squamous Epith Cells 0-5 SEEN Urine Bacteria 0 SEEN Urine Mucus 1+ Discharge Plan Triage Chief Complaint: Abd Pain ED Provider: Kennedy Tabares Dx/Rx/DC Orders Clinical Impression: Acute upper abdominal pain Instructions: ED Abdominal Pain Unkn Cause Fem Prescriptions: No Action tizanidine 4 mg tablet 4 mg PO TID RF: 0 thiamine HCl (vitamin B1) 100 mg tablet 100 mg PO DAILY RF: 0 buspirone 10 mg tablet 20 mg PO TID RF: 0 escitalopram oxalate 20 mg tablet 20 mg PO DAILY RF: 0 trazodone 100 mg tablet 100 mg PO QHS RF: 0 melatonin 5 mg tablet 5 mg PO QHS RF: 0 ondansetron 4 mg tablet,disintegrating 4 mg PO Q6H PRN (Reason: nausea and vomiting) Qty: 30 RF: 0 rifaximin 50 mg PO.IVFORM DAILY RF: 0 pantoprazole 40 mg tablet,delayed release (DR/EC) 40 mg PO BIDCM Qty: 60 RF: 2 lactulose 10 gram packet 20 g PO DAILY Qty: 30 RF: 2 Primary Care Provider: Care Physician,No Primary Referrals: Care Physician,No Primary [Primary Care Provider] - 3-5 Days Disposition Disposition: Home, Self Care
[2021-12-28] MEDS: Ondansetron 4 MG/2 ML Vial IV (18:01)
[2021-12-28] MEDS: Morphine 4 MG/ML Syringe IV (18:01)
[2021-12-28] MEDS: 0.9% Normal Saline 1,000 ML 1000 ML IV (18:13)
[2021-12-28 18:56] LABS: Absolute Lymphocyte Count 0.74 X10^3/uL (0.83-4.51); Basophil# 0.02 X10^3/uL; Basophil% 0.2 % (0-1); Eosinophil# 0.07 X10^3/uL; Eosinophils% 0.7 % (0-5); Hematocrit 36.5 % (37-47); Hemoglobin 12.3 g/dL (12.0-15.0); Lymphocyte # 0.74 X10^3/ul (0.83-4.51); Lymphocyte % 7.9 % (19-41); Mean Corp Hgb Conc 33.7 g/dL (32-36); Mean Corpuscular Hgb 30.1 pg (27.0-32.0); Mean Corpuscular Volume 89.2 fL (81-99); Mean Platelet Vol. 10.4 fl (6.2-12.0); Monocyte% 5.3 % (0-10); NRBC Flagged by Analyzer 0 % (0-5); Neutrophil # 7.98 X10^3/uL (2.7-7.7); Neutrophil % 85.5 % (47-70); Platelet Count 169 K/mm3 (150-450); RBC Distribution Width CV 14.7 % (11.6-14.6); RBC Distribution Width SD 47.9 fl (35.1-43.9); Red Blood Count 4.09 M/mm3 (4.2-5.4); White Blood Count 9.4 K/mm3 (4.4-11.0)
--- NOTE | 2021-12-28 18:59 | CM.ED ---
Social Work Note Reason for Referral: No PCP SW reviewed chart and pt has no PCP listed. Maddy Thalia in to speak with pt. Pt states that she does have a PCP and it is Dr. Quintanilla in [place]. Liya Red MEDICAL FRONT DESK SPECIALIST, MOBILE DEVICE DEVELOPER
[2021-12-28 19:04] LABS: Bacteria 0 SEEN /hpf (None Seen)
[2021-12-28 19:10] LABS: Color, Urine Yellow (Yellow); Glucose, Dipstick Normal (Normal); Ketone-Dipstick Negative (Negative); Leukocyte Esterase-Dipstick Negative /ul (Negative); Nitrite-Dipstick Negative (Negative); Occult Blood-Urine 250 /ul (Negative); Protein-Dipstick 500 mg/dl (Negative); Urine Bilirubin Dipstick Negative (Negative); Urine Clarity Sl. Cloudy (Clear); Urine Urobilinogen 1 mg/dl (Normal)
[2021-12-28 19:11] LABS: ALB/GLOB Ratio 0.8 RATIO (0.9-2.4); AST(SGOT) 44 U/L (15-37); Alanine Aminotransfer ALT/SGPT 36 U/L (13-56); Albumin, Serum 3.2 g/dL (3.2-5.0); Alkaline Phosphatase 112 U/L (45-117); Anion Gap 6 (5-15); BUN 5 mg/dL (7-18); BUN/Creat Ratio 10.3 RATIO (10-20); Chloride 109 mmol/L (98-107); Creatinine, Serum 0.48 mg/dL (0.55-1.02); EST Glomerular Filtration Rate 159 mL/min (>60); Est Glom Filt Rate - Afr Amer 192 mL/min (>60); Estimated Creatinine Clearance 129.32 ml/min; Globulin 3.8 g/dL (2.2-4.2); Glucose 103 mg/dL (74-106); International Normalized Ratio 1.2; Lipase 75 U/L (73-393); Potassium 3.4 mmol/L (3.5-5.1); Prothrombin Time (Protime)PT. 14.5 SECONDS (11.7-14.9); Sodium Level 140 mmol/L (136-145)
[2021-12-28 19:12] LABS: Partial Thromboplast Time 35.8 Seconds (24.1-36.2)
[2021-12-28 19:14] LABS: Internal QC Validated? YES +Cl - CLEAR BKGD; Pregnancy, Serum, hCG Quali. NEGATIVE Negative
[2021-12-28 19:19] LABS: Mucous, Urine 1+ /hpf (<or=2+); Red Blood Cells-Urine 5-10 SEEN /hpf (0-5); Squamous Epithelial Cells - UA 0-5 SEEN /hpf (5-10); White Blood Cells 0 SEEN /hpf (0-5)
[2021-12-28 19:22] VITALS: PULSE 98; RESP 18; O2SAT 97
[2021-12-28] MEDS: Metoclopramide 10 MG/2 ML Vial IV (20:28)
[2021-12-28] MEDS: DiphenhydrAMINE 50 MG/ML Syringe 25 MG IV (20:29)
[2021-12-28 20:33] VITALS: BP 132/79; PULSE 89; RESP 18; O2SAT 100
== END 2021-12-28 20:36 | disposition home or self-care (01) ==
PROVIDERS: Emergency Provider Emergency Medicine; Visit Provider Emergency Medicine
DX: R10.84 Generalized abdominal pain (principal); K70.30 Alcoholic cirrhosis of liver without ascites; K92.0 Hematemesis; G89.29 Other chronic pain; F17.210 Nicotine dependence, cigarettes, uncomplicated; K70.10 Alcoholic hepatitis without ascites; E66.9 Obesity, unspecified; Z79.899 Other long term (current) drug therapy
CPT/HCPCS: 36415; 80053; 81001; 83690; 84703; 85025; 85610; 85730; 96361; 96374; 96375; 99284; J7030; A4216; J2405

== ENCOUNTER 2022-01-10 00:40 | Emergency (ER) | payer MEDICAID, SELFPAY ==
[2022-01-10 00:41] VITALS: BP 103/66; PULSE 80; RESP 16; TEMP 36.3; O2SAT 98; BMI 34.0
[2022-01-10] MEDS: 0.9% Normal Saline 1,000 ML 1000 ML IV (01:32)
[2022-01-10] MEDS: Ondansetron 4 MG/2 ML Vial IV (01:33)
--- NOTE | 2022-01-10 01:34 | EDS_ITS ---
HPI HPI - GI History of Present Illness Chief Complaint: Abd Pain Informant: patient Narrative Narrative: Patient presents with exacerbation of chronic nausea vomiting and abdominal pain. She states she does not have abdominal pain all the time. This is really kicked up again over the last day or 2. She vomited earlier in the day multiple times but no blood. Now she is nauseated but she is not vomiting now. No diarrhea. She has vomited blood before and has prior banding of her esophagus. The last time she vomited blood was about a month ago. She had an EGD at [facility] at that time. She also had an EGD by Dr. Hurley up at [facility] a month or so before that. She is due to have another EGD by her at the end of January. She states she has not drank alcohol for about 2 months. She is taking her meds. She has Zofran and Phenergan and Bentyl at home. These are not helping. She has not had any intra-abdominal surgery. She has had banding in the esophagus. She has not had cholecystectomy or appendectomy. She has had pancreatitis. She has had extensive evaluations at multiple medical facilities over the past multiple years without any firm diagnosis or cause for her chronic recurrent abdominal pain. [facility] Medical History Admitted to alcohol detoxification center Alcohol intoxication Alcohol withdrawal Alcoholic cirrhosis of liver Alcoholic hepatitis Anxiety and depression Esophageal varices Gallstone Gastroparesis Obesity Thrombocytopenia Tobacco use Home Medications buspirone 10 mg tablet 20 mg PO TID Check with primary doctor 09/30/21 [History Last Taken 09/29/21 19:00] escitalopram oxalate 20 mg tablet 20 mg PO DAILY 09/30/21 [History Last Taken 09/29/21 11:00] melatonin 5 mg tablet 5 mg PO QHS 09/30/21 [History Last Taken 09/29/21 21:00] thiamine HCl (vitamin B1) 100 mg tablet 100 mg PO DAILY 09/30/21 [History Last Taken 09/29/21 11:00] tizanidine 4 mg tablet 4 mg PO TID 09/30/21 [History Last Taken 09/29/21 21:00] trazodone 100 mg tablet 100 mg PO QHS 09/30/21 [History Last Taken 09/29/21 21:00] ondansetron 4 mg disintegrating tablet 4 mg PO Q6H PRN nausea and vomiting #30 tabs 10/03/21 [Rx Last Taken Unknown] rifaximin 50 mg PO.IVFORM DAILY 11/04/21 [History Last Taken Unknown] lactulose 10 gram oral packet 20 g PO DAILY #30 ea 12/06/21 [Rx Last Taken Unknown] pantoprazole 40 mg tablet,delayed release 40 mg PO BIDCM #60 tabs 12/06/21 [Rx Last Taken Unknown] Allergy/AdvReac Type Severity Reaction Status Date / Time ketorolac [From Toradol] AdvReac Nausea Verified 01/10/22 00:41 Family History Mother Alcohol abuse Hypertension Father Alcohol abuse Anxiety and depression Surgical History History of endoscopic gastrointestinal surgery Social History household members: other details: Recently following sobriety start moved with parents, broke with boyfriend. 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 substance use type: does not use ROS ROS ED Constitutional Constitutional ED: Denies fever(s) or subjective ENT ENT ED: Denies sore throat Cardiovascular Cardiovascular: Denies chest pain or palpitations Respiratory/Chest Respiratory/Chest: Denies cough or dyspnea Gastrointestinal Gastrointestinal: Reports abdominal pain, nausea and vomiting; Denies constipation, diarrhea or melena Genitourinary Genitourinary ED: Denies dysuria Musculoskeletal Musculoskeletal: Denies back pain Integumentary Denies rash Neurologic Neurologic: Denies paresthesias or weakness Endocrine Endocrinology: Denies polydipsia or polyuria Hematologic/Lymphatic Hematologic/Lymphatic: Denies easy bleeding or easy bruising Allergic/Immunologic Allergic/Immunologic ED: Denies urticaria EXAM Physical Exam Const Vital Signs: 01/10/22 00:41 Temperature 97.3 F L Temperature Source Oral Pulse Rate 80 Respiratory Rate 16 Blood Pressure 103/66 Blood Pressure Mean 78 Pulse Ox 98 Oxygen Delivery Method Room Air Positive well nourished and well developed General Appearance ED: well developed and NAD; Negative for pallor HEENT Reports moist mucous membranes Eyes General Eye ED: Negative for scleral icterus Neck no lymphadenopathy and no JVD Resp normal respiratory effort and clear to auscultation bilaterally Auscultation: Negative for rales, rhonchi or wheezes Cardio regular rate, regular rhythm and no murmurs GI non-tender, non-distended and no masses GI Narrative: I examined the patient while we are talking. I did not get any tenderness on exam. She points to generalized pain across the upper abdomen and mostly in the right upper quadrant but it is not tender to exam. It is not distended. Bowel sounds are normal. Overall this is a very benign exam. Inspection: Negative for abdominal distention Auscultation: normoactive bowel sounds Palpation: soft; Negative for tender, guarding, rigid, hepatomegaly, splenomegaly or rebound tenderness present Back/Spine no CVA tenderness Neuro Sensorium / Orientation: alert Psych mental status grossly normal Skin General Skin Exam: Negative for jaundice or pallor MDM MDM MDM Narrative Medical decision making narrative: Blood work is really at baseline. Hemoglobin is 9.8. She ranges about the high nines up to almost 14. I think this is probably more variable based on hydration. She has no reported history of blood in the stool, melena or hematemesis. Her last episode of hematemesis was about a month ago. Electrolytes are overall unremarkable. No sign of significant dehydration. Lipase liver function test are normal. is negative. Alcohol is negative. Patient is feeling a bit better here. She still has some pain. I explained I will get her something here for pain. However I cannot get her pain meds to go. She has 28 prescriptions from 17 providers at 7 pharmacies over the last couple years. Although she does have a complex history, long-term management of chronic painful condition needs to be managed by an individual physician. I do not think it is appropriate at we give her narcotics. She also has history of addiction difficulties and we do not want to worsen this. I will get her some pain medicine here to try to control her symptoms and knock them down so she can tolerate her symptoms at home and better manage it. She already has follow-up arranged with her gastroenterology physicians at [facility] Lab Data Attestation: I reviewed the patient's lab results. Labs: Laboratory Results - last 24 hr 01/10/22 01/10/22 01/10/22 01:35 01:35 01:35 WBC 5.0 RBC 3.27 L Hgb 9.8 L Hct 30.0 L MCV 91.7 MCH 30.0 MCHC 32.7 RDW Std Deviation 51.0 H RDW Coeff of Lee 15.1 H Plt Count 111 L MPV 10.2 Immature Gran % (Auto) 0.400 Neut % (Auto) 65.2 Lymph % (Auto) 23.4 [place] % (Auto) 7.8 Eos % (Auto) 2.8 Baso % (Auto) 0.4 Absolute Neuts (auto) 3.3 Absolute Lymphs (auto) 1.17 Nucleated RBC % 0 Sodium 141 Potassium 3.7 Chloride 109 H Carbon Dioxide 24.0 Anion Gap 8 BUN 10 Creatinine 0.47 L Estim Creat Clear Calc 132.07 Est GFR (MDRD) Af Amer 198 Est GFR (MDRD) Non-Af 164 BUN/Creatinine Ratio 21.2 H Glucose 82 Calcium 8.5 Total Bilirubin 0.50 AST 31 ALT 30 Alkaline Phosphatase 87 Total Protein 5.9 L Albumin 2.7 L Globulin 3.2 Albumin/Globulin Ratio 0.8 L Lipase 138 Serum , Qual NEGATIVE Ethyl Alcohol 01/10/22 01:35 WBC RBC Hgb Hct MCV MCH MCHC RDW Std Deviation RDW Coeff of Lee Plt Count MPV Immature Gran % (Auto) Neut % (Auto) Lymph % (Auto) [place] % (Auto) Eos % (Auto) Baso % (Auto) Absolute Neuts (auto) Absolute Lymphs (auto) Nucleated RBC % Sodium Potassium Chloride Carbon Dioxide Anion Gap BUN Creatinine Estim Creat Clear Calc Est GFR (MDRD) Af Amer Est GFR (MDRD) Non-Af BUN/Creatinine Ratio Glucose Calcium Total Bilirubin AST ALT Alkaline Phosphatase Total Protein Albumin Globulin Albumin/Globulin Ratio Lipase Serum , Qual Ethyl Alcohol 5.0 Discharge Plan Triage Chief Complaint: Abd Pain ED Provider: Milind Whitlock Dx/Rx/DC Orders Clinical Impression: Recurrent abdominal pain, Nausea and vomiting Instructions: ED Abdominal Pain Unkn Cause Fem Prescriptions: No Action tizanidine 4 mg tablet 4 mg PO TID Label Comments: TAKE 1 TABLET BY MOUTH THREE TIMES A DAY thiamine HCl (vitamin B1) 100 mg tablet 100 mg PO DAILY Label Comments: TAKE 1 TABLET BY MOUTH EVERY DAY buspirone 10 mg tablet 20 mg PO TID Label Comments: TAKE 2 TABLETS BY MOUTH 3 TIMES A DAY escitalopram oxalate 20 mg tablet 20 mg PO DAILY Label Comments: TAKE 1 TABLET BY MOUTH EVERY DAY trazodone 100 mg tablet 100 mg PO QHS Label Comments: TAKE 1 TABLET BY MOUTH EVERY DAY AT BEDTIME melatonin 5 mg tablet 5 mg PO QHS ondansetron 4 mg tablet,disintegrating 4 mg PO Q6H PRN (Reason: nausea and vomiting) Qty: 30 0RF rifaximin 50 mg PO.IVFORM DAILY Label Comments: pt unsure of dose pantoprazole 40 mg tablet,delayed release (DR/EC) 40 mg PO BIDCM Qty: 60 2RF lactulose 10 gram packet 20 g PO DAILY Qty: 30 2RF Primary Care Provider: Care Physician,No Primary Referrals: Care Physician,No Primary [Primary Care Provider] - Activity Restrictions/Additional Instructions: Follow-up with Dr. Hurley at [facility] as soon as able.
[2022-01-10] MEDS: Dicyclomine 20 MG/2 ML Vial IM (01:35)
[2022-01-10 01:48] LABS: Absolute Lymphocyte Count 1.17 X10^3/uL (0.83-4.51); Absolute Neutrophil Count 3.3 X10^3/uL (2.0-7.7); Basophil# 0.02 X10^3/uL; Basophil% 0.4 % (0-1); Eosinophil# 0.14 X10^3/uL; Eosinophils% 2.8 % (0-5); Hemoglobin 9.8 g/dL (12.0-15.0); Lymphocyte # 1.17 X10^3/ul (0.83-4.51); Lymphocyte % 23.4 % (19-41); Mean Corp Hgb Conc 32.7 g/dL (32-36); Mean Corpuscular Volume 91.7 fL (81-99); Mean Platelet Vol. 10.2 fl (6.2-12.0); Monocyte# 0.39 X10^3/uL; Monocyte% 7.8 % (0-10); NRBC Flagged by Analyzer 0 % (0-5); Neutrophil # 3.25 X10^3/uL (2.7-7.7); Neutrophil % 65.2 % (47-70); Platelet Count 111 K/mm3 (150-450); RBC Distribution Width CV 15.1 % (11.6-14.6); Red Blood Count 3.27 M/mm3 (4.2-5.4)
[2022-01-10 02:09] LABS: Internal QC Validated? YES +Cl - CLEAR BKGD
[2022-01-10 02:10] LABS: Pregnancy, Serum, hCG Quali. NEGATIVE Negative
[2022-01-10 02:17] LABS: ALB/GLOB Ratio 0.8 RATIO (0.9-2.4); AST(SGOT) 31 U/L (15-37); Alanine Aminotransfer ALT/SGPT 30 U/L (13-56); Albumin, Serum 2.7 g/dL (3.2-5.0); Alkaline Phosphatase 87 U/L (45-117); Anion Gap 8 (5-15); BUN 10 mg/dL (7-18); BUN/Creat Ratio 21.2 RATIO (10-20); Calcium,Total 8.5 mg/dL (8.5-10.1); Chloride 109 mmol/L (98-107); Creatinine, Serum 0.47 mg/dL (0.55-1.02); EST Glomerular Filtration Rate 164 mL/min (>60); Est Glom Filt Rate - Afr Amer 198 mL/min (>60); Estimated Creatinine Clearance 132.07 ml/min; Globulin 3.2 g/dL (2.2-4.2); Glucose 82 mg/dL (74-106); Lipase 138 U/L (73-393); Potassium 3.7 mmol/L (3.5-5.1); Protein, Total 5.9 g/dL (6.4-8.2); Sodium Level 141 mmol/L (136-145)
[2022-01-10] MEDS: Morphine 4 MG/ML Syringe IV (02:56)
[2022-01-10 03:00] VITALS: PULSE 89; RESP 16; O2SAT 99
== END 2022-01-10 03:00 | disposition home or self-care (01) ==
PROVIDERS: Emergency Provider Emergency Medicine; Visit Provider Emergency Medicine
DX: R10.84 Generalized abdominal pain (principal); R11.2 Nausea with vomiting, unspecified; K70.30 Alcoholic cirrhosis of liver without ascites; K70.10 Alcoholic hepatitis without ascites; E66.9 Obesity, unspecified; F17.210 Nicotine dependence, cigarettes, uncomplicated; Z79.899 Other long term (current) drug therapy
CPT/HCPCS: 80053; 82077; 83690; 84703; 85025; 96361; 96372; 96374; 96375; 99282; J7030; A4216; J2405; J3490

== ENCOUNTER 2022-01-11 13:42 | Emergency (ER) | payer MEDICAID, SELFPAY ==
[2022-01-11 13:43] VITALS: BP 157/102; PULSE 125; RESP 18; TEMP 36.6; O2SAT 99; BMI 33.0
--- NOTE | 2022-01-11 14:15 | EX.ED.DYSGE1 ---
HPI History of Present Illness Chief Complaint: Abd Pain Narrative Narrative: Patient presents with suprapubic and flank pain for 2 days as well as urinary frequency. No fevers or chills she does have some nausea with this. Dental abscess no upper abdominal pain. She does have history of liver cirrhosis but no recent color change in her eyes or skin. No recent right upper quadrant abdominal pain. No diarrhea or constipation. PFSH PFS Medical History Admitted to alcohol detoxification center Alcohol intoxication Alcohol withdrawal Alcoholic cirrhosis of liver Alcoholic hepatitis Anxiety and depression Esophageal varices Gallstone Gastroparesis Obesity Thrombocytopenia Tobacco use Home Medications buspirone 10 mg tablet 20 mg PO TID Check with primary doctor 09/30/21 [History Last Taken 09/29/21 19:00] escitalopram oxalate 20 mg tablet 20 mg PO DAILY 09/30/21 [History Last Taken 09/29/21 11:00] melatonin 5 mg tablet 5 mg PO QHS 09/30/21 [History Last Taken 09/29/21 21:00] thiamine HCl (vitamin B1) 100 mg tablet 100 mg PO DAILY 09/30/21 [History Last Taken 09/29/21 11:00] tizanidine 4 mg tablet 4 mg PO TID 09/30/21 [History Last Taken 09/29/21 21:00] trazodone 100 mg tablet 100 mg PO QHS 09/30/21 [History Last Taken 09/29/21 21:00] ondansetron 4 mg disintegrating tablet 4 mg PO Q6H PRN nausea and vomiting #30 tabs 10/03/21 [Rx Last Taken Unknown] rifaximin 50 mg PO.IVFORM DAILY 11/04/21 [History Last Taken Unknown] lactulose 10 gram oral packet 20 g PO DAILY #30 ea 12/06/21 [Rx Last Taken Unknown] pantoprazole 40 mg tablet,delayed release 40 mg PO BIDCM #60 tabs 12/06/21 [Rx Last Taken Unknown] Allergy/AdvReac Type Severity Reaction Status Date / Time ketorolac [From Toradol] AdvReac Nausea Verified 01/11/22 13:45 Family History Mother Alcohol abuse Hypertension Father Alcohol abuse Anxiety and depression Surgical History History of endoscopic gastrointestinal surgery Social History household members: other details: Recently following sobriety start moved with parents, broke with boyfriend. 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 substance use type: does not use ROS ROS ED ROS Narrative Past medical history: Reviewed Medications: Reviewed Social history: Noncontributory Review of systems: All systems negative except as indicated General: No fever Eyes: No visual changes ENT: No upper airway congestion, normal voice Neck: No neck pain Cardiovascular: No chest pain Respiratory: No shortness of breath or cough Gastrointestinal: Suprapubic pain and nausea. Bilateral flank pain Genitourinary: Urinary frequency Musculoskeletal: Denies myalgias no difficulty with ambulation Skin: No rash Neurological: No memory loss, confusion or any focal weakness Psych: No recent behavioral changes Hematologic: No easy bleeding or easy bruising EXAM Physical Exam Narrative Exam Narrative: Physical exam General: She appears slightly uncomfortable Head: Normocephalic, Atraumatic Eyes: Conjunctiva not pale ENT: Moist mucous membranes Neck: Supple, Nontender, No lymphadenopathy Cardiovascular: Regular rate, Regular rhythm Respiratory: No distress, CTA bilaterally Abdomen: Soft, there is some suprapubic pain to palpation. No guarding or rebound no right upper quadrant pain. Negative Anderson's. Back: Nontender, Normal Inspection. Bilateral CVA tenderness Extremities: Nontender, No edema Skin: Normal color, No rash Neurological: Alert, Normal Strength, Normal Sensation Psychological: Normal affect Const Vital Signs: 01/11/22 13:43 Temperature 98 F Temperature Source Temporal Pulse Rate 125 H Respiratory Rate 18 Blood Pressure 157/102 H Blood Pressure Mean 120 Pulse Ox 99 Oxygen Delivery Method Room Air MDM MDM MDM Narrative Medical decision making narrative: Patient has a normal ED work-up, she has had multiple CAT scans for similar symptoms in the past few months therefore I do not believe she needs a CAT scan especially that she has a benign exam. She was reassured and I will discharge her in stable condition. Lab Data Labs: Laboratory Results - last 24 hr 01/11/22 01/11/22 01/11/22 14:40 14:50 14:50 WBC 5.9 RBC 3.91 L Hgb 11.6 L Hct 35.3 L MCV 90.3 MCH 29.7 MCHC 32.9 RDW Std Deviation 49.3 H RDW Coeff of Lee 14.8 H Plt Count 122 L MPV 9.9 Immature Gran % (Auto) 0.200 Neut % (Auto) 79.4 H Lymph % (Auto) 14.5 L [place] % (Auto) 4.4 Eos % (Auto) 1.2 Baso % (Auto) 0.3 Absolute Neuts (auto) 4.7 Absolute Lymphs (auto) 0.85 Nucleated RBC % 0 Sodium 143 Potassium 3.5 Chloride 110 H Carbon Dioxide 25.0 Anion Gap 8 BUN 9 Creatinine 0.55 Estim Creat Clear Calc 112.86 Est GFR (MDRD) Af Amer 165 Est GFR (MDRD) Non-Af 137 BUN/Creatinine Ratio 16.3 Glucose 111 H Calcium 9.2 Total Bilirubin 0.70 AST 50 H ALT 44 Alkaline Phosphatase 109 Total Protein 7.0 Albumin 3.4 Globulin 3.6 Albumin/Globulin Ratio 0.9 Urine Color Yellow Urine Clarity Clear Urine pH 6.5 Ur Specific [place] 1.010 Urine Protein 30 H Urine Glucose (UA) Normal Urine Ketones Negative Urine Occult Blood 150 H Urine Nitrite Negative Urine Bilirubin Negative Urine Urobilinogen Normal Ur Leukocyte Esterase Negative Urine RBC 10-25 SEEN Urine WBC 0-5 SEEN Ur Squamous Epith Cells 0-5 SEEN Urine Bacteria 1+ Urine Mucus 0 SEEN Discharge Plan Triage Chief Complaint: Abd Pain ED Provider: Jaime Huang Dx/Rx/DC Orders Clinical Impression: Recurrent abdominal pain, Nausea and vomiting Instructions: Abdominal Pain Prescriptions: No Action tizanidine 4 mg tablet 4 mg PO TID Label Comments: TAKE 1 TABLET BY MOUTH THREE TIMES A DAY thiamine HCl (vitamin B1) 100 mg tablet 100 mg PO DAILY Label Comments: TAKE 1 TABLET BY MOUTH EVERY DAY buspirone 10 mg tablet 20 mg PO TID Label Comments: TAKE 2 TABLETS BY MOUTH 3 TIMES A DAY escitalopram oxalate 20 mg tablet 20 mg PO DAILY Label Comments: TAKE 1 TABLET BY MOUTH EVERY DAY trazodone 100 mg tablet 100 mg PO QHS Label Comments: TAKE 1 TABLET BY MOUTH EVERY DAY AT BEDTIME melatonin 5 mg tablet 5 mg PO QHS ondansetron 4 mg tablet,disintegrating 4 mg PO Q6H PRN (Reason: nausea and vomiting) Qty: 30 0RF rifaximin 50 mg PO.IVFORM DAILY Label Comments: pt unsure of dose pantoprazole 40 mg tablet,delayed release (DR/EC) 40 mg PO BIDCM Qty: 60 2RF lactulose 10 gram packet 20 g PO DAILY Qty: 30 2RF Primary Care Provider: Care Physician,No Primary Referrals: Care Physician,No Primary [Primary Care Provider] - 3-5 Days Disposition Disposition: Home, Self Care
[2022-01-11 15:00] LABS: Mucous, Urine 0 SEEN /hpf (<or=2+)
[2022-01-11 15:00] LABS: Absolute Lymphocyte Count 0.85 X10^3/uL (0.83-4.51); Absolute Neutrophil Count 4.7 X10^3/uL (2.0-7.7); Basophil# 0.02 X10^3/uL; Basophil% 0.3 % (0-1); Eosinophil# 0.07 X10^3/uL; Eosinophils% 1.2 % (0-5); Hematocrit 35.3 % (37-47); Hemoglobin 11.6 g/dL (12.0-15.0); Lymphocyte # 0.85 X10^3/ul (0.83-4.51); Lymphocyte % 14.5 % (19-41); Mean Corp Hgb Conc 32.9 g/dL (32-36); Mean Corpuscular Hgb 29.7 pg (27.0-32.0); Mean Corpuscular Volume 90.3 fL (81-99); Mean Platelet Vol. 9.9 fl (6.2-12.0); Monocyte# 0.26 X10^3/uL; Monocyte% 4.4 % (0-10); NRBC Flagged by Analyzer 0 % (0-5); Neutrophil # 4.66 X10^3/uL (2.7-7.7); Neutrophil % 79.4 % (47-70); Platelet Count 122 K/mm3 (150-450); RBC Distribution Width CV 14.8 % (11.6-14.6); RBC Distribution Width SD 49.3 fl (35.1-43.9); Red Blood Count 3.91 M/mm3 (4.2-5.4); White Blood Count 5.9 K/mm3 (4.4-11.0)
[2022-01-11 15:03] LABS: Color, Urine Yellow (Yellow); Glucose, Dipstick Normal (Normal); Ketone-Dipstick Negative (Negative); Leukocyte Esterase-Dipstick Negative /ul (Negative); Nitrite-Dipstick Negative (Negative); Occult Blood-Urine 150 /ul (Negative); Protein-Dipstick 30 mg/dl (Negative); Urine Bilirubin Dipstick Negative (Negative); Urine Clarity Clear (Clear); Urine Urobilinogen Normal (Normal); Urine pH 6.5 (5.0 - 8.0)
[2022-01-11 15:20] LABS: ALB/GLOB Ratio 0.9 RATIO (0.9-2.4); AST(SGOT) 50 U/L (15-37); Alanine Aminotransfer ALT/SGPT 44 U/L (13-56); Albumin, Serum 3.4 g/dL (3.2-5.0); Alkaline Phosphatase 109 U/L (45-117); Anion Gap 8 (5-15); BUN 9 mg/dL (7-18); BUN/Creat Ratio 16.3 RATIO (10-20); Calcium,Total 9.2 mg/dL (8.5-10.1); Chloride 110 mmol/L (98-107); Creatinine, Serum 0.55 mg/dL (0.55-1.02); EST Glomerular Filtration Rate 137 mL/min (>60); Est Glom Filt Rate - Afr Amer 165 mL/min (>60); Estimated Creatinine Clearance 112.86 ml/min; Globulin 3.6 g/dL (2.2-4.2); Glucose 111 mg/dL (74-106); Potassium 3.5 mmol/L (3.5-5.1); Sodium Level 143 mmol/L (136-145)
[2022-01-11] MEDS: 0.9% Normal Saline 1,000 ML 1000 ML IV (15:27)
[2022-01-11] MEDS: Ondansetron 4 MG/2 ML Vial IV (15:28)
--- NOTE | 2022-01-11 15:37 | CM.ED ---
SW Note SW met with patient as registration face sheet said patient had no PCP. Patient reportts she has a PCP, Dr. Hooker in [place]. Maddy VELARDE
[2022-01-11 15:41] LABS: Red Blood Cells-Urine 10-25 SEEN /hpf (0-5); White Blood Cells 0-5 SEEN /hpf (0-5)
[2022-01-11 15:42] LABS: Bacteria 1+ /hpf (None Seen); Squamous Epithelial Cells - UA 0-5 SEEN /hpf (5-10)
[2022-01-11 16:18] VITALS: RESP 16
== END 2022-01-11 16:19 | disposition home or self-care (01) ==
PROVIDERS: Emergency Provider Emergency Medicine; Visit Provider Emergency Medicine
DX: R10.9 Unspecified abdominal pain (principal); K70.30 Alcoholic cirrhosis of liver without ascites; R11.2 Nausea with vomiting, unspecified; K70.10 Alcoholic hepatitis without ascites; R35.0 Frequency of micturition; E66.9 Obesity, unspecified; F17.210 Nicotine dependence, cigarettes, uncomplicated; Z79.899 Other long term (current) drug therapy
CPT/HCPCS: 80053; 81001; 85025; 96361; 96374; 99283; J7030; A4216; J2405

== ENCOUNTER 2022-01-14 03:38 | Emergency (ER) | payer MEDICAID, SELFPAY ==
[2022-01-14 03:39] VITALS: BP 168/104; PULSE 114; RESP 15; TEMP 37.2; O2SAT 98; BMI 32.7
--- NOTE | 2022-01-14 04:00 | ED.VIS.GI ---
HPI HPI - GI History of Present Illness Chief Complaint: Abd Pain Informant: patient Abdominal Pain/Flank Pain Onset: Days (3) Context: - (chronic issue, recurrent and severe x 3d) Timing: Continuous Quality: Aching Location: Diffuse (maybe worse upper abd) Current Severity: Severe Maximum Severity: Severe Worsened by: - (vomiting) Relieved by: Nothing Nausea/Vomiting/Emesis GI Symptom: Positive for Nausea and Vomiting Onset: Days (3) Quality: Positive for Hematemesis (for the past 10 hrs, 30-40 episodes) Severity: Severe Diarrhea/Melena/Hematochezia GI Symptom: Negative for Diarrhea, Melena or Hematochezia Narrative Narrative: Patient is been having chronic diffuse abdominal pain and vomiting in relation to her cirrhosis, this time has been for over 3-4 weeks, and she states it has been worse for the past 3 days now to the point tonight where she is vomiting blood again. She states she has vomiting a lot of blood, but sometimes it looks like streaks. She has a history of esophageal varices and is concerned because of that. 3-4 weeks ago, when I saw her myself for this same problem initially, she wanted to be transferred to [facility], we did that and she states she had a 5-day stay there with medications, no EGD, and they discharged her. Since then, she has had 3 other visits to this emergency department, for including this 1 all for the same symptoms (with regards to abdominal pain and vomiting) according to the patient. She has an appointment with her measurement specialist Dr. Hurley at [facility] in 2 weeks. [facility] Medical History Admitted to alcohol detoxification center Alcohol intoxication Alcohol withdrawal Alcoholic cirrhosis of liver Alcoholic hepatitis Anxiety and depression Esophageal varices Gallstone Gastroparesis Obesity Thrombocytopenia Tobacco use Home Medications buspirone 10 mg tablet 20 mg PO TID 09/30/21 [History Last Taken 09/29/21 19:00] escitalopram oxalate 20 mg tablet 20 mg PO DAILY 09/30/21 [History Last Taken 09/29/21 11:00] melatonin 5 mg tablet 5 mg PO QHS 09/30/21 [History Last Taken 09/29/21 21:00] thiamine HCl (vitamin B1) 100 mg tablet 100 mg PO DAILY 09/30/21 [History Last Taken 09/29/21 11:00] tizanidine 4 mg tablet 4 mg PO TID 09/30/21 [History Last Taken 09/29/21 21:00] trazodone 100 mg tablet 100 mg PO QHS 09/30/21 [History Last Taken 09/29/21 21:00] ondansetron 4 mg disintegrating tablet 4 mg PO Q6H PRN nausea and vomiting #30 tabs 10/03/21 [Rx Last Taken Unknown] lactulose 10 gram oral packet 20 g PO DAILY #30 ea 12/06/21 [Rx Last Taken Unknown] pantoprazole 40 mg tablet,delayed release 40 mg PO BIDCM #60 tabs 12/06/21 [Rx Last Taken Unknown] Allergy/AdvReac Type Severity Reaction Status Date / Time ketorolac [From Toradol] AdvReac Nausea Verified 01/14/22 03:44 Family History Mother Alcohol abuse Hypertension Father Alcohol abuse Anxiety and depression Surgical History History of endoscopic gastrointestinal surgery Social History household members: other details: Recently following sobriety start moved with parents, broke with boyfriend. 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 substance use type: does not use ROS ROS ED Constitutional Constitutional ED: Denies chills or fever(s) Eyes Eyes: Denies change in vision or diplopia ENT ENT ED: Denies rhinorrhea or sore throat Cardiovascular Cardiovascular: Denies chest pain or palpitations Respiratory/Chest Respiratory/Chest: Denies cough or dyspnea Gastrointestinal Gastrointestinal: Reports abdominal pain, hematemesis, nausea and vomiting; Denies diarrhea Genitourinary Genitourinary ED: Denies dysuria or hematuria Musculoskeletal Musculoskeletal: Denies back pain or neck pain Integumentary Denies abscess or rash Neurologic Neurologic: Denies headache(s), paresthesias or weakness Psychiatric Psychiatric: Reports anxiety; Denies suicidal thoughts EXAM Physical Exam Const Vital Signs: 01/14/22 03:39 01/14/22 06:45 Temperature 98.9 F Temperature Source Temporal Pulse Rate 114 H 120 H Respiratory Rate 15 22 H Blood Pressure 168/104 H 157/105 H Blood Pressure Mean 125 122 Pulse Ox 98 94 Oxygen Delivery Method Room Air Room Air Positive well nourished and well developed General Appearance ED: well developed and NAD HEENT Reports moist mucous membranes normocephalic and atraumatic Eyes PERRL and EOMs intact bilaterally General Eye ED: Negative for scleral icterus Neck full ROM and supple Resp normal respiratory effort and clear to auscultation bilaterally Cardio regular rate, regular rhythm and no murmurs Rate: tachycardic GI non-distended GI Narrative: Diffuse tenderness, worst in epigastrium no guarding or rebound tenderness. Auscultation: normoactive bowel sounds Palpation: soft Back/Spine no CVA tenderness General Back: other FROM Extremity normal to inspection General Extremety ED: Negative for edema, pulses abnormal or tenderness General Extremity: Negative for edema or pulses abnormal Neuro oriented x3, CN's II-XII intact bilaterally and no sensory deficits noted Sensorium / Orientation: awake and alert Motor Exam: strength 5/5 throughout Psych mental status grossly normal and thought process normal Mood & Affect: anxious Skin no rashes or lesions noted and no wounds General Skin Exam: Negative for jaundice MDM MDM MDM Narrative Medical decision making narrative: Labs are unremarkable in this patient, and as a matter fact her hemoglobin is 12 now. Most of the time she is in the nines. Ordinarily I would say this may be due to dehydration, but she is maybe borderline at this time. More importantly, she is not acutely anemic, nor does she have a high BUN to suggest an acute significant upper GI bleed. Furthermore we put an NG tube in her which she agreed to this time, she had no blood so it was removed. She had very little nonbilious output. She continued to pace [id number] throughout the ER for most of the night time nanny to and from the restroom and multiple times nursing found her sticking her finger and sometimes her entire hand on her throat to try to force emesis. When I asked her about this, she states she feels so nauseated that sometimes she gets brief improvement after vomiting, I reminded her that it would be difficult for us to assess whether she was improved or not with all of the medications we were giving her if she continues to do this, she knows that she should not be. She was telling her she was still nauseated after getting fluids, Zofran, and Thorazine which helped her last time. I additionally gave her Reglan, she said that started to help her nausea. An initial dose of morphine did not help her pain, so I am giving her another dose prior to discharge. Since she had even the Zofran she has had no vomiting other than when she forces herself to do it. The symptoms are chronic she understands that. At 1 point she asked me if I was going to transfer her to [facility] that I would be okay with that, however the last time she was there they did nothing other than what we have been doing here in the emergency department, which I reminded her of, and in addition I see no acute reason to send her there tonight. She currently does not need emergent GI management/intervention. Additionally, not comfortable discharging her on narcotics and she has multiple prescriptions over the last few years from multiple providers, and an addiction problem in the past. She wanted something else for pain. I did offer her another dose of analgesics, under the requirement that she secures a ride home. She states she has no one to call for a ride. Nursing gave her the option of taking a taxi home and getting the analgesics, she states she has no money for a taxi. She is well-appearing and has again been walking the halls. For these reasons she wants to drive her self home, she has been here for several hours since last time we gave her antiemetics, so I am canceling the second dose of morphine. Lab Data Attestation: I reviewed the patient's lab results. Labs: Laboratory Results - last 24 hr 01/14/22 01/14/22 04:20 04:20 WBC 10.1 RBC 4.01 L Hgb 12.0 Hct 36.8 L MCV 91.8 MCH 29.9 MCHC 32.6 RDW Std Deviation 49.7 H RDW Coeff of Lee 14.7 H Plt Count 170 MPV 10.0 Immature Gran % (Auto) 0.400 Neut % (Auto) 94.3 H Lymph % (Auto) 4.4 L Dougherty % (Auto) 0.7 Eos % (Auto) 0.1 Baso % (Auto) 0.1 Absolute Neuts (auto) 9.5 H Absolute Lymphs (auto) 0.44 L Nucleated RBC % 0 Anisocytosis 1+ Sodium 141 Potassium 3.8 Chloride 106 Carbon Dioxide 26.0 Anion Gap 9 BUN 13 Creatinine 0.65 Estim Creat Clear Calc 95.50 Est GFR (MDRD) Af Amer 137 Est GFR (MDRD) Non-Af 113 BUN/Creatinine Ratio 20.0 Glucose 178 H Calcium 9.5 Total Bilirubin 1.00 AST 38 H ALT 38 Alkaline Phosphatase 118 H Total Protein 7.7 Albumin 3.7 Globulin 4.0 Albumin/Globulin Ratio 0.9 Lipase 61 L Discharge Plan Triage Chief Complaint: Abd Pain ED Provider: Phan Huitron Dx/Rx/DC Orders Clinical Impression: Recurrent abdominal pain, Nausea and vomiting Instructions: ED Diet for Vomiting or ... Prescriptions: No Action tizanidine 4 mg tablet 4 mg PO TID Label Comments: TAKE 1 TABLET BY MOUTH THREE TIMES A DAY thiamine HCl (vitamin B1) 100 mg tablet 100 mg PO DAILY Label Comments: TAKE 1 TABLET BY MOUTH EVERY DAY buspirone 10 mg tablet 20 mg PO TID Label Comments: TAKE 2 TABLETS BY MOUTH 3 TIMES A DAY escitalopram oxalate 20 mg tablet 20 mg PO DAILY Label Comments: TAKE 1 TABLET BY MOUTH EVERY DAY trazodone 100 mg tablet 100 mg PO QHS Label Comments: TAKE 1 TABLET BY MOUTH EVERY DAY AT BEDTIME melatonin 5 mg tablet 5 mg PO QHS ondansetron 4 mg tablet,disintegrating 4 mg PO Q6H PRN (Reason: nausea and vomiting) Qty: 30 0RF pantoprazole 40 mg tablet,delayed release (DR/EC) 40 mg PO BIDCM Qty: 60 2RF lactulose 10 gram packet 20 g PO DAILY Qty: 30 2RF Primary Care Provider: Care Physician,No Primary Referrals: Dr. Mei [Other] - Keep [facility] appointment (May call to see if you can get in sooner) Care Physician,No Primary [Primary Care Provider] - Disposition Disposition: Home, Self Care
[2022-01-14] MEDS: Ondansetron 4 MG/2 ML Vial IV (04:26)
[2022-01-14] MEDS: Morphine 4 MG/ML Syringe IV (04:30)
[2022-01-14 04:31] LABS: Absolute Lymphocyte Count 0.44 X10^3/uL (0.83-4.51); Absolute Neutrophil Count 9.5 X10^3/uL (2.0-7.7); Basophil# 0.01 X10^3/uL; Basophil% 0.1 % (0-1); Eosinophil# 0.01 X10^3/uL; Eosinophils% 0.1 % (0-5); Hematocrit 36.8 % (37-47); Lymphocyte # 0.44 X10^3/ul (0.83-4.51); Lymphocyte % 4.4 % (19-41); Mean Corp Hgb Conc 32.6 g/dL (32-36); Mean Corpuscular Hgb 29.9 pg (27.0-32.0); Mean Corpuscular Volume 91.8 fL (81-99); Monocyte# 0.07 X10^3/uL; Monocyte% 0.7 % (0-10); NRBC Flagged by Analyzer 0 % (0-5); Neutrophil # 9.49 X10^3/uL (2.7-7.7); Neutrophil % 94.3 % (47-70); POSITIVE DIFFERENTIAL YES; Platelet Count 170 K/mm3 (150-450); RBC Distribution Width CV 14.7 % (11.6-14.6); RBC Distribution Width SD 49.7 fl (35.1-43.9); Red Blood Count 4.01 M/mm3 (4.2-5.4); White Blood Count 10.1 K/mm3 (4.4-11.0)
[2022-01-14 04:35] LABS: Differential Indicated SCAN CRITERIA MET
[2022-01-14 04:50] LABS: Anisocytosis 1+
[2022-01-14] MEDS: 0.9% Normal Saline 1,000 ML 1000 ML IV (04:51)
[2022-01-14] MEDS: ChlorproMAZINE 50 MG/2 ML Ampul 25 MG IV (04:51)
[2022-01-14] MEDS: Oxymetazoline 0.05% 1 SPRAY SPRAY.BTL 2 SPRAY NASAL (04:51)
[2022-01-14 04:53] LABS: ALB/GLOB Ratio 0.9 RATIO (0.9-2.4); AST(SGOT) 38 U/L (15-37); Alanine Aminotransfer ALT/SGPT 38 U/L (13-56); Albumin, Serum 3.7 g/dL (3.2-5.0); Alkaline Phosphatase 118 U/L (45-117); Anion Gap 9 (5-15); BUN 13 mg/dL (7-18); Calcium,Total 9.5 mg/dL (8.5-10.1); Chloride 106 mmol/L (98-107); Creatinine, Serum 0.65 mg/dL (0.55-1.02); EST Glomerular Filtration Rate 113 mL/min (>60); Est Glom Filt Rate - Afr Amer 137 mL/min (>60); Glucose 178 mg/dL (74-106); Lipase 61 U/L (73-393); Potassium 3.8 mmol/L (3.5-5.1); Protein, Total 7.7 g/dL (6.4-8.2); Sodium Level 141 mmol/L (136-145)
--- NOTE | 2022-01-14 05:00 | ED.RN ---
this RN entered patient's room and observed patient with her fingers in her mouth gagging herself. Patient informed to stop and also notified Dr Huitron.
[2022-01-14] MEDS: Metoclopramide 10 MG/2 ML Vial 5 MG IV (06:22)
--- NOTE | 2022-01-14 06:30 | ED.RN ---
ATTEMPTED TO START NEW IV SITE IN [facility] AND UNSUCCESSFUL. PT'S EXISTING IV IS INFUSING IV FLUIDS WITHOUT INFILTRATION. REGLAN WAS GIVEN THERE.PT STATES SHE DID NOT THINK HER IV WAS WORKING BECAUSE SHE DID NOT FEEL HER PAIN MEDS.PT MADE AWARE THAT HER IV IS FINE LONG SHE KEEPS HER ARM STRAIGHT.REMIND PT TO STOP PUTTING HER FINGERS IN HER MOUTH TRYING TO MAKE HERSELF VOMIT.
[2022-01-14 06:45] VITALS: BP 157/105; PULSE 120; RESP 22; O2SAT 94
[2022-01-14 08:02] VITALS: BP 128/68; PULSE 72; RESP 18; O2SAT 99
== END 2022-01-14 08:04 | disposition home or self-care (01) ==
PROVIDERS: Emergency Provider Emergency Medicine; Visit Provider Emergency Medicine
DX: R10.84 Generalized abdominal pain (principal); K74.60 Unspecified cirrhosis of liver; G89.29 Other chronic pain; K92.0 Hematemesis; F17.210 Nicotine dependence, cigarettes, uncomplicated; Z79.899 Other long term (current) drug therapy
CPT/HCPCS: 80053; 83690; 85025; 96361; 96374; 96375; 99284; J7030; A4216; J2405